=== PATIENT | female | born 1955 | race American Indian/Alaskan Native ===

== ENCOUNTER 2019-09-01 08:00 | Outpatient (CLI) | payer MEDICARE, MEDICAID ==
[2019-09-02 18:45] LABS: CANDIDA GROUP DNA NEGATIVE (NEGATIVE); CANDIDA KRUSEI DNA NEGATIVE (NEGATIVE); TRICHOMONAS VAGINALIS DNA POSITIVE (NEGATIVE)
[2019-09-02 20:58] LABS: TRICHOMONAS VAGINALIS DNA POSITIVE (NEGATIVE)
== END 2019-09-01 23:59 | disposition home or self-care (01) ==
LOC: LAB.R 08:00
PROVIDERS: ATTEND Obstetrics & Gynecology
DX: N89.8 Other specified noninflammatory disorders of vagina (principal)
CPT/HCPCS: 87491; 87591; 87661; 87801

== ENCOUNTER 2019-09-12 14:48 | Outpatient (CLI) | payer MEDICARE, MEDICAID ==
--- NOTE | 2019-09-15 04:13 | Ultrasound Report ---
Reason: POSTMENOPAUSAL BLEEDING Procedure Date: 09/12/2019 Accession Number: [id number] / [id number] Procedure: US - Pelvic w/Transvaginal CPT Code: Final Report FULL RESULT: EXAM: PELVIC ULTRASOUND EXAM DATE: 09/12/2019 03:00 PM. CLINICAL HISTORY: POSTMENOPAUSAL BLEEDING. COMPARISON: None. TECHNIQUE: Realtime transabdominal pelvic scan performed to identify the uterus and adnexa and as an overview of other pelvic structures, followed by transvaginal scan to provide greater detail of the uterus and adnexa, with static image documentation. FINDINGS: Uterus: 5.4 x 3.3 x 4.0 cm, volume 37.9 cc. Anteverted position. Heterogeneous uterus without focal fibroid or mass. Masses: None. Endometrium: 5 mm. Small fluid within endometrium. Cervix: Nabothian cysts. Small endocervical fluid. Right Ovary: Right ovary not seen probably due to combination of atrophy and bowel gas. Left Ovary: Left ovary not seen due to atrophy and bowel gas. Free Fluid: None. Other: None. IMPRESSION: 1. Normal postmenopausal endometrial thickness, 5 mm. 2. Small endometrial and endocervical fluid, nonspecific. 3. Ovaries not seen due to atrophy and bowel gas. RADIA
== END 2019-09-12 14:49 | disposition home or self-care (01) ==
LOC: DI 14:48
PROVIDERS: ATTEND Obstetrics & Gynecology
DX: N95.0 Postmenopausal bleeding (principal)
CPT/HCPCS: 76830; 76856

== ENCOUNTER 2019-12-19 15:39 | Outpatient (CLI) | payer MEDICARE, MEDICAID ==
--- NOTE | 2019-12-19 23:11 | Ultrasound Report ---
Reason: POSTMENOPAUSAL BLEEDING Procedure Date: 12/19/2019 Accession Number: [id number] / [id number] Procedure: US - Pelvic w/Transvaginal CPT Code: Final Report FULL RESULT: PROCEDURE: Pelvic w/Transvaginal INDICATIONS: POSTMENOPAUSAL BLEEDING TECHNIQUE: Real-time scanning was performed of the pelvic organs, with image documentation. Additional endovaginal scanning was necessary due to incomplete visualization of the adnexal and endometrial structures by transabdominal scanning. COMPARISON: Pelvic ultrasound 09/12/2019. FINDINGS: Transabdominal scanning: Limited scanning through the kidneys shows no hydronephrosis. Transvaginal exam not performed. Endovaginal scanning: Uterus: Uterus is normal in size at 6.8 x 5.6 x 2.9 cm. Myometrium is somewhat heterogeneous. The endometrium measures 5 mm in combined thickness. Trace fluid in the endometrial cavity. Ovaries: Not identified. IMPRESSION: Limited exam. The patient was unable to tolerate transvaginal portion of the exam. 1. Endometrium measures 5 mm in this postmenopausal patient with bleeding. Endometrial biopsy should be performed if not previously performed. 2. Trace fluid in the endometrial canal. 3. Ovaries not identified. Reviewed by: Fernando Calderon MD on 12/19/2019 11:10 PM PDT Approved by: Fernando Calderon MD on 12/19/2019 11:10 PM PDT Station ID: [id number]
== END 2019-12-19 15:40 | disposition home or self-care (01) ==
LOC: DI 15:39
PROVIDERS: ATTEND Obstetrics & Gynecology
DX: N95.0 Postmenopausal bleeding (principal)
CPT/HCPCS: 76830; 76856

== ENCOUNTER 2020-01-21 11:43 | Day surgery (SDC) | payer MEDICARE, MEDICAID ==
--- NOTE | 2020-01-20 17:12 | HISTORY & PHYSICAL EXAMINATION ---
HPI - Admitted From Admitted from: Other - History of Present Illness HPI Comment/Other: CC: PreOp Consult: Hysteroscopy D&C HPI: Pt is here today for a preop consult for hysteroscopy D&C ...................................................................DALILA Valentino January 15, 2020 3:02 PM The patient is a 64-year-old here for preop assessment for hysteroscopy D&C. The patient was last seen in clinic in September 01, 2019, at which time she reported that she has been having brown discharge for about a month. She is not sexually active and reports that her last sexual activity was 13 years ago. She had a history of abnormal Pap smear for which she underwent cryotherapy in her 20s. She believes her last Pap smear was about 8 years ago. She also had a history of Trichomonas in her 20s. We had attempted to do an endometrial biopsy in clinic back in August but she was unable to tolerate a speculum exam. She underwent a pelvic ultrasound but she was unable to tolerate the transvaginal portion of the ultrasound. The transabdominal ultrasound was done on September 12, 2019 and was again repeated on December 19, 2019. Both showed a thickened endometrial stripe measuring 5 mm in combined thickness with trace fluid in the endometrial cavity The exam was noted to be limited due to the patient's intolerance of the transvaginal portion of the exam. On September 12, 2019, ultrasound also showed 5 mm stripe with small fluid within the endometrium. The patient provides somewhat disjointed history and was unable to recall the details of the prior exam. She notes no significant changes in her past medical history. She states that she has right upper quadrant tenderness that has been ongoing. She thinks that it is from the time of her cholecystectomy. The cholecystectomy was performed about a year ago. She reports that her arthritis has worsened and she is generally losing her coordination but no other significant changes. She lives in a nursing home and will require transport after her surgery, that has been coordinated with the surgical office. Continued HPI: She also notes that she becomes agitated after anesthesia and has baseline emphysema. For this reason, we conferred with the anesthesia service with regards for need to consult. They reviewed her chart and do not believe she needs a preoperative consult. No change in health history other than as noted above. Allergies: PENICILLIN V POTASSIUM (Critical) * NICOTINE PATCH (Critical) STEROIDS (Critical) Medications: METRONIDAZOLE 500 MG ORAL TABLET (METRONIDAZOLE) Take one tablet by mouth twice daily for 7 days; Route: ORAL ZOLPIDEM TARTRATE 10 MG ORAL TABLET (ZOLPIDEM TARTRATE) Take one tablet by mouth at bedtime as needed for insomnia; Route: ORAL SPIRIVA HANDIHALER 18 MCG INHALATION CAPSULE (TIOTROPIUM BROMIDE MONOHYDRATE) Inhale one capsuleby mouth every morning; Route: INHALATION SENNA LAX 8.6 MG ORAL TABLET (SENNOSIDES) ; Route: ORAL QUETIAPINE FUMARATE 200 MG ORAL TABLET (QUETIAPINE FUMARATE) ; Route: ORAL QUETIAPINE FUMARATE 400 MG ORAL TABLET (QUETIAPINE FUMARATE) ; Route: ORAL PROAIR HFA 108 (90 BASE) MCG/ACT INHALATION AEROSOL SOLUTION (ALBUTEROL SULFATE) 2 puffs orally up to every 4 hrs as needed for wheezing; Route: INHALATION MONTELUKAST SODIUM 10 MG ORAL TABLET (MONTELUKAST SODIUM) Take one tablet by mouth once daily for allergies or asthma; Route: ORAL METAMUCIL FIBER PACKET (PSYLLIUM PACK) LAMOTRIGINE 100 MG ORAL TABLET (LAMOTRIGINE) Take one tablet by mouth once daily; Route: ORAL HYDROXYZINE HCL 25 MG ORAL TABLET (HYDROXYZINE HCL) Take one tablet by mouth four times daily as needed; Route: ORAL FAMOTIDINE 20 MG ORAL TABLET (FAMOTIDINE) Take one tablet by mouth once daily for indigestion; Route: ORAL DULERA 200-5 MCG/ACT INHALATION AEROSOL (MOMETASONE FURO-FORMOTEROL FUM) ; Route: INHALATION ACETAMINOPHEN 325 MG ORAL TABLET (ACETAMINOPHEN) Take two tablets by mouth three times daily as needed for pain or fever; Route: ORAL Problems: Preop exam (ICD-V72.84) (IKK17-U09.818) Postmenopausal bleeding (ICD-627.1) (GEQ22-F81.0) Vaginal discharge (ICD-623.5) (ULQ52-T03.8) Risk Factors: Smoked Tobacco Use: Current every day smoker Cigarettes: Yes -- 1.5 pack(s) per day,Exercise: no Seatbelt Use: 100 % Sun Exposure: occasionally Alcohol Use: no Drug Use: yes Drug of Choice: marijuana Vital Signs: Patient Profile: 64 Years Old Female Height: 67.5 inches Weight: 305 pounds BMI: 47.23 BP sittin / 87 Cuff size: large Vitals Entered By: DALILA Valentino (January 15, 2020 3:02 PM) Meds Reviewed: Done Allergies Reviewed: Done Past Medical History: arthritis emphysema/COPD gall bladder disease asthma hypoglycemia Past Surgical History: appendix (1969) gall bladder (2019) Tonsils and adnoids (1965) 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 Physical Constitutional: No apparent distress, but the patient seems easily confused. Head: Normocephalic and atraumatic. Eyes: No scleral icterus or conjunctival injection. Cardiovascular: Regular rate and rhythm. Respiratory: The patient does have recurrent cough but her lungs are clear to auscultation bilaterally. Abdomen: Obese, soft and nontender other than area of point tenderness immediately below her cholecystectomy scar. Extremities: Warm and well perfused. Neurologic: Alert, somewhat disoriented with regard to her personal history. Gait is rambling, somewhat limited. Psych: Tangential conversation and difficulty with recalling events. Problem # 1: Preoperative exam We reviewed the risks, benefits, and alternatives to examination under anesthesia as well as hysteroscopy D&C with possible polypectomy. We discussed the potential for pretreatment with Misoprostol. The patient did not believe she will be able to place Misoprostol on the vagina nor will she be able to recall the need for Misoprostol by mouth the night prior so we will opt to not pretreat her with Misoprostol. We reviewed that all surgical procedures have high risk of bleeding/infection/damaged nearby tissue and organs. We reviewed the risk of infection includes 1:2 million the risk of HIV and a 1:1 million risk of hepatitis, but it is more common as possible reactions to the proteins in the donor blood which we treat with medication. In terms of infection, we do not need to pretreat with antibiotics based on ACOG guidelines. We also reviewed the risk of uterine perforation and how that would be managed. The patient voiced understanding and written and informed consent was obtained. We will follow up with surgery on January 21, 2020. Again, we did have a telephone consult with anesthesia who understood the limitations of the patient's transport issues. They do not believe that she needs a preanesthesia consult in a [id number] context. + Gender ID Identifies as Female P: 1 L: 1 Height: 67.5 (09/01/2019 9:17:51 AM) Weight: 305 Gonnorrhea: INDETERMINATE (09/01/2019 10:15:00 AM) Chlamydia: INDETERMINATE (09/01/2019 10:15:00 AM) Gonnorrhea: INDETERMINATE (09/01/2019 10:15:00 AM) Chlamydia: INDETERMINATE (09/01/2019 10:15:00 AM) Current Allergies: PENICILLIN V POTASSIUM (Critical) * NICOTINE PATCH (Critical) STEROIDS (Critical) Current Meds: METRONIDAZOLE 500 MG ORAL TABLET (METRONIDAZOLE) Take one tablet by mouth twice daily for 7 days; Route: ORAL ZOLPIDEM TARTRATE 10 MG ORAL TABLET (ZOLPIDEM TARTRATE) Take one tablet by mouth at bedtime as needed for insomnia; Route: ORAL SPIRIVA HANDIHALER 18 MCG INHALATION CAPSULE (TIOTROPIUM BROMIDE MONOHYDRATE) Inhale one capsuleby mouth every morning; Route: INHALATION SENNA LAX 8.6 MG ORAL TABLET (SENNOSIDES) ; Route: ORAL QUETIAPINE FUMARATE 200 MG ORAL TABLET (QUETIAPINE FUMARATE) ; Route: ORAL QUETIAPINE FUMARATE 400 MG ORAL TABLET (QUETIAPINE FUMARATE) ; Route: ORAL PROAIR HFA 108 (90 BASE) MCG/ACT INHALATION AEROSOL SOLUTION (ALBUTEROL SULFATE) 2 puffs orally up to every 4 hrs as needed for wheezing; Route: INHALATION MONTELUKAST SODIUM 10 MG ORAL TABLET (MONTELUKAST SODIUM) Take one tablet by mouth once daily for allergies or asthma; Route: ORAL METAMUCIL FIBER PACKET (PSYLLIUM PACK) LAMOTRIGINE 100 MG ORAL TABLET (LAMOTRIGINE) Take one tablet by mouth once daily; Route: ORAL HYDROXYZINE HCL 25 MG ORAL TABLET (HYDROXYZINE HCL) Take one tablet by mouth fo ur times daily as needed; Route: ORAL FAMOTIDINE 20 MG ORAL TABLET (FAMOTIDINE) Take one tablet by mouth once daily for indigestion; Route: ORAL DULERA 200-5 MCG/ACT INHALATION AEROSOL (MOMETASONE FURO-FORMOTEROL FUM) ; Route: INHALATION ACETAMINOPHEN 325 MG ORAL TABLET (ACETAMINOPHEN) Take two tablets by mouth three times daily as needed for pain or fever; Route: ORAL PMH/PSH - Past Medical History Cardiovascular: positive: None Respiratory: positive: Asthma, COPD Endocrine/Autoimmune: positive: Other GI: positive: GERD, Chronic constipation : positive: Incontinence, Frequency HEENT: positive: None Psych: positive: Depression, Anxiety, Bipolar disorder, Other Musculoskeletal: positive: Osteoarthritis, Other Derm: positive: None MRSA Hx?: No - Past Surgical History General: positive: Cholecystectomy, Appendectomy HEENT: positive: Tonsil/Adenoidectomy Social & Family Hx - Social History Substance Use and Type: Marijuana Meds/Allgy - Home Medications Home Medications: Ambulatory Orders Medication Instructions Recorded Confirmed Acetaminophen [Tylenol] 650 mg PO Q6H PRN 01/13/20 01/13/20 Albuterol Sulfate [Proair Hfa 1 - 2 puffs INH Q4H PRN 01/13/20 01/13/20 Inhaler] [place] 1 packet PO PRN PRN 01/13/20 01/13/20 Carboxymethylcellulose Sodium 1 drops OP PRN PRN 01/13/20 01/13/20 [Artificial Tears] Ibuprofen [Motrin] 600 mg PO Q6H PRN 01/13/20 01/13/20 LORazepam [Ativan] 0.5 mg PO BID 01/13/20 01/13/20 Melatonin 5 mg PO QPM 01/13/20 01/13/20 Mometasone/Formoterol [Dulera 200 1 puffs IH BID 01/13/20 01/13/20 Mcg-5 Mcg Inhaler] Montelukast Sodium 10 mg PO QPM 01/13/20 01/13/20 Pyridoxine HCl (Vitamin B6) 100 mg PO DAILY 01/13/20 01/13/20 [Vitamin B-6] Quetiapine Fumarate [Seroquel] 200 mg PO DAILY 01/13/20 01/13/20 Quetiapine Fumarate [Seroquel] 600 mg PO QPM 01/13/20 01/13/20 Sennosides [Senna Lax] 8.6 mg PO DAILY 01/13/20 01/13/20 Tiotropium [place] [Spiriva] 1 puffs INH QPM 01/13/20 01/13/20 hydrOXYzine HCL [Hydroxyzine HCl] 25 - 50 mg PO TID PRN 01/13/20 01/13/20 lamoTRIgine [LaMICtal] 100 mg PO DAILY 01/13/20 01/13/20 - Allergies Allergies/Adverse Reactions: Allergies Allergy/AdvReac Type Severity Reaction Status Date / Time nicotine Allergy Unknown Verified 01/13/20 14:48 Penicillins Allergy Unknown Verified 01/13/20 14:48 steroids Allergy Unknown Uncoded 01/13/20 14:48
[~2020-01-21 11:43] MED LIST: ACETAMINOPHEN 1,000 MG/100 ML 100 ML IV ONE; CELECOXIB 100 MG CAPSULE PO ONE; GABAPENTIN 400 MG CAPSULE ONE
[2020-01-21] MEDS ORDERED: LIDOCAINE-MPF 2% 5 ML VIAL IM ONE (11:44)
[2020-01-21] MEDS ORDERED: fentaNYL 100 MCG/2 ML VIAL IVP ONE (11:44)
[2020-01-21] MEDS ORDERED: PROPOFOL 200 MG/20 ML VIAL IVP ONE (11:44)
[2020-01-21] MEDS ORDERED: ONDANSETRON 4 MG/2 ML VIAL IVP ONE (11:44)
[2020-01-21] MEDS ORDERED: LACTATED RINGERS 1,000 ML IV ONE ×2 (11:53→20:00)
--- NOTE | 2020-01-21 14:43 | ANESTHESIA ---
Pre-Anesthesia VS, & Labs - Diagnosis post menopausal bleeding - Procedure hystersocopy with myosure, d and C Vital Signs: Temp Pulse Resp BP Pulse Ox 36.4 C L 103 H 22 140/89 H 96 01/21/20 11:54 01/21/20 11:54 01/21/20 11:54 01/21/20 11:54 01/21/20 11:54 Height 5 ft 7 in Weight (kg) 138.7 kg - NPO >8 hours - Is Patient ?: No - Lab Results Current Lab Results: Laboratory Tests 01/21/20 12:11: POC Whole Bld Glucose 112 H Home Medications and Allergies Home Medications: Ambulatory Orders Acetaminophen [Tylenol] 650 mg PO Q6H PRN 01/13/20 Albuterol Sulfate [Proair Hfa Inhaler] 1 - 2 puffs INH Q4H PRN 01/13/20 [place] 1 packet PO PRN PRN 01/13/20 Carboxymethylcellulose Sodium [Artificial Tears] 1 drops OP PRN PRN 01/13/20 Ibuprofen [Motrin] 600 mg PO Q6H PRN 01/13/20 LORazepam [Ativan] 0.5 mg PO BID 01/13/20 Melatonin 5 mg PO QPM 01/13/20 Mometasone/Formoterol [Dulera 200 Mcg-5 Mcg Inhaler] 1 puffs IH BID 01/13/20 Montelukast Sodium 10 mg PO QPM 01/13/20 Pyridoxine HCl (Vitamin B6) [Vitamin B-6] 100 mg PO DAILY 01/13/20 Quetiapine Fumarate [Seroquel] 200 mg PO DAILY 01/13/20 Quetiapine Fumarate [Seroquel] 600 mg PO QPM 01/13/20 Sennosides [Senna Lax] 8.6 mg PO DAILY 01/13/20 Tiotropium [place] [Spiriva] 1 puffs INH QPM 01/13/20 hydrOXYzine HCL [Hydroxyzine HCl] 25 - 50 mg PO TID PRN 01/13/20 lamoTRIgine [LaMICtal] 100 mg PO DAILY 01/13/20 Acetaminophen [Tylenol] 650 mg PO Q6H PRN 01/13/20 Albuterol Sulfate [Proair Hfa Inhaler] 1 - 2 puffs INH Q4H PRN 01/13/20 [place] 1 packet PO PRN PRN 01/13/20 Carboxymethylcellulose Sodium [Artificial Tears] 1 drops OP PRN PRN 01/13/20 Ibuprofen [Motrin] 600 mg PO Q6H PRN 01/13/20 LORazepam [Ativan] 0.5 mg PO BID 01/13/20 Melatonin 5 mg PO QPM 01/13/20 Mometasone/Formoterol [Dulera 200 Mcg-5 Mcg Inhaler] 1 puffs IH BID 01/13/20 Montelukast Sodium 10 mg PO QPM 01/13/20 Pyridoxine HCl (Vitamin B6) [Vitamin B-6] 100 mg PO DAILY 01/13/20 Quetiapine Fumarate [Seroquel] 200 mg PO DAILY 01/13/20 Quetiapine Fumarate [Seroquel] 600 mg PO QPM 01/13/20 Sennosides [Senna Lax] 8.6 mg PO DAILY 01/13/20 Tiotropium [place] [Spiriva] 1 puffs INH QPM 01/13/20 hydrOXYzine HCL [Hydroxyzine HCl] 25 - 50 mg PO TID PRN 01/13/20 lamoTRIgine [LaMICtal] 100 mg PO DAILY 01/13/20 Allergies/Adverse Reactions: Allergies Allergy/AdvReac Type Severity Reaction Status Date / Time nicotine Allergy Unknown Verified 01/13/20 14:48 Penicillins Allergy Unknown Verified 01/13/20 14:48 steroids Allergy Unknown Uncoded 01/13/20 14:48 Anes History & Medical History - Anesthetic History Anesthesia Complications: reports: No previous complications - Medical History Cardiovascular: reports: None Pulmonary: reports: Asthma, COPD Gastrointestinal: reports: GERD, Chronic constipation Urinary: reports: Incontinence, Frequency Musculoskeletal: reports: Osteoarthritis, Other Endocrine/Autoimmune: reports: Other Skin: reports: None - Surgical History General: Cholecystectomy, Appendectomy Eyes Ears Nose Throat (EENT): Tonsil/Adenoidectomy Exam General: Alert Dental: WNL Mouth Opening: Greater than 4 Fingerbreadths Neck Mobility: Limited Mallampati classification: II Thyromental Distance: greater than 6 cm Respiratory: Lungs clear, Decreased breath sounds Cardiovascular: Regular rate Mental/Cognitive Status: Alert/Oriented X3 Plan Anesthesia Type: General Consent for Procedure(s) Verified and Reviewed: Yes Code Status: Attempt Resuscitation ASA classification: 3-Severe systemic disease Is this case an emergency?: No
[2020-01-21] MEDS ORDERED: SILVER NITRATE APPLICATOR TOP ONE (18:42)
[2020-01-21] MEDS ORDERED: LIDOCAINE 1%-EPI 1:100000 20 ML MDV ONE (18:42)
[2020-01-21] MEDS ORDERED: LIDOCAINE 1%-EPI 1:100000 20 ML MDV IM ONE (19:22)
--- NOTE | 2020-01-21 20:01 | OPERATIVE REPORT ---
Operative Report - General Procedure Date: 01/21/20 Planned Procedure: Hysteroscopy D&C and pap smear Pre-Op Diagnosis: Postmenopausal bleeding and thickened endometrium Procedure Performed: Hysteroscopy D&C and pap smear Post Op Diagnosis: Same - Procedure Note Primary Surgeon: Nancy Carrera MD Anesthesia Provider: Everton aMn CRNA Anesthesia Technique: General LMA Pathology: uterine contents IV Fluids (mL): 300 Estimated Blood Loss (mL): 10 Urine Output (mL): 300 (in and out catheterization) Indications: Patient is a 64 yo female with postmenopausal bleeding and thickened endometrium. She was unable to tolerate pelvic exam in clinic. Due for pap screening. Findings: Normal appearing uterine cavity and bilateral tubal ostia. Complications: None - Other Other Information/Narrative: Risks benefits and alternatives to the procedure were reviewed. Consent was again confirmed. Patient was taken to the operating room where she underwent general anesthesia. She was positioned in dorsolithotomy position with legs resting in yellowfin stirrups. She was prepped and draped in the usual sterile fashion. Preoperative antibiotics were not indicated. Preoperative checklist was performed. Exam under anesthesia was performed. Speculum was placed in the vagina and the cervix was visualized. Single-tooth tenaculum was placed at the anterior cervical lip. Paracervical block was administered using a total of 20 cc of 1% lidocaine with epinephrine was injected at the 4:00 and 8:00 positions lateral to the portio of the cervix. The cervical os was serially dilated with Hegar dilators to accommodate the caliber of the diagnostic hysteroscope. The hysteroscope was inserted and findings were noted as above. Hysteroscope was removed. Sharp curettage D&C was performed with sharp curettage. Pap smear was collected. All instruments were removed from the uterus. Tenaculum was removed. Tenaculum sites were noted to be hemostatic. All instruments were removed from the vagina. Procedure was well-tolerated without complication. Fluid deficit:110 cc NS
[2020-01-21] MEDS ORDERED: oxyCODONE/ACET 5/325 Prepack 4 PO STA (20:28)
[2020-01-21 22:31] VITALS: BP 120/92
== END 2020-01-21 22:37 | disposition home or self-care (01) ==
LOC: SDS 11:43 → MS2 20:45 → SDS 22:37
PROVIDERS: ATTEND Obstetrics & Gynecology
PROC: 0UJD8ZZ Inspection of Uterus and Cervix, Via Natural or Artificial Opening Endoscopic (ICD-10-PCS; 2020-01-21)
PROC: 0UDB7ZZ Extraction of Endometrium, Via Natural or Artificial Opening (ICD-10-PCS; principal; 2020-01-21 12:45)
DX: N95.0 Postmenopausal bleeding (principal); N89.8 Other specified noninflammatory disorders of vagina; R93.89 Abnormal findings on diagnostic imaging of other specified body structures; J43.9 Emphysema, unspecified; F17.210 Nicotine dependence, cigarettes, uncomplicated
CPT/HCPCS: 58558; A9270; J0131; J7120

== ENCOUNTER 2020-09-14 16:51 | Outpatient (CLI) | payer MEDICARE, MEDICAID | END 2020-09-14 16:52 | disposition critical access hospital (66) | LOC: EMS 16:51 | PROVIDERS: ATTEND Emergency Medicine | DX: R06.00 Dyspnea, unspecified (principal); R22.33 Localized swelling, mass and lump, upper limb, bilateral; R22.43 Localized swelling, mass and lump, lower limb, bilateral; M79.652 Pain in left thigh | CPT/HCPCS: A0425; A0429 ==

== ENCOUNTER 2020-09-14 17:12 | Inpatient (IN) | payer MEDICARE, MEDICAID ==
[2020-09-14] MEDS ORDERED: IPRATROPIUM/ALBUTEROL 3 ML NEB INH STA (17:41)
[2020-09-14 17:48] LABS: BASOPHILS % (AUTO) 0.4 %; EOSINOPHILS % (AUTO) 0.4 %; HCT - HEMATOCRIT 45.4 % (37.0-47.0); HGB - HEMOGLOBIN 13.2 g/dL (12.0-16.0); LYMPHOCYTES # (AUTO) 1.4 10^3/uL (1.5-3.5); LYMPHOCYTES % (AUTO) 16.3 %; MEAN CORPUSCULAR HGB CONC 29.1 g/dL (32.0-36.0); MEAN CORPUSCULAR VOLUME 96.4 fL (81.0-99.0); MEAN PLATELET VOLUME 9.8 fL (7.9-10.8); MONOCYTES # (AUTO) 0.9 10^3/uL (0.0-1.0); MONOCYTES % (AUTO) 10.7 %; PLT - PLATELET COUNT 222 10^3/uL (130-450); RED BLOOD COUNT 4.71 10^6/uL (4.20-5.40); WHITE BLOOD COUNT 8.4 x10^3/uL (4.8-10.8)
[2020-09-14 18:03] LABS: ALBUMIN 3.8 g/dL (3.2-5.5); ALBUMIN/GLOBULIN RATIO 1.1 (1.0-2.2); BILIRUBIN,TOTAL 0.4 mg/dL (0.2-1.0); CALCIUM 9.2 mg/dL (8.5-10.3); CREATININE 0.6 mg/dL (0.4-1.0); POTASSIUM 4.3 mmol/L (3.5-5.0); TOTAL PROTEIN 7.4 g/dL (6.7-8.2)
[2020-09-14] MEDS ORDERED: methylPREDNISolone SUCCINATE 125 MG/2 ML VIAL IVP STA (18:19)
--- NOTE | 2020-09-14 18:27 | ED Physician Documentation ---
History of Present Illness - Stated complaint Stated Complaint: SOA - Chief complaint Chief Complaint: Resp - History obtained from History obtained from: Patient - Additonal information Additional information: 65-year-old woman with past medical history of COPD on 3 L home oxygen presents with shortness of breath worsening over the past couple days a/w cough productive of clear sputum. dyspnea is constant, moderate severity, Worse with exertion, better with rescue inhaler. She used her inhaler continuously today and yesterday but still had chest tightness and wheezing so came to the ed. Patient denies leg swelling, chest pain, pleurisy, back pain, nausea or vomiting. Denies fevers. Denies hemoptysis. she also endorses progressive generalized weakness over the course of a month with Increasing inability to ambulate as well as some brain fogginess and difficulty getting thoughts out. No neuro deficits at present. Review of Systems Ten Systems: 10 systems reviewed and negative Constitutional: reports: Fatigue. denies: Fever, Chills Cardiac: denies: Chest pain / pressure Respiratory: reports: Dyspnea, Cough GI: denies: Nausea, Vomiting Skin: denies: Rash Neurologic: reports: Generalized weakness PD PAST MEDICAL HISTORY - Past Medical History Past Medical History: Yes Cardiovascular: None Respiratory: Asthma, COPD Endocrine/Autoimmune: Other GI: GERD, Chronic constipation : Incontinence, Frequency HEENT: None Psych: Depression, Anxiety, Bipolar disorder, Other Musculoskeletal: Osteoarthritis, Other Derm: None - Past Surgical History General: Cholecystectomy, Appendectomy HEENT: Tonsil/Adenoidectomy - Present Medications Home Medications: Ambulatory Orders Medication Instructions Recorded Confirmed Acetaminophen [Tylenol] 650 mg PO Q6H PRN 01/13/20 01/13/20 Albuterol Sulfate [Proair Hfa 1 - 2 puffs INH Q4H PRN 01/13/20 01/13/20 Inhaler] Eboni-Momence 1 packet PO PRN PRN 01/13/20 01/13/20 Carboxymethylcellulose Sodium 1 drops OP PRN PRN 01/13/20 01/13/20 [Artificial Tears] Ibuprofen [Motrin] 600 mg PO Q6H PRN 01/13/20 01/13/20 LORazepam [Ativan] 0.5 mg PO BID 01/13/20 01/13/20 Melatonin 5 mg PO QPM 01/13/20 01/13/20 Mometasone/Formoterol [Dulera 200 1 puffs IH BID 01/13/20 01/13/20 Mcg-5 Mcg Inhaler] Montelukast Sodium 10 mg PO QPM 01/13/20 01/13/20 Pyridoxine HCl (Vitamin B6) 100 mg PO DAILY 01/13/20 01/13/20 [Vitamin B-6] Quetiapine Fumarate [Seroquel] 200 mg PO DAILY 01/13/20 01/13/20 Quetiapine Fumarate [Seroquel] 600 mg PO QPM 01/13/20 01/21/20 Sennosides [Senna Lax] 8.6 mg PO DAILY 01/13/20 01/21/20 Tiotropium [place] [Spiriva] 1 puffs INH QPM 01/13/20 01/13/20 hydrOXYzine HCL [Hydroxyzine HCl] 25 - 50 mg PO TID PRN 01/13/20 01/13/20 lamoTRIgine [LaMICtal] 100 mg PO DAILY 01/13/20 01/21/20 - Allergies Allergies/Adverse Reactions: Allergies Allergy/AdvReac Type Severity Reaction Status Date / Time nicotine Allergy Unknown Verified 01/13/20 14:48 Penicillins Allergy Unknown Verified 01/13/20 14:48 steroids Allergy Unknown Uncoded 01/13/20 14:48 - Social History Does the pt smoke?: Yes Smoking Status: Current every day smoker Does the pt drink ETOH?: No Does the pt have substance abuse?: No Substance Use and Type: Marijuana - Immunizations Immunizations are current?: Yes - POLST Patient has POLST: No PD ED PE NORMAL - Vitals Vital signs reviewed: Yes - General General: Alert and oriented X 3, No acute distress, Well developed/nourished - HEENT HEENT: Atraumatic, PERRL, EOMI - Cardiac Cardiac: Other (Borderline tachycardic rate, regular rhythm) - Respiratory Respiratory: Other (Bilateral decreased airflow and inspiratory and expiratory wheezing. Mild increased work of breathing.) - Abdomen Abdomen: Non tender, Non distended - Female Female : Deferred - Rectal Rectal: Deferred - Back Back: No spinal TTP - Derm Derm: Normal color, Warm and dry - Extremities Extremities: No deformity, Other (1+ pitting edema bilaterally) - Neuro Neuro: Alert and oriented X 3, seo team lead 2-12 intact, No motor deficit, No sensory deficit, Normal speech - Psych Psych: Normal mood, Normal affect Results - Vitals Vitals: Vital Signs - 24 hr 09/14/20 09/14/20 09/14/20 17:16 17:39 17:55 Temperature 36.2 C L Heart Rate 107 H 96 102 H Respiratory 28 H 27 H 21 Rate Blood Pressure 144/95 H 171/94 H 189/63 H O2 Saturation 90 L 94 92 Oxygen O2 Source Nasal cannula Oxygen Flow Rate 3 - Labs Labs: Laboratory Tests 09/14/20 09/14/20 09/14/20 17:32 17:32 17:32 WBC 8.4 RBC 4.71 Hgb 13.2 Hct 45.4 MCV 96.4 MCH 28.0 MCHC 29.1 L RDW 16.0 H Plt Count 222 MPV 9.8 Neut # (Auto) 6.0 Lymph # (Auto) 1.4 L [place] # (Auto) 0.9 Eos # (Auto) 0.0 Baso # (Auto) 0.0 Absolute Nucleated RBC 0.00 Nucleated RBC % 0.0 Sodium 137 Potassium 4.3 Chloride 89 L Carbon Dioxide 38 H Anion Gap 10.0 BUN 17 Creatinine 0.6 Estimated GFR (MDRD) 100 Glucose 117 H Calcium 9.2 Total Bilirubin 0.4 AST 23 ALT 30 Alkaline Phosphatase 57 Troponin I High Sens 22.1 H* B-Natriuretic Peptide Total Protein 7.4 Albumin 3.8 Globulin 3.6 Albumin/Globulin Ratio 1.1 Lipase 20 L 09/14/20 17:32 WBC RBC Hgb Hct MCV MCH MCHC RDW Plt Count MPV Neut # (Auto) Lymph # (Auto) [place] # (Auto) Eos # (Auto) Baso # (Auto) Absolute Nucleated RBC Nucleated RBC % Sodium Potassium Chloride Carbon Dioxide Anion Gap BUN Creatinine Estimated GFR (MDRD) Glucose Calcium Total Bilirubin AST ALT Alkaline Phosphatase Troponin I High Sens B-Natriuretic Peptide 126 H Total Protein Albumin Globulin Albumin/Globulin Ratio Lipase PD MEDICAL DECISION MAKING - ED course ED course: 65-year-old woman presents with COPD exacerbation. Improvement with wheezing and work of breathing with nebulizer treatment and steroids. Will admit for observation overnight.
[2020-09-14 18:30] LABS: VBG BASE EXCESS 7.8 mmol/L (-2 - +2); VBG HCO3 33.6 mmol/L (23-28); VBG OXYGEN SATURATION 81.8 % (60-80); VBG PCO2 50.9 mmHg (41-51); VBG PH 7.437 (7.31-7.41); VBG PO2 38.6 mmHg (25-47); VBG TOTAL CO2 35.1 mmol/L (24-29)
[2020-09-14] MEDS ORDERED: ONDANSETRON ODT 4 MG TABLET TL PRN (18:33)
[2020-09-14] MEDS ORDERED: SODIUM CHLORIDE FLUSH 0.9% 10 ML SYRINGE IVP PRN (18:33)
[2020-09-14] MEDS ORDERED: ONDANSETRON 4 MG/2 ML VIAL IVP PRN (18:33)
--- NOTE | 2020-09-14 18:47 | XRAY Report ---
PROCEDURE: Chest 1 View X-Ray INDICATIONS: Chest Pain TECHNIQUE: One view of the chest was acquired. COMPARISON: None. FINDINGS: Surgical changes and devices: None. Lungs and pleura: There is pulmonary vascular prominence compatible with edema. Linear opacities in the medial right lung base likely represent atelectasis. No pleural effusions or pneumothorax. Mediastinum: Heart size is enlarged. Bones and chest wall: No suspicious bony lesions. Overlying soft tissues appear unremarkable. IMPRESSION: 1. Cardiomegaly with pulmonary edema suggestive of congestive heart failure. 2. Linear opacities in the medial right lung base likely represent atelectasis, versus developing con solidation. Reviewed by: North Barillas MD on 09/14/2020 5:46 PM [place] Approved by: North Barillas MD on 09/14/2020 5:46 PM [place] Station ID: [id number]
[2020-09-14 19:18] LABS: B. PARAPERTUSSIS- RESP PCR PAN NOT DETECTED; B. PERTUSSIS- RESP PCR PANEL NOT DETECTED; C. PNEUMONIAE- RESP PCR PANEL NOT DETECTED; CORONAVIRUS 229E-RESP PCR NOT DETECTED; CORONAVIRUS HKU1-RESP PCR NOT DETECTED; CORONAVIRUS NL63-RESP PCR NOT DETECTED; CORONAVIRUS OC43-RESP PCR NOT DETECTED; HUMAN METAPNEUMOVIRUS NOT DETECTED; INFLUENZA A- RESP PCR PANEL NOT DETECTED; INFLUENZA B - RESP PCR PANEL NOT DETECTED; M. PNEUMONIAE- RESP PCR PANEL NOT DETECTED; PARAINFLUENZA VIRUS 1 NOT DETECTED; PARAINFLUENZA VIRUS 2 NOT DETECTED; PARAINFLUENZA VIRUS 3 NOT DETECTED; PARAINFLUENZA VIRUS 4 NOT DETECTED; RHINOVIRUS/ENTEROVIRUS NOT DETECTED; RSV- RESP PCR PANEL NOT DETECTED; SARS-CoV-2 -RESP PCR PANEL NOT DETECTED
--- NOTE | 2020-09-14 20:50 | HISTORY & PHYSICAL EXAMINATION ---
Chief Complaint - Chief Complaint Chief Complaint: dyspnea and hypoxia History of Present Illness - Admitted From Admitted From:: [facility] ED - History Obtained From Records Reviewed: yes History obtained from: patient - History of Present Illness HPI Comment/Other: 65-year-old female with history of COPD and bipolar disorder who presented to the ED with dyspnea and hypoxia. Her symptoms have been going on for 3 to 4 months got significantly worse over the past few days. She is unable to ambulate 7 feet without becoming significantly winded. Arrival to the ED she was wheezing, tachypneic and tachycardic. Chest x-ray showed pulmonary vascular congestion suggestive of mild pulmonary edema. Patient has trace to +1 lower extremity edema. She is being admitted for further treatment. At bedside she denied chest pain, abdominal pain, nausea, vomiting, fever or chills. Her breathing has improved, however she still sounds coarse. She is on 5 L of oxygen via nasal cannula with O2Sat at 92-93%. History - Past Medical History Cardiovascular: reports: None Respiratory: reports: Asthma, COPD, Pneumonia Neuro: reports: None Endocrine/Autoimmune: reports: None GI: reports: GERD, Chronic constipation : reports: Incontinence, Frequency HEENT: reports: None Psych: reports: Depression, Anxiety, Bipolar disorder Musculoskeletal: reports: Osteoarthritis, Other Derm: reports: None MRSA Hx?: No - Past Surgical History General: reports: Cholecystectomy, Appendectomy HEENT: reports: Tonsil/Adenoidectomy - Family & Social History Family History Comment/Other: Patient denies any significant family history. Living arrangement: care home Social History Notes: Patient resides at [facility], [facility]. She smokes 1 pack a day and has been smoking cigarettes for 30+ years. She denies alcohol use. She reports marijuana use. - POLST Patient has POLST: No POLST Status: Full Code Meds/Allgy - Home Medications Home Medications: Ambulatory Orders Medication Instructions Recorded Confirmed Albuterol Sulfate [Proair Hfa 1 - 2 puffs INH Q4H PRN 01/13/20 09/15/20 Inhaler] Eboni-Farrar 1 packet PO PRN PRN 01/13/20 09/15/20 Carboxymethylcellulose Sodium 1 drops OP PRN PRN 01/13/20 09/15/20 [Artificial Tears] Ibuprofen [Motrin] 600 mg PO Q6H PRN 01/13/20 09/15/20 LORazepam [Ativan] 0.5 mg PO TID 01/13/20 09/15/20 Melatonin 5 mg PO QPM 01/13/20 09/15/20 Mometasone/Formoterol [Dulera 200 1 puffs INH BID 01/13/20 09/15/20 Mcg-5 Mcg Inhaler] Montelukast Sodium 10 mg PO QPM 01/13/20 09/15/20 Pyridoxine HCl (Vitamin B6) 100 mg PO DAILY 01/13/20 09/15/20 [Vitamin B-6] Quetiapine Fumarate [Seroquel] 600 mg PO QPM 01/13/20 09/15/20 Sennosides [Senna Lax] 8.6 mg PO DAILY 01/13/20 09/15/20 Tiotropium [place] [Spiriva] 1 puffs INH QPM 01/13/20 09/15/20 hydrOXYzine HCL [Hydroxyzine HCl] 25 - 50 mg PO TID PRN 01/13/20 09/15/20 Acetaminophen [Acetaminophen Extra 1,000 mg PO Q8H PRN 09/15/20 09/15/20 Strength] Gabapentin [Neurontin] 300 mg PO TID 09/15/20 09/15/20 Meloxicam [Mobic] 7.5 mg PO BIDWM 09/15/20 09/15/20 lamoTRIgine [Lamictal] 150 mg PO DAILY 09/15/20 09/15/20 - Allergies Allergies/Adverse Reactions: Allergies Allergy/AdvReac Type Severity Reaction Status Date / Time Androgenic Anabolic Steroid Allergy Unknown Verified 09/15/20 08:24 Neuromuscular Blockers, Allergy Unknown Verified 09/15/20 08:26 Steroidal nicotine Allergy Unknown Verified 01/13/20 14:48 Penicillins Allergy Unknown Verified 01/13/20 14:48 Review of Systems - Constitutional Constitutional: denies: Fatigue, Fever, Chills - Eyes Eyes: denies: Pain - Ears, Nose & Throat Ears, Nose & Throat: denies: Ear pain, Sore throat - Cardiovascular Cariovascular: reports: Edema (trace to +1 edema), Exertional dyspnea, Decr. exercise tolerance. denies: Irregular heart rate, Palpitations, Chest pain, Lightheadedness, Syncope - Respiratory Respiratory: reports: Wheezing, SOB at rest, SOB with exertion. denies: Cough, Sputum production - Gastrointestinal Gastrointestinal: denies: Abdominal pain, Abdominal distention, Constipation, Nausea, Vomiting, Coffee grounds emesis, Reflux/heartburn - Genitourinary Genitourinary: denies: Dysuria, Frequency, Urgency, Hematuria - Musculoskeletal Musculoskeletal: denies: Muscle pain, Back pain, Muscle aches - Integumentary Integumentary: denies: Rash, Pruritis, Lesions, Dryness - Neurological Neurological: denies: General weakness, Focal weakness, Headache, Dizziness - Psychiatric Psychiatric: denies: Depression, Anxiety - Endocrine Endocrine: denies: Polyuria, Polydypsia - Hematologic/Lymphatic Hematologic/Lymphatic: denies: Anemia, Bruising Prior Level of Functionality: She resides at [facility]. Patient used to use a walking cane to get around however she has been unable to do so lately and is currently mainly sedentary Exam - Vital Signs Vital Signs: Vital Signs x48h Temp Pulse Pulse Resp BP BP Pulse Ox 09/14/20 19:55 37.3 C 102 H 22 172/97 H 92 09/14/20 19:11 102 H 197/83 H 09/14/20 19:00 101 H 26 H 197/83 H 91 L 09/14/20 18:48 100 29 H 192/94 H 92 09/14/20 18:26 98 25 H 09/14/20 17:55 102 H 21 189/63 H 92 09/14/20 17:39 96 27 H 171/94 H 94 09/14/20 17:16 36.2 C L 107 H 28 H 144/95 H 90 L - Physical Exam General Appearance: positive: Alert, Mild distress Eyes Bilateral: positive: PERRL, EOMI ENT: positive: No signs of dehydration Neck: positive: No JVD, Trachea midline Respiratory: positive: Wheezes (Mild with coarse breath sounds) Cardiovascular: positive: No murmur, Tachycardia Abdomen: positive: Non-tender, No organomegaly, Nml bowel sounds, No distention. negative: Guarding, Rebound Back: positive: Nml inspection Skin: positive: Color nml, No rash, Warm, Dry Extremities: positive: Non-tender, Nml appearance, Pedal edema (trace to +1) Neurologic/Psychiatric: positive: Oriented x3, Mood/affect nml Conclusion/Plan - Problem List (1) COPD exacerbation Conclusion/Plan: Mild. Patient is normally on 3 L of oxygen via nasal cannula at baseline. Currently on 5 L with oxygen saturation between 92 to 93%. Patient received methylprednisolone 125 mg IV x1 in the ED. Methylprednisolone 40 mg IV 3 times daily ordered. Budesonide and formoterol ordered twice daily. (2) Pulmonary edema Conclusion/Plan: Mild. Chest x-ray showed mild pulmonary vascular congestion. Patient has trace to +1 lower extremity edema. Patient was given Lasix 20 mg IV x1. Qualifiers: Chronicity: acute Qualified Code(s): J81.0 - Acute pulmonary edema (3) Bipolar disorder Conclusion/Plan: On lamotrigine and seroquel (4) Anxiety Conclusion/Plan: On ativan 0.5mg po bid - Lab Results Fish Bones: 09/14/20 17:32 09/15/20 04:34 Core Measures - Anticipated LOS I expect patient to be DC'd or transferred within 96 hours.: Yes - DVT/VTE - Prophylaxis VTE/DVT Device ordered at admit?: Yes VTE/DVT Prophylaxis med ordered at admit?: Yes
[2020-09-14] MEDS ORDERED: FUROSEMIDE 20 MG/2 ML VIAL IVP STA (21:15)
[2020-09-14] MEDS: methylPREDNISolone SUCCINATE 40 MG/ML VIAL IVP SCH (22:12)
[2020-09-14] MEDS: ACETAMINOPHEN 325 MG TABLET PO PRN (23:20)
[2020-09-14] MEDS: oxyCODONE 5 MG TABLET PO PRN (23:23)
[2020-09-15] MEDS: SODIUM CHLORIDE FLUSH 0.9% 10 ML SYRINGE IVP SCH ×4 (00:41→23:54)
[2020-09-15] MEDS: oxyCODONE 5 MG TABLET PO PRN (05:01)
[2020-09-15 05:37] LABS: CALCIUM 8.9 mg/dL (8.5-10.3); CREATININE 0.5 mg/dL (0.4-1.0); POTASSIUM 4.2 mmol/L (3.5-5.0)
[2020-09-15] MEDS ORDERED: FUROSEMIDE 20 MG/2 ML VIAL IVP ONE (06:00)
[2020-09-15] MEDS: methylPREDNISolone SUCCINATE 40 MG/ML VIAL IVP SCH ×2 (06:52→15:29)
[2020-09-15] MEDS: FORMOTEROL FUMARATE NEB 20 MCG/2 ML INH SCH ×2 (07:35→19:15)
[2020-09-15] MEDS: IPRATROPIUM/ALBUTEROL 3 ML NEB INH PRN ×3 (07:35→14:57)
[2020-09-15] MEDS: BUDESONIDE 0.5 MG/2 ML NEB INH SCH ×2 (07:35→19:15)
[2020-09-15 07:48] LABS: ABG BASE EXCESS 13.2 mmol/L (-2.0-3.0); ABG HCO3 47.7 mmol/L (22.0-26.0)
[2020-09-15 07:49] LABS: ALLEN TEST POSITIVE
[2020-09-15 07:52] LABS: ABG PCO2 129 mmHg (34-45); ABG PH 7.19 (7.35-7.45)
[2020-09-15 07:53] LABS: ABG OXYGEN SATURATION 79 % (94-98); ABG PO2 50 mmHg (80-100); ABG TCO2 51.7 MMOL/L (21.0-29.0)
[2020-09-15] MEDS ORDERED: LORazepam 0.5 MG TABLET PO PRN (07:56)
[2020-09-15] MEDS: PROCHLORPERAZINE 10 MG/2 ML VIAL IVP PRN (08:37)
--- NOTE | 2020-09-15 08:49 | PROVIDER PROGRESS NOTE ---
Subjective - Prog Note Date Prog Note Date: 09/15/20 Prog Note Time: 08:46 - Subjective Pt reports feeling: Worse Subjective: This morning she is requiring more more oxygen. She was up to 5 L/min and in spite of that her oxygen saturations were in the low 80s. She was very sleepy, arousable, but sleepier than last night. As such I got a blood gas and her pH is 7.185, PCO2 129.2. PO2 is 50. Base excess +13.2. While she was recognized to be in COPD exacerbation last night, she was also felt to have some element of congestive heart failure as well. Current Medications - Current Medications Current Medications: Active Medications Acetaminophen (Acetaminophen 325 Mg Tablet) 650 mg PO Q4HR PRN PRN Reason: Pain 1 to 4 Last Admin: 09/14/20 23:20 Dose: 650 mg Documented by: Albuterol/Ipratropium (Ipratropium/Albuterol 3 Ml Neb) 3 ml INH Q4HR PRN PRN Reason: Wheezing Last Admin: 09/15/20 07:35 Dose: 3 ml Documented by: Budesonide (Budesonide 0.5 Mg/2 Ml Neb) 0.5 mg INH RTBID [facility] Last Admin: 09/15/20 07:35 Dose: 0.5 mg Documented by: Chlorhexidine Gluconate (Chlorhexidine Gluconate 15 Ml Udc) 15 ml PO BID [facility] Enoxaparin Sodium (Enoxaparin 40 Mg/0.4 Ml Syringe) 40 mg SUBQ DAILY [facility] Formoterol Fumarate (Formoterol Fumarate Neb 20 Mcg/2 Ml) 20 mcg INH RTBID [facility] Last Admin: 09/15/20 07:35 Dose: 20 mcg Documented by: Lorazepam (Lorazepam 0.5 Mg Tablet) 0.5 mg PO Q2HR PRN PRN Reason: Anxiety Methylprednisolone (Methylprednisolone Succinate 40 Mg/Ml Vial) 40 mg IVP TID [facility] Stop: 09/15/20 14:01 Last Admin: 09/15/20 06:52 Dose: 40 mg Documented by: Ondansetron HCl (Ondansetron Odt 4 Mg Tablet) 4 mg TL Q6HR PRN PRN Reason: Nausea / Vomiting Ondansetron HCl (Ondansetron 4 Mg/2 Ml Vial) 4 mg IVP Q6HR PRN PRN Reason: Nausea / Vomiting Last Admin: 09/15/20 06:52 Dose: 4 mg Documented by: Oxycodone HCl (Oxycodone 5 Mg Tablet) 5 mg PO Q4HR PRN PRN Reason: Pain 5 to 7 Last Admin: 09/15/20 05:01 Dose: 5 mg Documented by: Prochlorperazine Edisylate (Prochlorperazine 10 Mg/2 Ml Vial) 10 mg IVP Q6HR PRN PRN Reason: Nausea / Vomiting Last Admin: 09/15/20 08:37 Dose: 10 mg Documented by: Sodium Chloride (Sodium Chloride Flush 0.9% 10 Ml Syringe) 10 ml IVP PRN PRN PRN Reason: NEEDED PER PROVIDER ORDERS Last Admin: 09/14/20 22:13 Dose: 20 ml Documented by: Sodium Chloride (Sodium Chloride Flush 0.9% 10 Ml Syringe) 10 ml IVP 0100,0900,1700 [place] Last Admin: 09/15/20 00:41 Dose: 10 ml Documented by: Acetaminophen [Tylenol] 650 mg PO Q6H PRN 01/13/20 Albuterol Sulfate [Proair Hfa Inhaler] 1 - 2 puffs INH Q4H PRN 01/13/20 [place] 1 packet PO PRN PRN 01/13/20 Carboxymethylcellulose Sodium [Artificial Tears] 1 drops OP PRN PRN 01/13/20 Ibuprofen [Motrin] 600 mg PO Q6H PRN 01/13/20 LORazepam [Ativan] 0.5 mg PO BID 01/13/20 Melatonin 5 mg PO QPM 01/13/20 Mometasone/Formoterol [Dulera 200 Mcg-5 Mcg Inhaler] 1 puffs IH BID 01/13/20 Montelukast Sodium 10 mg PO QPM 01/13/20 Pyridoxine HCl (Vitamin B6) [Vitamin B-6] 100 mg PO DAILY 01/13/20 Quetiapine Fumarate [Seroquel] 200 mg PO DAILY 01/13/20 Quetiapine Fumarate [Seroquel] 600 mg PO QPM 01/13/20 Sennosides [Senna Lax] 8.6 mg PO DAILY 01/13/20 Tiotropium [place] [Spiriva] 1 puffs INH QPM 01/13/20 hydrOXYzine HCL [Hydroxyzine HCl] 25 - 50 mg PO TID PRN 01/13/20 lamoTRIgine [LaMICtal] 100 mg PO DAILY 01/13/20 Objective - Vital Signs/Intake & Output Reviewed Vital Signs: Yes Vital Signs: Vital Signs Temp Pulse Pulse Resp BP Pulse Ox 09/15/20 08:00 36.6 C 104 H 26 H 163/88 H 83 L 09/15/20 07:30 104 H 14 Intake & Output: Intake & Output 09/12/20 09/13/20 09/14/20 09/15/20 23:59 23:59 23:59 23:59 Intake Total 400 580 Output Total 2250 1999 Balance -2576 -0160 - Objective General Appearance: positive: Moderate distress, Lethargic, Other (5 foot 7-1/2 inch female who weighs 144.5 kg) Eyes Bilateral: positive: PERRL, EOMI ENT: positive: Other (Thick neck, unable to assess for JVD) Neck: negative: Stiff neck Respiratory: positive: Other (Very, very, very silent lungs. Almost no air movement. I do not hear crackles rhonchi or wheezing. Worse in the lower lung cool in the upper air cool. There is almost faint air movement audible in the upper lung cool.) Cardiovascular: positive: Regular rate & rhythm, Tachycardia. negative: Gallop/S4, Friction rub Abdomen: positive: Other (Obese, unable to assess for organomegaly, nontender. Nondistended) Skin: positive: Warm, Dry Extremities: positive: Full ROM, Pedal edema (Mild, trace) Neurologic/Psychiatric: positive: Oriented x3, CN's nml (2-12), Motor nml, Slurred/abnml speech (She is sleepy, slightly slurring her words. Slow psychomotor response) - Lab Results Fish Bones: 09/14/20 17:32 09/15/20 04:34 Other Labs: Lab Results x24hrs 09/15/20 09/15/20 09/14/20 Range/Units 07:30 04:34 23:35 WBC (4.8-10.8) x10^3/uL RBC (4.20-5.40) 10^6/uL Hgb (12.0-16.0) g/dL Hct (37.0-47.0) % MCV (81.0-99.0) fL MCH (27.0-31.0) pg MCHC (32.0-36.0) g/dL RDW (12.0-15.0) % Plt Count (130-450) 10^3/uL MPV (7.9-10.8) fL Neut # (Auto) (1.5-6.6) 10^3/uL Lymph # (Auto) (1.5-3.5) 10^3/uL [place] # (Auto) (0.0-1.0) 10^3/uL Eos # (Auto) (0.0-0.7) 10^3/uL Baso # (Auto) (0.0-0.1) 10^3/uL Absolute Nucleated RBC x10^3/uL Nucleated RBC % /100WBC Bld Gas Analysis Time 0738 Sample Site LEFT RADIAL ABG pH 7.19 L* (7.35-7.45) ABG pCO2 129 H* (34-45) mmHg ABG pO2 50 L* (80-100) mmHg ABG HCO3 47.7 H (22.0-26.0) mmol/L ABG Total CO2 51.7 H* (21.0-29.0) MMOL/L ABG O2 Saturation 79 L* (94-98) % ABG Base Excess 13.2 H (-2.0-3.0) mmol/L Fer Test POSITIVE VBG pH (7.31-7.41) VBG pCO2 (41-51) mmHg VBG pO2 (25-47) mmHg VBG HCO3 (23-28) mmol/L VBG Total CO2 (24-29) mmol/L VBG O2 Saturation (60-80) % VBG Base Excess (-2 - +2) mmol/L O2 Delivery Device [place] O2 Liters/Min 5.00 LPM Sodium 136 (135-145) mmol/L Potassium 4.2 (3.5-5.0) mmol/L Chloride 89 L (101-111) mmol/L Carbon Dioxide 38 H (21-32) mmol/L Anion Gap 9.0 (6-13) BUN 18 (6-20) mg/dL Creatinine 0.5 (0.4-1.0) mg/dL Estimated GFR (MDRD) 124 (>89) Glucose 168 H (70-100) mg/dL Calcium 8.9 (8.5-10.3) mg/dL Total Bilirubin (0.2-1.0) mg/dL AST (10-42) IU/L ALT (10-60) IU/L Alkaline Phosphatase (42-121) IU/L Troponin I High Sens 24.3 H* (2.3-14.8) ng/L B-Natriuretic Peptide (5-100) pg/mL Total Protein (6.7-8.2) g/dL Albumin (3.2-5.5) g/dL Globulin (2.1-4.2) g/dL Albumin/Globulin Ratio (1.0-2.2) Lipase (22-51) U/L Nasal Adenovirus (PCR) Nasal B. parapertussis DNA (PCR) Nasal Coronavir 229E PCR Nasal Coronavir HKU1 PCR Nasal Coronavir NL63 PCR Nasal Coronavir OC43 PCR Nasal Enterovir/Rhinovir PCR Nasal Influenza B PCR Nasal Influenza A PCR Nasal Parainfluen 1 PCR Nasal Parainfluen 2 PCR Nasal Parainfluen 3 PCR Nasal Parainfluen 4 PCR Nasal RSV (PCR) Nasal B.pertussis DNA PCR Nasal C.pneumoniae (PCR) Dilip Human Metapneumo PCR Nasal M.pneumoniae (PCR) Nasal SARS-CoV-2 (PCR) 09/14/20 09/14/20 09/14/20 Range/Units 18:23 17:45 17:32 WBC (4.8-10.8) x10^3/uL RBC (4.20-5.40) 10^6/uL Hgb (12.0-16.0) g/dL Hct (37.0-47.0) % MCV (81.0-99.0) fL MCH (27.0-31.0) pg MCHC (32.0-36.0) g/dL RDW (12.0-15.0) % Plt Count (130-450) 10^3/uL MPV (7.9-10.8) fL Neut # (Auto) (1.5-6.6) 10^3/uL Lymph # (Auto) (1.5-3.5) 10^3/uL [place] # (Auto) (0.0-1.0) 10^3/uL Eos # (Auto) (0.0-0.7) 10^3/uL Baso # (Auto) (0.0-0.1) 10^3/uL Absolute Nucleated RBC x10^3/uL Nucleated RBC % /100WBC Bld Gas Analysis Time Sample Site ABG pH (7.35-7.45) ABG pCO2 (34-45) mmHg ABG pO2 (80-100) mmHg ABG HCO3 (22.0-26.0) mmol/L ABG Total CO2 (21.0-29.0) MMOL/L ABG O2 Saturation (94-98) % ABG Base Excess (-2.0-3.0) mmol/L Fer Test VBG pH 7.437 H (7.31-7.41) VBG pCO2 50.9 (41-51) mmHg VBG pO2 38.6 (25-47) mmHg VBG HCO3 33.6 H (23-28) mmol/L VBG Total CO2 35.1 H (24-29) mmol/L VBG O2 Saturation 81.8 H (60-80) % VBG Base Excess 7.8 H (-2 - +2) mmol/L O2 Delivery Device O2 Liters/Min LPM Sodium (135-145) mmol/L Potassium (3.5-5.0) mmol/L Chloride (101-111) mmol/L Carbon Dioxide (21-32) mmol/L Anion Gap (6-13) BUN (6-20) mg/dL Creatinine (0.4-1.0) mg/dL Estimated GFR (MDRD) (>89) Glucose (70-100) mg/dL Calcium (8.5-10.3) mg/dL Total Bilirubin (0.2-1.0) mg/dL AST (10-42) IU/L ALT (10-60) IU/L Alkaline Phosphatase (42-121) IU/L Troponin I High Sens (2.3-14.8) ng/L B-Natriuretic Peptide 126 H (5-100) pg/mL Total Protein (6.7-8.2) g/dL Albumin (3.2-5.5) g/dL Globulin (2.1-4.2) g/dL Albumin/Globulin Ratio (1.0-2.2) Lipase (22-51) U/L Nasal Adenovirus (PCR) NOT DETECTED Nasal B. parapertussis DNA (PCR) NOT DETECTED Nasal Coronavir 229E PCR NOT DETECTED Nasal Coronavir HKU1 PCR NOT DETECTED Nasal Coronavir NL63 PCR NOT DETECTED Nasal Coronavir OC43 PCR NOT DETECTED Nasal Enterovir/Rhinovir PCR NOT DETECTED Nasal Influenza B PCR NOT DETECTED Nasal Influenza A PCR NOT DETECTED Nasal Parainfluen 1 PCR NOT DETECTED Nasal Parainfluen 2 PCR NOT DETECTED Nasal Parainfluen 3 PCR NOT DETECTED Nasal Parainfluen 4 PCR NOT DETECTED Nasal RSV (PCR) NOT DETECTED Nasal B.pertussis DNA PCR NOT DETECTED Nasal C.pneumoniae (PCR) NOT DETECTED Dilip Human Metapneumo PCR NOT DETECTED Nasal M.pneumoniae (PCR) NOT DETECTED Nasal SARS-CoV-2 (PCR) NOT DETECTED 09/14/20 09/14/20 09/14/20 Range/Units 17:32 17:32 17:32 WBC 8.4 (4.8-10.8) x10^3/uL RBC 4.71 (4.20-5.40) 10^6/uL Hgb 13.2 (12.0-16.0) g/dL Hct 45.4 (37.0-47.0) % MCV 96.4 (81.0-99.0) fL MCH 28.0 (27.0-31.0) pg MCHC 29.1 L (32.0-36.0) g/dL RDW 16.0 H (12.0-15.0) % Plt Count 222 (130-450) 10^3/uL MPV 9.8 (7.9-10.8) fL Neut # (Auto) 6.0 (1.5-6.6) 10^3/uL Lymph # (Auto) 1.4 L (1.5-3.5) 10^3/uL [place] # (Auto) 0.9 (0.0-1.0) 10^3/uL Eos # (Auto) 0.0 (0.0-0.7) 10^3/uL Baso # (Auto) 0.0 (0.0-0.1) 10^3/uL Absolute Nucleated RBC 0.00 x10^3/uL Nucleated RBC % 0.0 /100WBC Bld Gas Analysis Time Sample Site ABG pH (7.35-7.45) ABG pCO2 (34-45) mmHg ABG pO2 (80-100) mmHg ABG HCO3 (22.0-26.0) mmol/L ABG Total CO2 (21.0-29.0) MMOL/L ABG O2 Saturation (94-98) % ABG Base Excess (-2.0-3.0) mmol/L Fer Test VBG pH (7.31-7.41) VBG pCO2 (41-51) mmHg VBG pO2 (25-47) mmHg VBG HCO3 (23-28) mmol/L VBG Total CO2 (24-29) mmol/L VBG O2 Saturation (60-80) % VBG Base Excess (-2 - +2) mmol/L O2 Delivery Device O2 Liters/Min LPM Sodium 137 (135-145) mmol/L Potassium 4.3 (3.5-5.0) mmol/L Chloride 89 L (101-111) mmol/L Carbon Dioxide 38 H (21-32) mmol/L Anion Gap 10.0 (6-13) BUN 17 (6-20) mg/dL Creatinine 0.6 (0.4-1.0) mg/dL Estimated GFR (MDRD) 100 (>89) Glucose 117 H (70-100) mg/dL Calcium 9.2 (8.5-10.3) mg/dL Total Bilirubin 0.4 (0.2-1.0) mg/dL AST 23 (10-42) IU/L ALT 30 (10-60) IU/L Alkaline Phosphatase 57 (42-121) IU/L Troponin I High Sens 22.1 H* (2.3-14.8) ng/L B-Natriuretic Peptide (5-100) pg/mL Total Protein 7.4 (6.7-8.2) g/dL Albumin 3.8 (3.2-5.5) g/dL Globulin 3.6 (2.1-4.2) g/dL Albumin/Globulin Ratio 1.1 (1.0-2.2) Lipase 20 L (22-51) U/L Nasal Adenovirus (PCR) Nasal B. parapertussis DNA (PCR) Nasal Coronavir 229E PCR Nasal Coronavir HKU1 PCR Nasal Coronavir NL63 PCR Nasal Coronavir OC43 PCR Nasal Enterovir/Rhinovir PCR Nasal Influenza B PCR Nasal Influenza A PCR Nasal Parainfluen 1 PCR Nasal Parainfluen 2 PCR Nasal Parainfluen 3 PCR Nasal Parainfluen 4 PCR Nasal RSV (PCR) Nasal B.pertussis DNA PCR Nasal C.pneumoniae (PCR) Dilip Human Metapneumo PCR Nasal M.pneumoniae (PCR) Nasal SARS-CoV-2 (PCR) Assessment/Plan - Problem List (1) Acute on chronic respiratory failure with hypoxia and hypercapnia Impression: She most likely had an element of this in the emergency room. Venous blood gas was done as opposed to arterial blood gas. This morning respiratory therapy felt that the patient was more lethargic than last night. Blood gas shows significant acute on chronic respiratory failure. Most likely due to combined factors of COPD, and congestive heart failure. Plan: Transfer to ICU BiPAP with protocol Daily blood gas In the short amount of time that she has been in ICU with the mask on, she is definitely improved. Alert. She is reconfiguring the mask on her face on her own to make herself comfortable. She is following the conversation and is appropriate. (2) COPD exacerbation Impression: Mild. Patient is normally on 3 L of oxygen via nasal cannula at baseline. Currently on 5 L with oxygen saturation between 90 to 93%. Patient received methylprednisolone 125 mg IV x1 in the ED. Plan: Methylprednisolone 40 mg IV 3 times daily ordered. 3rd dose will be at noon today. Budesonide and formoterol ordered twice daily and to continue. duneb q6h to continue (2) Pulmonary edema Conclusion/Plan: Mild. Chest x-ray showed mild pulmonary vascular congestion on admission yesterday. Patient has trace to +1 lower extremity edema. Patient was given Lasix 20 mg IV x1. Plan: Echocardiogram today. With her COPD and smoking, she may have cor pulmonale Qualifiers: Chronicity: acute Qualified Code(s): J81.0 - Acute pulmonary edema (3) Bipolar disorder Conclusion/Plan: On lamotrigine and seroquel will ask social work to find out who POA is in case of respiratory arrest. (4) Anxiety Conclusion/Plan: On ativan 0.5mg po bid (5) Tobacco abuse she denies symptoms of withdrawal and declines nicotine patch (6) hyperglycemia due to drug check A1c
[2020-09-15] MEDS: CHLORHEXIDINE GLUCONATE 15 ML UDC PO SCH ×2 (09:01→20:53)
[2020-09-15] MEDS: ENOXAPARIN 40 MG/0.4 ML SYRINGE SUBQ SCH (09:01)
[2020-09-15 10:15] LABS: ABG PH 7.27 (7.35-7.45)
[2020-09-15 10:16] LABS: ABG BASE EXCESS 9.4 mmol/L (-2.0-3.0); ABG HCO3 40.6 mmol/L (22.0-26.0); ABG OXYGEN SATURATION 94 % (94-98); ABG PO2 76 mmHg (80-100); ALLEN TEST POSITIVE
[2020-09-15 10:20] LABS: ABG PCO2 92 mmHg (34-45); ABG TCO2 43.4 MMOL/L (21.0-29.0)
--- NOTE | 2020-09-15 12:16 | PHARMACY PROGRESS NOTE ---
- Best Possible Medication History Admit Date and Time: 09/15/20 0821 Processed by: Pharmacy Medication History completed: Yes Patient Interview: Pt interview ONLY source (Interview completed by Morales 09/15) As the person ultimately responsible for medication therapy, providers are able to order a medication from an existing home medication list in [facility] via the "Reconcile Routine" prior to Confirmation of that medication by ground support equipment mechanic. Such practice is discouraged except when the physician, in their clinical judgment, deems that a medical need exists for a medication without regard to previous use.
[2020-09-15 13:32] LABS: ABG PH 7.35 (7.35-7.45); ABG PO2 102 mmHg (80-100)
[2020-09-15 13:33] LABS: ABG BASE EXCESS 11.3 mmol/L (-2.0-3.0); ABG HCO3 40.4 mmol/L (22.0-26.0); ABG OXYGEN SATURATION 98 % (94-98); ALLEN TEST POSITIVE
[2020-09-15 13:37] LABS: ABG PCO2 75 mmHg (34-45); ABG TCO2 42.7 MMOL/L (21.0-29.0)
[2020-09-15] MEDS: LORazepam 2 MG/ML VIAL IVP PRN (19:15)
[2020-09-15] MEDS: IPRATROPIUM/ALBUTEROL 3 ML NEB INH SCH (19:15)
[2020-09-15] MEDS: guaiFENesin 600 MG TABLET PO SCH (20:52)
[2020-09-15] MEDS: QUEtiapine 100 MG TABLET PO SCH (20:52)
[2020-09-15] MEDS: lamoTRIgine 25 MG TABLET PO SCH (20:53)
[2020-09-15] MEDS: lamoTRIgine 100 MG TABLET PO SCH (20:53)
[2020-09-15] MEDS: GABAPENTIN 300 MG CAPSULE PO SCH (21:05)
[2020-09-15] MEDS ORDERED: ALBUTEROL NEB 2.5 MG/3 ML INH PRN (22:28)
[2020-09-16 05:05] LABS: CALCIUM 8.8 mg/dL (8.5-10.3); CREATININE 0.5 mg/dL (0.4-1.0); POTASSIUM 4.5 mmol/L (3.5-5.0)
[2020-09-16] MEDS: GABAPENTIN 300 MG CAPSULE PO SCH ×3 (06:20→20:16)
[2020-09-16 06:21] LABS: ABG BASE EXCESS 7.7 mmol/L (-2.0-3.0); ABG HCO3 36.4 mmol/L (22.0-26.0); ABG OXYGEN SATURATION 92 % (94-98); ABG PH 7.32 (7.35-7.45); ABG PO2 71 mmHg (80-100); ABG TCO2 38.6 MMOL/L (21.0-29.0); ALLEN TEST POSITIVE
[2020-09-16 06:22] LABS: ABG PCO2 72 mmHg (34-45)
[2020-09-16 06:23] LABS: ABG MODE OF VENTILATION SYNCHRONOUS/TIMES; ABG RESPIRATORY RATE 14 b/min
[2020-09-16 06:26] LABS: BASOPHILS % (AUTO) 0.1 %; HCT - HEMATOCRIT 44.9 % (37.0-47.0); HGB - HEMOGLOBIN 13.1 g/dL (12.0-16.0); LYMPHOCYTES # (AUTO) 1.3 10^3/uL (1.5-3.5); LYMPHOCYTES % (AUTO) 16.6 %; MEAN CORPUSCULAR HEMOGLOBIN 28.1 pg (27.0-31.0); MEAN CORPUSCULAR HGB CONC 29.2 g/dL (32.0-36.0); MEAN CORPUSCULAR VOLUME 96.4 fL (81.0-99.0); MEAN PLATELET VOLUME 9.7 fL (7.9-10.8); MONOCYTES # (AUTO) 0.9 10^3/uL (0.0-1.0); MONOCYTES % (AUTO) 11.6 %; NEUTROPHILS # (AUTO) 5.8 10^3/uL (1.5-6.6); NEUTROPHILS % (AUTO) 71.5 %; PLT - PLATELET COUNT 211 10^3/uL (130-450); RED BLOOD COUNT 4.66 10^6/uL (4.20-5.40); RED CELL DISTRIBUTION WIDTH 15.9 % (12.0-15.0); WHITE BLOOD COUNT 8.1 x10^3/uL (4.8-10.8)
[2020-09-16] MEDS: FORMOTEROL FUMARATE NEB 20 MCG/2 ML INH SCH ×2 (07:45→19:30)
[2020-09-16] MEDS: BUDESONIDE 0.5 MG/2 ML NEB INH SCH ×2 (07:45→19:30)
[2020-09-16] MEDS: IPRATROPIUM/ALBUTEROL 3 ML NEB INH SCH ×4 (07:45→19:30)
[2020-09-16] MEDS: lamoTRIgine 100 MG TABLET PO SCH (09:27)
[2020-09-16] MEDS: guaiFENesin 600 MG TABLET PO SCH ×2 (09:27→20:15)
[2020-09-16] MEDS: polyethylene glycoL 3350 17 GM PACKET PO SCH (09:27)
[2020-09-16] MEDS: CHLORHEXIDINE GLUCONATE 15 ML UDC PO SCH ×2 (09:28→20:15)
[2020-09-16] MEDS: ENOXAPARIN 40 MG/0.4 ML SYRINGE SUBQ SCH (09:28)
[2020-09-16] MEDS: SODIUM CHLORIDE FLUSH 0.9% 10 ML SYRINGE IVP SCH ×3 (09:29→20:16)
[2020-09-16] MEDS: lamoTRIgine 25 MG TABLET PO SCH (09:32)
--- NOTE | 2020-09-16 10:29 | PROVIDER PROGRESS NOTE ---
Subjective - Prog Note Date Prog Note Date: 09/16/20 Prog Note Time: 10:44 - Subjective Pt reports feeling: Improved Subjective: Spent most of the day adjusting her BiPAP settings yesterday. Finally got her to PCO2 in the 70s and O2 in the 70s. This morning blood gas was stable. Acidosis is much improved. She wanted to come off the mask. She has been fighting us all afternoon from yesterday. Ended up needing Ativan to sedate her. Off the BiPAP this morning she is hungry. Asking for candy. Her main complaint is bilateral leg weakness. She says that for over a month she will suddenly have buckling of her legs because they get "suddenly" weak underneath her and she falls. She denies back pain. Radicular pain. Urinary or bowel incontinence. Current Medications - Current Medications Current Medications: Active Medications Acetaminophen (Acetaminophen 325 Mg Tablet) 650 mg PO Q4HR PRN PRN Reason: Pain 1 to 4 Last Admin: 09/14/20 23:20 Dose: 650 mg Documented by: Albuterol (Albuterol Neb 2.5 Mg/3 Ml) 2.5 mg INH RTQ4H PRN PRN Reason: Wheezing Albuterol/Ipratropium (Ipratropium/Albuterol 3 Ml Neb) 3 ml INH RTQID [facility] Last Admin: 09/16/20 07:45 Dose: 3 ml Documented by: Budesonide (Budesonide 0.5 Mg/2 Ml Neb) 0.5 mg INH RTBID [facility] Last Admin: 09/16/20 07:45 Dose: 0.5 mg Documented by: Chlorhexidine Gluconate (Chlorhexidine Gluconate 15 Ml Udc) 15 ml PO BID [facility] Last Admin: 09/16/20 09:28 Dose: 15 ml Documented by: Enoxaparin Sodium (Enoxaparin 40 Mg/0.4 Ml Syringe) 40 mg SUBQ DAILY [facility] Last Admin: 09/16/20 09:28 Dose: 40 mg Documented by: Formoterol Fumarate (Formoterol Fumarate Neb 20 Mcg/2 Ml) 20 mcg INH RTBID [facility] Last Admin: 09/16/20 07:45 Dose: 20 mcg Documented by: Gabapentin (Gabapentin 300 Mg Capsule) 300 mg PO TID [facility] Last Admin: 09/16/20 06:20 Dose: 300 mg Documented by: Guaifenesin (Guaifenesin 600 Mg Tablet) 600 mg PO BID [facility] Last Admin: 09/16/20 09:27 Dose: 600 mg Documented by: Lamotrigine (Lamotrigine 25 Mg Tablet) 50 mg PO DAILY [facility] Last Admin: 09/16/20 09:32 Dose: 50 mg Documented by: Lamotrigine (Lamotrigine 100 Mg Tablet) 100 mg PO DAILY [facility] Last Admin: 09/16/20 09:27 Dose: 100 mg Documented by: Lorazepam (Lorazepam 2 Mg/Ml Vial) 0.5 mg IVP Q2H PRN PRN Reason: Anxiety Last Admin: 09/15/20 19:15 Dose: 0.5 mg Documented by: Ondansetron HCl (Ondansetron Odt 4 Mg Tablet) 4 mg TL Q6HR PRN PRN Reason: Nausea / Vomiting Ondansetron HCl (Ondansetron 4 Mg/2 Ml Vial) 4 mg IVP Q6HR PRN PRN Reason: Nausea / Vomiting Last Admin: 09/15/20 06:52 Dose: 4 mg Documented by: Oxycodone HCl (Oxycodone 5 Mg Tablet) 5 mg PO Q4HR PRN PRN Reason: Pain 5 to 7 Last Admin: 09/15/20 05:01 Dose: 5 mg Documented by: Polyethylene Glycol (Polyethylene Glycol 3350 17 Gm Packet) 17 gm PO DAILY [facility] Last Admin: 09/16/20 09:27 Dose: 17 gm Documented by: Prochlorperazine Edisylate (Prochlorperazine 10 Mg/2 Ml Vial) 10 mg IVP Q6HR PRN PRN Reason: Nausea / Vomiting Last Admin: 09/15/20 08:37 Dose: 10 mg Documented by: Quetiapine Fumarate (Quetiapine 100 Mg Tablet) 600 mg PO QPM [facility] Last Admin: 09/15/20 20:52 Dose: 600 mg Documented by: Sodium Chloride (Sodium Chloride Flush 0.9% 10 Ml Syringe) 10 ml IVP PRN PRN PRN Reason: NEEDED PER PROVIDER ORDERS Last Admin: 09/14/20 22:13 Dose: 20 ml Documented by: Sodium Chloride (Sodium Chloride Flush 0.9% 10 Ml Syringe) 10 ml IVP 0100,0900,1700 [facility] Last Admin: 09/16/20 09:29 Dose: 10 ml Documented by: Albuterol Sulfate [Proair Hfa Inhaler] 1 - 2 puffs INH Q4H PRN 01/13/20 Carboxymethylcellulose Sodium [Artificial Tears] 1 drops OP PRN PRN 01/13/20 Doxylam/PE/Dm/Acetaminophen/GG [[place] Plus Cold Day-Nt] 1 packet PO PRN PRN 01/13/20 Ibuprofen [Motrin] 600 mg PO Q6H PRN 01/13/20 LORazepam [Ativan] 0.5 mg PO TID 01/13/20 Melatonin 5 mg PO QPM 01/13/20 Mometasone/Formoterol [Dulera 200 Mcg-5 Mcg Inhaler] 1 puffs INH BID 01/13/20 Montelukast Sodium 10 mg PO QPM 01/13/20 Pyridoxine HCl (Vitamin B6) [Vitamin B-6] 100 mg PO DAILY 01/13/20 Quetiapine Fumarate [Seroquel] 600 mg PO QPM 01/13/20 Sennosides [Senna Lax] 8.6 mg PO DAILY 01/13/20 Tiotropium [place] [Spiriva] 1 puffs INH QPM 01/13/20 hydrOXYzine HCL [Hydroxyzine HCl] 25 - 50 mg PO TID PRN 01/13/20 Acetaminophen [Acetaminophen Extra Strength] 1,000 mg PO Q8H PRN 09/15/20 Gabapentin [Neurontin] 300 mg PO TID 09/15/20 Meloxicam [Mobic] 7.5 mg PO BIDWM 09/15/20 lamoTRIgine [Lamictal] 150 mg PO DAILY 09/15/20 Objective - Vital Signs/Intake & Output Reviewed Vital Signs: Yes Vital Signs: Vital Signs Temp Pulse Pulse Resp BP Pulse Ox 09/16/20 10:00 92 19 131/86 H 96 09/16/20 09:38 96 09/16/20 09:00 101 H 23 114/64 90 L 09/16/20 08:00 37.4 C 97 22 111/97 H 90 L 09/16/20 07:46 92 21 09/16/20 07:00 90 20 123/74 95 Intake & Output: Intake & Output 09/13/20 09/14/20 09/15/20 09/16/20 23:59 23:59 23:59 23:59 Intake Total 400 1460 1220 Output Total 9660 8113 650 Balance -1850 -1768 570 - Objective General Appearance: positive: Alert, Other (5 foot 7-1/2 inch female who weighs 144.5 kg. Cheerful, alert, cooperative sitting up in bed and watching TV comfortably. Asking for food and candy.) Eyes Bilateral: positive: PERRL, EOMI ENT: positive: Other (Edentulous. She is very concerned about her teeth. She says they cost her a $4000 and she wants to know where they are. Social work is calling [facility] (her [facility]) to make sure the teeth are still there.) Neck: positive: Other (Neck too thick to assess for JVD). negative: Stiff neck Respiratory: positive: No respiratory distress, Wheezes, Other (And much improved. Yesterday her lungs were silent as she struggled to breathe. Today she has mild wheezing upper lung cool. Diminished breath sounds at the bases. But she is lying back comfortably, no use of accessory muscles, speaking in full sentences.). negative: Rales, Rhonchi Cardiovascular: positive: Regular rate & rhythm (Tachycardia from yesterday has resolved). negative: Systolic murmur, Gallop/S4 Abdomen: positive: Non-tender, Nml bowel sounds, No distention, Other (Large abdominal pannus, unable to assess for organomegaly) Skin: positive: Warm, Dry Extremities: positive: Full ROM, No pedal edema Neurologic/Psychiatric: positive: Oriented x3, CN's nml (2-12), Motor nml (Even though her legs are weak, she is able to lift them off the bed, plantar and dorsiflex normally.), Sensation nml, Other (Very pleasant female, childlike demeanor and sentence structure. At times demands are single word exclamation such as "eat now", "drink now".) - Lab Results Fish Bones: 09/16/20 06:22 09/16/20 04:10 Other Labs: Lab Results x24hrs 09/16/20 09/16/20 09/16/20 Range/Units 06:22 06:10 04:10 WBC 8.1 (4.8-10.8) x10^3/uL RBC 4.66 (4.20-5.40) 10^6/uL Hgb 13.1 (12.0-16.0) g/dL Hct 44.9 (37.0-47.0) % MCV 96.4 (81.0-99.0) fL MCH 28.1 (27.0-31.0) pg MCHC 29.2 L (32.0-36.0) g/dL RDW 15.9 H (12.0-15.0) % Plt Count 211 (130-450) 10^3/uL MPV 9.7 (7.9-10.8) fL Neut # (Auto) 5.8 (1.5-6.6) 10^3/uL Lymph # (Auto) 1.3 L (1.5-3.5) 10^3/uL [place] # (Auto) 0.9 (0.0-1.0) 10^3/uL Eos # (Auto) 0.0 (0.0-0.7) 10^3/uL Baso # (Auto) 0.0 (0.0-0.1) 10^3/uL Absolute Nucleated RBC 0.00 x10^3/uL Nucleated RBC % 0.0 /100WBC Bld Gas Analysis Time 0617 Sample Site RIGHT RADIAL ABG pH 7.32 L (7.35-7.45) ABG pCO2 72 H* (34-45) mmHg ABG pO2 71 L (80-100) mmHg ABG HCO3 36.4 H (22.0-26.0) mmol/L ABG Total CO2 38.6 H (21.0-29.0) MMOL/L ABG O2 Saturation 92 L (94-98) % ABG Base Excess 7.7 H (-2.0-3.0) mmol/L Fer Test POSITIVE Respiration Rate 14 b/min O2 Delivery Device BiPAP Vent Mode SYNCHRONOUS/TIMES FiO2 40.00 Pressure Support Vent 9 cmH2O EPAP 5 cmH2O IPAP 14 cmH2O Sodium 136 (135-145) mmol/L Potassium 4.5 (3.5-5.0) mmol/L Chloride 89 L (101-111) mmol/L Carbon Dioxide 37 H (21-32) mmol/L Anion Gap 10.0 (6-13) BUN 21 H (6-20) mg/dL Creatinine 0.5 (0.4-1.0) mg/dL Estimated GFR (MDRD) 124 (>89) Glucose 88 (70-100) mg/dL Calcium 8.8 (8.5-10.3) mg/dL Nasal Screen MRSA (PCR) (NEGATIVE) 09/15/20 09/15/20 Range/Units 13:25 08:00 WBC (4.8-10.8) x10^3/uL RBC (4.20-5.40) 10^6/uL Hgb (12.0-16.0) g/dL Hct (37.0-47.0) % MCV (81.0-99.0) fL MCH (27.0-31.0) pg MCHC (32.0-36.0) g/dL RDW (12.0-15.0) % Plt Count (130-450) 10^3/uL MPV (7.9-10.8) fL Neut # (Auto) (1.5-6.6) 10^3/uL Lymph # (Auto) (1.5-3.5) 10^3/uL [place] # (Auto) (0.0-1.0) 10^3/uL Eos # (Auto) (0.0-0.7) 10^3/uL Baso # (Auto) (0.0-0.1) 10^3/uL Absolute Nucleated RBC x10^3/uL Nucleated RBC % /100WBC Bld Gas Analysis Time 1329 Sample Site RIGHT RADIAL ABG pH 7.35 (7.35-7.45) ABG pCO2 75 H* (34-45) mmHg ABG pO2 102 H (80-100) mmHg ABG HCO3 40.4 H (22.0-26.0) mmol/L ABG Total CO2 42.7 H* (21.0-29.0) MMOL/L ABG O2 Saturation 98 (94-98) % ABG Base Excess 11.3 H (-2.0-3.0) mmol/L Fer Test POSITIVE Respiration Rate b/min O2 Delivery Device BiPAP Vent Mode FiO2 40.00 Pressure Support Vent cmH2O EPAP 6 cmH2O IPAP 16 cmH2O Sodium (135-145) mmol/L Potassium (3.5-5.0) mmol/L Chloride (101-111) mmol/L Carbon Dioxide (21-32) mmol/L Anion Gap (6-13) BUN (6-20) mg/dL Creatinine (0.4-1.0) mg/dL Estimated GFR (MDRD) (>89) Glucose (70-100) mg/dL Calcium (8.5-10.3) mg/dL Nasal Screen MRSA (PCR) NEGATIVE (NEGATIVE) Assessment/Plan - Problem List (1) Acute on chronic respiratory failure with hypoxia and hypercapnia Impression: She most likely had an element of this in the emergency room. Venous blood gas was done as opposed to arterial blood gas. Yesterday morning respiratory therapy felt that the patient was more lethargic than on admission. Blood gas with this showed significant acute on chronic respiratory failure. Most likely due to combined factors of COPD, and congestive heart failure. She was placed in the ICU with BiPAP. PCO2 started 129. With varying p ressures, adjustment of BiPAP, we got her PCO2 to 75 yesterday afternoon. This morning, on BiPAP, PCO2 is 72. She has been taken off BiPAP. Eaten breakfast. No tachypnea. Her main complaint is her legs. This morning exam finally shows air movement. She is actually wheezing which is a good sign considering how silent she was yesterday. Plan: Keep in ICU. She may need more BiPAP tonight. Will discuss with respiratory if we need to consider trilogy. I do not think she will be compliant with CPAP at home place. Has received 3 dose of steroids. Continue nebulizers. (2) COPD exacerbation Impression: Improving. Patient is normally on 3 L of oxygen via nasal cannula at baseline. Will aim for that baseline again for dc. She has received 3 doses of steroids. No more for now. Plan: Budesonide and formoterol ordered twice daily and to continue. duneb q6h to continue (2) Pulmonary edema from mild cor pulmonale Conclusion/Plan: Mild. Chest x-ray showed mild pulmonary vascular congestion on admission Patient had trace to +1 lower extremity edema. Patient was given Lasix 20 mg IV x1. This am no edema by my exam. Preliminary echo report has an ejection fraction that is hyperdynamic at greater than 75%. Indeterminate LV filling pattern due to tachycardia. Right ventricle normal. Left atrial volume index normal. Right atrial enlargement. Mildly abnormal heart pressures with RVSP at 31 mmHg. No significant valvular heart disease and his IVC is dilated Plan: once more dose of lasix. (3) Bipolar disorder Conclusion/Plan: On lamotrigine and seroquel and will resume now that can be po will ask social work to find out who POA is in case of respiratory arrest. It's her sister. Daughter is not part of her life at this moment in time. (4) Anxiety Conclusion/Plan: On ativan 0.5mg po bid or IV bid (5) Tobacco abuse she denies symptoms of withdrawal and declines nicotine patch (6) hyperglycemia due to drug check A1c and ordered for tomorrow am. (7) Leg weakness Check plain film of back.
[2020-09-16] MEDS ORDERED: hydrOXYzine PAMOATE 25 MG CAPSULE PO PRN (11:48)
[2020-09-16] MEDS ORDERED: CARBOXYMETHYLCELLULOSE OPHTH DROPS EACHEYE PRN (11:49)
--- NOTE | 2020-09-16 13:14 | XRAY Report ---
PROCEDURE: Lumbar Spine 2 View Bending INDICATIONS: leg weakness w sudden collapse of legs TECHNIQUE: 3 views of the lumbar spine acquired. COMPARISON: None. FINDINGS: Exam limited by patient body habitus. Normal alignment of the lumbar spine with no significant change upon flexion or extension. Vertebral body heights maintained. Disc height loss from L3 L4 through L5 S1 with degenerative endplate change and facet hypertrophy. IMPRESSION: No acute finding. No listhesis or dynamic instability. Lower lumbar spine degenerative changes. Reviewed by: Jaden Ron MD on 09/16/2020 1:12 PM PST Approved by: Jaden Ron MD on 09/16/2020 1:12 PM PST Station ID: [id number]
[2020-09-16] MEDS: ACETAMINOPHEN 325 MG TABLET PO PRN (14:28)
[2020-09-16] MEDS: PYRIDOXINE 100 MG TABLET PO SCH (20:14)
[2020-09-16] MEDS: MONTELUKAST 10 MG TABLET PO SCH (20:14)
[2020-09-16] MEDS: QUEtiapine 100 MG TABLET PO SCH (20:15)
[2020-09-16] MEDS: LORazepam 2 MG/ML VIAL IVP PRN (20:26)
[2020-09-16] MEDS: oxyCODONE 5 MG TABLET PO PRN (22:05)
[2020-09-17] MEDS: oxyCODONE 5 MG TABLET PO PRN ×2 (04:12→20:43)
[2020-09-17] MEDS: GABAPENTIN 300 MG CAPSULE PO SCH ×3 (06:28→21:02)
[2020-09-17 06:36] LABS: BASOPHILS % (AUTO) 0.4 %; EOSINOPHILS # (AUTO) 0.1 10^3/uL (0.0-0.7); HCT - HEMATOCRIT 43.1 % (37.0-47.0); HGB - HEMOGLOBIN 12.8 g/dL (12.0-16.0); LYMPHOCYTES # (AUTO) 2.2 10^3/uL (1.5-3.5); MEAN CORPUSCULAR HGB CONC 29.7 g/dL (32.0-36.0); MEAN CORPUSCULAR VOLUME 94.3 fL (81.0-99.0); MEAN PLATELET VOLUME 9.8 fL (7.9-10.8); MONOCYTES % (AUTO) 13.8 %; NEUTROPHILS # (AUTO) 3.7 10^3/uL (1.5-6.6); NEUTROPHILS % (AUTO) 52.7 %; PLT - PLATELET COUNT 210 10^3/uL (130-450); RED BLOOD COUNT 4.57 10^6/uL (4.20-5.40)
[2020-09-17 06:51] LABS: CALCIUM 8.4 mg/dL (8.5-10.3); CREATININE 0.7 mg/dL (0.4-1.0); POTASSIUM 4.1 mmol/L (3.5-5.0)
[2020-09-17] MEDS: BUDESONIDE 0.5 MG/2 ML NEB INH SCH ×2 (07:30→19:27)
[2020-09-17] MEDS: FORMOTEROL FUMARATE NEB 20 MCG/2 ML INH SCH (07:30)
[2020-09-17] MEDS: IPRATROPIUM/ALBUTEROL 3 ML NEB INH SCH ×4 (07:30→19:27)
[2020-09-17] MEDS: CHLORHEXIDINE GLUCONATE 15 ML UDC PO SCH ×2 (08:53→20:42)
[2020-09-17] MEDS: ENOXAPARIN 40 MG/0.4 ML SYRINGE SUBQ SCH (08:54)
[2020-09-17] MEDS: PYRIDOXINE 100 MG TABLET PO SCH (08:56)
[2020-09-17] MEDS: guaiFENesin 600 MG TABLET PO SCH ×2 (08:56→20:44)
[2020-09-17] MEDS: lamoTRIgine 100 MG TABLET PO SCH (08:56)
[2020-09-17] MEDS: ACETAMINOPHEN 325 MG TABLET PO PRN ×2 (08:56→16:38)
[2020-09-17] MEDS: polyethylene glycoL 3350 17 GM PACKET PO SCH (08:57)
[2020-09-17] MEDS: lamoTRIgine 25 MG TABLET PO SCH (08:57)
[2020-09-17] MEDS: SODIUM CHLORIDE FLUSH 0.9% 10 ML SYRINGE IVP SCH ×2 (08:59→16:30)
[2020-09-17 10:49] LABS: ESTIMATED AVERAGE GLUCOSE 134 mg/dL (70-100); HEMOGLOBIN A1c% 6.3 % (4.27-6.07)
[2020-09-17] MEDS ORDERED: GLYCERIN ADULT SUPP PR ONE (11:32)
--- NOTE | 2020-09-17 12:13 | PROVIDER PROGRESS NOTE ---
Subjective - Prog Note Date Prog Note Date: 09/17/20 Prog Note Time: 12:18 - Subjective Pt reports feeling: Improved Subjective: Today she is sitting up in her chair in her room. She is not smoking and does not want a nicotine patch. She is decided to stop smoking and is using lollipops to control the behavioral issue of wanting something in her mouth. So far I been able to control it by giving her lollipops from our candy storage room. She is still coughing. Still short of breath. But she says slowly improving day by day and says that she is much, much better than she was on admission. Current Medications - Current Medications Current Medications: Active Medications Acetaminophen (Acetaminophen 325 Mg Tablet) 650 mg PO Q4HR PRN PRN Reason: Pain 1 to 4 Last Admin: 09/17/20 08:56 Dose: 650 mg Documented by: Albuterol (Albuterol Neb 2.5 Mg/3 Ml) 2.5 mg INH RTQ4H PRN PRN Reason: Wheezing Albuterol/Ipratropium (Ipratropium/Albuterol 3 Ml Neb) 3 ml INH RTQID [facility] Last Admin: 09/17/20 11:19 Dose: 3 ml Documented by: Budesonide (Budesonide 0.5 Mg/2 Ml Neb) 0.5 mg INH RTBID [facility] Last Admin: 09/17/20 07:30 Dose: 0.5 mg Documented by: Carboxymethylcellulose (Carboxymethylcellulose Ophth Drops) 1 drops EACHEYE PRN PRN PRN Reason: Dry Eye Chlorhexidine Gluconate (Chlorhexidine Gluconate 15 Ml Udc) 15 ml PO BID [facility] Last Admin: 09/17/20 08:53 Dose: 15 ml Documented by: Docusate Sodium (Docusate Sodium 250 Mg Capsule) 250 - 500 mg PO DAILY [facility] Enoxaparin Sodium (Enoxaparin 40 Mg/0.4 Ml Syringe) 40 mg SUBQ DAILY [facility] Last Admin: 09/17/20 08:54 Dose: 40 mg Documented by: Formoterol Fumarate (Formoterol Fumarate Neb 20 Mcg/2 Ml) 20 mcg INH RTBID [facility] Last Admin: 09/17/20 07:30 Dose: 20 mcg Documented by: Gabapentin (Gabapentin 300 Mg Capsule) 300 mg PO TID [facility] Last Admin: 09/17/20 06:28 Dose: 300 mg Documented by: Guaifenesin (Guaifenesin 600 Mg Tablet) 600 mg PO BID [facility] Last Admin: 09/17/20 08:56 Dose: 600 mg Documented by: Hydroxyzine Pamoate (Hydroxyzine Pamoate 25 Mg Capsule) 25 mg PO TID PRN PRN Reason: NEEDED PER PROVIDER ORDERS Lamotrigine (Lamotrigine 25 Mg Tablet) 50 mg PO DAILY [facility] Last Admin: 09/17/20 08:57 Dose: 50 mg Documented by: Lamotrigine (Lamotrigine 100 Mg Tablet) 100 mg PO DAILY [facility] Last Admin: 09/17/20 08:56 Dose: 100 mg Documented by: Lorazepam (Lorazepam 2 Mg/Ml Vial) 0.5 mg IVP Q2H PRN PRN Reason: Anxiety Last Admin: 09/16/20 20:26 Dose: 0.5 mg Documented by: Montelukast Sodium (Montelukast 10 Mg Tablet) 10 mg PO QPM [facility] Last Admin: 09/16/20 20:14 Dose: 10 mg Documented by: Ondansetron HCl (Ondansetron Odt 4 Mg Tablet) 4 mg TL Q6HR PRN PRN Reason: Nausea / Vomiting Ondansetron HCl (Ondansetron 4 Mg/2 Ml Vial) 4 mg IVP Q6HR PRN PRN Reason: Nausea / Vomiting Last Admin: 09/15/20 06:52 Dose: 4 mg Documented by: Oxycodone HCl (Oxycodone 5 Mg Tablet) 5 mg PO Q4HR PRN PRN Reason: Pain 5 to 7 Last Admin: 09/17/20 04:12 Dose: 5 mg Documented by: Polyethylene Glycol (Polyethylene Glycol 3350 17 Gm Packet) 17 gm PO DAILY [facility] Last Admin: 09/17/20 08:57 Dose: 17 gm Documented by: Prochlorperazine Edisylate (Prochlorperazine 10 Mg/2 Ml Vial) 10 mg IVP Q6HR PRN PRN Reason: Nausea / Vomiting Last Admin: 09/15/20 08:37 Dose: 10 mg Documented by: Pyridoxine HCl (Pyridoxine 100 Mg Tablet) 100 mg PO DAILY [facility] Last Admin: 09/17/20 08:56 Dose: 100 mg Documented by: Quetiapine Fumarate (Quetiapine 100 Mg Tablet) 600 mg PO QPM [facility] Last Admin: 09/16/20 20:15 Dose: 600 mg Documented by: Senna (Senna 8.6 Mg Tablet) 8.6 - 17.2 mg PO DAILY [facility] Sodium Chloride (Sodium Chloride Flush 0.9% 10 Ml Syringe) 10 ml IVP PRN PRN PRN Reason: NEEDED PER PROVIDER ORDERS Last Admin: 09/14/20 22:13 Dose: 20 ml Documented by: Sodium Chloride (Sodium Chloride Flush 0.9% 10 Ml Syringe) 10 ml IVP 0100,0900,1700 [facility] Last Admin: 09/17/20 08:59 Dose: 10 ml Documented by: Albuterol Sulfate [Proair Hfa Inhaler] 1 - 2 puffs INH Q4H PRN 01/13/20 Carboxymethylcellulose Sodium [Artificial Tears] 1 drops OP PRN PRN 01/13/20 Doxylam/PE/Dm/Acetaminophen/GG [[place] Plus Cold Day-Nt] 1 packet PO PRN PRN 01/13/20 Ibuprofen [Motrin] 600 mg PO Q6H PRN 01/13/20 LORazepam [Ativan] 0.5 mg PO TID 01/13/20 Melatonin 5 mg PO QPM 01/13/20 Mometasone/Formoterol [Dulera 200 Mcg-5 Mcg Inhaler] 1 puffs INH BID 01/13/20 Montelukast Sodium 10 mg PO QPM 01/13/20 Pyridoxine HCl (Vitamin B6) [Vitamin B-6] 100 mg PO DAILY 01/13/20 Quetiapine Fumarate [Seroquel] 600 mg PO QPM 01/13/20 Sennosides [Senna Lax] 8.6 mg PO DAILY 01/13/20 Tiotropium [place] [Spiriva] 1 puffs INH QPM 01/13/20 hydrOXYzine HCL [Hydroxyzine HCl] 25 - 50 mg PO TID PRN 01/13/20 Acetaminophen [Acetaminophen Extra Strength] 1,000 mg PO Q8H PRN 09/15/20 Gabapentin [Neurontin] 300 mg PO TID 09/15/20 Meloxicam [Mobic] 7.5 mg PO BIDWM 09/15/20 lamoTRIgine [Lamictal] 150 mg PO DAILY 09/15/20 Objective - Vital Signs/Intake & Output Reviewed Vital Signs: Yes Vital Signs: Vital Signs Temp Pulse Pulse Resp BP Pulse Ox 09/17/20 12:00 37.1 C 09/17/20 11:22 88 24 09/17/20 10:31 94 18 153/95 H 92 09/17/20 09:19 98 22 99 Intake & Output: Intake & Output 09/14/20 09/15/20 09/16/20 09/17/20 23:59 23:59 23:59 23:59 Intake Total 400 1460 2430 760 Output Total 2250 3225 2150 1974 Balance -1850 -1765 280 1215 - Objective General Appearance: positive: No acute distress, Alert, Other (5 foot 7-1/2 inch female at 144.5 kg. Sitting upright in the chair. Lively conversationalist.) Eyes Bilateral: positive: PERRL, EOMI ENT: positive: Pharynx nml, Other (No teeth. Her dentures are still missing from when she was transferred from [facility] to ICU.) Neck: negative: Stiff neck Respiratory: positive: No respiratory distress, Wheezes, Other (Thick white mucus). negative: Rales, Rhonchi Cardiovascular: positive: Regular rate & rhythm, Tachycardia (When she exerts herself. Pulse closely comes back down.). negative: Gallop/S4, Friction rub Abdomen: positive: Non-tender, Nml bowel sounds, No distention, Other (Large pendulous abdominal pannus) Skin: positive: Warm, Dry Extremities: positive: Full ROM, No pedal edema Neurologic/Psychiatric: positive: Oriented x3, Motor nml (Wide-based gait). negative: CN's nml (2-12) (Pupils are asynchronous.) - Lab Results Fish Bones: 09/17/20 06:30 09/17/20 06:30 Other Labs: Lab Results x24hrs 09/17/20 09/17/20 09/17/20 Range/Units 06:30 06:30 06:30 WBC 7.0 (4.8-10.8) x10^3/uL RBC 4.57 (4.20-5.40) 10^6/uL Hgb 12.8 (12.0-16.0) g/dL Hct 43.1 (37.0-47.0) % MCV 94.3 (81.0-99.0) fL MCH 28.0 (27.0-31.0) pg MCHC 29.7 L (32.0-36.0) g/dL RDW 16.0 H (12.0-15.0) % Plt Count 210 (130-450) 10^3/uL MPV 9.8 (7.9-10.8) fL Neut # (Auto) 3.7 (1.5-6.6) 10^3/uL Lymph # (Auto) 2.2 (1.5-3.5) 10^3/uL [place] # (Auto) 1.0 (0.0-1.0) 10^3/uL Eos # (Auto) 0.1 (0.0-0.7) 10^3/uL Baso # (Auto) 0.0 (0.0-0.1) 10^3/uL Absolute Nucleated RBC 0.00 x10^3/uL Nucleated RBC % 0.0 /100WBC Sodium 140 (135-145) mmol/L Potassium 4.1 (3.5-5.0) mmol/L Chloride 91 L (101-111) mmol/L Carbon Dioxide 41 H* (21-32) mmol/L Anion Gap 8.0 (6-13) BUN 19 (6-20) mg/dL Creatinine 0.7 (0.4-1.0) mg/dL Estimated GFR (MDRD) 84 L (>89) Glucose 88 (70-100) mg/dL Estimat Average Glucose 134 H (70-100) mg/dL Hemoglobin A1c % 6.3 H (4.27-6.07) % Calcium 8.4 L (8.5-10.3) mg/dL Assessment/Plan - Problem List (1) Acute on chronic respiratory failure with hypoxia and hypercapnia Impression: She most likely had an element of this in the emergency room. Venous blood gas was done as opposed to arterial blood gas. 3/3 morning respiratory therapy felt that the patient was more lethargic than on admission. Blood gas with this showed significant acute on chronic respiratory failure. Most likely due to combined factors of COPD, and congestive heart failure. She was placed in the ICU with BiPAP. PCO2 started 129. With varying pressures, adjustment of BiPAP, we got her PCO2 to 75 on 3 afternoon. 3/4 mo rning, on BiPAP, PCO2 was 72. She was taken off BiPAP. Ate breakfast. No tachypnea. Her main complaint were her legs. 3 morning lung exam had air movement. She had silent lungs on 09/15 with BiPAP. 3/4 She was actually wheezing which was a good sign considering how silent she had been the day before. I kept her in ICU yesterday. Put her back on BiPAP last night. She says that she feels stable. She usually has more endurance and less shortness of breath at home but she is much improved from what she was when she came in. Plan: Start evaluating her for CPAP. At the gets a temporary measure. She may need to go to [facility] facility for rehab and they will be able to take CPAP. However [facility] is problematic for them. Apparently they can accept a patient with trilogy, get trilogy, but they do not wish to pay for it as part of the patient's stay. [facility] would then be a candidate for this patient after she left the [facility] facility. In the meantime CPAP can be used. I do think she has obstructive sleep apnea and obesity hypoventilation syndrome complicating her COPD. (2) COPD exacerbation Impression: Improving. Has wheezing. Patient is normally on 3 L of oxygen via nasal cannula at baseline. She is down to 2 liters at times this morning. Will aim for that baseline again for dc. She has received 3 doses of steroids. No more for now. Plan: Budesonide and formoterol ordered twice daily and to continue. duneb q6h to continue (2) Pulmonary edema from mild cor pulmonale Conclusion/Plan: Mild. Chest x-ray showed mild pulmonary vascular congestion on admission Patient had trace to +1 lower extremity edema. Patient was given Lasix 20 mg IV x1. No edema by the morning of 09/16 exam and today. Preliminary echo report has an ejection fraction that is hyperdynamic at greater than 75%. Indeterminate LV filling pattern due to tachycardia. Right ventricle normal. Left atrial volume index normal. Right atrial enlargement. Mildly abnormal heart pressures with RVSP at 31 mmHg. No significant valvular heart disease and his IVC is dilated Intake and output balance has been good. September 14 she was -1850. September 15 was - 1765. September 16 +280. Today she is so far -1215 by noon Plan: no new orders. (3) Bipolar disorder Conclusion/Plan: On lamotrigine and seroquel and will resume now that can be po will ask social work to find out who POA is in case of respiratory arrest. It's her sister. Daughter is not part of her life at this moment in time. (4) Anxiety Conclusion/Plan: On ativan 0.5mg po bid or IV bid (5) Tobacco abuse she denies symptoms of withdrawal and declines nicotine patch (6) hyperglycemia due to drug A1c is 6.3% with average estimated glucose 134.She meets the technical criteria for the diagnosis of type 2 diabetes mellitus. A1c is borderline enough that diet control would be enough. (7) Leg weakness Plain films have no acute finding, no listhesis or dynamic instability. And expected amount of lower lumbar spine degenerative changes.As such, at this time without any motor deficits on exam, I think it is strictly deconditioning. Her weight. We will check a knee film because of arthritis pain. We will have her work with physical therapy to see if SNF for rehab therapy is needed. PT note today: Pt.is a 65 y.o. F admitted to [facility] w/hypoxia, COPD exacerbation who presents today on 3.0 lit. n.c. O2 and is able to amb. in hallway w/w/c behind; she requires 2 seated rests during amb. but had no c/o R knee weakness or dyspnea; pt. appears well motivated and eager to make some positive changes in her health; pt. states, "I have to get well and stay active" (for her adult children and grandchildren). Recommend continue w/PT in hospital working on functional activity and strengthening progression; pt. will need transport to SNF to work toward independent functional mobility w/good, consistent safety; pt. wants to return to her living facility "[facility]" after SNF;
[2020-09-17] MEDS: DOCUSATE SODIUM 250 MG CAPSULE PO SCH (12:22)
[2020-09-17] MEDS: SENNA 8.6 MG TABLET PO SCH ×2 (12:22→20:41)
[2020-09-17] MEDS: QUEtiapine 100 MG TABLET PO SCH (20:41)
[2020-09-17] MEDS: MONTELUKAST 10 MG TABLET PO SCH (20:41)
[2020-09-17] MEDS: PROCHLORPERAZINE 10 MG/2 ML VIAL IVP PRN (20:49)
[2020-09-18] MEDS: SODIUM CHLORIDE FLUSH 0.9% 10 ML SYRINGE IVP SCH ×2 (02:19→08:47)
[2020-09-18] MEDS: GABAPENTIN 300 MG CAPSULE PO SCH (05:08)
[2020-09-18] MEDS: oxyCODONE 5 MG TABLET PO PRN ×2 (05:08→13:17)
[2020-09-18 05:27] LABS: BASOPHILS % (AUTO) 0.3 %; EOSINOPHILS # (AUTO) 0.2 10^3/uL (0.0-0.7); EOSINOPHILS % (AUTO) 3.4 %; HCT - HEMATOCRIT 43.9 % (37.0-47.0); LYMPHOCYTES % (AUTO) 34.2 %; MEAN CORPUSCULAR HEMOGLOBIN 27.8 pg (27.0-31.0); MEAN CORPUSCULAR HGB CONC 29.6 g/dL (32.0-36.0); MEAN PLATELET VOLUME 9.9 fL (7.9-10.8); MONOCYTES # (AUTO) 0.7 10^3/uL (0.0-1.0); MONOCYTES % (AUTO) 12.6 %; NEUTROPHILS # (AUTO) 2.9 10^3/uL (1.5-6.6); NEUTROPHILS % (AUTO) 49.3 %; PLT - PLATELET COUNT 204 10^3/uL (130-450); RED BLOOD COUNT 4.67 10^6/uL (4.20-5.40); RED CELL DISTRIBUTION WIDTH 16.2 % (12.0-15.0); WHITE BLOOD COUNT 5.9 x10^3/uL (4.8-10.8)
[2020-09-18 05:32] LABS: CALCIUM 8.6 mg/dL (8.5-10.3); CREATININE 0.6 mg/dL (0.4-1.0); POTASSIUM 4.3 mmol/L (3.5-5.0)
[2020-09-18 07:41] VITALS: BP 154/89
[2020-09-18] MEDS: FORMOTEROL FUMARATE NEB 20 MCG/2 ML INH SCH ×2 (07:45→07:58)
[2020-09-18] MEDS: IPRATROPIUM/ALBUTEROL 3 ML NEB INH SCH ×2 (07:58→12:14)
[2020-09-18] MEDS: BUDESONIDE 0.5 MG/2 ML NEB INH SCH (07:58)
[2020-09-18] MEDS: lamoTRIgine 25 MG TABLET PO SCH (08:38)
[2020-09-18] MEDS: lamoTRIgine 100 MG TABLET PO SCH (08:38)
[2020-09-18 08:39] LABS: ABG HCO3 38.3 mmol/L (22.0-26.0); ABG OXYGEN SATURATION 90 % (94-98); ABG PH 7.32 (7.35-7.45); ABG PO2 63 mmHg (80-100); ALLEN TEST POSITIVE
[2020-09-18] MEDS: guaiFENesin 600 MG TABLET PO SCH (08:39)
[2020-09-18] MEDS: DOCUSATE SODIUM 250 MG CAPSULE PO SCH (08:39)
[2020-09-18] MEDS: SENNA 8.6 MG TABLET PO SCH (08:40)
[2020-09-18] MEDS: PYRIDOXINE 100 MG TABLET PO SCH (08:40)
[2020-09-18] MEDS: polyethylene glycoL 3350 17 GM PACKET PO SCH (08:41)
[2020-09-18 08:43] LABS: ABG PCO2 76 mmHg (34-45); ABG TCO2 40.7 MMOL/L (21.0-29.0)
[2020-09-18] MEDS: ENOXAPARIN 40 MG/0.4 ML SYRINGE SUBQ SCH (08:46)
--- NOTE | 2020-09-18 09:13 | Discharge Plan ---
"Discharge Plan for SNF / [facility] - Discharge Plan And Transition Orders Problem Reviewed?: Yes Disposition: 06 Home Health Service Condition: Good Allergies and Adverse Reactions: Allergies Allergy/AdvReac Type Severity Reaction Status Date / Time Androgenic Anabolic Steroid Allergy Unknown Verified 09/15/20 08:24 Neuromuscular Blockers, Allergy Unknown Verified 09/15/20 08:26 Steroidal nicotine Allergy Unknown Verified 01/13/20 14:48 Penicillins Allergy Unknown Verified 01/13/20 14:48 Health Concerns: You are a 5 foot 7 and half inch tall female with a lot of body weight of 144.5 kg. That makes you prone to having obstructive sleep apnea and something called obesity hypoventilation syndrome. On top of that you smoke and you have moderate emphysema. You presented to our emergency room with gradually progressive shortness of breath. You can usually walk around the facility with a walker, or use a wheelchair. But this time your shortness of breath is severe enough that you could barely walk 7 feet without having to stop. You came to the emergency room and your oxygen was very very low. You had congestive heart failure. And you had severe exacerbation of your emphysema. After 6 to 8 hours, in spite of nebulizers/Lasix/steroids/diuretics to make you urinate you were severely short of breath. We checked a blood gas and found your carbon dioxide level to be dangerously high. Normal is 40 and you were 129. We placed you in the intensive care unit and put a special mask on your face called BiPAP. It forces you to take deep breaths whether you want to or not, and we were gradually able to reduce the carbon dioxide level. Because of your emphysema and obesity hypoventilation syndrome, we do not think that your carbon dioxide level will ever really be normal. Your person who has oxygen in the 60s percent. And your carbon dioxide level is in the 70s. You were complaining of knee pain, and leg weakness. Sometimes her legs do not want to support you. You were scheduled to start physical therapy but came into the hospital and may have missed her appointment with physical therapy. While you were here physical therapy work with you. We do think you are a candidate to go to a longterm facility for rehabilitation to increase her strength. However, you think you really want to go home. Get home health physical therapy. And once you are done with home health physical therapy then go to outpatient physical therapy. Plan of Treatment: 1. for your right sided congestive heart failure, you will be on metolazone as a diuretic. This will do 2 things. One it will make you urinate to get rid of excess heart fluid, and 2, it will also normalize some of your carbon dioxide level. 2. You will continue Spiriva, Singulair, Dulera for your emphysema. But we really recommend that you change your albuterol from a handheld inhaler to a nebulizer machine. It is too difficult for you to coordinate using the hand held when you are in respiratory distress. Those supplies will be called into [employer], the same [employer] that will be handling the face mask you use at night to keep your oxygen up and your carbon dioxide down. 3. We will order home health with physical therapy. We will also order you a wide-based walker. 4. Please make sure you eat a low salt diet. 5. You already had an appointment with outpatient physical therapy. However, you have gotten a bit weaker since coming into the hospital and we will refer you to home health physical therapy first. Once you have seen home health physical therapy then you can be transition to outpatient physical therapy. In the long run, we strongly recommend you do cardiopulmonary rehab after you finish these 2 types of therapy. Care Goals: To control your shortness of breath that you can sleep normally at night, walk across the room to do simple things like dress herself, feed herself, go to the bathroom and take a bath. Assessment: Patient understands care goals and helped create them herself, she promises to follow through. She would like to get a new primary care provider. - SNF / [facility] Transition Orders Admit to (Facility): [facility] Under the care of (Name): Ayla Elizondo MD Discharge Diagnosis: 1. Acute on chronic respiratory failure with hypoxia and hypercapnia, present on admission and resolved. 2. COPD exacerbation 3. Cor pulmonale, acute exacerbation, resolved 4. Probable obstructive sleep apnea as well as obesity hypoventilation syndrome. Patient needs to be sent for sleep studies 5. Bipolar disorder 6. Generalized anxiety disorder 7. Tobacco abuse 8. Type 2 diabetes mellitus, A1c is 6.3%, before the dose of steroids 9. Right knee pain from osteoarthritis 10. Generalized leg weakness due to deconditioning and knee pain 11. Morbid obesity Medicare Certification Statement: I certify that [facility] is medically necessary on a continuing basis for any of the conditions for which she/he is receiving care during hospitalization. Notify PCP of admission and forward orders to primary provider for signature. Weight on admission and: Daily Call PCP immediately if weight increases by: 2 kg Other Notification Orders: Call PCP immediately if patient develops dyspnea, chest pain/tightness or edema. House Bowel Program: Yes Additional Bowel Program Orders: If no BM after 2 days, nurse may give M.O.M. 30ml PO PRN and/or ducolax Supp 1 OK and/or SAMEERA 250mg P.O., and/or senna 1-2 tabs PO. On day 3 nurse may give repeat above order until residents constipation is resolved. Annual Influenza Vaccine (between Mar 16 and October 13): Yes Two-step PPD per [facility] [id number] or approved exception documents: Yes Treatments & Other Orders: Albuterol 2.5/3 mils every 4 hours as needed for wheezing and shortness of breath Oxygen Orders: 2 L nasal cannula 05/02 Lab Tests or X-ray Orders: BMP weekly with special attention to CO2 Medication Orders: PLEASE REFER TO THE DISCHARGE MEDICATION LIST. Insulin Orders?: No - Medications New Prescriptions: metOLazone [Metolazone] 5 mg PO BID #30 tablet - Diet Type: No added salt Texture: Regular Liquids: Thin May have monthly special meal: Yes - Therapies | Activity Rehabilitation Potential: Maximize functional status Activity: Activity as Tolerated Weight Bearing: Full Weight Assistance Devices: Wheelchair, Walker Follow Up: With Dr. Elizondo in the next 1-2 weeks"
[2020-09-18] MEDS: CHLORHEXIDINE GLUCONATE 15 ML UDC PO SCH (09:18)
[2020-09-18] MEDS: ACETAMINOPHEN 325 MG TABLET PO PRN (12:09)
--- NOTE | 2020-09-18 14:11 | DISCHARGE SUMMARY ---
"Discharge Summary Admit Date: 09/14/20 Discharge Date: 09/18/20 Discharging Provider: Lizabeth Sol MD Primary Care Provider: Ayla Elizondo MD Code Status: Attempt Resuscitation Condition at Discharge: Good Discharge Disposition: [facility] - DIAGNOSES Discharge Diagnoses with Status of Each Condition: 1. Acute on chronic respiratory failure with hypoxia and hypercapnia, present on admission and resolved. 2. COPD exacerbation 3. Cor pulmonale, acute exacerbation, resolved 4. Probable obstructive sleep apnea as well as obesity hypoventilation syndrome. Patient needs to be sent for sleep studies 5. Bipolar disorder 6. Generalized anxiety disorder 7. Tobacco abuse 8. Type 2 diabetes mellitus, A1c is 6.3%, before the dose of steroids 9. Right knee pain from osteoarthritis 10. Generalized leg weakness due to deconditioning and knee pain 11. Morbid obesity - HPI History of Present Illness: 65-year-old female with history of COPD and bipolar disorder who presented to the ED with dyspnea and hypoxia. Her symptoms have been going on for 3 to 4 months got significantly worse over the past few days. She is unable to ambulate 7 feet without becoming significantly winded. Arrival to the ED she was wheezing, tachypneic and tachycardic. Chest x-ray showed pulmonary vascular congestion suggestive of mild pulmonary edema. Patient has trace to +1 lower extremity edema. She is being admitted for further treatment. At bedside she denied chest pain, abdominal pain, nausea, vomiting, fever or chills. Her breathing has improved, however she still sounds coarse. She is on 5 L of oxygen via nasal cannula with O2Sat at 92-93%. - Past Medical History Cardiovascular: reports: None Respiratory: reports: Asthma, COPD, Pneumonia Neuro: reports: None Endocrine/Autoimmune: reports: None GI: reports: GERD, Chronic constipation : reports: Incontinence, Frequency HEENT: reports: None Psych: reports: Depression, Anxiety, Bipolar disorder Musculoskeletal: reports: Osteoarthritis, Other Derm: reports: None MRSA Hx?: No - Past Surgical History General: reports: Cholecystectomy, Appendectomy HEENT: reports: Tonsil/Adenoidectomy - CONSULTS | PROCEDURES Procedures: 1. Chest x-ray with cardiomegaly and pulmonary edema suggestive of congestive heart failure. Linear opacities in the medial right lung base represent atelectasis and possible developing consolidation. 2. Lumbar spine with 2 view bending. No acute findings. No listhesis or dynamic instability. Lower lumbar spine degenerative changes. 3. BiPAP at night 4. A1c 6.3% 5. Echocardiogram with normal left ventricle size. Mild concentric left ventricular hypertrophy. Overall left ventricular systolic function normal and slightly hyperdynamic with an EF of 65 to 70%. Right ventricle normal in size and function. No significant valvular heart disease. Small posterior pericardial effusion present. Mildly abnormal right heart pressures with an RVSP of 31 mmHg and elevated central venous pressure. - HOSPITAL COURSE Hospital Course: Initially placed in observation and put on MedSurg. She received steroids, nebulizers, oxygen. Overnight she worsened and by the morning was more lethargic, and had very, very, very quiet lungs. She was placed in ICU and started on BiPAP. Initial blood gas showed a PCO2 that was 129 with acidosis. She was felt to have acute on chronic respiratory failure with hypercapnia and hypoxia. Respiratory therapy work with her diligently and adjusted support BiPAP pressures pressures until her PCO2 was in the 70s. And O2 was in the 70s as well. This patient, most likely, has obstructive sleep apnea or obesity hypoventilation syndrome. She is 5 foot 7-1/2 inches tall and weighs 144.5 kg. During the day we would remove BiPAP, and resume it again at night. It is not feasible for this patient to go home on BiPAP. After treating her respiratory failure for the last 48 hours, I have come to the conclusion that the patient requires nocturnal and daytime ventilation. We need to use a noninvasive ventilator on her to reduce her risk of readmission and hospitalization and to overall improve her health and keep her in the outpatient setting. BiPAP has been used, and has been successful but it cannot be used in the outpatient se tting. I am ordering a noninvasive ventilator to treat her COPD and chronic respiratory failure. I have also come to the conclusion that she needs nebulizer therapy. This woman has a cognitive deficit. Unclear of where it came about. Nevertheless, she is a cheerful, cooperative person but does not have the coordination to be able to use a hand-held device and coordinate inhalation. As such I have switched her over to nebulizer machine with tubing and will be calling in albuterol supplies. She complained of bilateral leg weakness. Over the last few weeks if not months she feels like she is losing strength in her legs. Although her right knee hurts, it feels like it supports her. It is both of her legs will suddenly buckle underneath her and she will come close to falling. I did a back film and nothing was seen. Neurological exam is normal. Reflexes are intact at the knees. I think she just may be developing deconditioned from increasing sedentary status from shortness of breath and obesity. Physical therapy work with her. Initially we thought she would go to a senior care facility for rehab, but she has been managing to work well enough that she can return safely to her retirement. However, I think she would benefit greatly from physical therapy with home health. Then transition to physical therapy in the outpatient setting. When she is able to do those things that she would be a great candidate for cardiopulmonary rehab. She is determined to stop smoking. She has not had a cigarette since she came in the hospital. She declined a nicotine patch. I would ask that her primary care provider refer her for sleep study. Greater than 30 minutes was spent coordinating discharge. At discharge her exam was 37.410. Pulse 97. Respirations 21. 2 L nasal cannula resulted in 95% saturation. She is a spontaneously laughing female who weighs 144.5 kg and is 5 foot 7/2 inches tall. Neck is too thick to assess for JVD but there is no adenopathy no stiffness. She has coarse upper airway sounds with occasional scant wheezing. But no tripoding, no use of accessory muscles, able to converse complete sentences without gasping for air. PMI is normally placed with a regular rate and rhythm and a soft systolic ejection murmur. Abdomen has a huge abdominal pannus, obese, soft, nontender. Unable to assess for organomegaly. Normal bowel sounds. Ankles have no edema to minimal, minimal trace edema. She is able to sit up, place her feet on the side of the bed on the floor. Stand with standby assist. Use a wide walker to walk a few feet. That will make her short of breath. But she recovers quickly. This document was made in part using voice recognition software. While efforts are made to proofread this document, sound alike and grammatical errors may occur. - ALLERGIES Allergies/Adverse Reactions: Allergies Allergy/AdvReac Type Severity Reaction Status Date / Time Androgenic Anabolic Steroid Allergy Unknown Verified 09/15/20 08:24 Neuromuscular Blockers, Allergy Unknown Verified 09/15/20 08:26 Steroidal nicotine Allergy Unknown Verified 01/13/20 14:48 Penicillins Allergy Unknown Verified 01/13/20 14:48 - MEDICATIONS Home Medications: Ambulatory Orders Medication Instructions Recorded Confirmed Albuterol Sulfate [Proair Hfa 1 - 2 puffs INH Q4H PRN 01/13/20 09/15/20 Inhaler] Carboxymethylcellulose Sodium 1 drops OP PRN PRN 01/13/20 09/15/20 [Artificial Tears] Doxylam/PE/Dm/Acetaminophen/GG 1 packet PO PRN PRN 01/13/20 09/15/20 [[place] Plus Cold Day-Nt] LORazepam [Ativan] 0.5 mg PO TID 01/13/20 09/15/20 Melatonin 5 mg PO QPM 01/13/20 09/15/20 Mometasone/Formoterol [Dulera 200 1 puffs INH BID 01/13/20 09/15/20 Mcg-5 Mcg Inhaler] Montelukast Sodium 10 mg PO QPM 01/13/20 09/15/20 Pyridoxine HCl (Vitamin B6) 100 mg PO DAILY 01/13/20 09/15/20 [Vitamin B-6] Quetiapine Fumarate [Seroquel] 600 mg PO QPM 01/13/20 09/15/20 Sennosides [Senna Lax] 8.6 mg PO DAILY 01/13/20 09/15/20 Tiotropium [place] [Spiriva] 1 puffs INH QPM 01/13/20 09/15/20 hydrOXYzine HCL [Hydroxyzine HCl] 25 - 50 mg PO TID PRN 01/13/20 09/15/20 Acetaminophen [Acetaminophen Extra 1,000 mg PO Q8H PRN 09/15/20 09/15/20 Strength] Gabapentin [Neurontin] 300 mg PO TID 09/15/20 09/15/20 Meloxicam [Mobic] 7.5 mg PO BIDWM 09/15/20 09/15/20 lamoTRIgine [Lamictal] 150 mg PO DAILY 09/15/20 09/15/20 Albuterol 2.5 mg INH RTQ4H PRN neb 09/18/20 metOLazone [Metolazone] 5 mg PO BID #30 tablet 09/18/20 - LABS Result Diagrams: 09/18/20 04:54 09/18/20 04:54"
== END 2020-09-18 14:20 | disposition home health service (06) | DRG 189 ==
LOC: EDUNIT# → SUPCPDRO 17:12 → ED 17:12 → MS2 18:33 → OBSVTOIN 09-15 08:21 → ICU 09-15 10:14 → MS2 09-15 22:16 → ICU 09-15 22:18
PROVIDERS: ADMIT Specialist; ATTEND Specialist
DX: J96.22 Acute and chronic respiratory failure with hypercapnia (principal); J44.1 Chronic obstructive pulmonary disease with (acute) exacerbation; E66.2 Morbid (severe) obesity with alveolar hypoventilation; J81.0 Acute pulmonary edema; J96.21 Acute and chronic respiratory failure with hypoxia; J43.9 Emphysema, unspecified; I50.810 Right heart failure, unspecified; Z99.11 Dependence on respirator [ventilator] status; I27.81 Cor pulmonale (chronic); F17.210 Nicotine dependence, cigarettes, uncomplicated; F31.9 Bipolar disorder, unspecified; E11.9 Type 2 diabetes mellitus without complications; M17.11 Unilateral primary osteoarthritis, right knee; R41.89 Other symptoms and signs involving cognitive functions and awareness; F41.1 Generalized anxiety disorder; K21.9 Gastro-esophageal reflux disease without esophagitis; K59.09 Other constipation; R32 Unspecified urinary incontinence; Z74.09 Other reduced mobility; R53.1 Weakness; R35.0 Frequency of micturition; Z79.51 Long term (current) use of inhaled steroids; Z79.1 Long term (current) use of non-steroidal anti-inflammatories (NSAID); Z91.81 History of falling; Z79.899 Other long term (current) drug therapy; Z72.89 Other problems related to lifestyle; Z20.822 Contact with and (suspected) exposure to COVID-19; Z99.81 Dependence on supplemental oxygen; M19.90 Unspecified osteoarthritis, unspecified site; Z87.01 Personal history of pneumonia (recurrent)
CPT/HCPCS: 36415; 36600; 71045; 72120; 80048; 80053; 82803; 83036; 83690; 83880; 84484; 85025; 87150; 87631; 93005; 93306; 94640; 94660; 96374; 96375; 96376; 97161; 97530; 99285; A9270; J1650; J2060; J7626; 0202U

== ENCOUNTER 2020-09-18 14:29 | Outpatient (CLI) | payer MEDICARE, MEDICAID | END 2020-09-18 14:30 | disposition home or self-care (01) | LOC: EMS 14:29 | PROVIDERS: ATTEND Specialist | DX: J44.9 Chronic obstructive pulmonary disease, unspecified (principal); I50.9 Heart failure, unspecified; E66.01 Morbid (severe) obesity due to excess calories | CPT/HCPCS: A0425; A0428 ==

== ENCOUNTER 2020-10-11 11:15 | Outpatient (CLI) | payer MEDICARE, MEDICAID ==
[2020-10-12 10:44] VITALS: BP 118/82
--- NOTE | 2020-10-12 10:44 | SLEEP CARE CONSULTATION ---
Information from patient questionnaire entered by Keisha Quezada. I have reviewed and concur with the information entered by Keisha Quezada. This document represents the service I personally performed and the decisions made by me, Levon Lim MD, [facility]. History of Present Illness Service Date and Time: 10/11/2020 1115 Reason for Visit: New patient Chief Complaint: reports: Frequent awakenings at night Date of Onset: 1 year Usual bedtime: 10-11 pm Snores at night: Yes (a little) Observed to quit breathing while asleep: Yes Sleeps alone due to snoring: No Number of times waking at night: 4 Reasons for waking at night: reports: Pain Toss, Turn, or Twitch while sleeping: Yes Recalls having dreams: No Usually gets out of bed at: 7 am Feels refreshed in the morning: No Morning headache: Yes Sleepy or fatigued during the day: No Ever fallen asleep while driving: No Takes day naps: No Dreams during day naps: No Prior sleep studies: No Additional HPI information: I have the pleasure of seeing Ms. Watts today regarding the possibility of her having obstructive sleep apnea. As you know, she is a 65 year old lady who was recently hospitalized with acute on chronic respiratory failure. Her PCO2 was as high as 129 mmHg. She was treated with a BiPAP and her PCO2 came down to the 70s range. She tolerated BiPAP well but said the mask hurt her nose. A home ventilator was ordered upon discharge but the patient is present just on home oxygen which she uses mostly at night. She continues to smoke a few cigarettes a day. - Parasomnia Symptoms Ever felt weak in the knees when startled or emotional: Yes Bothered by creepy, crawly, restless sensations in legs: Yes Problems with memory or concentration: No Subjective Initial [place] Sleepiness Scale score: 3 (in 2020) Past Medical History Past Medical History: reports: Other (COPD, morbid obesity) Social History The patient's occupation is a Not Employed. Patient is Single and lives in [place]. Have you smoked in the past 12 months: Yes Years of smokin Alcohol use: No Caffeine use: Yes Family History Family history of sleep disordered breathing: Yes Allergies and Home Medications Drug allergies reviewed: Yes Home medication list reviewed: Yes Review of Systems Weight gain over past 5 years: 50 Weight loss over past 5 years: 3 Cardiovascular: reports: high blood pressure, have to sleep sitting up Respiratory: reports: shortness of breath, wheeze, chronic cough Neurological: reports: headaches, gait or balance problems Psychiatric: reports: mood disorder Ear/Nose/Throat: reports: sinus problems, hoarseness Endocrine: reports: sluggishness, unexplained weakness Musculoskeletal: reports: joint pain, neck pain, back pain, muscle pain or cramping, mobility problems Immunologic: reports: sneezing Physical Exam Vital signs obtained and entered by: Dr. Lim Blood Pressure: 118/82 Cuff size: regular O2 Saturation: 91 Height: 5 ft 7.5 in Weight: 317 lb Body Mass Index: 48.9 BMI Classification: Morbidly Obese Neck circumference: 17 Mood/affect: normal Extremities: no edema or clubbing Impression and Plan IMPRESSION: 1. Obstructive Sleep Apnea-Hypopnea Syndrome and COPD, also known as overlap syndrome. She most likely also has obesity hypoventilation. Presently, she is treated with home oxygen. We will do an in-laboratory polysomnography to confirm the sleep-disordered breathing. Even though she may not have obstructive sleep apnea-hypopnea, she appears to be qualified for non- invasive home ventilator because her PCO2 is high enough. Plan: 1. Schedule an in-laboratory polysomnography on home oxygen at 2 L/minute. 2. Quit smoking. 3. Try to lose weight. 4. Return for a full face mask after the sleep study. Counseling Topics: Smoking cessation Visit Type: In Office Time Spent with Patient (minutes): 15 Provider Statement: I spent 100% of the Face to Face Visit with the patient with greater than 50% spent counseling the patient and coordination of care.
--- OUTSIDE RECORDS SUMMARY | 2020-10-19 21:19 | EXTERNAL MEDICAL SUMMARY RPT | Continuity of Care Document ---
:1955 Demographics Phone Unavailable Preferred Language Unknown Marital Status Unknown Sikh Affiliation Unknown Race Unknown Ethnic Group Unknown Author Organization [place] Address [address] [place] [address] Phone Social History date description facility [phone]
== END 2020-10-11 11:16 | disposition home or self-care (01) ==
LOC: SC 11:15
PROVIDERS: ATTEND Internal Medicine Pulmonary Disease
DX: G47.33 Obstructive sleep apnea (adult) (pediatric) (principal); J44.9 Chronic obstructive pulmonary disease, unspecified; F17.210 Nicotine dependence, cigarettes, uncomplicated; E66.01 Morbid (severe) obesity due to excess calories; Z99.81 Dependence on supplemental oxygen; Z68.42 Body mass index [BMI] 45.0-49.9, adult
CPT/HCPCS: 99202; G0463; 99212

== ENCOUNTER 2020-11-10 22:01 | Outpatient (CLI) | payer MEDICARE, MEDICAID | END 2020-11-10 22:02 | disposition critical access hospital (66) | LOC: EMS 22:01 | DX: R11.10 Vomiting, unspecified (principal) | CPT/HCPCS: A0425; A0429 ==

== ENCOUNTER 2020-11-10 22:18 | Emergency (ER) | payer MEDICARE, MEDICAID ==
--- OUTSIDE RECORDS SUMMARY | 2020-11-10 22:39 | EXTERNAL MEDICAL SUMMARY RPT | Continuity of Care Document ---
:1955 Demographics Phone Unavailable Preferred Language Unknown Marital Status Unknown Islam Affiliation Unknown Race Unknown Ethnic Group Unknown Author Organization [place] Address [address] [place] [address] Phone Social History date description facility [phone]
--- NOTE | 2020-11-10 23:46 | ED Physician Documentation ---
History of Present Illness - Stated complaint Stated Complaint: VOMITING - Chief complaint Chief Complaint: Abd Pain - History obtained from History obtained from: Patient, EMS - History of Present Illness Timing: How many hours ago (2) Pain level now: 0 - Additonal information Additional information: LOLY from [facility] for N/V x 2 hours. Patient contributes minimally to HPI due to drowsy, repeatedly falls asleep during H+P. she says she no longer has nausea on my HPI Review of Systems Constitutional: denies: Fever Cardiac: denies: Chest pain / pressure Respiratory: denies: Dyspnea, Cough GI: reports: Nausea, Vomiting. denies: Abdominal Pain : denies: Dysuria PD PAST MEDICAL HISTORY - Past Medical History Past Medical History: Yes Cardiovascular: None Respiratory: Asthma, COPD, Pneumonia Neuro: None Endocrine/Autoimmune: None GI: GERD, Chronic constipation : Incontinence, Frequency HEENT: None Psych: Depression, Anxiety, Bipolar disorder Musculoskeletal: Osteoarthritis, Other Derm: None - Past Surgical History Past Surgical History: Yes General: Cholecystectomy, Appendectomy HEENT: Tonsil/Adenoidectomy - Present Medications Home Medications: Ambulatory Orders Medication Instructions Recorded Confirmed Albuterol Sulfate [Proair Hfa 1 - 2 puffs INH Q4H PRN 01/13/20 11/10/20 Inhaler] Carboxymethylcellulose Sodium 1 drops OP PRN PRN 01/13/20 11/10/20 [Artificial Tears] Doxylam/PE/Dm/Acetaminophen/GG 1 packet PO PRN PRN 01/13/20 11/10/20 [[place]bon[place] Plus Cold Day-Nt] LORazepam [Ativan] 0.5 mg PO TID 01/13/20 11/10/20 Melatonin 5 mg PO QPM 01/13/20 11/10/20 Mometasone/Formoterol [Dulera 200 1 puffs INH BID 01/13/20 11/10/20 Mcg-5 Mcg Inhaler] Montelukast Sodium 10 mg PO QPM 01/13/20 11/10/20 Pyridoxine HCl (Vitamin B6) 100 mg PO DAILY 01/13/20 11/10/20 [Vitamin B-6] Quetiapine Fumarate [Seroquel] 600 mg PO QPM 01/13/20 11/10/20 Sennosides [Senna Lax] 8.6 mg PO DAILY 01/13/20 11/10/20 Tiotropium [place] [Spiriva] 1 puffs INH QPM 01/13/20 11/10/20 hydrOXYzine HCL [Hydroxyzine HCl] 25 - 50 mg PO TID PRN 01/13/20 11/10/20 Acetaminophen [Acetaminophen Extra 1,000 mg PO Q8H PRN 09/15/20 11/10/20 Strength] Gabapentin [Neurontin] 300 mg PO TID 09/15/20 11/10/20 Meloxicam [Mobic] 7.5 mg PO BIDWM 09/15/20 11/10/20 lamoTRIgine [Lamictal] 150 mg PO DAILY 09/15/20 11/10/20 Albuterol 2.5 mg INH RTQ4H PRN neb 09/18/20 11/10/20 metOLazone [Metolazone] 5 mg PO BID #30 tablet 09/18/20 11/10/20 Ondansetron Odt [Zofran Odt] 4 mg TL Q6H PRN #10 tablet 11/11/20 Potassium Chloride [K-Dur] 20 meq PO DAILY #7 tablet 11/11/20 - Allergies Allergies/Adverse Reactions: Allergies Allergy/AdvReac Type Severity Reaction Status Date / Time Androgenic Anabolic Steroid Allergy Unknown Verified 11/11/20 02:08 Neuromuscular Blockers, Allergy Unknown Verified 11/11/20 02:08 Steroidal nicotine Allergy Unknown Verified 11/11/20 02:08 Penicillins Allergy Unknown Verified 11/11/20 02:08 - Social History Does the pt smoke?: Yes Smoking Status: Current every day smoker Does the pt drink ETOH?: No Does the pt have substance abuse?: No - Immunizations Immunizations are current?: Yes - POLST Patient has POLST: No POLST Status: Full Code PD ED PE NORMAL - Vitals Vital signs reviewed: Yes - General General: No acute distress, Other (obese female asleep and in NAD, awkens to voice but rapidly and repeatedly falls asleep) - HEENT HEENT: Moist mucous membranes - Cardiac Cardiac: RRR, No murmur - Respiratory Respiratory: No respiratory distress, Clear bilaterally - Abdomen Abdomen: Soft, Non tender - Derm Derm: Normal color, Warm and dry Results - Vitals Vitals: Oxygen O2 Source Room air - Labs Labs: Laboratory Tests 11/11/20 11/11/20 00:40 00:40 WBC 7.5 RBC 5.05 Hgb 14.1 Hct 43.0 MCV 85.1 MCH 27.9 MCHC 32.8 RDW 18.7 H Plt Count 216 MPV 8.7 Neut # (Auto) 5.3 Lymph # (Auto) 1.[address] [place] # (Auto) 0.8 Eos # (Auto) 0.0 Baso # (Auto) 0.0 Absolute Nucleated RBC 0.00 Nucleated RBC % 0.0 Sodium 123 L Potassium 2.5 L* Chloride 79 L* Carbon Dioxide 33 H Anion Gap 11.0 BUN 8 Creatinine 0.5 Estimated GFR (MDRD) 124 Glucose 110 H Calcium 8.6 Total Bilirubin 0.9 AST 34 ALT 32 Alkaline Phosphatase 59 Total Protein 6.9 Albumin 3.9 Globulin 3.0 Albumin/Globulin Ratio 1.3 Lipase 19 L PD MEDICAL DECISION MAKING - ED course Complexity details: reviewed old records, reviewed results, re-evaluated patient, considered differential ED course: patient became more awake and alert during ED stay. hyponatremic and hypokalemic, can follow up in outpatient setting. Departure - Departure Disposition: 01 Home, Self Care Clinical Impression: Vomiting, Hypokalemia, Hyponatremia Condition: Good Instructions: ED Hyponatremia, ED Potassium Deficiency, ED Nausea Vomiting Follow-Up: Ayla Elizondo MD [Primary Care Provider] - (3-5 days ) Prescriptions: Potassium Chloride [K-Dur] 20 meq PO DAILY #7 tablet Ondansetron Odt [Zofran Odt] 4 mg TL Q6H PRN #10 tablet PRN Reason: Nausea / Vomiting Comments: Your potassium and sodium levels were low tonight. You were given potassium orally in the ER as well as a prescription for daily potassium to be taken for the next 7 days. You will need to follow up with your primary care provider within the next 3-5 days, as retesting of your potassium level will likely be needed. You can add a little extra salt to your food over the next week to get your sodium level up. This will also likely need to be rechecked within the next week, at the discretion of your primary care provider. Discharge Date/Time: 11/11/20 03:30
[2020-11-11] MEDS ORDERED: ONDANSETRON ODT 4 MG TABLET TL STA (00:05)
[2020-11-11 00:54] LABS: BASOPHILS % (AUTO) 0.3 %; EOSINOPHILS % (AUTO) 0.5 %; HGB - HEMOGLOBIN 14.1 g/dL (12.0-16.0); LYMPHOCYTES # (AUTO) 1.3 10^3/uL (1.5-3.5); LYMPHOCYTES % (AUTO) 16.8 %; MEAN CORPUSCULAR HEMOGLOBIN 27.9 pg (27.0-31.0); MEAN CORPUSCULAR HGB CONC 32.8 g/dL (32.0-36.0); MEAN CORPUSCULAR VOLUME 85.1 fL (81.0-99.0); MEAN PLATELET VOLUME 8.7 fL (7.9-10.8); MONOCYTES # (AUTO) 0.8 10^3/uL (0.0-1.0); MONOCYTES % (AUTO) 10.5 %; NEUTROPHILS # (AUTO) 5.3 10^3/uL (1.5-6.6); NEUTROPHILS % (AUTO) 71.6 %; PLT - PLATELET COUNT 216 10^3/uL (130-450); RED BLOOD COUNT 5.05 10^6/uL (4.20-5.40); RED CELL DISTRIBUTION WIDTH 18.7 % (12.0-15.0); WHITE BLOOD COUNT 7.5 x10^3/uL (4.8-10.8)
[2020-11-11 01:09] LABS: ALBUMIN 3.9 g/dL (3.2-5.5); ALBUMIN/GLOBULIN RATIO 1.3 (1.0-2.2); BILIRUBIN,TOTAL 0.9 mg/dL (0.2-1.0); CALCIUM 8.6 mg/dL (8.5-10.3); CREATININE 0.5 mg/dL (0.4-1.0); TOTAL PROTEIN 6.9 g/dL (6.7-8.2)
[2020-11-11 01:11] LABS: POTASSIUM 2.5 mmol/L (3.5-5.0)
[2020-11-11] MEDS ORDERED: POTASSIUM CHLORIDE 20 MEQ TABLET PO STA (01:47)
[2020-11-11] MEDS ORDERED: IBUPROFEN 600 MG TABLET PO STA (02:12)
[2020-11-11 03:30] VITALS: BP 123/80
== END 2020-11-11 03:30 | disposition home or self-care (01) ==
LOC: EDUNIT# → ED 22:18
DX: R11.2 Nausea with vomiting, unspecified (principal); E87.6 Hypokalemia; E87.1 Hypo-osmolality and hyponatremia; F17.200 Nicotine dependence, unspecified, uncomplicated
CPT/HCPCS: 36415; 80053; 83690; 85025; 99283; A9270; Q0162

== ENCOUNTER 2020-11-12 15:50 | Outpatient (CLI) | payer MEDICARE, MEDICAID | END 2020-11-12 15:51 | disposition critical access hospital (66) | LOC: EMS 15:50 | DX: R11.10 Vomiting, unspecified (principal); R61 Generalized hyperhidrosis; R68.83 Chills (without fever) | CPT/HCPCS: A0425; A0429 ==

== ENCOUNTER 2020-11-12 16:09 | Emergency (ER) | payer MEDICARE, MEDICAID ==
[2020-11-12] MEDS ORDERED: METOCLOPRAMIDE 10 MG/2 ML VIAL IVP STA (16:14)
[2020-11-12] MEDS ORDERED: diphenhydrAMINE INJ 50 MG/ML VIAL IVP STA (16:14)
--- NOTE | 2020-11-12 16:17 | ED Physician Documentation ---
PD HPI HEADACHE - Stated complaint Stated Complaint: MIGRAINE - History obtained from History obtained from: Patient, EMS - Additional information Additional information: 65-year-old woman presents from assisted living for evaluation of headache and vomiting. She had a gradual onset frontal headache over the last 3 days, it is the worst headache of her life. It is associated with vomiting. She has a history of COPD and bipolar disorder, but no history of migraines. She did try to quit smoking yesterday but quickly relapsed. The headache preceded that. She was seen by one of my partners yesterday for vomiting. There was no report of headache at that time. She was noted to have some significant electrolyte abnormalities including a sodium of 123 and potassium 2.5, this was acute, her sodium on September 18 of this year was 143 and her potassium was 4.3 then. Review of Systems Ten Systems: 10 systems reviewed and negative Constitutional: denies: Fever, Chills Eyes: reports: Decreased vision (chronic L eye from prior trauma) Nose: denies: Rhinorrhea / runny nose GI: reports: Nausea, Vomiting. denies: Abdominal Pain PD PAST MEDICAL HISTORY - Past Medical History Cardiovascular: None Respiratory: Asthma, COPD, Pneumonia Neuro: None Endocrine/Autoimmune: None GI: GERD, Chronic constipation : Incontinence, Frequency HEENT: None Psych: Depression, Anxiety, Bipolar disorder Musculoskeletal: Osteoarthritis, Other Derm: None - Past Surgical History Past Surgical History: Yes General: Cholecystectomy, Appendectomy HEENT: Tonsil/Adenoidectomy - Present Medications Home Medications: Ambulatory Orders Medication Instructions Recorded Confirmed Albuterol Sulfate [Proair Hfa 1 - 2 puffs INH Q4H PRN 01/13/20 11/12/20 Inhaler] Carboxymethylcellulose Sodium 1 drops OP PRN PRN 01/13/20 11/12/20 [Artificial Tears] Doxylam/PE/Dm/Acetaminophen/GG 1 packet PO PRN PRN 01/13/20 11/12/20 [[place] Plus Cold Day-Nt] LORazepam [Ativan] 0.5 mg PO TID 01/13/20 11/12/20 Melatonin 5 mg PO QPM 01/13/20 11/12/20 Mometasone/Formoterol [Dulera 200 1 puffs INH BID 01/13/20 11/12/20 Mcg-5 Mcg Inhaler] Montelukast Sodium 10 mg PO QPM 01/13/20 11/12/20 Quetiapine Fumarate [Seroquel] 600 mg PO QPM 01/13/20 11/12/20 Sennosides [Senna Lax] 8.6 mg PO DAILY 01/13/20 11/10/20 Tiotropium [place] [Spiriva] 1 puffs INH QPM 01/13/20 11/10/20 hydrOXYzine HCL [Hydroxyzine HCl] 25 - 50 mg PO TID PRN 01/13/20 11/12/20 Acetaminophen [Acetaminophen Extra 1,000 mg PO Q8H PRN 09/15/20 11/12/20 Strength] Gabapentin [Neurontin] 300 mg PO TID 09/15/20 11/12/20 Meloxicam [Mobic] 7.5 mg PO BIDWM 09/15/20 11/12/20 lamoTRIgine [Lamictal] 150 mg PO DAILY 09/15/20 11/12/20 Albuterol 2.5 mg INH RTQ4H PRN neb 09/18/20 11/12/20 metOLazone [Metolazone] 5 mg PO BID #30 tablet 09/18/20 11/12/20 - Allergies Allergies/Adverse Reactions: Allergies Allergy/AdvReac Type Severity Reaction Status Date / Time Androgenic Anabolic Steroid Allergy Unknown Verified 11/12/20 16:17 Neuromuscular Blockers, Allergy Unknown Verified 11/12/20 16:17 Steroidal nicotine Allergy Unknown Verified 11/12/20 16:17 Penicillins Allergy Unknown Verified 11/12/20 16:17 - Social History Does the pt smoke?: Yes Smoking Status: Current every day smoker Does the pt drink ETOH?: No Does the pt have substance abuse?: No - Immunizations Immunizations are current?: Yes - POLST Patient has POLST: No POLST Status: Full Code PD ED PE NORMAL - Vitals Vital signs reviewed: Yes - General General: Alert and oriented X 3, No acute distress - HEENT HEENT: EOMI, Other (Irregular left pupil from prior trauma) - Neck Neck: Supple, no meningeal sign, No bony TTP - Cardiac Cardiac: RRR, No murmur - Respiratory Respiratory: No respiratory distress, Clear bilaterally - Abdomen Abdomen: Normal bowel sounds, Soft, Non tender - Back Back: No CVA TTP, No spinal TTP - Derm Derm: Normal color, Warm and dry - Extremities Extremities: No edema, No calf tenderness / cord - Neuro Neuro: Alert and oriented X 3, No motor deficit, No sensory deficit, Normal speech Results - Vitals Vitals: Vital Signs - 24 hr 11/12/20 11/12/20 11/12/20 16:09 16:41 17:34 Temperature 36.9 C Heart Rate 84 85 78 Respiratory 18 17 16 Rate Blood Pressure 121/72 139/79 H 141/71 H O2 Saturation 88 L 96 98 Oxygen O2 Source Nasal cannula - Labs Labs: Laboratory Tests 11/12/20 11/12/20 16:26 16:26 WBC 7.7 RBC 5.48 H Hgb 15.4 Hct 46.4 MCV 84.7 MCH 28.1 MCHC 33.2 RDW 17.9 H Plt Count 238 MPV 8.7 Neut # (Auto) 5.7 Lymph # (Auto) 1.2 [place] # (Auto) 0.8 Eos # (Auto) 0.0 Baso # (Auto) 0.0 Absolute Nucleated RBC 0.00 Nucleated RBC % 0.0 Sodium 122 L Potassium 2.5 L* Chloride 74 L* Carbon Dioxide 35 H Anion Gap 13.0 BUN 7 Creatinine 0.5 Estimated GFR (MDRD) 124 Glucose 128 H Calcium 9.1 Magnesium 1.9 Total Bilirubin 0.8 AST 47 H ALT 37 Alkaline Phosphatase 67 Total Protein 8.0 Albumin 4.5 Globulin 3.5 Albumin/Globulin Ratio 1.3 PD MEDICAL DECISION MAKING - ED course ED course: 65-year-old woman presents with gradual onset worst headache of life. No clinical evidence of meningitis. Pain went from an 8 to a 2 on a 10 point scale with the administration of Reglan and Benadryl IV. She still has significant electrolyte abnormalities, Her sodium went from 1 23-1 22 in the last 36 hours or so, potassium went from 2.5 and is stable at 2.5, her chloride went from 79- 74. It is possible that this is all from vomiting, but given the severity of her electrolyte abnormalities probably needs to be treated as an inpatient. Unfortunately CT scanner is down here and MRI was also not available, and I believe she probably needs cranial imaging to rule out a more significant emergent diagnosis prior to admission. As such [facility] was called at 5 PM for transfer. She was graciously accepted to [facility] ED by Dr. Arenas at 5:03 PM. 2K riders (10meq x 2) and maintenance fluids were ordered. Departure - Departure Disposition: 02 Transfer Acute Care Hosp Clinical Impression: Hyponatremia, Hypokalemia Vomiting Qualifiers: Vomiting type: unspecified Vomiting Intractability: non-intractable Headache Qualifiers: Headache type: other headache syndrome Qualified Code(s): G44.89 - Other headache syndrome Condition: Serious Discharge Date/Time: 11/12/20 17:39
--- OUTSIDE RECORDS SUMMARY | 2020-11-12 16:23 | EXTERNAL MEDICAL SUMMARY RPT | Continuity of Care Document ---
:1955 Demographics Phone Unavailable Preferred Language Unknown Marital Status Unknown Jewish Affiliation Unknown Race Unknown Ethnic Group Unknown Author Organization [place] Address [address] [id number] Phone Social History date description facility [phone]
[2020-11-12 16:35] LABS: BASOPHILS % (AUTO) 0.3 %; EOSINOPHILS % (AUTO) 0.3 %; HCT - HEMATOCRIT 46.4 % (37.0-47.0); HGB - HEMOGLOBIN 15.4 g/dL (12.0-16.0); LYMPHOCYTES # (AUTO) 1.2 10^3/uL (1.5-3.5); LYMPHOCYTES % (AUTO) 15.7 %; MEAN CORPUSCULAR HEMOGLOBIN 28.1 pg (27.0-31.0); MEAN CORPUSCULAR HGB CONC 33.2 g/dL (32.0-36.0); MEAN CORPUSCULAR VOLUME 84.7 fL (81.0-99.0); MEAN PLATELET VOLUME 8.7 fL (7.9-10.8); MONOCYTES # (AUTO) 0.8 10^3/uL (0.0-1.0); MONOCYTES % (AUTO) 10.1 %; NEUTROPHILS # (AUTO) 5.7 10^3/uL (1.5-6.6); NEUTROPHILS % (AUTO) 73.2 %; PLT - PLATELET COUNT 238 10^3/uL (130-450); RED BLOOD COUNT 5.48 10^6/uL (4.20-5.40); RED CELL DISTRIBUTION WIDTH 17.9 % (12.0-15.0); WHITE BLOOD COUNT 7.7 x10^3/uL (4.8-10.8)
[2020-11-12 16:54] LABS: ALBUMIN 4.5 g/dL (3.2-5.5); ALBUMIN/GLOBULIN RATIO 1.3 (1.0-2.2); BILIRUBIN,TOTAL 0.8 mg/dL (0.2-1.0); CALCIUM 9.1 mg/dL (8.5-10.3); CREATININE 0.5 mg/dL (0.4-1.0); MAGNESIUM 1.9 mg/dL (1.7-2.8)
[2020-11-12 16:56] LABS: POTASSIUM 2.5 mmol/L (3.5-5.0)
[2020-11-12] MEDS ORDERED: SODIUM CHLORIDE 0.9% 1,000 ML IV STA (16:56)
[2020-11-12] MEDS ORDERED: POTASSIUM CHLOR 10 MEQ/100 ML 10 MEQ/100 ML BAG IV STA ×2 (16:56)
[2020-11-12 17:34] VITALS: BP 141/71
== END 2020-11-12 17:39 | disposition short-term general hospital (02) ==
LOC: EDUNIT# → ED 16:09 → SUPCPDRO 16:09 → ED 17:39
DX: G44.89 Other headache syndrome (principal); R11.2 Nausea with vomiting, unspecified; E87.1 Hypo-osmolality and hyponatremia; E87.6 Hypokalemia; J44.9 Chronic obstructive pulmonary disease, unspecified; F17.200 Nicotine dependence, unspecified, uncomplicated
CPT/HCPCS: 36415; 80053; 83735; 85025; 96374; 96375; 99284; 99285; J1200; J2765

== ENCOUNTER 2020-11-12 17:42 | Outpatient (CLI) | payer MEDICARE, MEDICAID | END 2020-11-12 17:43 | disposition short-term general hospital (02) | LOC: EMS 17:42 | PROVIDERS: ATTEND Emergency Medicine | DX: R51.9 Headache, unspecified (principal); E87.8 Other disorders of electrolyte and fluid balance, not elsewhere classified | CPT/HCPCS: A0425; A0426 ==

== ENCOUNTER 2020-11-16 14:39 | Outpatient (CLI) | payer MEDICARE, MEDICAID | END 2020-11-16 14:40 | disposition short-term general hospital (02) | LOC: EMS 14:39 | DX: R41.82 Altered mental status, unspecified (principal) | CPT/HCPCS: A0425; A0429; A0888 ==

== ENCOUNTER 2020-12-10 19:56 | Outpatient (CLI) | payer MEDICARE, MEDICAID | END 2020-12-10 19:57 | disposition home or self-care (01) | LOC: SC 19:56 | PROVIDERS: ATTEND Internal Medicine Pulmonary Disease | DX: G47.33 Obstructive sleep apnea (adult) (pediatric) (principal); J44.9 Chronic obstructive pulmonary disease, unspecified; F17.210 Nicotine dependence, cigarettes, uncomplicated; E66.01 Morbid (severe) obesity due to excess calories; Z68.42 Body mass index [BMI] 45.0-49.9, adult; Z99.81 Dependence on supplemental oxygen | CPT/HCPCS: 95810 ==

== ENCOUNTER 2021-01-03 11:49 | Outpatient (CLI) | payer MEDICARE, MEDICAID ==
--- NOTE | 2021-01-03 11:54 | SLEEP CARE CONSULTATION ---
Information from patient questionnaire entered by Keisha Quezada. I have reviewed and concur with the information entered by Keisha Quezada. This document represents the service I personally performed and the decisions made by me, Levon Lim MD, [facility]. History of Present Illness Service Date and Time: 01/03/2021 1149 Initial [place] Sleepiness Scale score: 3 (in 2020) Additional HPI information: HPI: Ms. Watts returned for follow up of the sleep study she had on 12/10/2020. The polysomnography showed that the patient had normal sleep efficiency. The sleep architecture was slightly abnormal for short REM latency.. Respiratory monitoring showed no significant sleep disordered breathing (AHI = 2.7). There was mild hypoxia with 3% of the total sleep time spent with oxygen saturation below 90% (neto oxygen saturation of 84%). Oxygen supplement was used all night at 2 3 L/minute. The patient only slept supine during this study (supine AHI = 2.8; non-supine = 0.00). Snore was infrequent and light in intensity. There was no significant periodic leg movement of sleep. Cardiac rhythm was normal sinus rhythm with occasional sinus tachycardia (max heart rate = 106 beats per minute). No abnormal behavior (parasomnia) observed during the night. The patient was informed of these findings. I explained to her that the sleep study was normal except that she should increase her oxygen flow rate at night from 2 3 L/minute. Sleep Study - Results Type of Sleep Study: Polysomnography Prior sleep studies: No Allergies and Home Medications Drug allergies reviewed: Yes Home medication list reviewed: Yes Review of Systems Review of systems same as previous: Yes Physical Exam Height: 5 ft 7 in Impression and Plan IMPRESSION: 1. Nocturnal hypoxemia, mild on oxygen therapy, most likely due to obesity hypoventilation. During the sleep study, hypoxia was corrected with oxygen therapy at 3 L/minute. Therefore, the patient should continue with home oxygen therapy. Positive airway pressure therapy is not indicated. Weight loss is strongly recommended. PLAN: 1. Continue with home Oxygen therapy. 2. Attempt to lose weight. 3. Return for a follow up at the sleep clinic on as needed basis. Visit Type: Telehealth Video Video Type: VSee Patient Location: Care Facility Location of Provider: Office Patient agrees and consents to this telehealth visit type: Yes Patient agrees to have their insurance billed: Yes Time Spent with Patient (minutes): 10 Provider Statement: I spent 100% of the Telehealth Video Call with the patient with greater than 50% spent counseling the patient and coordination of care.
== END 2021-01-03 11:50 | disposition home or self-care (01) ==
LOC: SC 11:49
PROVIDERS: ATTEND Internal Medicine Pulmonary Disease
DX: R09.02 Hypoxemia (principal); Z99.81 Dependence on supplemental oxygen

== ENCOUNTER 2021-09-01 00:52 | Outpatient (CLI) | payer MEDICARE, MEDICAID | END 2021-09-01 00:53 | disposition critical access hospital (66) | LOC: EMS 00:52 | DX: R06.02 Shortness of breath (principal); R41.82 Altered mental status, unspecified | CPT/HCPCS: A0425; A0427 ==

== ENCOUNTER 2021-09-01 01:08 | Inpatient (IN) | payer MEDICARE, MEDICAID ==
[2021-09-01] MEDS ORDERED: DEXAMETHASONE 10 MG/ML VIAL IV STA (01:23)
--- NOTE | 2021-09-01 01:26 | ED Physician Documentation ---
History of Present Illness - Stated complaint Stated Complaint: SOB - Chief complaint Chief Complaint: Resp - History obtained from History obtained from: Patient, EMS - Additonal information Additional information: The patient is brought to the emergency department by EMS for chief complaint of increasing shortness of breath for the last several days. The patient has been noted by staff to seem less alert than usual and to be having some difficulty breathing, but the patient has declined to come to the hospital. However, tonight, the patient summoned staff and told him that she was feeling short of breath and as though she needed to come to the hospital. Medics state that the staff found her to be in the low to mid 80s on her usual 2 L of oxygen per nasal cannula. Medics state they gave her a DuoNeb in route which did seem to improve her somewhat. However, the patient has been somewhat somnolent. The patient takes Ativan and Seroquel, though her last recorded dose of Ativan was at 1530 today. The patient denies any chest pain. She states her baseline cough is about the same as usual. Medics state the staff reports patient has been afebrile throughout this illness. She is fully vaccinated for COVID, plus a booster in May. Her last Covid test was August 18 and negative. Review of Systems Ten Systems: 10 systems reviewed and negative Constitutional: reports: Reviewed and negative Eyes: reports: Reviewed and negative Ears: reports: Reviewed and negative Nose: reports: Reviewed and negative Throat: reports: Reviewed and negative Cardiac: reports: Reviewed and negative Respiratory: reports: Dyspnea, Cough GI: reports: Reviewed and negative : reports: Reviewed and negative Skin: reports: Reviewed and negative Musculoskeletal: reports: Reviewed and negative Neurologic: reports: Reviewed and negative Psychiatric: reports: Reviewed and negative Endocrine: reports: Reviewed and negative Immunocompromised: reports: Reviewed and negative PD PAST MEDICAL HISTORY - Past Medical History Cardiovascular: None Respiratory: Asthma, COPD, Pneumonia Neuro: None Endocrine/Autoimmune: None GI: GERD, Chronic constipation : Incontinence, Frequency HEENT: None Psych: Depression, Anxiety, Bipolar disorder Musculoskeletal: Osteoarthritis, Other Derm: None - Past Surgical History Past Surgical History: Yes General: Cholecystectomy, Appendectomy HEENT: Tonsil/Adenoidectomy - Present Medications Home Medications: Ambulatory Orders Medication Instructions Recorded Confirmed Albuterol Sulfate [Proair Hfa 1 - 2 puffs INH Q4H PRN 01/13/20 09/01/21 Inhaler] Carboxymethylcellulose Sodium 1 drops OP PRN PRN 01/13/20 09/01/21 [Artificial Tears] Doxylam/PE/Dm/Acetaminophen/GG 1 packet PO PRN PRN 01/13/20 09/01/21 [[place] Plus Cold Day-Nt] LORazepam [Ativan] 0.5 mg PO TID 01/13/20 09/01/21 Melatonin 5 mg PO QPM 01/13/20 09/01/21 Mometasone/Formoterol [Dulera 200 1 puffs INH BID 01/13/20 09/01/21 Mcg-5 Mcg Inhaler] Montelukast Sodium 10 mg PO QPM 01/13/20 09/01/21 Quetiapine Fumarate [Seroquel] 600 mg PO QPM 01/13/20 09/01/21 Sennosides [Senna Lax] 8.6 mg PO DAILY 01/13/20 09/01/21 Tiotropium [place] [Spiriva] 1 puffs INH QPM 01/13/20 09/01/21 hydrOXYzine HCL [Hydroxyzine HCl] 25 - 50 mg PO TID PRN 01/13/20 09/01/21 Acetaminophen [Acetaminophen Extra 1,000 mg PO Q8H PRN 09/15/20 09/01/21 Strength] Meloxicam [Mobic] 7.5 mg PO BIDWM 09/15/20 09/01/21 lamoTRIgine [Lamictal] 150 mg PO DAILY 09/15/20 11/12/20 Albuterol 2.5 mg INH RTQ4H PRN neb 09/18/20 09/01/21 Baclofen [Lioresal] 20 mg PO TID 09/01/21 09/01/21 Mometasone/Formoterol [Dulera 200 1 puffs IH BID 09/01/21 09/01/21 Mcg-5 Mcg Inhaler] OLANZapine [Zyprexa] 2.5 mg PO QPM 09/01/21 09/01/21 Ondansetron Odt [Zofran Odt] 4 mg PO Q6HR PRN 09/01/21 09/01/21 Potassium Chloride [K-Dur] 20 meq PO DAILY 09/01/21 09/01/21 lisinopriL [Zestril] 5 mg PO DAILY 09/01/21 09/01/21 - Allergies Allergies/Adverse Reactions: Allergies Allergy/AdvReac Type Severity Reaction Status Date / Time Androgenic Anabolic Steroid Allergy Unknown Verified 09/01/21 01:26 Neuromuscular Blockers, Allergy Unknown Verified 09/01/21 01:26 Steroidal nicotine Allergy Unknown Verified 09/01/21 01:26 Penicillins Allergy Unknown Verified 09/01/21 01:26 - Social History Does the pt smoke?: Yes Smoking Status: Current every day smoker Does the pt drink ETOH?: No Does the pt have substance abuse?: No - Immunizations Immunizations are current?: Yes - POLST Patient has POLST: No POLST Status: Full Code PD ED PE NORMAL - Vitals Vital signs reviewed: Yes - General General: Other (Drowsy, with mildly labored respirations.) - HEENT HEENT: Atraumatic, PERRL, EOMI, Moist mucous membranes - Neck Neck: Supple, no meningeal sign - Cardiac Cardiac: RRR, No murmur, Strong equal pulses - Respiratory Respiratory: Other (Coarse breath sounds bilaterally with faint wheezes throughout lung cool bilaterally. Mildly labored respirations.) - Abdomen Abdomen: Soft, Non tender, Non distended - Derm Derm: Normal color, Warm and dry, No rash - Extremities Extremities: No deformity, No edema - Neuro Neuro: Other (The patient is awake, but is drowsy. She is arousable. Moves all 4 extremities and is without obvious cranial nerve deficits.) - Psych Psych: Normal mood, Normal affect Results - Vitals Vitals: Vital Signs - 24 hr 09/01/21 09/01/21 09/01/21 01:10 01:25 01:35 Temperature 36.8 C Heart Rate 111 H 108 H 109 H Respiratory 27 H 38 H 30 H Rate Blood Pressure 148/82 H 129/68 O2 Saturation 78 L 98 09/01/21 09/01/21 09/01/21 01:54 02:06 02:15 Temperature 36.6 C Heart Rate 99 107 H 104 H Respiratory 17 18 23 Rate Blood Pressure 129/68 137/67 H 137/67 H O2 Saturation 99 96 94 09/01/21 09/01/21 09/01/21 02:35 03:01 03:10 Temperature 36.6 C Heart Rate 104 H 98 88 Respiratory 24 21 Rate Blood Pressure 126/74 115/67 O2 Saturation 94 93 09/01/21 03:21 Temperature Heart Rate 96 Respiratory 19 Rate Blood Pressure 115/67 O2 Saturation 98 Oxygen O2 Source BIPAP Oxygen Flow Rate 15 - EKG (time done) 0129 Rate: Rate (enter#) (111) Rhythm: Sinus tachycardia Anna: RAD Intervals: Normal MI QRS: Normal Ischemia: Normal ST segments, Non specific changes Compare to prior EKG: Old EKG unavailable Computer interpretation: Agree with computer - Labs Labs: Laboratory Tests 09/01/21 09/01/21 09/01/21 01:30 01:35 01:35 WBC 8.7 RBC 4.67 Hgb 13.3 Hct 44.8 MCV 95.9 MCH 28.5 MCHC 29.7 L RDW 16.3 H Plt Count 203 MPV 9.8 Neut # (Auto) 6.1 Lymph # (Auto) 1.6 [place] # (Auto) 0.9 Eos # (Auto) 0.0 Baso # (Auto) 0.0 Absolute Nucleated RBC 0.00 Nucleated RBC % 0.0 Bld Gas Analysis Time Sample Site ABG pH ABG pCO2 ABG pO2 ABG HCO3 ABG Total CO2 ABG O2 Saturation ABG Base Excess Fer Test O2 Delivery Device O2 Liters/Min Sodium 134 L Potassium 5.1 H Chloride 87 L Carbon Dioxide 39 H* Anion Gap 8.0 BUN 20 Creatinine 0.6 Estimated GFR (MDRD) 100 Glucose 120 H Calcium 9.0 Total Bilirubin 0.5 AST 22 ALT 32 Alkaline Phosphatase 58 B-Natriuretic Peptide Total Protein 6.5 L Albumin 3.3 Globulin 3.2 Albumin/Globulin Ratio 1.0 Lipase 28 TSH Nasal Adenovirus (PCR) NOT DETECTED Nasal B. parapertussis DNA (PCR) NOT DETECTED Nasal Coronavir 229E PCR NOT DETECTED Nasal Coronavir HKU1 PCR NOT DETECTED Nasal Coronavir NL63 PCR NOT DETECTED Nasal Coronavir OC43 PCR NOT DETECTED Nasal Enterovir/Rhinovir PCR NOT DETECTED Nasal Influenza B PCR NOT DETECTED Nasal Influenza A PCR NOT DETECTED Nasal Parainfluen 1 PCR NOT DETECTED Nasal Parainfluen 2 PCR NOT DETECTED Nasal Parainfluen 3 PCR NOT DETECTED Nasal Parainfluen 4 PCR NOT DETECTED Nasal RSV (PCR) NOT DETECTED Nasal B.pertussis DNA PCR NOT DETECTED Nasal C.pneumoniae (PCR) NOT DETECTED Dilip Human Metapneumo PCR NOT DETECTED Nasal M.pneumoniae (PCR) NOT DETECTED Nasal SARS-CoV-2 (PCR) NOT DETECTED 09/01/21 09/01/21 09/01/21 01:35 01:35 01:40 WBC RBC Hgb Hct MCV MCH MCHC RDW Plt Count MPV Neut # (Auto) Lymph # (Auto) [place] # (Auto) Eos # (Auto) Baso # (Auto) Absolute Nucleated RBC Nucleated RBC % Bld Gas Analysis Time 0145 Sample Site LEFT RADIAL ABG pH 7.18 L* ABG pCO2 118 H* ABG pO2 202 H* ABG HCO3 43.3 H ABG Total CO2 47.0 H* ABG O2 Saturation 99 H ABG Base Excess 10.0 H Fer Test POSITIVE O2 Delivery Device NASAL CANNULA O2 Liters/Min 6.00 Sodium Potassium Chloride Carbon Dioxide Anion Gap BUN Creatinine Estimated GFR (MDRD) Glucose Calcium Total Bilirubin AST ALT Alkaline Phosphatase B-Natriuretic Peptide 293 H Total Protein Albumin Globulin Albumin/Globulin Ratio Lipase TSH 1.53 Nasal Adenovirus (PCR) Nasal B. parapertussis DNA (PCR) Nasal Coronavir 229E PCR Nasal Coronavir HKU1 PCR Nasal Coronavir NL63 PCR Nasal Coronavir OC43 PCR Nasal Enterovir/Rhinovir PCR Nasal Influenza B PCR Nasal Influenza A PCR Nasal Parainfluen 1 PCR Nasal Parainfluen 2 PCR Nasal Parainfluen 3 PCR Nasal Parainfluen 4 PCR Nasal RSV (PCR) Nasal B.pertussis DNA PCR Nasal C.pneumoniae (PCR) Dilip Human Metapneumo PCR Nasal M.pneumoniae (PCR) Nasal SARS-CoV-2 (PCR) - Rads (name of study) Chest x-ray Radiology: Final report received, EMP read indepedently, See rad report (Pulmonary vascular congestion) PD MEDICAL DECISION MAKING - ED course Complexity details: reviewed results, re-evaluated patient, considered differ ential, d/w patient ED course: The patient was worked up with labs, EKG, and chest x-ray. She was treated with Decadron and a DuoNeb in the emergency department, with minimal additional improvement in her mental status but mild improvement in her lung sounds. Chest x-ray showed some pulmonary vascular congestion, so the patient was given [address] IV[address] of the head was unremarkable. She continued to be extremely somnolent and her ABG showed a pH of 7.18 with a PCO2 markedly elevated at 118 and a PO2 of just over 200. I felt the elevated PCO2 was most likely the reason for the patient's somnolence, and immediately had nursing staff cut back the patient's oxygen to keep her oxygen saturation right at around 90%. We put the patient on BiPAP and I worked with respiratory therapist to adjust the settings to try to assist the patient in blowing off some CO2. The patient did become quite awake at one point while BiPAP was in place, shouting that she "needed to pee" and tearing the mask off. She climbed out of bed and stood up and did use the bedside commode to urinate. However, after that, she did go back to being fairly somnolent. Repeat ABG showed that her pH had, mildly, but her PCO2 was actually one-point worse. We did increase her pressure settings and, but felt that her rate and the volume of which she was breathing was actually quite i mproved from when she initially came, and that this should be kept as is. I had spoken with Dr. Sol regarding the patient already and she had agreed to admit the patient to her service. We discussed that if the ABG was not improving with the BiPAP, that the patient would most likely need to be intubated and that I would be willing to assist with this process the patient remained stable throughout the rest of her stay in the ED and was ultimately transferred to the ICU on BiPAP. - Critical Care Time(min): 45 Comments: Critical care time was necessary, due to high probability of imminent decline and , secondary to respiratory failure With hypoxia and hypercarbia, in the setting of COPD and CHF exacerbations with altered mental status. Time Includes: Direct patient care, Review records, Reassess patient, Document care, Coordinate care, Medical consult, See progress note Data interpretation: Labs, Pulse ox, ABG, CXR, Cardiac output, See progress note Procedures included in critical care time: Ventilator mgmt, See progress note Departure - Departure Disposition: 66 [facility] DC/Xfer Clinical Impression: COPD exacerbation, CO2 narcosis Acute exacerbation of CHF (congestive heart failure) Qualifiers: Heart failure type: unspecified Qualified Code(s): I50.9 - Heart failure, unspecified Acute and chronic respiratory failure Qualifiers: Respiratory failure complication: hypoxia and hypercapnia Qualified Code(s): J96.21 - Acute and chronic respiratory failure with hypoxia Condition: Critical Discharge Date/Time: 09/01/21 04:25
[2021-09-01] MEDS ORDERED: ALBUTEROL NEB 2.5 MG/3 ML INH ONE (01:30)
[2021-09-01 01:40] LABS: BASOPHILS % (AUTO) 0.3 %; HCT - HEMATOCRIT 44.8 % (37.0-47.0); HGB - HEMOGLOBIN 13.3 g/dL (12.0-16.0); LYMPHOCYTES # (AUTO) 1.6 10^3/uL (1.5-3.5); LYMPHOCYTES % (AUTO) 18.3 %; MEAN CORPUSCULAR HEMOGLOBIN 28.5 pg (27.0-31.0); MEAN CORPUSCULAR HGB CONC 29.7 g/dL (32.0-36.0); MEAN CORPUSCULAR VOLUME 95.9 fL (81.0-99.0); MEAN PLATELET VOLUME 9.8 fL (7.9-10.8); MONOCYTES # (AUTO) 0.9 10^3/uL (0.0-1.0); MONOCYTES % (AUTO) 10.8 %; NEUTROPHILS # (AUTO) 6.1 10^3/uL (1.5-6.6); NEUTROPHILS % (AUTO) 70.4 %; PLT - PLATELET COUNT 203 10^3/uL (130-450); RED BLOOD COUNT 4.67 10^6/uL (4.20-5.40); RED CELL DISTRIBUTION WIDTH 16.3 % (12.0-15.0); WHITE BLOOD COUNT 8.7 x10^3/uL (4.8-10.8)
[2021-09-01 01:47] LABS: ABG HCO3 43.3 mmol/L (22.0-26.0); ABG OXYGEN SATURATION 99 % (94-98); ALLEN TEST POSITIVE
[2021-09-01 01:49] LABS: ABG PCO2 118 mmHg (34-45); ABG PH 7.18 (7.35-7.45); ABG PO2 202 mmHg (80-100)
[2021-09-01 01:57] LABS: ALBUMIN 3.3 g/dL (3.2-5.5); BILIRUBIN,TOTAL 0.5 mg/dL (0.2-1.0); CREATININE 0.6 mg/dL (0.4-1.0); POTASSIUM 5.1 mmol/L (3.5-5.0); TOTAL PROTEIN 6.5 g/dL (6.7-8.2)
--- NOTE | 2021-09-01 02:08 | XRAY Report ---
PROCEDURE: Chest 1 View X-Ray INDICATIONS: chest pain TECHNIQUE: One view of the chest was acquired. COMPARISON: Chest x-ray one view, 09/14/2020 FINDINGS: Surgical changes and devices: None. Lungs and pleura: Mild interstitial prominence. No pleural effusions or pneumothorax. Mediastinum: Mediastinal contours appear normal. Heart size is mildly increased. Bones and chest wall: No suspicious bony lesions. Overlying soft tissues appear unremarkable. IMPRESSION: 1. Mild cardiomegaly. 2. Mild interstitial prominence suggests mild pulmonary congestion. Recommend clinical correlation. Reviewed by: Winifred Grimes MD on 09/01/2021 2:06 AM PST Approved by: Winifred Grimes MD on 09/01/2021 2:06 AM PST Station ID: [id number]
[2021-09-01] MEDS ORDERED: FUROSEMIDE 40 MG/4 ML VIAL IVP STA (02:15)
[2021-09-01 02:33] LABS: CORONAVIRUS 229E-RESP PCR NOT DETECTED; CORONAVIRUS HKU1-RESP PCR NOT DETECTED; CORONAVIRUS NL63-RESP PCR NOT DETECTED; CORONAVIRUS OC43-RESP PCR NOT DETECTED; HUMAN METAPNEUMOVIRUS NOT DETECTED; INFLUENZA A- RESP PCR PANEL NOT DETECTED; INFLUENZA B - RESP PCR PANEL NOT DETECTED; PARAINFLUENZA VIRUS 1 NOT DETECTED; PARAINFLUENZA VIRUS 2 NOT DETECTED; PARAINFLUENZA VIRUS 3 NOT DETECTED; PARAINFLUENZA VIRUS 4 NOT DETECTED; RHINOVIRUS/ENTEROVIRUS NOT DETECTED; SARS-CoV-2 -RESP PCR PANEL NOT DETECTED
[2021-09-01 02:34] LABS: B. PARAPERTUSSIS- RESP PCR PAN NOT DETECTED; B. PERTUSSIS- RESP PCR PANEL NOT DETECTED; C. PNEUMONIAE- RESP PCR PANEL NOT DETECTED; M. PNEUMONIAE- RESP PCR PANEL NOT DETECTED; RSV- RESP PCR PANEL NOT DETECTED
[2021-09-01] MEDS ORDERED: ONDANSETRON 4 MG/2 ML VIAL IVP PRN (03:30)
[2021-09-01] MEDS ORDERED: ONDANSETRON ODT 4 MG TABLET TL PRN (03:30)
[2021-09-01] MEDS ORDERED: oxyCODONE 5 MG TABLET PO PRN (03:30)
[2021-09-01] MEDS ORDERED: ALBUTEROL NEB 2.5 MG/3 ML INH PRN (03:36)
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
[2021-09-01 03:56] LABS: ABG BASE EXCESS 12.8 mmol/L (-2.0-3.0); ABG HCO3 46.5 mmol/L (22.0-26.0); ABG PH 7.21 (7.35-7.45); ABG PO2 58 mmHg (80-100)
[2021-09-01 03:57] LABS: ABG MODE OF VENTILATION SYNCHRONOUS/TIMES; ALLEN TEST POSITIVE
[2021-09-01 03:58] LABS: ABG OXYGEN SATURATION 87 % (94-98); ABG PCO2 119 mmHg (34-45); ABG TCO2 50.1 MMOL/L (21.0-29.0)
[2021-09-01] MEDS ORDERED: SODIUM CHLORIDE 0.9% 1,000 ML IV SCH (04:00)
[2021-09-01] MEDS: SODIUM CHLORIDE FLUSH 0.9% 10 ML SYRINGE IVP PRN (05:59)
[2021-09-01] MEDS: methylPREDNISolone SUCCINATE 40 MG/ML VIAL IVP SCH ×3 (05:59→23:21)
[2021-09-01] MEDS ORDERED: BACLOFEN 10 MG TABLET PO SCH (06:00)
[2021-09-01] MEDS ORDERED: LORazepam 0.5 MG TABLET PO SCH (06:00)
[2021-09-01 06:26] LABS: BASOPHILS % (AUTO) 0.3 %; HGB - HEMOGLOBIN 14.3 g/dL (12.0-16.0); LYMPHOCYTES # (AUTO) 0.6 10^3/uL (1.5-3.5); LYMPHOCYTES % (AUTO) 8.2 %; MEAN CORPUSCULAR HEMOGLOBIN 28.8 pg (27.0-31.0); MEAN CORPUSCULAR HGB CONC 29.8 g/dL (32.0-36.0); MEAN CORPUSCULAR VOLUME 96.6 fL (81.0-99.0); MEAN PLATELET VOLUME 9.6 fL (7.9-10.8); MONOCYTES # (AUTO) 0.1 10^3/uL (0.0-1.0); MONOCYTES % (AUTO) 1.4 %; NEUTROPHILS # (AUTO) 6.9 10^3/uL (1.5-6.6); NEUTROPHILS % (AUTO) 89.7 %; PLT - PLATELET COUNT 213 10^3/uL (130-450); RED BLOOD COUNT 4.97 10^6/uL (4.20-5.40); RED CELL DISTRIBUTION WIDTH 16.3 % (12.0-15.0); WHITE BLOOD COUNT 7.7 x10^3/uL (4.8-10.8)
[2021-09-01 06:33] LABS: CREATININE 0.8 mg/dL (0.4-1.0); POTASSIUM 4.6 mmol/L (3.5-5.0)
[2021-09-01 06:51] LABS: MAGNESIUM 1.8 mg/dL (1.7-2.8); PHOSPHORUS 4.7 mg/dL (2.5-4.6)
[2021-09-01] MEDS ORDERED: IPRATROPIUM/ALBUTEROL 3 ML NEB INH SCH (07:00)
[2021-09-01] MEDS ORDERED: BUDESONIDE 0.5 MG/2 ML NEB INH SCH (07:00)
[2021-09-01] MEDS ORDERED: FORMOTEROL FUMARATE NEB 20 MCG/2 ML INH SCH (07:00)
[2021-09-01 07:48] LABS: ABG PH 7.27 (7.35-7.45); ABG PO2 62 mmHg (80-100)
[2021-09-01 07:49] LABS: ABG BASE EXCESS 15.5 mmol/L (-2.0-3.0); ABG HCO3 48.2 mmol/L (22.0-26.0); ABG OXYGEN SATURATION 88 % (94-98)
[2021-09-01 07:50] LABS: ALLEN TEST POSITIVE
[2021-09-01 07:51] LABS: ABG MODE OF VENTILATION BIPAP
[2021-09-01 07:53] LABS: ABG PCO2 108 mmHg (34-45); ABG TCO2 51.5 MMOL/L (21.0-29.0)
--- NOTE | 2021-09-01 08:23 | CT Report ---
PROCEDURE: HEAD WO INDICATIONS: Altered mental status TECHNIQUE: Noncontrast 4.5 mm thick angled axial sections acquired from the foramen magnum to the vertex. For r adiation dose reduction, the following was used: automated exposure control, adjustment of mA and/or kV according to patient size. COMPARISON: None. FINDINGS: Image quality: Excellent. CSF spaces: Basal cisterns are patent. No extra-axial fluid collections. Ventricles are normal in size and shape. Brain: No midline shift. No intracranial masses or hemorrhage. Hwang-white matter interface is norm al. Skull and face: Calvarium and visualized facial bones are intact, without suspicious lesions. Sinuses: Visualized sinuses and mastoids are clear. IMPRESSION: No acute intracranial finding. Reviewed by: Jaden Ron MD on 09/01/2021 8:22 AM RUST Approved by: Jaden Ron MD on 09/01/2021 8:22 AM RUST Station ID: [id number]
[2021-09-01] MEDS ORDERED: AZITHROMYCIN 250 MG TABLET PO SCH (09:00)
[2021-09-01] MEDS: ENOXAPARIN 40 MG/0.4 ML SYRINGE SUBQ SCH (09:00)
[2021-09-01] MEDS: SODIUM CHLORIDE FLUSH 0.9% 10 ML SYRINGE IVP SCH ×2 (09:00→17:00)
[2021-09-01] MEDS: lisinopriL 5 MG TABLET PO SCH (09:45)
[2021-09-01 11:33] LABS: ABG PH 7.37 (7.35-7.45)
[2021-09-01 11:34] LABS: ABG PCO2 85 mmHg (34-45); ABG PO2 42 mmHg (80-100)
[2021-09-01 11:35] LABS: ABG HCO3 48.8 mmol/L (22.0-26.0); ABG OXYGEN SATURATION 72 % (94-98); ABG TCO2 > 50.0 MMOL/L (21.0-29.0)
[2021-09-01 11:36] LABS: ALLEN TEST POSITIVE
[2021-09-01] MEDS: INSULIN REGULAR HUMAN 300 UNIT/3 ML VIAL SUBQ SCH ×2 (11:42→18:00)
[2021-09-01] MEDS: IPRATROPIUM/ALBUTEROL 3 ML NEB INH SCH ×3 (12:01→19:37)
[2021-09-01] MEDS: OLANZapine ODT 5 MG TABLET TL SCH (20:50)
[2021-09-02] MEDS: INSULIN REGULAR HUMAN 300 UNIT/3 ML VIAL SUBQ SCH (00:09)
[2021-09-02] MEDS: IPRATROPIUM/ALBUTEROL 3 ML NEB INH SCH ×4 (03:37→19:00)
[2021-09-02 04:36] LABS: BASOPHILS % (AUTO) 0.1 %; HCT - HEMATOCRIT 46.3 % (37.0-47.0); HGB - HEMOGLOBIN 13.5 g/dL (12.0-16.0); LYMPHOCYTES % (AUTO) 17.8 %; MEAN CORPUSCULAR HEMOGLOBIN 28.1 pg (27.0-31.0); MEAN CORPUSCULAR HGB CONC 29.2 g/dL (32.0-36.0); MEAN CORPUSCULAR VOLUME 96.5 fL (81.0-99.0); MONOCYTES % (AUTO) 14.7 %; NEUTROPHILS % (AUTO) 67.2 %; PLT - PLATELET COUNT 216 10^3/uL (130-450); RED CELL DISTRIBUTION WIDTH 16.1 % (12.0-15.0); WHITE BLOOD COUNT 10.4 x10^3/uL (4.8-10.8)
[2021-09-02 04:37] LABS: ABNORMAL LYMPHS % (MANUAL) 0 %; BAND NEUTROPHILS % (MANUAL) 0 %
[2021-09-02 04:57] LABS: DIFFERENTIAL COMMENT MANUAL DIFFERENTIAL; LYMPHOCYTES # (MANUAL) 2.2 10^3/uL (1.5-3.5); LYMPHOCYTES % (MANUAL) 21 %; MONOCYTES # (MANUAL) 1.6 10^3/uL (0.0-1.0); NEUTROPHILS # (MANUAL) 6.7 10^3/uL (1.5-6.6); PLATELET ESTIMATE, MANUAL NORMAL (130-450,000) (NORMAL); PLATELET MORPHOLOGY NORMAL APPEARANCE (NORMAL); RBC MORPHOLOGY (MULTIPLE) NORMAL APPEARANCE (NORMAL); WBC MORPHOLOGY (MULTIPLE) NORMAL APPEARANCE (NORMAL)
[2021-09-02 05:01] LABS: CALCIUM 8.8 mg/dL (8.5-10.3); CREATININE 0.5 mg/dL (0.4-1.0); MAGNESIUM 2.1 mg/dL (1.7-2.8); PHOSPHORUS 3.5 mg/dL (2.5-4.6); POTASSIUM 4.8 mmol/L (3.5-5.0)
[2021-09-02] MEDS: ACETAMINOPHEN 325 MG TABLET PO PRN (05:50)
[2021-09-02] MEDS: methylPREDNISolone SUCCINATE 40 MG/ML VIAL IVP SCH ×2 (05:50→21:01)
[2021-09-02] MEDS: SODIUM CHLORIDE FLUSH 0.9% 10 ML SYRINGE IVP SCH ×5 (05:51→22:51)
--- NOTE | 2021-09-02 07:49 | PROVIDER PROGRESS NOTE ---
Subjective - Prog Note Date Prog Note Date: 09/02/21 - Subjective Subjective: She feels much better compared to yesterday. She cannot recall the events of yesterday morning. She still feels short of breath but this is improved. She does not occasional cough. No edema. Objective - Vital Signs/Intake & Output Reviewed Vital Signs: Yes Vital Signs: Vital Signs Pulse Pulse Resp BP Pulse Ox 09/02/21 07:25 97 20 09/02/21 06:00 92 26 H 132/73 H 95 09/02/21 05:00 95 24 136/92 H 89 L 09/02/21 04:00 92 18 128/93 H 97 Intake & Output: Intake & Output 08/30/21 08/31/21 09/01/21 09/02/21 23:59 23:59 23:59 23:59 Intake Total 819 390 Output Total 3425 550 Balance -5526 -160 - Objective General Appearance: positive: No acute distress, Alert Eyes Bilateral: positive: Normal inspection, Conjunctivae nml ENT: positive: Other (Oxymizer in place.) Neck: positive: Nml inspection Respiratory: positive: No respiratory distress, Wheezes, Rhonchi, Other (Tachypnic.) Cardiovascular: positive: Regular rate & rhythm. negative: Irregularly irregular, Tachycardia Abdomen: positive: Non-tender, No distention. negative: Tenderness Skin: positive: Warm, Dry Extremities: positive: No pedal edema Neurologic/Psychiatric: positive: Motor nml. negative: Disoriented to person, Disoriented to place - Lab Results Fish Bones: 09/02/21 04:20 09/02/21 04:20 Other Labs: Lab Results x24hrs 09/02/21 09/02/21 09/01/21 Range/Units 04:20 04:20 11:15 WBC 10.4 (4.8-10.8) x10^3/uL RBC 4.80 (4.20-5.40) 10^6/uL Hgb 13.5 (12.0-16.0) g/dL Hct 46.3 (37.0-47.0) % MCV 96.5 (81.0-99.0) fL MCH 28.1 (27.0-31.0) pg MCHC 29.2 L (32.0-36.0) g/dL RDW 16.1 H (12.0-15.0) % Plt Count 216 (130-450) 10^3/uL MPV 10.0 (7.9-10.8) fL Neut # (Auto) Not Reportable Lymph # (Auto) Not Reportable [place] # (Auto) Not Reportable Eos # (Auto) Not Reportable Baso # (Auto) Not Reportable Absolute Nucleated RBC Not Reportable Total Counted 100 Band Neuts % (Manual) 0 (0 - 10) % Abnorm Lymph % (Manual) 0 % Nucleated RBC % Not Reportable Neutrophils # (Manual) 6.7 H (1.5-6.6) 10^3/uL Lymphocytes # (Manual) 2.2 (1.5-3.5) 10^3/uL Monocytes # (Manual) 1.6 H (0.0-1.0) 10^3/uL Eosinophils # (Manual) 0.0 (0-0.7) 10^3/uL Basophils # (Manual) 0.0 (0-0.1) 10^3/uL Differential Comment MANUAL DIFFERENTIAL WBC Morphology NORMAL APPEARANCE (NORMAL) Platelet Estimate NORMAL (130-450,000) (NORMAL) Platelet Morphology NORMAL APPEARANCE (NORMAL) RBC Morph Micro Appear NORMAL APPEARANCE (NORMAL) Bld Gas Analysis Time 1115 Sample Site LEFT RADIAL ABG pH 7.37 (7.35-7.45) ABG pCO2 85 H* (34-45) mmHg ABG pO2 42 L* (80-100) mmHg ABG HCO3 48.8 H (22.0-26.0) mmol/L ABG Total CO2 > 50.0 H* (21.0-29.0) MMOL/L ABG O2 Saturation 72 L* (94-98) % ABG Base Excess 23.0 H (-2.0-3.0) mmol/L Fer Test POSITIVE O2 Delivery Device BiPAP O2 Liters/Min LPM Vent Mode FiO2 50.00 EPAP 5 cmH2O IPAP 14 cmH2O Sodium 138 (135-145) mmol/L Potassium 4.8 (3.5-5.0) mmol/L Chloride 88 L (101-111) mmol/L Carbon Dioxide 42 H* (21-32) mmol/L Anion Gap 8.0 (6-13) BUN 18 (6-20) mg/dL Creatinine 0.5 (0.4-1.0) mg/dL Estimated GFR (MDRD) 123 (>89) Glucose 78 (70-100) mg/dL Calcium 8.8 (8.5-10.3) mg/dL Phosphorus 3.5 (2.5-4.6) mg/dL Magnesium 2.1 (1.7-2.8) mg/dL Nasal Screen MRSA (PCR) (NEGATIVE) 09/01/21 09/01/21 Range/Units 07:30 04:46 WBC (4.8-10.8) x10^3/uL RBC (4.20-5.40) 10^6/uL Hgb (12.0-16.0) g/dL Hct (37.0-47.0) % MCV (81.0-99.0) fL MCH (27.0-31.0) pg MCHC (32.0-36.0) g/dL RDW (12.0-15.0) % Plt Count (130-450) 10^3/uL MPV (7.9-10.8) fL Neut # (Auto) Lymph # (Auto) [place] # (Auto) Eos # (Auto) Baso # (Auto) Absolute Nucleated RBC Total Counted Band Neuts % (Manual) (0 - 10) % Abnorm Lymph % (Manual) % Nucleated RBC % Neutrophils # (Manual) (1.5-6.6) 10^3/uL Lymphocytes # (Manual) (1.5-3.5) 10^3/uL Monocytes # (Manual) (0.0-1.0) 10^3/uL Eosinophils # (Manual) (0-0.7) 10^3/uL Basophils # (Manual) (0-0.1) 10^3/uL Differential Comment WBC Morphology (NORMAL) Platelet Estimate (NORMAL) Platelet Morphology (NORMAL) RBC Morph Micro Appear (NORMAL) Bld Gas Analysis Time 0730 Sample Site RIGHT RADIAL ABG pH 7.27 L (7.35-7.45) ABG pCO2 108 H* (34-45) mmHg ABG pO2 62 L (80-100) mmHg ABG HCO3 48.2 H (22.0-26.0) mmol/L ABG Total CO2 51.5 H* (21.0-29.0) MMOL/L ABG O2 Saturation 88 L (94-98) % ABG Base Excess 15.5 H (-2.0-3.0) mmol/L Fer Test POSITIVE O2 Delivery Device BiPAP O2 Liters/Min 45.00 LPM Vent Mode BIPAP FiO2 45.00 EPAP 8 cmH2O IPAP 22 cmH2O Sodium (135-145) mmol/L Potassium (3.5-5.0) mmol/L Chloride (101-111) mmol/L Carbon Dioxide (21-32) mmol/L Anion Gap (6-13) BUN (6-20) mg/dL Creatinine (0.4-1.0) mg/dL Estimated GFR (MDRD) (>89) Glucose (70-100) mg/dL Calcium (8.5-10.3) mg/dL Phosphorus (2.5-4.6) mg/dL Magnesium (1.7-2.8) mg/dL Nasal Screen MRSA (PCR) NEGATIVE (NEGATIVE) Assessment/Plan - Problem List (1) Acute on chronic respiratory failure with hypoxia and hypercapnia Impression: She remains hypoxic but her hypercapnia has improved with the use of positive pressure ventilation. Repeat ABGs showed improvement in her carbon oxide. It is still quite elevated but she is a chronic retainer likely due to underlying COPD and obesity hypoventilation syndrome. Suspect acute cause of her hypercapnia is a COPD exacerbation in addition to the obesity hypoventilation syndrome. She is improved overall but she remained in the ICU for noninvasive ventilation throughout the day as needed and in the evening. We will continue her on Solu-Medrol 60 mg IV twice daily and will switch to p.o. tomorrow based off of how she is improving. We will add Levaquin today for the COPD exacerbation. Continue with duo nebs every 4 hours with albuterol every 2 hours as needed. She does not appear to be hypervolemic so we will hold off on further diuresis at this time. The patient is hypoxic and hypercapnic respiratory failure has improved with noninvasive positive pressure ventilation as evidenced by her repeat blood gases. It is likely that her body habitus is playing a factor in this and she likely has obesity hypoventilation syndrome. The hypercapnia has improved with positive pressure ventilation. I believe the patient will continue to benefit from positive pressure noninvasive ventilation due to chronic hypercapnic respiratory failure secondary to chest wall deformity from morbid obesity causing thoracic restriction and therefore chronic hypercapnic respiratory failure. The positive pressure noninvasive ventilator will help manage carbon dioxide retention. It is felt that BiPAP will not be sufficient for her at home and she will not require AVAPS-AE and mouthpiece ventilation. I do not believe that the patient will be safe for discharge until we can arrange for the patient to have a noninvasive positive ventilator at home. (2) COPD exacerbation Impression: This is contributing to her acute on chronic respiratory failure with hypoxia and hypercapnia. She is improved but will still require BiPAP intermittently. We will start her on Levaquin today and IV steroids as mentioned above. Contin ue with duo nebs and albuterol as needed. (3) Metabolic encephalopathy Impression: This was secondary to CO2 narcosis. Her mentation has returned to baseline. She will continue with noninvasive positive pressure ventilation for the day as needed and in the evening. (4) Obesity hypoventilation syndrome Impression: This is likely contributing to her acute on chronic hypercapnic respiratory failure. She will most definitely benefit from positive pressure ventilation at home. She would also benefit from an outpatient follow-up with pulmonology. (5) Bipolar disorder Impression: Stable. We will continue her home medications.
[2021-09-02] MEDS: lisinopriL 5 MG TABLET PO SCH (09:23)
[2021-09-02] MEDS: BACLOFEN 10 MG TABLET PO SCH ×3 (09:24→21:05)
[2021-09-02] MEDS: polyethylene glycoL 3350 17 GM PACKET PO SCH (09:27)
[2021-09-02] MEDS: levoFLOXacin 750 MG/150 ML 750 MG/150 ML BAG IV SCH (09:32)
[2021-09-02] MEDS: ENOXAPARIN 40 MG/0.4 ML SYRINGE SUBQ SCH (09:41)
[2021-09-02] MEDS: SODIUM CHLORIDE FLUSH 0.9% 10 ML SYRINGE IVP PRN (11:05)
[2021-09-02] MEDS: INSULIN ASPART 300 UNIT/3 ML PEN SUBQ SCH ×3 (12:01→21:02)
[2021-09-02] MEDS: OLANZapine ODT 5 MG TABLET TL SCH (21:03)
[2021-09-02] MEDS: DOCUSATE SODIUM 250 MG CAPSULE PO SCH (21:04)
[2021-09-02] MEDS: QUEtiapine 100 MG TABLET PO SCH (21:05)
[2021-09-02] MEDS: SENNA 8.6 MG TABLET PO SCH (21:05)
[2021-09-02] MEDS ORDERED: BENZOCAINE/MENTHOL LOZENGE MM PRN (21:55)
[2021-09-02] MEDS ORDERED: HALOPERIDOL 5 MG/ML VIAL IVP ONE (22:34)
[2021-09-03 05:08] LABS: BASOPHILS % (AUTO) 0.2 %; HCT - HEMATOCRIT 45.2 % (37.0-47.0); HGB - HEMOGLOBIN 13.3 g/dL (12.0-16.0); LYMPHOCYTES # (AUTO) 0.6 10^3/uL (1.5-3.5); LYMPHOCYTES % (AUTO) 10.1 %; MEAN CORPUSCULAR HEMOGLOBIN 27.8 pg (27.0-31.0); MEAN CORPUSCULAR HGB CONC 29.4 g/dL (32.0-36.0); MEAN CORPUSCULAR VOLUME 94.6 fL (81.0-99.0); MEAN PLATELET VOLUME 9.7 fL (7.9-10.8); MONOCYTES # (AUTO) 0.3 10^3/uL (0.0-1.0); MONOCYTES % (AUTO) 5.1 %; NEUTROPHILS # (AUTO) 5.2 10^3/uL (1.5-6.6); NEUTROPHILS % (AUTO) 84.3 %; PLT - PLATELET COUNT 216 10^3/uL (130-450); RED BLOOD COUNT 4.78 10^6/uL (4.20-5.40); RED CELL DISTRIBUTION WIDTH 15.9 % (12.0-15.0); WHITE BLOOD COUNT 6.1 x10^3/uL (4.8-10.8)
[2021-09-03 05:43] LABS: CALCIUM 8.7 mg/dL (8.5-10.3); CREATININE 0.5 mg/dL (0.4-1.0); MAGNESIUM 2.1 mg/dL (1.7-2.8); POTASSIUM 4.9 mmol/L (3.5-5.0)
[2021-09-03] MEDS: BACLOFEN 10 MG TABLET PO SCH ×3 (06:37→20:25)
[2021-09-03] MEDS: IPRATROPIUM/ALBUTEROL 3 ML NEB INH SCH ×4 (07:27→19:30)
--- NOTE | 2021-09-03 07:46 | PROVIDER PROGRESS NOTE ---
Subjective - Prog Note Date Prog Note Date: 09/03/21 - Subjective Subjective: She continues to feel much better each day. She is willing to quit smoking. She still feels a little weak when ambulating but is improving. She feels that her dyspnea is also improving. Does not feel that she is wheezing. Current Medications - Current Medications Current Medications: Active Medications Acetaminophen (Acetaminophen 325 Mg Tablet) 650 mg PO Q4HR PRN PRN Reason: Pain 1 to 4 Last Admin: 09/03/21 08:31 Dose: 650 mg Albuterol (Albuterol Neb 2.5 Mg/3 Ml) 2.5 mg INH Q2HR PRN PRN Reason: Wheezing Last Admin: 09/02/21 07:26 Dose: 2.5 mg Albuterol/Ipratropium (Ipratropium/Albuterol 3 Ml Neb) 3 ml INH RTQ4H [facility] Last Admin: 09/03/21 07:27 Dose: 3 ml Baclofen (Baclofen 10 Mg Tablet) 20 mg PO TID [facility] Last Admin: 09/03/21 06:37 Dose: 20 mg Docusate Sodium (Docusate Sodium 250 Mg Capsule) 250 - 500 mg PO DAILY [facility] Last Admin: 09/03/21 08:32 Dose: 250 mg Enoxaparin Sodium (Enoxaparin 40 Mg/0.4 Ml Syringe) 40 mg SUBQ DAILY [facility] Last Admin: 09/03/21 08:40 Dose: 40 mg Levofloxacin (Levaquin 750 Mg/150 Ml) 750 mg in 150 mls @ 100 mls/hr IV Q24H [facility] Stop: 09/07/21 07:59 Last Infusion: 09/03/21 10:10 Dose: Infused Insulin Aspart (Insulin Aspart 300 Unit/3 Ml Pen) 1 - 9 unit SUBQ 0800,1200,1700,2100 [facility]; Protocol Last Admin: 09/03/21 08:40 Dose: Not Given Lisinopril (Lisinopril 5 Mg Tablet) 5 mg PO DAILY [facility] Last Admin: 09/03/21 08:32 Dose: 5 mg Methylprednisolone (Methylprednisolone Succinate 40 Mg/Ml Vial) 60 mg IVP BID [facility] Last Admin: 09/03/21 08:39 Dose: 60 mg Olanzapine (Olanzapine Odt 5 Mg Tablet) 2.5 mg TL QPM [facility] Last Admin: 09/02/21 21:03 Dose: 2.5 mg Ondansetron HCl (Ondansetron Odt 4 Mg Tablet) 4 mg TL Q6HR PRN PRN Reason: Nausea / Vomiting Ondansetron HCl (Ondansetron 4 Mg/2 Ml Vial) 4 mg IVP Q6HR PRN PRN Reason: Nausea / Vomiting Oxycodone HCl (Oxycodone 5 Mg Tablet) 5 mg PO Q4HR PRN PRN Reason: Pain 5 to 7 Polyethylene Glycol (Polyethylene Glycol 3350 17 Gm Packet) 17 gm PO DAILY [facility] Last Admin: 09/03/21 08:33 Dose: 17 gm Quetiapine Fumarate (Quetiapine 100 Mg Tablet) 600 mg PO QPM [facility] Last Admin: 09/02/21 21:05 Dose: 600 mg Senna (Senna 8.6 Mg Tablet) 8.6 - 17.2 mg PO DAILY [facility] Last Admin: 09/03/21 08:31 Dose: 8.6 mg Sodium Chloride (Sodium Chloride Flush 0.9% 10 Ml Syringe) 10 ml IVP 0100,0900,1700 [facility] Last Admin: 09/03/21 08:39 Dose: 10 ml Sodium Chloride (Sodium Chloride Flush 0.9% 10 Ml Syringe) 10 ml IVP PRN PRN PRN Reason: NEEDED PER PROVIDER ORDERS Last Admin: 09/03/21 10:23 Dose: 10 ml Throat Lozenges (Benzocaine/Menthol Lozenge) 1 lozenge MM Q2HR PRN PRN Reason: Throat pain Last Admin: 09/02/21 22:08 Dose: 1 lozenge Albuterol Sulfate [Proair Hfa Inhaler] 1 - 2 puffs INH Q4H PRN 01/13/20 Carboxymethylcellulose Sodium [Artificial Tears] 1 drops OP PRN PRN 01/13/20 Doxylam/PE/Dm/Acetaminophen/GG [[place]bon[place] Plus Cold Day-Nt] 1 packet PO PRN PRN 01/13/20 LORazepam [Ativan] 0.5 mg PO TID 01/13/20 Melatonin 5 mg PO QPM 01/13/20 Mometasone/Formoterol [Dulera 200 Mcg-5 Mcg Inhaler] 1 puffs INH BID 01/13/20 Montelukast Sodium 10 mg PO QPM 01/13/20 Quetiapine Fumarate [Seroquel] 600 mg PO QPM 01/13/20 Sennosides [Senna Lax] 8.6 mg PO DAILY 01/13/20 Tiotropium [place] [Spiriva] 1 puffs INH QPM 01/13/20 hydrOXYzine HCL [Hydroxyzine HCl] 25 - 50 mg PO TID PRN 01/13/20 Acetaminophen [Acetaminophen Extra Strength] 1,000 mg PO Q8H PRN 09/15/20 Meloxicam [Mobic] 7.5 mg PO BIDWM 09/15/20 Baclofen [Lioresal] 20 mg PO TID 09/01/21 Mometasone/Formoterol [Dulera 200 Mcg-5 Mcg Inhaler] 1 puffs IH BID 09/01/21 OLANZapine [Zyprexa] 2.5 mg PO QPM 09/01/21 Ondansetron Odt [Zofran Odt] 4 mg PO Q6HR PRN 09/01/21 Potassium Chloride [K-Dur] 20 meq PO DAILY 09/01/21 lisinopriL [Zestril] 5 mg PO DAILY 09/01/21 Objective - Vital Signs/Intake & Output Reviewed Vital Signs: Yes Vital Signs: Vital Signs Pulse Pulse Resp BP Pulse Ox 09/03/21 07:29 92 20 09/03/21 07:00 84 17 102/62 98 09/03/21 06:00 92 16 115/77 97 09/03/21 05:00 85 14 100/63 98 09/03/21 04:00 92 13 114/76 96 Intake & Output: Intake & Output 08/31/21 09/01/21 09/02/21 09/03/21 23:59 23:59 23:59 23:59 Intake Total 819 1800 300 Output Total 3425 4100 1040 Balance -2605 -2300 -740 - Objective General Appearance: positive: No acute distress, Alert Eyes Bilateral: positive: Conjunctivae nml ENT: positive: ENT inspection nml, Other (Oxymizer in place.) Respiratory: positive: No respiratory distress, Wheezes. negative: Rales, Rhonchi Cardiovascular: positive: Regular rate & rhythm. negative: Tachycardia, Systolic murmur Abdomen: positive: Non-tender, No distention. negative: Tenderness Skin: positive: Warm, Dry Extremities: positive: No pedal edema Neurologic/Psychiatric: negative: Disoriented to person, Disoriented to place - Lab Results Fish Bones: 09/03/21 04:52 09/03/21 05:30 Other Labs: Lab Results x24hrs 09/03/21 09/03/21 Range/Units 05:30 04:52 WBC 6.1 (4.8-10.8) x10^3/uL RBC 4.78 (4.20-5.40) 10^6/uL Hgb 13.3 (12.0-16.0) g/dL Hct 45.2 (37.0-47.0) % MCV 94.6 (81.0-99.0) fL MCH 27.8 (27.0-31.0) pg MCHC 29.4 L (32.0-36.0) g/dL RDW 15.9 H (12.0-15.0) % Plt Count 216 (130-450) 10^3/uL MPV 9.7 (7.9-10.8) fL Neut # (Auto) 5.2 (1.5-6.6) 10^3/uL Lymph # (Auto) 0.6 L (1.5-3.5) 10^3/uL [place] # (Auto) 0.3 (0.0-1.0) 10^3/uL Eos # (Auto) 0.0 (0.0-0.7) 10^3/uL Baso # (Auto) 0.0 (0.0-0.1) 10^3/uL Absolute Nucleated RBC 0.00 x10^3/uL Nucleated RBC % 0.0 /100WBC Sodium 138 (135-145) mmol/L Potassium 4.9 (3.5-5.0) mmol/L Chloride 93 L (101-111) mmol/L Carbon Dioxide 39 H* (21-32) mmol/L Anion Gap 6.0 (6-13) BUN 16 (6-20) mg/dL Creatinine 0.5 (0.4-1.0) mg/dL Estimated GFR (MDRD) 123 (>89) Glucose 121 H (70-100) mg/dL Calcium 8.7 (8.5-10.3) mg/dL Magnesium 2.1 (1.7-2.8) mg/dL Assessment/Plan - Problem List (1) Acute on chronic respiratory failure with hypoxia and hypercapnia Impression: This is secondary to COPD exacerbation OHS. She is improved overall. Today she is down to 4 L of oxygen via nasal cannula and she is close to her baseline of 2 to 3 L. We will switch her steroids to oral prednisone tomorrow morning. We'll continue with DuoNebs every 4 hours and albuterol as needed. We also continue the day of IV antibiotics before switching to oral antibiotics tomorrow. We will still need to set her up with a noninvasive positive ventilator at home because she will be at high risk for recurrent hypercapnia and we will need this before she can be discharged back to home. We'll continue with BiPAP overnight. The patient's hypoxic and hypercapnic respiratory failure has improved with noninvasive positive pressure ventilation as evidenced by her repeat blood gases. It is likely that her body habitus is playing a factor in this and she likely has obesity hypoventilation syndrome. The hypercapnia has improved with positive pressure ventilation. I believe the patient will continue to benefit from positive pressure noninvasive ventilation due to chronic hypercapnic respiratory failure secondary to chest wall deformity from morbid obesity causing thoracic restriction and therefore chronic hypercapnic respiratory failure. The positive pressure noninvasive ventilator will help manage carbon dioxide retention. It is felt that BiPAP will not be sufficient for her at home and she will now require AVAPS-AE and mouthpiece ventilation. I do not believe that the patient will be safe for discharge until we can arrange for the patient to have a noninvasive positive ventilator at home. (2) COPD exacerbation Impression: This contributed to her acute on chronic respiratory failure with hypoxia and hypercapnia. She continues to improve as her oxygen requirements are decreasing. We'll switch her to oral steroids tomorrow and continue Levaquin. Continue with duo nebs and albuterol as needed. Continue to wean her oxygen saturation to a goal greater than 88%. She will need an exercise desat study prior to discharge. (3) Metabolic encephalopathy Impression: This was secondary to CO2 narcosis. Her mentation has returned to baseline. She will continue with noninvasive positive pressure ventilation for the day as needed and in the evening. (4) Obesity hypoventilation syndrome Impression: This is likely contributing to her acute on chronic hypercapnic respiratory failure. She will most definitely benefit from positive pressure ventilation at home. She would also benefit from an outpatient follow-up with pulmonology. (5) Bipolar disorder Impression: Stable. We will continue her home medications.
[2021-09-03] MEDS: SENNA 8.6 MG TABLET PO SCH (08:31)
[2021-09-03] MEDS: ACETAMINOPHEN 325 MG TABLET PO PRN (08:31)
[2021-09-03] MEDS: DOCUSATE SODIUM 250 MG CAPSULE PO SCH (08:32)
[2021-09-03] MEDS: lisinopriL 5 MG TABLET PO SCH (08:32)
[2021-09-03] MEDS: polyethylene glycoL 3350 17 GM PACKET PO SCH (08:33)
[2021-09-03] MEDS: levoFLOXacin 750 MG/150 ML 750 MG/150 ML BAG IV SCH (08:37)
[2021-09-03] MEDS: SODIUM CHLORIDE FLUSH 0.9% 10 ML SYRINGE IVP SCH ×2 (08:39→18:21)
[2021-09-03] MEDS: methylPREDNISolone SUCCINATE 40 MG/ML VIAL IVP SCH ×2 (08:39→21:07)
[2021-09-03] MEDS: INSULIN ASPART 300 UNIT/3 ML PEN SUBQ SCH ×4 (08:40→21:07)
[2021-09-03] MEDS: ENOXAPARIN 40 MG/0.4 ML SYRINGE SUBQ SCH (08:40)
[2021-09-03] MEDS: SODIUM CHLORIDE FLUSH 0.9% 10 ML SYRINGE IVP PRN (10:23)
[2021-09-03] MEDS: QUEtiapine 100 MG TABLET PO SCH (20:24)
[2021-09-03] MEDS: OLANZapine ODT 5 MG TABLET TL SCH (20:25)
[2021-09-04] MEDS: IPRATROPIUM/ALBUTEROL 3 ML NEB INH SCH ×4 (07:25→23:50)
[2021-09-04] MEDS: SODIUM CHLORIDE FLUSH 0.9% 10 ML SYRINGE IVP SCH ×3 (07:28→16:58)
[2021-09-04] MEDS: BACLOFEN 10 MG TABLET PO SCH ×3 (07:28→21:08)
--- NOTE | 2021-09-04 07:30 | PROVIDER PROGRESS NOTE ---
Subjective - Prog Note Date Prog Note Date: 09/04/21 - Subjective Subjective: She continues to feel better. She has been ambulating a little bit further each day and feels less short of breath with activity. Still has a productive cough. She is complaining of heartburn today. Current Medications - Current Medications Current Medications: Active Medications Acetaminophen (Acetaminophen 325 Mg Tablet) 650 mg PO Q4HR PRN PRN Reason: Pain 1 to 4 Last Admin: 09/03/21 08:31 Dose: 650 mg Albuterol (Albuterol Neb 2.5 Mg/3 Ml) 2.5 mg INH Q2HR PRN PRN Reason: Wheezing Last Admin: 09/02/21 07:26 Dose: 2.5 mg Albuterol/Ipratropium (Ipratropium/Albuterol 3 Ml Neb) 3 ml INH RTQ4H [facility] Last Admin: 09/04/21 07:25 Dose: 3 ml Baclofen (Baclofen 10 Mg Tablet) 20 mg PO TID [facility] Last Admin: 09/04/21 07:28 Dose: 20 mg Docusate Sodium (Docusate Sodium 250 Mg Capsule) 250 - 500 mg PO DAILY [facility] Last Admin: 09/03/21 08:32 Dose: 250 mg Enoxaparin Sodium (Enoxaparin 40 Mg/0.4 Ml Syringe) 40 mg SUBQ DAILY [facility] Last Admin: 09/03/21 08:40 Dose: 40 mg Insulin Aspart (Insulin Aspart 300 Unit/3 Ml Pen) 1 - 9 unit SUBQ 0800,1200,1700,2100 [facility]; Protocol Last Admin: 09/04/21 07:51 Dose: Not Given Levofloxacin (Levofloxacin 250 Mg Tablet) 750 mg PO DAILY [facility] Lisinopril (Lisinopril 5 Mg Tablet) 5 mg PO DAILY [facility] Last Admin: 09/03/21 08:32 Dose: 5 mg Olanzapine (Olanzapine Odt 5 Mg Tablet) 2.5 mg TL QPM [facility] Last Admin: 09/03/21 20:25 Dose: 2.5 mg Ondansetron HCl (Ondansetron Odt 4 Mg Tablet) 4 mg TL Q6HR PRN PRN Reason: Nausea / Vomiting Ondansetron HCl (Ondansetron 4 Mg/2 Ml Vial) 4 mg IVP Q6HR PRN PRN Reason: Nausea / Vomiting Oxycodone HCl (Oxycodone 5 Mg Tablet) 5 mg PO Q4HR PRN PRN Reason: Pain 5 to 7 Polyethylene Glycol (Polyethylene Glycol 3350 17 Gm Packet) 17 gm PO DAILY [facility] Last Admin: 09/03/21 08:33 Dose: 17 gm Prednisone (Prednisone 20 Mg Tablet) 40 mg PO DAILYWM [facility] Stop: 09/05/21 08:01 Quetiapine Fumarate (Quetiapine 100 Mg Tablet) 600 mg PO QPM [facility] Last Admin: 09/03/21 20:24 Dose: 600 mg Senna (Senna 8.6 Mg Tablet) 8.6 - 17.2 mg PO DAILY [facility] Last Admin: 09/03/21 08:31 Dose: 8.6 mg Sodium Chloride (Sodium Chloride Flush 0.9% 10 Ml Syringe) 10 ml IVP 0100,0900,1700 [facility] Last Admin: 09/04/21 07:28 Dose: 10 ml Sodium Chloride (Sodium Chloride Flush 0.9% 10 Ml Syringe) 10 ml IVP PRN PRN PRN Reason: NEEDED PER PROVIDER ORDERS Last Admin: 09/03/21 10:23 Dose: 10 ml Throat Lozenges (Benzocaine/Menthol Lozenge) 1 lozenge MM Q2HR PRN PRN Reason: Throat pain Last Admin: 09/02/21 22:08 Dose: 1 lozenge Albuterol Sulfate [Proair Hfa Inhaler] 1 - 2 puffs INH Q4H PRN 01/13/20 Carboxymethylcellulose Sodium [Artificial Tears] 1 drops OP PRN PRN 01/13/20 Doxylam/PE/Dm/Acetaminophen/GG [[place]bon[place] Plus Cold Day-Nt] 1 packet PO PRN PRN 01/13/20 LORazepam [Ativan] 0.5 mg PO TID 01/13/20 Melatonin 5 mg PO QPM 01/13/20 Mometasone/Formoterol [Dulera 200 Mcg-5 Mcg Inhaler] 1 puffs INH BID 01/13/20 Montelukast Sodium 10 mg PO QPM 01/13/20 Quetiapine Fumarate [Seroquel] 600 mg PO QPM 01/13/20 Sennosides [Senna Lax] 8.6 mg PO DAILY 01/13/20 Tiotropium [place] [Spiriva] 1 puffs INH QPM 01/13/20 hydrOXYzine HCL [Hydroxyzine HCl] 25 - 50 mg PO TID PRN 01/13/20 Acetaminophen [Acetaminophen Extra Strength] 1,000 mg PO Q8H PRN 09/15/20 Meloxicam [Mobic] 7.5 mg PO BIDWM 09/15/20 Baclofen [Lioresal] 20 mg PO TID 09/01/21 Mometasone/Formoterol [Dulera 200 Mcg-5 Mcg Inhaler] 1 puffs IH BID 09/01/21 OLANZapine [Zyprexa] 2.5 mg PO QPM 09/01/21 Ondansetron Odt [Zofran Odt] 4 mg PO Q6HR PRN 09/01/21 Potassium Chloride [K-Dur] 20 meq PO DAILY 09/01/21 lisinopriL [Zestril] 5 mg PO DAILY 09/01/21 Objective - Vital Signs/Intake & Output Reviewed Vital Signs: Yes Vital Signs: Vital Signs Temp Pulse Pulse Resp BP Pulse Ox 09/04/21 07:26 88 18 09/04/21 07:00 90 20 132/71 H 95 09/04/21 06:00 81 20 124/65 96 09/04/21 05:00 86 16 110/62 97 09/04/21 04:00 36.8 C 89 16 110/60 98 Intake & Output: Intake & Output 09/01/21 09/02/21 09/03/21 09/04/21 23:59 23:59 23:59 23:59 Intake Total 819 1800 2960 290 Output Total 3425 4100 2580 1000 Balance -2606 -2300 380 -710 - Objective General Appearance: positive: No acute distress, Alert Eyes Bilateral: positive: Normal inspection, Conjunctivae nml ENT: positive: ENT inspection nml, Other (Nasal cannula in place.) Neck: positive: Nml inspection Respiratory: positive: No respiratory distress, Wheezes. negative: Rales, Rhonchi Cardiovascular: positive: Regular rate & rhythm, No murmur. negative: Tachycardia Skin: positive: Warm, Dry Extremities: positive: No pedal edema Neurologic/Psychiatric: negative: Disoriented to person, Disoriented to place - Lab Results Fish Bones: 09/03/21 04:52 09/03/21 05:30 Assessment/Plan - Problem List (1) Acute on chronic respiratory failure with hypoxia and hypercapnia Impression: This is secondary to the COPD exacerbation and OHS. She has continued to improve on a daily basis and is now down to her baseline oxygen requirements of 3 L. She still is wheezing and dyspneic but has had significant improvement without evidence of further hypercapnia. We will switch her to oral prednisone today as well as oral Levaquin. We will continue doing every 4 hours and albuterol as needed. She will continue with BiPAP in the evenings until we can set her up with trilogy and she will need this at home. (2) COPD exacerbation Impression: She is significantly improved as mentioned above but still wheezing and dyspneic. Switch her to oral prednisone today and oral Levaquin. We will continue with nebs every 4 hours and albuterol every 2 hours as needed. As she improves we will resume her home inhalers. Her home nebulizer is not functioning so I am ordering a nebulizer to administer bronchodilators to treat the patient COPD. Continue her supplemental oxygen for goal saturation greater than 88%. She will need an exercise desaturation test prior to discharge. (3) Metabolic encephalopathy Impression: This was secondary to CO2 narcosis. Her mentation has returned to baseline. She has had occasional hallucinations in the evening which she attributes to prednisone. We have reduced the dose to 40 mg p.o. today and we will look to stop it tomorrow as she improves from her COPD exacerbation. (4) Obesity hypoventilation syndrome Impression: This is likely contributing to her acute on chronic hypercapnic respiratory failure. She will most definitely benefit from positive pressure ventilation at home. She would also benefit from an outpatient follow-up with pulmonology. (5) Bipolar disorder Impression: Stable. We will continue her home medications. We will look to discontinue the prednisone tomorrow as she recovers from her COPD exacerbation to prevent hallucinations that she occasionally has.
[2021-09-04] MEDS: INSULIN ASPART 300 UNIT/3 ML PEN SUBQ SCH ×4 (07:51→21:09)
[2021-09-04] MEDS: DOCUSATE SODIUM 250 MG CAPSULE PO SCH (10:03)
[2021-09-04] MEDS: predniSONE 20 MG TABLET PO SCH (10:03)
[2021-09-04] MEDS: ENOXAPARIN 40 MG/0.4 ML SYRINGE SUBQ SCH (10:04)
[2021-09-04] MEDS: polyethylene glycoL 3350 17 GM PACKET PO SCH (10:04)
[2021-09-04] MEDS: SENNA 8.6 MG TABLET PO SCH (10:04)
[2021-09-04] MEDS: lisinopriL 5 MG TABLET PO SCH (10:04)
[2021-09-04] MEDS: levoFLOXacin 250 MG TABLET PO SCH (10:04)
[2021-09-04] MEDS ORDERED: BISACODYL 10 MG SUPP PR PRN (10:24)
[2021-09-04 11:00] LABS: ESTIMATED AVERAGE GLUCOSE 137 mg/dL (70-100); HEMOGLOBIN A1c% 6.4 % (4.27-6.07)
[2021-09-04] MEDS: PANTOPRAZOLE 40 MG TABLET PO SCH (12:21)
[2021-09-04] MEDS: QUEtiapine 100 MG TABLET PO SCH (21:08)
[2021-09-04] MEDS: LORazepam 0.5 MG TABLET PO SCH (21:08)
[2021-09-04] MEDS: OLANZapine ODT 5 MG TABLET TL SCH (21:08)
[2021-09-04] MEDS: SODIUM CHLORIDE FLUSH 0.9% 10 ML SYRINGE IVP PRN (21:09)
[2021-09-05] MEDS: SODIUM CHLORIDE FLUSH 0.9% 10 ML SYRINGE IVP SCH ×3 (00:44→21:16)
[2021-09-05 04:13] LABS: BASOPHILS % (AUTO) 0.1 %; CALCIUM, IONIZED 1.13 mmol/L (1.15-1.33); EOSINOPHILS % (AUTO) 0.3 %; HCT - HEMATOCRIT 44.4 % (37.0-47.0); HGB - HEMOGLOBIN 13.6 g/dL (12.0-16.0); LYMPHOCYTES # (AUTO) 2.2 10^3/uL (1.5-3.5); LYMPHOCYTES % (AUTO) 29.9 %; MEAN CORPUSCULAR HEMOGLOBIN 28.5 pg (27.0-31.0); MEAN CORPUSCULAR HGB CONC 30.6 g/dL (32.0-36.0); MEAN CORPUSCULAR VOLUME 93.1 fL (81.0-99.0); MEAN PLATELET VOLUME 9.5 fL (7.9-10.8); MONOCYTES # (AUTO) 0.8 10^3/uL (0.0-1.0); MONOCYTES % (AUTO) 10.7 %; NEUTROPHILS # (AUTO) 4.3 10^3/uL (1.5-6.6); NEUTROPHILS % (AUTO) 58.9 %; PLT - PLATELET COUNT 206 10^3/uL (130-450); RED BLOOD COUNT 4.77 10^6/uL (4.20-5.40); VBG PH 7.4 (7.31-7.41); WHITE BLOOD COUNT 7.3 x10^3/uL (4.8-10.8)
[2021-09-05 04:24] LABS: CALCIUM 8.5 mg/dL (8.5-10.3); CREATININE 0.6 mg/dL (0.4-1.0); PHOSPHORUS 3.3 mg/dL (2.5-4.6); POTASSIUM 4.5 mmol/L (3.5-5.0)
[2021-09-05] MEDS: LORazepam 0.5 MG TABLET PO SCH ×3 (06:22→21:20)
[2021-09-05] MEDS: BACLOFEN 10 MG TABLET PO SCH ×3 (06:22→21:16)
[2021-09-05] MEDS: PANTOPRAZOLE 40 MG TABLET PO SCH (06:22)
[2021-09-05] MEDS: IPRATROPIUM/ALBUTEROL 3 ML NEB INH SCH ×4 (07:00→20:06)
[2021-09-05] MEDS: INSULIN ASPART 300 UNIT/3 ML PEN SUBQ SCH ×4 (09:00→20:56)
[2021-09-05] MEDS: predniSONE 20 MG TABLET PO SCH (10:39)
[2021-09-05] MEDS: DOCUSATE SODIUM 250 MG CAPSULE PO SCH (10:40)
[2021-09-05] MEDS: lisinopriL 5 MG TABLET PO SCH (10:40)
[2021-09-05] MEDS: levoFLOXacin 250 MG TABLET PO SCH (10:40)
[2021-09-05] MEDS: SENNA 8.6 MG TABLET PO SCH (10:40)
[2021-09-05] MEDS: polyethylene glycoL 3350 17 GM PACKET PO SCH (10:41)
[2021-09-05] MEDS: ENOXAPARIN 40 MG/0.4 ML SYRINGE SUBQ SCH (10:41)
--- NOTE | 2021-09-05 13:33 | PROVIDER PROGRESS NOTE ---
Subjective - Prog Note Date Prog Note Date: 09/05/21 - Subjective Subjective: She feels quite well overall. Her dyspnea significantly improved. She has been ambulating and although she feels little weak, she feels better each day. Current Medications - Current Medications Current Medications: Active Medications Acetaminophen (Acetaminophen 325 Mg Tablet) 650 mg PO Q4HR PRN PRN Reason: Pain 1 to 4 Last Admin: 09/03/21 08:31 Dose: 650 mg Albuterol (Albuterol Neb 2.5 Mg/3 Ml) 2.5 mg INH Q2HR PRN PRN Reason: Wheezing Last Admin: 09/02/21 07:26 Dose: 2.5 mg Albuterol/Ipratropium (Ipratropium/Albuterol 3 Ml Neb) 3 ml INH RTQ4H [facility] Last Admin: 09/05/21 11:06 Dose: 3 ml Baclofen (Baclofen 10 Mg Tablet) 20 mg PO TID [facility] Last Admin: 09/05/21 06:22 Dose: 20 mg Bisacodyl (Bisacodyl 10 Mg Supp) 10 mg [place] DAILY PRN PRN Reason: Constipation Last Admin: 09/04/21 11:25 Dose: 10 mg Docusate Sodium (Docusate Sodium 250 Mg Capsule) 250 - 500 mg PO DAILY [facility] Last Admin: 09/05/21 10:40 Dose: 500 mg Enoxaparin Sodium (Enoxaparin 40 Mg/0.4 Ml Syringe) 40 mg SUBQ DAILY [facility] Last Admin: 09/05/21 10:41 Dose: 40 mg Insulin Aspart (Insulin Aspart 300 Unit/3 Ml Pen) 1 - 9 unit SUBQ 0800,1200,1700,2100 [facility]; Protocol Last Admin: 09/05/21 09:00 Dose: Not Given Levofloxacin (Levofloxacin 250 Mg Tablet) 750 mg PO DAILY [facility] Last Admin: 09/05/21 10:40 Dose: 750 mg Lisinopril (Lisinopril 5 Mg Tablet) 5 mg PO DAILY [facility] Last Admin: 09/05/21 10:40 Dose: 5 mg Lorazepam (Lorazepam 0.5 Mg Tablet) 0.5 mg PO TID [facility] Last Admin: 09/05/21 06:22 Dose: 0.5 mg Olanzapine (Olanzapine Odt 5 Mg Tablet) 2.5 mg TL QPM [facility] Last Admin: 09/04/21 21:08 Dose: 2.5 mg Ondansetron HCl (Ondansetron Odt 4 Mg Tablet) 4 mg TL Q6HR PRN PRN Reason: Nausea / Vomiting Ondansetron HCl (Ondansetron 4 Mg/2 Ml Vial) 4 mg IVP Q6HR PRN PRN Reason: Nausea / Vomiting Oxycodone HCl (Oxycodone 5 Mg Tablet) 5 mg PO Q4HR PRN PRN Reason: Pain 5 to 7 Pantoprazole Sodium (Pantoprazole 40 Mg Tablet) 40 mg PO QDAC [facility] Last Admin: 09/05/21 06:22 Dose: 40 mg Polyethylene Glycol (Polyethylene Glycol 3350 17 Gm Packet) 17 gm PO DAILY [facility] Last Admin: 09/05/21 10:41 Dose: 17 gm Quetiapine Fumarate (Quetiapine 100 Mg Tablet) 600 mg PO QPM [facility] Last Admin: 09/04/21 21:08 Dose: 600 mg Senna (Senna 8.6 Mg Tablet) 8.6 - 17.2 mg PO DAILY [facility] Last Admin: 09/05/21 10:40 Dose: 17.2 mg Sodium Chloride (Sodium Chloride Flush 0.9% 10 Ml Syringe) 10 ml IVP 0100, 0900,1700 [facility] Last Admin: 09/05/21 10:41 Dose: 10 ml Sodium Chloride (Sodium Chloride Flush 0.9% 10 Ml Syringe) 10 ml IVP PRN PRN PRN Reason: NEEDED PER PROVIDER ORDERS Last Admin: 09/04/21 21:09 Dose: 10 ml Throat Lozenges (Benzocaine/Menthol Lozenge) 1 lozenge MM Q2HR PRN PRN Reason: Throat pain Last Admin: 09/02/21 22:08 Dose: 1 lozenge Albuterol Sulfate [Proair Hfa Inhaler] 1 - 2 puffs INH Q4H PRN 01/13/20 Carboxymethylcellulose Sodium [Artificial Tears] 1 drops OP PRN PRN 01/13/20 Doxylam/PE/Dm/Acetaminophen/GG [[place]boni-[place] Plus Cold Day-Nt] 1 packet PO PRN PRN 01/13/20 LORazepam [Ativan] 0.5 mg PO TID 01/13/20 Melatonin 5 mg PO QPM 01/13/20 Mometasone/Formoterol [Dulera 200 Mcg-5 Mcg Inhaler] 1 puffs INH BID 01/13/20 Montelukast Sodium 10 mg PO QPM 01/13/20 Quetiapine Fumarate [Seroquel] 600 mg PO QPM 01/13/20 Sennosides [Senna Lax] 8.6 mg PO DAILY 01/13/20 Tiotropium [place] [Spiriva] 1 puffs INH QPM 01/13/20 hydrOXYzine HCL [Hydroxyzine HCl] 25 - 50 mg PO TID PRN 01/13/20 Acetaminophen [Acetaminophen Extra Strength] 1,000 mg PO Q8H PRN 09/15/20 Meloxicam [Mobic] 7.5 mg PO BIDWM 09/15/20 Baclofen [Lioresal] 20 mg PO TID 09/01/21 Mometasone/Formoterol [Dulera 200 Mcg-5 Mcg Inhaler] 1 puffs IH BID 09/01/21 OLANZapine [Zyprexa] 2.5 mg PO QPM 09/01/21 Ondansetron Odt [Zofran Odt] 4 mg PO Q6HR PRN 09/01/21 Potassium Chloride [K-Dur] 20 meq PO DAILY 09/01/21 lisinopriL [Zestril] 5 mg PO DAILY 09/01/21 Objective - Vital Signs/Intake & Output Reviewed Vital Signs: Yes Vital Signs: Vital Signs Pulse Pulse Resp BP Pulse Ox 09/05/21 12:26 81 09/05/21 12:00 98 24 133/76 H 97 09/05/21 11:07 78 20 09/05/21 11:00 91 18 128/75 95 09/05/21 10:00 88 19 106/59 L 98 Intake & Output: Intake & Output 09/02/21 09/03/21 09/04/21 09/05/21 23:59 23:59 23:59 23:59 Intake Total 1800 2960 2790 1370 Output Total 4100 2580 4250 1175 Balance -2300 380 -1460 195 - Objective General Appearance: positive: No acute distress, Alert Eyes Bilateral: positive: Normal inspection, Conjunctivae nml ENT: positive: ENT inspection nml, Other (Nasal cannula in place.) Neck: positive: Nml inspection Respiratory: positive: No respiratory distress, Wheezes (Very faint expiratory). negative: Rales, Rhonchi Cardiovascular: positive: Regular rate & rhythm, No murmur. negative: Tachycardia Skin: positive: Warm, Dry Extremities: positive: No pedal edema Neurologic/Psychiatric: negative: Disoriented to person, Disoriented to place - Lab Results Fish Bones: 09/05/21 04:06 09/05/21 04:06 Other Labs: Lab Results x24hrs 09/05/21 09/05/21 09/05/21 Range/Units 04:06 04:06 04:06 WBC 7.3 (4.8-10.8) x10^3/uL RBC 4.77 (4.20-5.40) 10^6/uL Hgb 13.6 (12.0-16.0) g/dL Hct 44.4 (37.0-47.0) % MCV 93.1 (81.0-99.0) fL MCH 28.5 (27.0-31.0) pg MCHC 30.6 L (32.0-36.0) g/dL RDW 16.0 H (12.0-15.0) % Plt Count 206 (130-450) 10^3/uL MPV 9.5 (7.9-10.8) fL Neut # (Auto) 4.3 (1.5-6.6) 10^3/uL Lymph # (Auto) 2.2 (1.5-3.5) 10^3/uL [place] # (Auto) 0.8 (0.0-1.0) 10^3/uL Eos # (Auto) 0.0 (0.0-0.7) 10^3/uL Baso # (Auto) 0.0 (0.0-0.1) 10^3/uL Absolute Nucleated RBC 0.00 x10^3/uL Nucleated RBC % 0.0 /100WBC VBG pH 7.400 (7.31-7.41) Ionized Calcium 1.13 L (1.15-1.33) mmol/L Sodium 138 (135-145) mmol/L Potassium 4.5 (3.5-5.0) mmol/L Chloride 93 L (101-111) mmol/L Carbon Dioxide 38 H (21-32) mmol/L Anion Gap 7.0 (6-13) BUN 17 (6-20) mg/dL Creatinine 0.6 (0.4-1.0) mg/dL Estimated GFR (MDRD) 100 (>89) Glucose 91 (70-100) mg/dL Calcium 8.5 (8.5-10.3) mg/dL Phosphorus 3.3 (2.5-4.6) mg/dL Magnesium 2.0 (1.7-2.8) mg/dL Assessment/Plan - Problem List (1) Acute on chronic respiratory failure with hypoxia and hypercapnia Impression: This is not resolved and was secondary to COPD exacerbation and her obesity hypoventilation syndrome. Today's last day of prednisone. We will resume her home inhalers. We will continue the oral levaquin to complete 5 days of therapy. She will require BiPAP in the evenings while hospitalized. We cannot discharge her until we have the trilogy set up as she is at high risk for hypercapnic respiratory failure and readmission. (2) COPD exacerbation Impression: This was a cause of her acute on chronic hypercapnic respiratory failure. She is significantly improved now and today will be the last day of prednisone. We will continue oral Levaquin to complete 5 days of therapy. We will resume her home inhaler therapy. Continue supplemental oxygen for goal saturation greater than 88%. She will need an exercise desaturation test prior to discharge. (3) Metabolic encephalopathy Impression: Impression: This was secondary to CO2 narcosis. Her mentation has returned to baseline. She has had occasional hallucinations in the evening which she attributes to prednisone. The prednisone will be discontinued today. (4) Obesity hypoventilation syndrome Impression: This is likely contributing to her acute on chronic hypercapnic respiratory fa ilure. She will most definitely benefit from positive pressure ventilation at home. She would also benefit from an outpatient follow-up with pulmonology. (5) Bipolar disorder Impression: Stable. We will continue her home medications.
[2021-09-05] MEDS: FORMOTEROL FUMARATE NEB 20 MCG/2 ML INH SCH (21:06)
[2021-09-05] MEDS: BUDESONIDE 0.5 MG/2 ML NEB INH SCH (21:06)
[2021-09-05] MEDS: QUEtiapine 100 MG TABLET PO SCH (21:16)
[2021-09-05] MEDS: OLANZapine ODT 5 MG TABLET TL SCH (21:16)
[2021-09-06] MEDS: SODIUM CHLORIDE FLUSH 0.9% 10 ML SYRINGE IVP SCH ×4 (00:09→21:12)
[2021-09-06] MEDS: IPRATROPIUM/ALBUTEROL 3 ML NEB INH SCH ×6 (03:42→23:20)
[2021-09-06 04:14] LABS: BASOPHILS % (AUTO) 0.3 %; CALCIUM, IONIZED 1.16 mmol/L (1.15-1.33); EOSINOPHILS # (AUTO) 0.1 10^3/uL (0.0-0.7); EOSINOPHILS % (AUTO) 0.9 %; HCT - HEMATOCRIT 45.8 % (37.0-47.0); HGB - HEMOGLOBIN 13.9 g/dL (12.0-16.0); LYMPHOCYTES # (AUTO) 2.2 10^3/uL (1.5-3.5); LYMPHOCYTES % (AUTO) 31.3 %; MEAN CORPUSCULAR HEMOGLOBIN 27.9 pg (27.0-31.0); MEAN CORPUSCULAR HGB CONC 30.3 g/dL (32.0-36.0); MEAN PLATELET VOLUME 9.2 fL (7.9-10.8); MONOCYTES # (AUTO) 0.8 10^3/uL (0.0-1.0); MONOCYTES % (AUTO) 11.2 %; NEUTROPHILS % (AUTO) 56.2 %; PLT - PLATELET COUNT 204 10^3/uL (130-450); RED BLOOD COUNT 4.98 10^6/uL (4.20-5.40); RED CELL DISTRIBUTION WIDTH 15.9 % (12.0-15.0); VBG PH 7.36 (7.31-7.41)
[2021-09-06 04:26] LABS: CALCIUM 8.6 mg/dL (8.5-10.3); CREATININE 0.6 mg/dL (0.4-1.0); PHOSPHORUS 3.4 mg/dL (2.5-4.6); POTASSIUM 4.2 mmol/L (3.5-5.0)
[2021-09-06] MEDS: LORazepam 0.5 MG TABLET PO SCH ×3 (06:18→21:12)
[2021-09-06] MEDS: PANTOPRAZOLE 40 MG TABLET PO SCH (06:18)
[2021-09-06] MEDS: BACLOFEN 10 MG TABLET PO SCH ×3 (06:19→21:11)
[2021-09-06] MEDS: BUDESONIDE 0.5 MG/2 ML NEB INH SCH ×2 (07:03→19:44)
[2021-09-06] MEDS: FORMOTEROL FUMARATE NEB 20 MCG/2 ML INH SCH ×2 (07:03→19:43)
[2021-09-06] MEDS: lisinopriL 5 MG TABLET PO SCH (08:25)
[2021-09-06] MEDS: levoFLOXacin 250 MG TABLET PO SCH (08:25)
[2021-09-06] MEDS: polyethylene glycoL 3350 17 GM PACKET PO SCH (08:25)
[2021-09-06] MEDS: DOCUSATE SODIUM 250 MG CAPSULE PO SCH (08:26)
[2021-09-06] MEDS: ENOXAPARIN 40 MG/0.4 ML SYRINGE SUBQ SCH (08:26)
[2021-09-06] MEDS: SENNA 8.6 MG TABLET PO SCH (08:26)
[2021-09-06] MEDS: INSULIN ASPART 300 UNIT/3 ML PEN SUBQ SCH ×4 (08:26→21:10)
[2021-09-06] MEDS: SACCHAROMYCES BOULARDII 250 MG CAPSULE PO SCH ×2 (10:45→16:57)
--- NOTE | 2021-09-06 16:47 | PROVIDER PROGRESS NOTE ---
Assessment/Plan - Problem List (1) Acute and chronic respiratory failure Qualifiers: Respiratory failure complication: hypoxia and hypercapnia Qualified Code(s): J96.21 - Acute and chronic respiratory failure with hypoxia; J96.22 - Acute and chronic respiratory failure with hypercapnia Assessment/Plan: This is improving and was secondary to COPD exacerbation and her obesity hypoventilation syndrome. We will resume her home inhalers. We will continue the oral levaquin to complete 5 days of therapy. She will require BiPAP in the evenings while hospitalized. We cannot discharge her until we have the Trilogy (home Non-invasive ventilator) set up, since she is at high risk for hypercapnic respiratory failure and readmission. (2) COPD exacerbation Impression: This was a cause of her acute on chronic hypercapnic respiratory failure. She is significantly improved now. We will continue oral Levaquin to complete 5 days of therapy. We will resume her home inhaler therapy. Is requested a nicotine patch so that she can use this at home and remain off of cigarettes. Her medication list states she has a "nicotine allergy" however she was smoking and taking in nicotine up until the day of admission, therefore this allergy info is presumed wrong. Continue supplemental oxygen for goal saturation greater than 88%. She will need an exercise desaturation test prior to discharge. (3) Obesity hypoventilation syndrome Impression: This is likely contributing to her acute on chronic hypercapnic respiratory failure. She will most definitely benefit from positive pressure ventilation at home. She would also benefit from an outpatient follow-up with pulmonology. (4) Bipolar disorder Impression: Stable. We are continuing her home medications. (5) Morbid obesity (BMI 40-45) As per Hx. (6) Metabolic encephalopathy Impression: This was secondary to CO2 narcosis plus steroids It has resolved and her mentation has returned to baseline. She has had occasional hallucinations in the evening which she attributes to prednisone. The prednisone was discontinued. - Current Meds Current Meds: Current Medications Generic Name Dose Route Start Last Admin Trade Name Freq PRN Reason Stop Dose Admin Acetaminophen 650 mg 09/01/21 03:30 09/03/21 08:31 Acetaminophen 325 Mg Tablet PO 650 mg Q4HR PRN Administration Pain 1 to 4 Albuterol 2.5 mg 09/01/21 03:36 09/02/21 07:26 Albuterol Neb 2.5 Mg/3 Ml INH 2.5 mg Q2HR PRN Administration Wheezing Albuterol/Ipratropium 3 ml 09/01/21 11:00 09/06/21 14:50 Ipratropium/Albuterol 3 Ml Neb INH 3 ml RTQ4H EMORY Administration Baclofen 20 mg 09/02/21 07:39 09/06/21 14:32 Baclofen 10 Mg Tablet PO 20 mg TID EMORY Administration Bisacodyl 10 mg 09/04/21 10:24 09/04/21 11:25 Bisacodyl 10 Mg Supp DE 10 mg DAILY PRN Administration Constipation Budesonide 0.5 mg 09/05/21 19:00 09/06/21 07:03 Budesonide 0.5 Mg/2 Ml Neb INH 0.5 mg RTBID EMORY Administration Docusate Sodium 250 - 500 mg 09/02/21 21:00 09/06/21 08:26 Docusate Sodium 250 Mg Capsule PO 250 mg DAILY EMORY Administration Enoxaparin Sodium 40 mg 09/01/21 09:00 09/06/21 08:26 Enoxaparin 40 Mg/0.4 Ml Syringe SUBQ 40 mg DAILY EMORY Administration Formoterol Fumarate 20 mcg 09/05/21 19:00 09/06/21 07:03 Formoterol Fumarate Neb 20 Mcg/2 Ml INH 20 mcg RTBID EMORY Administration Insulin Aspart 1 - 9 unit 09/02/21 12:00 09/06/21 12:39 Insulin Aspart 300 Unit/3 Ml Pen SUBQ Not Given 0800,1200,1700,2100 [facility] Protocol Levofloxacin 750 mg 09/04/21 09:00 09/06/21 08:25 Levofloxacin 250 Mg Tablet PO 750 mg DAILY EM[facility] Administration Lisinopril 5 mg 09/01/21 09:00 09/06/21 08:25 Lisinopril 5 Mg Tablet PO 5 mg DAILY EMORY Administration Lorazepam 0.5 mg 09/04/21 22:00 09/06/21 14:27 Lorazepam 0.5 Mg Tablet PO Not Given TID EMORY Olanzapine 2.5 mg 09/01/21 21:00 09/05/21 21:16 Olanzapine Odt 5 Mg Tablet TL 2.5 mg QPM EM[facility] Administration Polyethylene Glycol 17 gm 09/02/21 09:00 09/06/21 08:25 Polyethylene Glycol 3350 17 Gm Packet PO 17 gm DAILY EMORY Administration Quetiapine Fumarate 600 mg 09/02/21 21:00 09/05/21 21:16 Quetiapine 100 Mg Tablet PO 600 mg QPM EMORY Administration Saccharomyces Boulardii 250 mg 09/06/21 09:37 09/06/21 10:45 Saccharomyces Boulardii 250 Mg Capsule PO 250 mg BIDWM EM[facility] Administration Senna 8.6 - 17.2 mg 09/02/21 21:00 09/06/21 08:26 Senna 8.6 Mg Tablet PO 8.6 mg DAILY EMORY Administration Sodium Chloride 10 ml 09/01/21 09:00 09/06/21 08:30 Sodium Chloride Flush 0.9% 10 Ml Syringe IVP 10 ml 0100,0900,1700 [facility] Administration Sodium Chloride 10 ml 09/01/21 03:30 09/04/21 21:09 Sodium Chloride Flush 0.9% 10 Ml Syringe IVP 10 ml PRN PRN Administration NEEDED PER PROVIDER ORDERS Throat Lozenges 1 lozenge 09/02/21 21:55 09/02/21 22:08 Benzocaine/Menthol Lozenge MM 1 lozenge Q2HR PRN Administration Throat pain - Lab Result Fish Bone Diagrams: 09/06/21 04:08 09/06/21 04:08 - Additional Planning My Orders: My Active Orders 09/06/21 09:37 Saccharomyces Boulardii [Florastor] 250 mg PO BIDWM 09/06/21 Lunch Carb-controlled Diet [DIET] Subjective - Subjective Patient Reports: Feeling Better, Resting Comfortably, Cough (Still has a frequent and productive cough) Objective Vital Signs: Vital Signs - 24 hr 09/05/21 09/05/21 09/05/21 17:00 18:00 19:35 Temperature Heart Rate 90 Heart Rate [ 96 81 Monitoring electrodes] Respiratory 23 20 16 Rate Blood Pressure 137/72 H 140/68 H [Left Brachial artery] Blood Pressure [Right Brachial artery] O2 Saturation 93 93 09/05/21 09/05/21 09/05/21 19:41 21:05 22:34 Temperature 37.5 C Heart Rate 92 84 Heart Rate [ 98 Monitoring electrodes] Respiratory 20 19 Rate Blood Pressure [Left Brachial artery] Blood Pressure 120/57 L [Right Brachial artery] O2 Saturation 94 09/05/21 09/06/21 09/06/21 23:43 03:27 04:16 Temperature 36.9 C Heart Rate 73 74 Heart Rate [ 77 Monitoring electrodes] Respiratory 20 18 21 Rate Blood Pressure [Left Brachial artery] Blood Pressure 114/63 [Right Brachial artery] O2 Saturation 96 09/06/21 09/06/21 09/06/21 06:00 07:10 08:00 Temperature 36.8 C Heart Rate 77 Heart Rate [ 71 85 Monitoring electrodes] Respiratory 19 19 22 Rate Blood Pressure [Left Brachial artery] Blood Pressure 124/55 L [Right Brachial artery] O2 Saturation 97 96 09/06/21 09/06/21 09/06/21 11:11 14:52 16:11 Temperature 37.1 C Heart Rate 88 87 Heart Rate [ 81 Monitoring electrodes] Respiratory 20 24 22 Rate Blood Pressure [Left Brachial artery] Blood Pressure 116/61 [Right Brachial artery] O2 Saturation 100 Oxygen O2 Source Room air Oxygen Flow Rate 15 I&O (Last 24 Hrs): Intake and Output Totals x24h 09/04/21 09/05/21 09/06/21 23:59 23:59 23:59 Intake Total 2790 1770 1900 Output Total 4250 6399 8195 Balance -1460 -9705 -825 General: Alert, Oriented x3 HEENT: Mucous membr. moist/pink Neck: Supple, Other (Obese, cannot eval JVP) Neuro: Alert, Non Focal Cardiovascular: Regular rate, No murmurs (Distant heart sounds) Respiratory: No respiratory distress, Wheezes (R anterior upper chest) Abdomen: Soft (Obese with pannus) Extremities: Other (1+ pre-tibial edema) - Results Results: Laboratory Results WBC 7.0 x10^3/uL (4.8-10.8) 09/06/21 04:08 RBC 4.98 10^6/uL (4.20-5.40) 09/06/21 04:08 Hgb 13.9 g/dL (12.0-16.0) 09/06/21 04:08 Hct 45.8 % (37.0-47.0) 09/06/21 04:08 MCV 92.0 fL (81.0-99.0) 09/06/21 04:08 MCH 27.9 pg (27.0-31.0) 09/06/21 04:08 MCHC 30.3 g/dL (32.0-36.0) L 09/06/21 04:08 RDW 15.9 % (12.0-15.0) H 09/06/21 04:08 Plt Count 204 10^3/uL (130-450) 09/06/21 04:08 MPV 9.2 fL (7.9-10.8) 09/06/21 04:08 Neut # (Auto) 4.0 10^3/uL (1.5-6.6) 09/06/21 04:08 Lymph # (Auto) 2.2 10^3/uL (1.5-3.5) 09/06/21 04:08 [place] # (Auto) 0.8 10^3/uL (0.0-1.0) 09/06/21 04:08 Eos # (Auto) 0.1 10^3/uL (0.0-0.7) 09/06/21 04:08 Baso # (Auto) 0.0 10^3/uL (0.0-0.1) 09/06/21 04:08 Absolute Nucleated RBC 0.00 x10^3/uL 09/06/21 04:08 Total Counted 100 09/02/21 04:20 Band Neuts % (Manual) 0 % (0-10) 09/02/21 04:20 Abnorm Lymph % (Manual) 0 % 09/02/21 04:20 Nucleated RBC % 0.0 /100WBC 09/06/21 04:08 Neutrophils # (Manual) 6.7 10^3/uL (1.5-6.6) H 09/02/21 04:20 Lymphocytes # (Manual) 2.2 10^3/uL (1.5-3.5) 09/02/21 04:20 Monocytes # (Manual) 1.6 10^3/uL (0.0-1.0) H 09/02/21 04:20 Eosinophils # (Manual) 0.0 10^3/uL (0-0.7) 09/02/21 04:20 Basophils # (Manual) 0.0 10^3/uL (0-0.1) 09/02/21 04:20 Differential Comment MANUAL DIFFERENTIAL 09/02/21 04:20 WBC Morphology NORMAL APPEARANCE (NORMAL) 09/02/21 04:20 Platelet Estimate NORMAL (130-450,000) (NORMAL) 09/02/21 04:20 Platelet Morphology NORMAL APPEARANCE (NORMAL) 09/02/21 04:20 RBC Morph Micro Appear NORMAL APPEARANCE (NORMAL) 09/02/21 04:20 Bld Gas Analysis Time 1115 09/01/21 11:15 Sample Site LEFT RADIAL 09/01/21 11:15 ABG pH 7.37 (7.35-7.45) 09/01/21 11:15 ABG pCO2 85 mmHg (34-45) H* 09/01/21 11:15 ABG pO2 42 mmHg (80-100) L* 09/01/21 11:15 ABG HCO3 48.8 mmol/L (22.0-26.0) H 09/01/21 11:15 ABG Total CO2 > 50.0 MMOL/L (21.0-29.0) H* 09/01/21 11:15 ABG O2 Saturation 72 % (94-98) L* 09/01/21 11:15 ABG Base Excess 23.0 mmol/L (-2.0-3.0) H 09/01/21 11:15 Fer Test POSITIVE 09/01/21 11:15 VBG pH 7.360 (7.31-7.41) 09/06/21 04:08 Ionized Calcium 1.16 mmol/L (1.15-1.33) 09/06/21 04:08 O2 Delivery Device BiPAP 09/01/21 11:15 O2 Liters/Min 45.00 LPM 09/01/21 07:30 Vent Mode BIPAP 09/01/21 07:30 FiO2 50.00 09/01/21 11:15 EPAP 5 cmH2O 09/01/21 11:15 IPAP 14 cmH2O 09/01/21 11:15 Sodium 137 mmol/L (135-145) 09/06/21 04:08 Potassium 4.2 mmol/L (3.5-5.0) 09/06/21 04:08 Chloride 92 mmol/L (101-111) L 09/06/21 04:08 Carbon Dioxide 37 mmol/L (21-32) H 09/06/21 04:08 Anion Gap 8.0 (6-13) 09/06/21 04:08 BUN 19 mg/dL (6-20) 09/06/21 04:08 Creatinine 0.6 mg/dL (0.4-1.0) 09/06/21 04:08 Estimated GFR (MDRD) 100 (>89) 09/06/21 04:08 Glucose 93 mg/dL (70-100) 09/06/21 04:08 Estimat Average Glucose 137 mg/dL (70-100) H 09/04/21 09:18 Hemoglobin A1c % 6.4 % (4.27-6.07) H 09/04/21 09:18 Calcium 8.6 mg/dL (8.5-10.3) 09/06/21 04:08 Phosphorus 3.4 mg/dL (2.5-4.6) 09/06/21 04:08 Magnesium 2.0 mg/dL (1.7-2.8) 09/06/21 04:08 Total Bilirubin 0.5 mg/dL (0.2-1.0) 09/01/21 01:35 AST 22 IU/L (10-42) 09/01/21 01:35 ALT 32 IU/L (10-60) 09/01/21 01:35 Alkaline Phosphatase 58 IU/L (42-121) 09/01/21 01:35 B-Natriuretic Peptide 293 pg/mL (5-100) H 09/01/21 01:35 Total Protein 6.5 g/dL (6.7-8.2) L 09/01/21 01:35 Albumin 3.3 g/dL (3.2-5.5) 09/01/21 01:35 Globulin 3.2 g/dL (2.1-4.2) 09/01/21 01:35 Albumin/Globulin Ratio 1.0 (1.0-2.2) 09/01/21 01:35 Lipase 28 U/L (22-51) 09/01/21 01:35 TSH 1.53 uIU/mL (0.34-5.60) 09/01/21 01:35 Nasal Adenovirus (PCR) NOT DETECTED 09/01/21 01:30 Nasal B. parapertussis DNA (PCR) NOT DETECTED 09/01/21 01:30 Nasal Coronavir 229E PCR NOT DETECTED 09/01/21 01:30 Nasal Coronavir HKU1 PCR NOT DETECTED 09/01/21 01:30 Nasal Coronavir NL63 PCR NOT DETECTED 09/01/21 01:30 Nasal Coronavir OC43 PCR NOT DETECTED 09/01/21 01:30 Nasal Enterovir/Rhinovir PCR NOT DETECTED 09/01/21 01:30 Nasal Influenza B PCR NOT DETECTED 09/01/21 01:30 Nasal Influenza A PCR NOT DETECTED 09/01/21 01:30 Nasal Parainfluen 1 PCR NOT DETECTED 09/01/21 01:30 Nasal Parainfluen 2 PCR NOT DETECTED 09/01/21 01:30 Nasal Parainfluen 3 PCR NOT DETECTED 09/01/21 01:30 Nasal Parainfluen 4 PCR NOT DETECTED 09/01/21 01:30 Nasal RSV (PCR) NOT DETECTED 09/01/21 01:30 Nasal Screen MRSA (PCR) NEGATIVE (NEGATIVE) 09/01/21 04:46 Nasal B.pertussis DNA PCR NOT DETECTED 09/01/21 01:30 Nasal C.pneumoniae (PCR) NOT DETECTED 09/01/21 01:30 Dilip Human Metapneumo PCR NOT DETECTED 09/01/21 01:30 Nasal M.pneumoniae (PCR) NOT DETECTED 09/01/21 01:30 Nasal SARS-CoV-2 (PCR) NOT DETECTED 09/01/21 01:30 - Procedures Procedures: Procedures EXTRACTION OF ENDOMETRIUM, VIA NATURAL OR ARTIFICIAL OPENING (01/21/20) INSPECTION OF UTERUS AND CERVIX, ENDO (01/21/20)
[2021-09-06] MEDS: NICOTINE 7 MG PATCH TOP SCH (18:15)
[2021-09-06] MEDS: QUEtiapine 100 MG TABLET PO SCH (21:11)
[2021-09-06] MEDS: OLANZapine ODT 5 MG TABLET TL SCH (21:12)
[2021-09-07] MEDS: IPRATROPIUM/ALBUTEROL 3 ML NEB INH SCH ×4 (03:00→15:53)
[2021-09-07 05:11] LABS: CALCIUM, IONIZED 1.14 mmol/L (1.15-1.33); VBG PH 7.338 (7.31-7.41)
[2021-09-07 05:14] LABS: BASOPHILS % (AUTO) 0.3 %; EOSINOPHILS # (AUTO) 0.2 10^3/uL (0.0-0.7); EOSINOPHILS % (AUTO) 2.7 %; HGB - HEMOGLOBIN 13.3 g/dL (12.0-16.0); LYMPHOCYTES # (AUTO) 2.2 10^3/uL (1.5-3.5); LYMPHOCYTES % (AUTO) 37.2 %; MEAN CORPUSCULAR HGB CONC 30.2 g/dL (32.0-36.0); MEAN CORPUSCULAR VOLUME 92.6 fL (81.0-99.0); MEAN PLATELET VOLUME 9.7 fL (7.9-10.8); MONOCYTES # (AUTO) 0.7 10^3/uL (0.0-1.0); MONOCYTES % (AUTO) 11.1 %; NEUTROPHILS # (AUTO) 2.9 10^3/uL (1.5-6.6); NEUTROPHILS % (AUTO) 48.5 %; PLT - PLATELET COUNT 181 10^3/uL (130-450); RED BLOOD COUNT 4.75 10^6/uL (4.20-5.40); WHITE BLOOD COUNT 5.9 x10^3/uL (4.8-10.8)
[2021-09-07] MEDS: BUDESONIDE 0.5 MG/2 ML NEB INH SCH ×2 (05:14→19:23)
[2021-09-07] MEDS: FORMOTEROL FUMARATE NEB 20 MCG/2 ML INH SCH ×2 (05:14→19:23)
[2021-09-07 05:27] LABS: CALCIUM 8.6 mg/dL (8.5-10.3); CREATININE 0.6 mg/dL (0.4-1.0); POTASSIUM 4.1 mmol/L (3.5-5.0)
[2021-09-07] MEDS: LORazepam 0.5 MG TABLET PO SCH (06:14)
[2021-09-07] MEDS: BACLOFEN 10 MG TABLET PO SCH ×3 (06:14→21:35)
[2021-09-07] MEDS: polyethylene glycoL 3350 17 GM PACKET PO SCH (08:04)
[2021-09-07] MEDS: SACCHAROMYCES BOULARDII 250 MG CAPSULE PO SCH ×2 (08:06→16:56)
[2021-09-07] MEDS: DOCUSATE SODIUM 250 MG CAPSULE PO SCH (08:06)
[2021-09-07] MEDS: levoFLOXacin 250 MG TABLET PO SCH (08:06)
[2021-09-07] MEDS: SENNA 8.6 MG TABLET PO SCH (08:06)
[2021-09-07] MEDS: SODIUM CHLORIDE FLUSH 0.9% 10 ML SYRINGE IVP SCH ×3 (08:09→21:36)
[2021-09-07] MEDS: ENOXAPARIN 40 MG/0.4 ML SYRINGE SUBQ SCH (08:10)
[2021-09-07] MEDS: lisinopriL 5 MG TABLET PO SCH (08:10)
[2021-09-07] MEDS: NICOTINE 7 MG PATCH TOP SCH (08:14)
[2021-09-07] MEDS: INSULIN ASPART 300 UNIT/3 ML PEN SUBQ SCH ×4 (11:56→20:27)
--- NOTE | 2021-09-07 13:21 | PROVIDER PROGRESS NOTE ---
Assessment/Plan - Problem List (1) Acute and chronic respiratory failure Qualifiers: Respiratory failure complication: hypoxia and hypercapnia Qualified Code(s): J96.21 - Acute and chronic respiratory failure with hypoxia; J96.22 - Acute and chronic respiratory failure with hypercapnia Assessment/Plan: This is improving and was secondary to COPD exacerbation and her obesity hypoventilation syndrome. We resumed her home inhalers. We gave oral levaquin to complete 5 days of therapy. We cannot discharge her until we have the Trilogy (home Non-invasive ventilator) set up, since she is at high risk for hypercapnic respiratory failure and r eadmission. We are waiting for her Insurance to authorize it. She will require BiPAP in the evenings while hospitalized. (2) COPD exacerbation Impression: This was a cause of her acute on chronic hypercapnic respiratory failure. She is significantly improved now. We resumed her home inhalers. We gave oral levaquin to complete 5 days of therapy. We cannot discharge her until we have the Trilogy She requested a nicotine patch so that she can use this at home and remain off of cigarettes. Her medication list states she has a "nicotine allergy" however she was smoking and taking in nicotine up until the day of admission, therefore this allergy info is presumed wrong. Continue supplemental oxygen for goal saturation greater than 88%. She was on H ome O2 at 2-3L and she will need an exercise desaturation test prior to discharge min case the settings need to be different now. (3) Obesity hypoventilation syndrome Impression: This is likely contributing to her acute on chronic hypercapnic respiratory fail ure. She will most definitely benefit from positive pressure ventilation at home. She would also benefit from an outpatient follow-up with pulmonology. Also, she is hypersomnolent for the past 2 days and we will change the scheduled tid Lorazepam to prn tid (4) Bipolar disorder Impression: Stable. We are continuing her home medications. (5) Morbid obesity (BMI 40-45) As per Hx. (6) Metabolic encephalopathy Impression: This was secondary to CO2 narcosis plus steroids It has resolved and her mentation has returned to baseline. She had occasional hallucinations in the evening which she attributes to prednisone. The prednisone was discontinued. - Current Meds Current Meds: Current Medications Generic Name Dose Route Start Last Admin Trade Name Freq PRN Reason Stop Dose Admin Acetaminophen 650 mg 09/01/21 03:30 09/03/21 08:31 Acetaminophen 325 Mg Tablet PO 650 mg Q4HR PRN Administration Pain 1 to 4 Albuterol 2.5 mg 09/01/21 03:36 09/02/21 07:26 Albuterol Neb 2.5 Mg/3 Ml INH 2.5 mg Q2HR PRN Administration Wheezing Albuterol/Ipratropium 3 ml 09/01/21 11:00 09/07/21 11:28 Ipratropium/Albuterol 3 Ml Neb INH 3 ml RTQ4H EMORY Administration Baclofen 20 mg 09/02/21 07:39 09/07/21 06:14 Baclofen 10 Mg Tablet PO 20 mg TID EMORY Administration Bisacodyl 10 mg 09/04/21 10:24 09/04/21 11:25 Bisacodyl 10 Mg Supp MT 10 mg DAILY PRN Administration Constipation Budesonide 0.5 mg 09/05/21 19:00 09/07/21 05:14 Budesonide 0.5 Mg/2 Ml Neb INH 0.5 mg RTBID EMORY Administration Docusate Sodium 250 - 500 mg 09/02/21 21:00 09/07/21 08:06 Docusate Sodium 250 Mg Capsule PO 250 mg DAILY [facility] Administration Enoxaparin Sodium 40 mg 09/01/21 09:00 09/07/21 08:10 Enoxaparin 40 Mg/0.4 Ml Syringe SUBQ 40 mg DAILY [facility] Administration Formoterol Fumarate 20 mcg 09/05/21 19:00 09/07/21 05:14 Formoterol Fumarate Neb 20 Mcg/2 Ml INH 20 mcg RTBID EMORY Administration Insulin Aspart 1 - 9 unit 09/02/21 12:00 09/07/21 11:59 Insulin Aspart 300 Unit/3 Ml Pen SUBQ Not Given 0800,1200,1700,2100 [facility] Protocol Levofloxacin 750 mg 09/04/21 09:00 09/07/21 08:06 Levofloxacin 250 Mg Tablet PO 750 mg DAILY [facility] Administration Lisinopril 5 mg 09/01/21 09:00 09/07/21 08:10 Lisinopril 5 Mg Tablet PO 5 mg DAILY EMORY Administration Nicotine 1 patch 09/06/21 17:34 09/07/21 08:14 Nicotine 7 Mg Patch TOP 1 patch DAILY [facility]ORY Administration Olanzapine 2.5 mg 09/01/21 21:00 09/06/21 21:12 Olanzapine Odt 5 Mg Tablet TL 2.5 mg QPM EMORY Administration Polyethylene Glycol 17 gm 09/02/21 09:00 09/07/21 08:04 Polyethylene Glycol 3350 17 Gm Packet PO 17 gm DAILY [facility]ORY Administration Quetiapine Fumarate 600 mg 09/02/21 21:00 09/06/21 21:11 Quetiapine 100 Mg Tablet PO 600 mg QPM [facility]ORY Administration Saccharomyces Boulardii 250 mg 09/06/21 09:37 09/07/21 08:06 Saccharomyces Boulardii 250 Mg Capsule PO 250 mg BIDWM EMORY Administration Senna 8.6 - 17.2 mg 09/02/21 21:00 09/07/21 08:06 Senna 8.6 Mg Tablet PO 8.6 mg DAILY EMORY Administration Sodium Chloride 10 ml 09/01/21 09:00 09/07/21 08:09 Sodium Chloride Flush 0.9% 10 Ml Syringe IVP 10 ml 0100,0900,1700 [facility] Administration Sodium Chloride 10 ml 09/01/21 03:30 09/04/21 21:09 Sodium Chloride Flush 0.9% 10 Ml Syringe IVP 10 ml PRN PRN Administration NEEDED PER PROVIDER ORDERS Throat Lozenges 1 lozenge 09/02/21 21:55 09/02/21 22:08 Benzocaine/Menthol Lozenge MM 1 lozenge Q2HR PRN Administration Throat pain - Lab Result Fish Bone Diagrams: 09/07/21 04:11 09/07/21 04:11 - Additional Planning My Orders: My Active Orders 09/06/21 17:34 Nicotine 7 mg Patch [Nicoderm] 1 patch TOP DAILY 09/07/21 13:19 LORazepam [Ativan] 0.5 mg PO TID PRN Subjective - Subjective Patient Reports: Feeling Better, Resting Comfortably (For the past 2 mornings she has "overslept" and wants daytime naps), No Complaints Objective Vital Signs: Vital Signs - 24 hr 09/06/21 09/06/21 09/06/21 14:52 16:11 19:27 Temperature 37.1 C Heart Rate 87 89 Heart Rate [ 81 Monitoring electrodes] Respiratory 24 22 Rate Blood Pressure [Left Radial artery] Blood Pressure 116/61 [Right Brachial artery] Blood Pressure [Right Radial artery] O2 Saturation 100 09/06/21 09/06/21 09/06/21 19:32 20:55 23:20 Temperature 37.0 C Heart Rate 89 80 Heart Rate [ 84 Monitoring electrodes] Respiratory 23 23 23 Rate Blood Pressure [Left Radial artery] Blood Pressure [Right Brachial artery] Blood Pressure 124/80 [Right Radial artery] O2 Saturation 93 09/06/21 09/07/21 09/07/21 23:32 01:14 02:55 Temperature Heart Rate 89 83 72 Heart Rate [ Monitoring electrodes] Respiratory 22 Rate Blood Pressure [Left Radial artery] Blood Pressure [Right Brachial artery] Blood Pressure [Right Radial artery] O2 Saturation 09/07/21 09/07/21 09/07/21 04:19 04:59 07:39 Temperature Heart Rate 82 77 Heart Rate [ 76 Monitoring electrodes] Respiratory 21 14 22 Rate Blood Pressure [Left Radial artery] Blood Pressure [Right Brachial artery] Blood Pressure 110/63 [Right Radial artery] O2 Saturation 90 L 09/07/21 09/07/21 09/07/21 07:50 08:10 11:29 Temperature 36.7 C Heart Rate 81 Heart Rate [ 80 Monitoring electrodes] Respiratory 22 20 Rate Blood Pressure 131/75 H [Left Radial artery] Blood Pressure [Right Brachial artery] Blood Pressure [Right Radial artery] O2 Saturation 96 09/07/21 13:00 Temperature Heart Rate 92 Heart Rate [ Monitoring electrodes] Respiratory Rate Blood Pressure [Left Radial artery] Blood Pressure [Right Brachial artery] Blood Pressure [Right Radial artery] O2 Saturation Oxygen O2 Source Nasal cannula Oxygen Flow Rate 15 I&O (Last 24 Hrs): Intake and Output Totals x24h 09/05/21 09/06/21 09/07/21 23:59 23:59 23:59 Intake Total 1770 2860 720 Output Total 5175 0395 1475 Balance -3338 -0756 -704 General: Other (Obese femal. Asleep, supine in bed, wearing her BIPAP mask) HEENT: Mucous membr. moist/pink Neck: Other (Obese) Neuro: Other (Asleep, arousable and non-focal) Cardiovascular: Regular rate Respiratory: No respiratory distress (wearing her BIPAP nask), Breath sounds nml Abdomen: Other (Obese) Extremities: Other (1+ pre-tibial edema) - Results Results: Laboratory Results WBC 5.9 x10^3/uL (4.8-10.8) 09/07/21 04:11 RBC 4.75 10^6/uL (4.20-5.40) 09/07/21 04:11 Hgb 13.3 g/dL (12.0-16.0) 09/07/21 04:11 Hct 44.0 % (37.0-47.0) 09/07/21 04:11 MCV 92.6 fL (81.0-99.0) 09/07/21 04:11 MCH 28.0 pg (27.0-31.0) 09/07/21 04:11 MCHC 30.2 g/dL (32.0-36.0) L 09/07/21 04:11 RDW 16.0 % (12.0-15.0) H 09/07/21 04:11 Plt Count 181 10^3/uL (130-450) 09/07/21 04:11 MPV 9.7 fL (7.9-10.8) 09/07/21 04:11 Neut # (Auto) 2.9 10^3/uL (1.5-6.6) 09/07/21 04:11 Lymph # (Auto) 2.2 10^3/uL (1.5-3.5) 09/07/21 04:11 [place] # (Auto) 0.7 10^3/uL (0.0-1.0) 09/07/21 04:11 Eos # (Auto) 0.2 10^3/uL (0.0-0.7) 09/07/21 04:11 Baso # (Auto) 0.0 10^3/uL (0.0-0.1) 09/07/21 04:11 Absolute Nucleated RBC 0.00 x10^3/uL 09/07/21 04:11 Total Counted 100 09/02/21 04:20 Band Neuts % (Manual) 0 % (0-10) 09/02/21 04:20 Abnorm Lymph % (Manual) 0 % 09/02/21 04:20 Nucleated RBC % 0.0 /100WBC 09/07/21 04:11 Neutrophils # (Manual) 6.7 10^3/uL (1.5-6.6) H 09/02/21 04:20 Lymphocytes # (Manual) 2.2 10^3/uL (1.5-3.5) 09/02/21 04:20 Monocytes # (Manual) 1.6 10^3/uL (0.0-1.0) H 09/02/21 04:20 Eosinophils # (Manual) 0.0 10^3/uL (0-0.7) 09/02/21 04:20 Basophils # (Manual) 0.0 10^3/uL (0-0.1) 09/02/21 04:20 Differential Comment MANUAL DIFFERENTIAL 09/02/21 04:20 WBC Morphology NORMAL APPEARANCE (NORMAL) 09/02/21 04:20 Platelet Estimate NORMAL (130-450,000) (NORMAL) 09/02/21 04:20 Platelet Morphology NORMAL APPEARANCE (NORMAL) 09/02/21 04:20 RBC Morph Micro Appear NORMAL APPEARANCE (NORMAL) 09/02/21 04:20 Bld Gas Analysis Time 1115 09/01/21 11:15 Sample Site LEFT RADIAL 09/01/21 11:15 ABG pH 7.37 (7.35-7.45) 09/01/21 11:15 ABG pCO2 85 mmHg (34-45) H* 09/01/21 11:15 ABG pO2 42 mmHg (80-100) L* 09/01/21 11:15 ABG HCO3 48.8 mmol/L (22.0-26.0) H 09/01/21 11:15 ABG Total CO2 > 50.0 MMOL/L (21.0-29.0) H* 09/01/21 11:15 ABG O2 Saturation 72 % (94-98) L* 09/01/21 11:15 ABG Base Excess 23.0 mmol/L (-2.0-3.0) H 09/01/21 11:15 Fer Test POSITIVE 09/01/21 11:15 VBG pH 7.338 (7.31-7.41) 09/07/21 04:11 Ionized Calcium 1.14 mmol/L (1.15-1.33) L 09/07/21 04:11 O2 Delivery Device BiPAP 09/01/21 11:15 O2 Liters/Min 45.00 LPM 09/01/21 07:30 Vent Mode BIPAP 09/01/21 07:30 FiO2 50.00 02/17/22 11:15 EPAP 5 cmH2O 09/01/21 11:15 IPAP 14 cmH2O 09/01/21 11:15 Sodium 138 mmol/L (135-145) 09/07/21 04:11 Potassium 4.1 mmol/L (3.5-5.0) 09/07/21 04:11 Chloride 93 mmol/L (101-111) L 09/07/21 04:11 Carbon Dioxide 37 mmol/L (21-32) H 09/07/21 04:11 Anion Gap 8.0 (6-13) 09/07/21 04:11 BUN 17 mg/dL (6-20) 09/07/21 04:11 Creatinine 0.6 mg/dL (0.4-1.0) 09/07/21 04:11 Estimated GFR (MDRD) 100 (>89) 09/07/21 04:11 Glucose 94 mg/dL (70-100) 09/07/21 04:11 Estimat Average Glucose 137 mg/dL (70-100) H 09/04/21 09:18 Hemoglobin A1c % 6.4 % (4.27-6.07) H 09/04/21 09:18 Calcium 8.6 mg/dL (8.5-10.3) 09/07/21 04:11 Phosphorus 4.0 mg/dL (2.5-4.6) 09/07/21 04:11 Magnesium 2.0 mg/dL (1.7-2.8) 09/07/21 04:11 Total Bilirubin 0.5 mg/dL (0.2-1.0) 09/01/21 01:35 AST 22 IU/L (10-42) 09/01/21 01:35 ALT 32 IU/L (10-60) 09/01/21 01:35 Alkaline Phosphatase 58 IU/L (42-121) 09/01/21 01:35 B-Natriuretic Peptide 293 pg/mL (5-100) H 09/01/21 01:35 Total Protein 6.5 g/dL (6.7-8.2) L 09/01/21 01:35 Albumin 3.3 g/dL (3.2-5.5) 09/01/21 01:35 Globulin 3.2 g/dL (2.1-4.2) 09/01/21 01:35 Albumin/Globulin Ratio 1.0 (1.0-2.2) 09/01/21 01:35 Lipase 28 U/L (22-51) 09/01/21 01:35 TSH 1.53 uIU/mL (0.34-5.60) 09/01/21 01:35 Nasal Adenovirus (PCR) NOT DETECTED 09/01/21 01:30 Nasal B. parapertussis DNA (PCR) NOT DETECTED 09/01/21 01:30 Nasal Coronavir 229E PCR NOT DETECTED 09/01/21 01:30 Nasal Coronavir HKU1 PCR NOT DETECTED 09/01/21 01:30 Nasal Coronavir NL63 PCR NOT DETECTED 09/01/21 01:30 Nasal Coronavir OC43 PCR NOT DETECTED 09/01/21 01:30 Nasal Enterovir/Rhinovir PCR NOT DETECTED 09/01/21 01:30 Nasal Influenza B PCR NOT DETECTED 09/01/21 01:30 Nasal Influenza A PCR NOT DETECTED 09/01/21 01:30 Nasal Parainfluen 1 PCR NOT DETECTED 09/01/21 01:30 Nasal Parainfluen 2 PCR NOT DETECTED 09/01/21 01:30 Nasal Parainfluen 3 PCR NOT DETECTED 09/01/21 01:30 Nasal Parainfluen 4 PCR NOT DETECTED 09/01/21 01:30 Nasal RSV (PCR) NOT DETECTED 09/01/21 01:30 Nasal Screen MRSA (PCR) NEGATIVE (NEGATIVE) 09/01/21 04:46 Nasal B.pertussis DNA PCR NOT DETECTED 09/01/21 01:30 Nasal C.pneumoniae (PCR) NOT DETECTED 09/01/21 01:30 Dilip Human Metapneumo PCR NOT DETECTED 09/01/21 01:30 Nasal M.pneumoniae (PCR) NOT DETECTED 09/01/21 01:30 Nasal SARS-CoV-2 (PCR) NOT DETECTED 09/01/21 01:30 - Procedures Procedures: Procedures EXTRACTION OF ENDOMETRIUM, VIA NATURAL OR ARTIFICIAL OPENING (01/21/20) INSPECTION OF UTERUS AND CERVIX, ENDO (01/21/20)
[2021-09-07] MEDS: QUEtiapine 100 MG TABLET PO SCH (20:24)
[2021-09-07] MEDS: OLANZapine ODT 5 MG TABLET TL SCH (20:25)
[2021-09-07] MEDS: LORazepam 0.5 MG TABLET PO PRN (20:25)
[2021-09-08 05:11] LABS: BASOPHILS % (AUTO) 0.3 %; EOSINOPHILS # (AUTO) 0.3 10^3/uL (0.0-0.7); EOSINOPHILS % (AUTO) 4.3 %; HCT - HEMATOCRIT 43.3 % (37.0-47.0); HGB - HEMOGLOBIN 13.4 g/dL (12.0-16.0); LYMPHOCYTES # (AUTO) 2.2 10^3/uL (1.5-3.5); LYMPHOCYTES % (AUTO) 35.1 %; MEAN CORPUSCULAR HEMOGLOBIN 28.2 pg (27.0-31.0); MEAN CORPUSCULAR HGB CONC 30.9 g/dL (32.0-36.0); MEAN PLATELET VOLUME 9.8 fL (7.9-10.8); MONOCYTES # (AUTO) 0.7 10^3/uL (0.0-1.0); MONOCYTES % (AUTO) 11.8 %; NEUTROPHILS % (AUTO) 48.2 %; PLT - PLATELET COUNT 182 10^3/uL (130-450); RED BLOOD COUNT 4.76 10^6/uL (4.20-5.40); RED CELL DISTRIBUTION WIDTH 16.2 % (12.0-15.0); WHITE BLOOD COUNT 6.3 x10^3/uL (4.8-10.8)
[2021-09-08 05:16] LABS: CALCIUM 8.8 mg/dL (8.5-10.3); CREATININE 0.6 mg/dL (0.4-1.0); POTASSIUM 4.2 mmol/L (3.5-5.0)
[2021-09-08] MEDS: BACLOFEN 10 MG TABLET PO SCH ×3 (05:55→20:16)
[2021-09-08] MEDS: IPRATROPIUM/ALBUTEROL 3 ML NEB INH SCH ×4 (07:26→19:06)
[2021-09-08] MEDS: BUDESONIDE 0.5 MG/2 ML NEB INH SCH ×2 (07:26→19:05)
[2021-09-08] MEDS: FORMOTEROL FUMARATE NEB 20 MCG/2 ML INH SCH ×2 (07:26→19:06)
[2021-09-08] MEDS: SENNA 8.6 MG TABLET PO SCH (09:08)
[2021-09-08] MEDS: polyethylene glycoL 3350 17 GM PACKET PO SCH (09:08)
[2021-09-08] MEDS: NICOTINE 7 MG PATCH TOP SCH (09:08)
[2021-09-08] MEDS: levoFLOXacin 250 MG TABLET PO SCH (09:09)
[2021-09-08] MEDS: ENOXAPARIN 40 MG/0.4 ML SYRINGE SUBQ SCH (09:09)
[2021-09-08] MEDS: DOCUSATE SODIUM 250 MG CAPSULE PO SCH (09:10)
[2021-09-08] MEDS: lisinopriL 5 MG TABLET PO SCH (09:10)
[2021-09-08] MEDS: INSULIN ASPART 300 UNIT/3 ML PEN SUBQ SCH ×4 (09:11→20:19)
[2021-09-08] MEDS: SACCHAROMYCES BOULARDII 250 MG CAPSULE PO SCH ×2 (09:11→17:11)
[2021-09-08] MEDS: SODIUM CHLORIDE FLUSH 0.9% 10 ML SYRINGE IVP SCH ×3 (09:19→20:17)
[2021-09-08] MEDS: LORazepam 0.5 MG TABLET PO PRN ×2 (10:53→22:51)
--- NOTE | 2021-09-08 15:39 | PROVIDER PROGRESS NOTE ---
Assessment/Plan - Problem List (1) Acute and chronic respiratory failure Qualifiers: Respiratory failure complication: hypoxia and hypercapnia Qualified Code(s): J96.21 - Acute and chronic respiratory failure with hypoxia; J96.22 - Acute and chronic respiratory failure with hypercapnia Assessment/Plan: This has improved and was secondary to COPD exacerbation and her obesity hypoventilation syndrome. We resumed her home inhalers. We gave oral levaquin to complete 5 days of therapy. We cannot discharge her until we have the Trilogy (home Non-invasive ventilator) set up, since she had very high hypercarbia and needs BIPAP and is at high risk for hypercapnic respiratory failure again and readmission. We are waiting for her Insurance to authorize the Non-Invasive Home Ventilator. She requires BiPAP in the evenings and during naps while hospitalized. (2) COPD exacerbation Impression: This was a cause of her acute on chronic hypercapnic respiratory failure. She is significantly improved now. We resumed her home inhalers. We gave oral levaquin to complete 5 days of therapy. We cannot discharge her until we have the Trilogy NHV use immediately after DCh. She requested a nicotine patch 3 days ago, so that she can use this at home and remain off of cigarettes. Her medication list states she has a "nicotine allergy" however she was smoking and taking in nicotine up until the day of admission, therefore this allergy info is presumed wrong. Continue supplemental oxygen for goal saturation greater than 88%. She was on Home O2 at 2-3L and she will need an exercise desaturation test prior to discharge min case the settings need to be different now. (3) Obesity hypoventilation syndrome Impression: This is likely contributing to her acute on chronic hypercapnic respiratory failure. She will most definitely benefit from portable positive pressure ventilation at home. She would also benefit from an outpatient follow-up with pulmonology. Also, she was hypersomnolent for the past 2 days and we changed the scheduled tid Lorazepam to prn tid (4) Bipolar disorder Impression: The RN reports today that the patient is voicing being depressed over being hospitalized. We are continuing her home medications. (5) Morbid obesity (BMI 40-45) As per Hx. (6) Metabolic encephalopathy Impression: Resolved. This was secondary to CO2 narcosis plus steroids It has resolved and her mentation has returned to baseline. She had occasional hallucinations in the evening which she attributes to prednisone. The prednisone was discontinued. - Current Meds Current Meds: Current Medications Generic Name Dose Route Start Last Admin Trade Name Freq PRN Reason Stop Dose Admin Acetaminophen 650 mg 09/01/21 03:30 09/03/21 08:31 Acetaminophen 325 Mg Tablet PO 650 mg Q4HR PRN Administration Pain 1 to 4 Albuterol 2.5 mg 09/01/21 03:36 09/02/21 07:26 Albuterol Neb 2.5 Mg/3 Ml INH 2.5 mg Q2HR PRN Administration Wheezing Albuterol/Ipratropium 3 ml 09/01/21 11:00 09/08/21 11:15 Ipratropium/Albuterol 3 Ml Neb INH 3 ml RTQ4H EMORY Administration Baclofen 20 mg 09/02/21 07:39 09/08/21 14:04 Baclofen 10 Mg Tablet PO Not Given TID EMORY Bisacodyl 10 mg 09/04/21 10:24 09/04/21 11:25 Bisacodyl 10 Mg Supp SD 10 mg DAILY PRN Administration Constipation Budesonide 0.5 mg 09/05/21 19:00 09/08/21 07:26 Budesonide 0.5 Mg/2 Ml Neb INH 0.5 mg RTBID EMORY Administration Docusate Sodium 250 - 500 mg 09/02/21 21:00 09/08/21 09:10 Docusate Sodium 250 Mg Capsule PO 250 mg DAILY EMORY Administration Enoxaparin Sodium 40 mg 09/01/21 09:00 09/08/21 09:09 Enoxaparin 40 Mg/0.4 Ml Syringe SUBQ 40 mg DAILY EMOYR Administration Formoterol Fumarate 20 mcg 09/05/21 19:00 09/08/21 07:26 Formoterol Fumarate Neb 20 Mcg/2 Ml INH 20 mcg RTBID EMORY Administration Insulin Aspart 1 - 9 unit 09/02/21 12:00 09/08/21 12:31 Insulin Aspart 300 Unit/3 Ml Pen SUBQ Not Given 0800,1200,1700,2100 [facility] Protocol Lisinopril 5 mg 09/01/21 09:00 09/08/21 09:10 Lisinopril 5 Mg Tablet PO 5 mg DAILY EMORY Administration Lorazepam 0.5 mg 09/07/21 13:19 02/24/22 10:53 Lorazepam 0.5 Mg Tablet PO 0.5 mg TID PRN Administration Anxiety Nicotine 1 patch 09/06/21 17:34 09/08/21 09:08 Nicotine 7 Mg Patch TOP 1 patch DAILY EMORY Administration Olanzapine 2.5 mg 09/01/21 21:00 09/07/21 20:25 Olanzapine Odt 5 Mg Tablet TL 2.5 mg QPM EMORY Administration Polyethylene Glycol 17 gm 09/02/21 09:00 09/08/21 09:08 Polyethylene Glycol 3350 17 Gm Packet PO 17 gm DAILY EMORY Administration Quetiapine Fumarate 600 mg 09/02/21 21:00 09/07/21 20:24 Quetiapine 100 Mg Tablet PO 600 mg QPM EMORY Administration Saccharomyces Boulardii 250 mg 09/06/21 09:37 09/08/21 09:11 Saccharomyces Boulardii 250 Mg Capsule PO 250 mg BIDWM EMORY Administration Senna 8.6 - 17.2 mg 09/02/21 21:00 09/08/21 09:08 Senna 8.6 Mg Tablet PO 8.6 mg DAILY EMORY Administration Sodium Chloride 10 ml 09/01/21 09:00 09/08/21 09:19 Sodium Chloride Flush 0.9% 10 Ml Syringe IVP 10 ml 0100,0900,1700 EMORY Administration Sodium Chloride 10 ml 09/01/21 03:30 09/04/21 21:09 Sodium Chloride Flush 0.9% 10 Ml Syringe IVP 10 ml PRN PRN Administration NEEDED PER PROVIDER ORDERS Throat Lozenges 1 lozenge 09/02/21 21:55 09/02/21 22:08 Benzocaine/Menthol Lozenge MM 1 lozenge Q2HR PRN Administration Throat pain - Lab Result Fish Bone Diagrams: 09/08/21 04:24 09/08/21 04:24 Subjective - Subjective Patient Reports: No Complaints Nursing Reports: Other (Pt is depressed over being hospitalized so long and waiting for her Insurance to authorize the home Non-invasive Vent machine (similar to the BIPAP she uses here).) Objective Vital Signs: Vital Signs - 24 hr 09/07/21 09/07/21 09/07/21 15:30 15:54 19:25 Temperature 37.2 C Heart Rate 80 85 Heart Rate [ 84 Monitoring electrodes] Respiratory 15 18 18 Rate Blood Pressure 120/72 [Left Radial artery] Blood Pressure [Right Brachial artery] Blood Pressure [Right Radial artery] O2 Saturation 88 L 09/07/21 09/07/21 09/08/21 21:14 21:15 00:08 Temperature 36.7 C Heart Rate 81 79 Heart Rate [ 90 Monitoring electrodes] Respiratory 23 Rate Blood Pressure [Left Radial artery] Blood Pressure [Right Brachial artery] Blood Pressure 110/58 L [Right Radial artery] O2 Saturation 92 09/08/21 09/08/21 09/08/21 05:08 05:32 07:27 Temperature 36 C L Heart Rate 76 96 Heart Rate [ 77 Monitoring electrodes] Respiratory 24 23 Rate Blood Pressure [Left Radial artery] Blood Pressure [Right Brachial artery] Blood Pressure 108/69 [Right Radial artery] O2 Saturation 91 L 09/08/21 09/08/21 11:03 11:15 Temperature 37 C Heart Rate 81 Heart Rate [ 89 Monitoring electrodes] Respiratory 23 22 Rate Blood Pressure [Left Radial artery] Blood Pressure 123/65 [Right Brachial artery] Blood Pressure [Right Radial artery] O2 Saturation 96 Oxygen O2 Source Nasal cannula Oxygen Flow Rate 15 I&O (Last 24 Hrs): Intake and Output Totals x24h 09/06/21 09/07/21 09/08/21 23:59 23:59 23:59 Intake Total 2860 1200 1520 Output Total 5175 1475 1 Balance -2315 -275 1519 General: Alert, Oriented x3 HEENT: Mucous membr. moist/pink, Other (Obese) Neuro: Alert, Non Focal Cardiovascular: Regular rate Respiratory: No respiratory distress (wearing O2 per n.c.) Abdomen: Soft (Obese with pammus) Extremities: Other (Trace pre-tibial edema) - Results Results: Laboratory Results WBC 6.3 x10^3/uL (4.8-10.8) 09/08/21 04:24 RBC 4.76 10^6/uL (4.20-5.40) 09/08/21 04:24 Hgb 13.4 g/dL (12.0-16.0) 09/08/21 04:24 Hct 43.3 % (37.0-47.0) 09/08/21 04:24 MCV 91.0 fL (81.0-99.0) 09/08/21 04:24 MCH 28.2 pg (27.0-31.0) 09/08/21 04:24 MCHC 30.9 g/dL (32.0-36.0) L 09/08/21 04:24 RDW 16.2 % (12.0-15.0) H 09/08/21 04:24 Plt Count 182 10^3/uL (130-450) 09/08/21 04:24 MPV 9.8 fL (7.9-10.8) 09/08/21 04:24 Neut # (Auto) 3.0 10^3/uL (1.5-6.6) 09/08/21 04:24 Lymph # (Auto) 2.2 10^3/uL (1.5-3.5) 09/08/21 04:24 [place] # (Auto) 0.7 10^3/uL (0.0-1.0) 09/08/21 04:24 Eos # (Auto) 0.3 10^3/uL (0.0-0.7) 09/08/21 04:24 Baso # (Auto) 0.0 10^3/uL (0.0-0.1) 09/08/21 04:24 Absolute Nucleated RBC 0.00 x10^3/uL 09/08/21 04:24 Total Counted 100 09/02/21 04:20 Band Neuts % (Manual) 0 % (0-10) 09/02/21 04:20 Abnorm Lymph % (Manual) 0 % 09/02/21 04:20 Nucleated RBC % 0.0 /100WBC 09/08/21 04:24 Neutrophils # (Manual) 6.7 10^3/uL (1.5-6.6) H 09/02/21 04:20 Lymphocytes # (Manual) 2.2 10^3/uL (1.5-3.5) 09/02/21 04:20 Monocytes # (Manual) 1.6 10^3/uL (0.0-1.0) H 09/02/21 04:20 Eosinophils # (Manual) 0.0 10^3/uL (0-0.7) 09/02/21 04:20 Basophils # (Manual) 0.0 10^3/uL (0-0.1) 09/02/21 04:20 Differential Comment MANUAL DIFFERENTIAL 09/02/21 04:20 WBC Morphology NORMAL APPEARANCE (NORMAL) 09/02/21 04:20 Platelet Estimate NORMAL (130-450,000) (NORMAL) 09/02/21 04:20 Platelet Morphology NORMAL APPEARANCE (NORMAL) 09/02/21 04:20 RBC Morph Micro Appear NORMAL APPEARANCE (NORMAL) 09/02/21 04:20 Bld Gas Analysis Time 1115 09/01/21 11:15 Sample Site LEFT RADIAL 09/01/21 11:15 ABG pH 7.37 (7.35-7.45) 09/01/21 11:15 ABG pCO2 85 mmHg (34-45) H* 09/01/21 11:15 ABG pO2 42 mmHg (80-100) L* 09/01/21 11:15 ABG HCO3 48.8 mmol/L (22.0-26.0) H 09/01/21 11:15 ABG Total CO2 > 50.0 MMOL/L (21.0-29.0) H* 09/01/21 11:15 ABG O2 Saturation 72 % (94-98) L* 09/01/21 11:15 ABG Base Excess 23.0 mmol/L (-2.0-3.0) H 09/01/21 11:15 Fer Test POSITIVE 09/01/21 11:15 VBG pH 7.338 (7.31-7.41) 09/07/21 04:11 Ionized Calcium 1.14 mmol/L (1.15-1.33) L 09/07/21 04:11 O2 Delivery Device BiPAP 09/01/21 11:15 O2 Liters/Min 45.00 LPM 09/01/21 07:30 Vent Mode BIPAP 09/01/21 07:30 FiO2 50.00 09/01/21 11:15 EPAP 5 cmH2O 09/01/21 11:15 IPAP 14 cmH2O 09/01/21 11:15 Sodium 137 mmol/L (135-145) 09/08/21 04:24 Potassium 4.2 mmol/L (3.5-5.0) 09/08/21 04:24 Chloride 95 mmol/L (101-111) L 09/08/21 04:24 Carbon Dioxide 34 mmol/L (21-32) H 09/08/21 04:24 Anion Gap 8.0 (6-13) 09/08/21 04:24 BUN 18 mg/dL (6-20) 09/08/21 04:24 Creatinine 0.6 mg/dL (0.4-1.0) 09/08/21 04:24 Estimated GFR (MDRD) 100 (>89) 09/08/21 04:24 Glucose 107 mg/dL (70-100) H 09/08/21 04:24 Estimat Average Glucose 137 mg/dL (70-100) H 09/04/21 09:18 Hemoglobin A1c % 6.4 % (4.27-6.07) H 09/04/21 09:18 Calcium 8.8 mg/dL (8.5-10.3) 09/08/21 04:24 Phosphorus 4.0 mg/dL (2.5-4.6) 09/07/21 04:11 Magnesium 2.0 mg/dL (1.7-2.8) 09/07/21 04:11 Total Bilirubin 0.5 mg/dL (0.2-1.0) 09/01/21 01:35 AST 22 IU/L (10-42) 09/01/21 01:35 ALT 32 IU/L (10-60) 09/01/21 01:35 Alkaline Phosphatase 58 IU/L (42-121) 09/01/21 01:35 B-Natriuretic Peptide 293 pg/mL (5-100) H 09/01/21 01:35 Total Protein 6.5 g/dL (6.7-8.2) L 09/01/21 01:35 Albumin 3.3 g/dL (3.2-5.5) 09/01/21 01:35 Globulin 3.2 g/dL (2.1-4.2) 09/01/21 01:35 Albumin/Globulin Ratio 1.0 (1.0-2.2) 09/01/21 01:35 Lipase 28 U/L (22-51) 09/01/21 01:35 TSH 1.53 uIU/mL (0.34-5.60) 09/01/21 01:35 Nasal Adenovirus (PCR) NOT DETECTED 09/01/21 01:30 Nasal B. parapertussis DNA (PCR) NOT DETECTED 09/01/21 01:30 Nasal Coronavir 229E PCR NOT DETECTED 09/01/21 01:30 Nasal Coronavir HKU1 PCR NOT DETECTED 09/01/21 01:30 Nasal Coronavir NL63 PCR NOT DETECTED 09/01/21 01:30 Nasal Coronavir OC43 PCR NOT DETECTED 09/01/21 01:30 Nasal Enterovir/Rhinovir PCR NOT DETECTED 09/01/21 01:30 Nasal Influenza B PCR NOT DETECTED 09/01/21 01:30 Nasal Influenza A PCR NOT DETECTED 09/01/21 01:30 Nasal Parainfluen 1 PCR NOT DETECTED 09/01/21 01:30 Nasal Parainfluen 2 PCR NOT DETECTED 09/01/21 01:30 Nasal Parainfluen 3 PCR NOT DETECTED 09/01/21 01:30 Nasal Parainfluen 4 PCR NOT DETECTED 09/01/21 01:30 Nasal RSV (PCR) NOT DETECTED 09/01/21 01:30 Nasal Screen MRSA (PCR) NEGATIVE (NEGATIVE) 09/01/21 04:46 Nasal B.pertussis DNA PCR NOT DETECTED 09/01/21 01:30 Nasal C.pneumoniae (PCR) NOT DETECTED 09/01/21 01:30 Dilip Human Metapneumo PCR NOT DETECTED 09/01/21 01:30 Nasal M.pneumoniae (PCR) NOT DETECTED 09/01/21 01:30 Nasal SARS-CoV-2 (PCR) NOT DETECTED 09/01/21 01:30 - Procedures Procedures: Procedures EXTRACTION OF ENDOMETRIUM, VIA NATURAL OR ARTIFICIAL OPENING (01/21/20) INSPECTION OF UTERUS AND CERVIX, ENDO (01/21/20)
[2021-09-08] MEDS: ACETAMINOPHEN 325 MG TABLET PO PRN (17:39)
[2021-09-08] MEDS: OLANZapine ODT 5 MG TABLET TL SCH (20:14)
[2021-09-08] MEDS: QUEtiapine 100 MG TABLET PO SCH (20:14)
[2021-09-09] MEDS: BACLOFEN 10 MG TABLET PO SCH ×2 (05:44→14:24)
[2021-09-09] MEDS: FORMOTEROL FUMARATE NEB 20 MCG/2 ML INH SCH (08:14)
[2021-09-09] MEDS: BUDESONIDE 0.5 MG/2 ML NEB INH SCH (08:14)
[2021-09-09] MEDS: IPRATROPIUM/ALBUTEROL 3 ML NEB INH SCH ×2 (08:14→13:31)
[2021-09-09] MEDS: INSULIN ASPART 300 UNIT/3 ML PEN SUBQ SCH ×2 (08:42→12:01)
[2021-09-09] MEDS: NICOTINE 7 MG PATCH TOP SCH (08:44)
[2021-09-09] MEDS: DOCUSATE SODIUM 250 MG CAPSULE PO SCH (08:50)
[2021-09-09] MEDS: SACCHAROMYCES BOULARDII 250 MG CAPSULE PO SCH (08:50)
[2021-09-09] MEDS: polyethylene glycoL 3350 17 GM PACKET PO SCH (08:50)
[2021-09-09] MEDS: lisinopriL 5 MG TABLET PO SCH (08:50)
[2021-09-09] MEDS: SENNA 8.6 MG TABLET PO SCH (08:50)
[2021-09-09] MEDS: ENOXAPARIN 40 MG/0.4 ML SYRINGE SUBQ SCH (08:50)
[2021-09-09] MEDS: SODIUM CHLORIDE FLUSH 0.9% 10 ML SYRINGE IVP SCH (08:51)
--- NOTE | 2021-09-09 13:36 | Discharge Plan ---
"Discharge Plan for SNF / [facility] - Discharge Plan And Transition Orders Problem Reviewed?: Yes Disposition: 03 SNF DC/Xfer Condition: Stable Allergies and Adverse Reactions: Allergies Allergy/AdvReac Type Severity Reaction Status Date / Time Androgenic Anabolic Steroid Allergy Unknown Verified 09/01/21 01:26 Neuromuscular Blockers, Allergy Unknown Verified 09/01/21 01:26 Steroidal nicotine Allergy Unknown Verified 09/01/21 01:26 Penicillins Allergy Unknown Verified 09/01/21 01:26 Health Concerns: You were hospitalized for bronchitis, exacerbation of your COPD (emphysema) and your very poor ventilation, causing you to retain carbon dioxide and make you sleepy and confused. You now need to use the home ventilator machine whenever you nap and when you go to bed at night. This was finally authorized by your Insurance today and will be delivered to [facility] at 5 PM today. Plan of Treatment: As above. A new prescription to help you with smoking cessation, using nicotine patches, has been ordered and sent to your pharmacy. Care Goals: Improvement in symptoms and stabilization are the goals. Assessment: The patient understands and is agreeable with the plan. - SNF / CARE HOME Transition Orders Admit to (Facility): [facility] Discharge Diagnosis: (1) Acute and chronic respiratory failure (2) COPD exacerbation, exacerbation has resolved (3) Obesity hypoventilation syndrome, Ativan changed from scheduled to prn, to prevent somnolence (4) Bipolar disorder (5) Morbid obesity (BMI 40-45) (6) Metabolic encephalopathy, resolved Medicare Certification Statement: I certify that Post Hospital snf care is medically necessary on a continuing basis for any of the conditions for which she/he is receiving care during hospitalization. Notify PCP of admission and forward orders to primary provider for signature. Weight on admission and: Weekly Call PCP immediately if weight increases by: 5 kg Other Notification Orders: Call PCP immediately if patient develops dyspnea, chest pain/tightness or edema. House Bowel Program: Yes Additional Bowel Program Orders: If no BM after 2 days, nurse may give M.O.M. 30ml PO PRN and/or ducolax Supp 1 VT and/or SAMEERA 250mg P.O., and/or senna 1-2 tabs PO. On day 3 nurse may give repeat above order until residents constipation is resolved. Annual Influenza Vaccine (between Mar 16 and October 13): Yes Two-step PPD per [facility] [phone] or approved exception documents: Yes Treatments & Other Orders: Use non-invasive ventilator during sleep (at bedtime at night and for naps) Oxygen Orders: 3L oxygen per nasal cannula continuously Medication Orders: PLEASE REFER TO THE DISCHARGE MEDICATION LIST. Insulin Orders?: No - Medications New Prescriptions: Nicotine 7 mg Patch [Nicoderm] 1 patch TOP DAILY #14 patch - Diet Texture: Regular Liquids: Thin May have monthly special meal: Yes - Therapies | Activity Activity: Activity as Tolerated Assistance Devices: Walker Follow Up: Please have a hospital follow-up with your primary care provider's office in the next 1 to 4 weeks."
[2021-09-09 15:01] LABS: CORONAVIRUS 229E-RESP PCR NOT DETECTED; CORONAVIRUS HKU1-RESP PCR NOT DETECTED
[2021-09-09 15:02] LABS: B. PARAPERTUSSIS- RESP PCR PAN NOT DETECTED; B. PERTUSSIS- RESP PCR PANEL NOT DETECTED; C. PNEUMONIAE- RESP PCR PANEL NOT DETECTED; CORONAVIRUS NL63-RESP PCR NOT DETECTED; CORONAVIRUS OC43-RESP PCR NOT DETECTED; HUMAN METAPNEUMOVIRUS NOT DETECTED; INFLUENZA A- RESP PCR PANEL NOT DETECTED; INFLUENZA B - RESP PCR PANEL NOT DETECTED; M. PNEUMONIAE- RESP PCR PANEL NOT DETECTED; PARAINFLUENZA VIRUS 1 NOT DETECTED; PARAINFLUENZA VIRUS 2 NOT DETECTED; PARAINFLUENZA VIRUS 3 NOT DETECTED; PARAINFLUENZA VIRUS 4 NOT DETECTED; RHINOVIRUS/ENTEROVIRUS NOT DETECTED; RSV- RESP PCR PANEL NOT DETECTED; SARS-CoV-2 -RESP PCR PANEL NOT DETECTED
--- NOTE | 2021-09-09 15:06 | DISCHARGE SUMMARY ---
Discharge Summary Admit Date: 09/01/21 Discharge Date: 09/09/21 Discharging Provider: Dr Juliette Lindquist Primary Care Provider: Dr Ayla Lieberman Code Status: Attempt Resuscitation Condition at Discharge: Stable Discharge Disposition: 03 [facility] DC/Xfer - HPI History of Present Illness: From the admission H&P of Dr Lizabeth Wong: This is a morbidly obese female who lives at [facility], and has a history of COPD and obesity-hypoventilation syndrome with continued smoking of cigarettes. She is supposed to be on 3 L nasal cannula. She was admitted 09/2020 with this same history as now, and she did not require intubation. She does not have obstructive sleep apnea after evaluation with sleep study 12/2020. She was last admitted in September 2020 for exacerbation of COPD with hypoxemia requiring BiPAP but not intubation. She has been short of breath for last few days. She thinks less than a week. The staff at her assisted living facility has been urging her to come to the emergency room for evaluation but she has refused. She has been getting increasingly sleepy as well as short of breath. Today, she finally called EMS when her shortness of breath was more than she could take. Her room air saturations were in the 80s as described by the staff at her custodial facility. She was given DuoNeb by the medics there and her O2 sats were 96% although she was somnolent, she was responding to verbal and pain stimuli. When she was here in emergency room her O2 sats were 78% and she was placed on 3 L nasal cannula with O2 sats not improving. She was then put on a nonrebreather and O2 sats came up to 97%. Once her blood gas was done and her pH was 7.1, she was placed on BiPAP. Per the emergency room doctor she appears to be responding to that and managed to stand on the side of the bed to demand help with urination. Her temperature was 36.8. Heart rate 111. Blood pressure 148/82. Respirations 27. She is 5 foot 9 inches tall and weighs 146.7 kg. On physical examination she was drowsy, mildly labored respirations. Coarse breath sounds bilaterally with faint wheezing throughout the lung cool bilaterally. Mildly labored respiration. She was arousable, moving all all 4 extremities without any focal findings. White cell count was 8.7. Hemoglobin 13.3. Potassium 5.1. BUN 20, creatinine 0.6. Random glucose 120. Before BiPAP, blood gas had a pH of 7.18, PCO2 118, PO2 202, bicarb 43.3. Base excess 10. BNP was 293. She is Covid negative by PCR. The emergency room provider feels patient has more a COPD exacerbation, as a cause of her respiratory failure, then congestive heart failure. But, she has received a dose of Lasix and has been briskly urinating with that. We are now asked to hospitalize the patient in Hospitalist service for acute respiratory failure superimposed on chronic respiratory failure, currently requiring BiPAP. As such she will be admitted to the ICU. - HOSPITAL COURSE Hospital Course: (1) Acute and chronic respiratory failure She was started on iv steroids, nebs, empiric iv antibiotics and supplement O2 and slowly improved. Her O2 needs were similar as pre-hospitalization. (2) COPD exacerbation She had resolution of tachypnea and wheezing with treatment as described above. She was prescribed (new) Albuterol inhaler at discharge. (3) Obesity hypoventilation syndrome, She was diagnosed with this and improved on a BIPAP, which she used nightly and during naps while here. She was prescribed a new Trilogy (non-invasive home ventilator machine) to manage her CO2 retention. Ativan was changed from scheduled to prn, to prevent over-sedation and hypersomnolence. Her discharge was delayed by 4-5 days, awaiting her Insurance to authorize the Trilogy machine and then to have it delivered to her [facility] for use on the night of discharge. She was prescribed to wear it at bedtime and with any naps. (4) Bipolar disorder Her usual meds were continued. (5) Morbid obesity (BMI 40-45) As per Hx. (6) Metabolic encephalopathy Her confusion and hypersomnolence resolved, once her pH, CO2 narcosis and hypoxia were corrected. - ALLERGIES Allergies/Adverse Reactions: Allergies Allergy/AdvReac Type Severity Reaction Status Date / Time Androgenic Anabolic Steroid Allergy Unknown Verified 09/01/21 01:26 Neuromuscular Blockers, Allergy Unknown Verified 09/01/21 01:26 Steroidal nicotine Allergy Unknown Verified 09/01/21 01:26 Penicillins Allergy Unknown Verified 09/01/21 01:26 - MEDICATIONS Home Medications: Ambulatory Orders Medication Instructions Recorded Confirmed Albuterol Sulfate [Proair Hfa 1 - 2 puffs INH Q4H PRN 01/13/20 09/01/21 Inhaler] Carboxymethylcellulose Sodium 1 drops OP PRN PRN 01/13/20 09/01/21 [Artificial Tears] Doxylam/PE/Dm/Acetaminophen/GG 1 packet PO PRN PRN 01/13/20 09/01/21 [[place] Plus Cold Day-Nt] Melatonin 5 mg PO QPM 01/13/20 09/01/21 Mometasone/Formoterol [Dulera 200 1 puffs INH BID 01/13/20 09/01/21 Mcg-5 Mcg Inhaler] Montelukast Sodium 10 mg PO QPM 01/13/20 09/01/21 Quetiapine Fumarate [Seroquel] 600 mg PO QPM 01/13/20 09/01/21 Sennosides [Senna Lax] 8.6 mg PO DAILY 01/13/20 09/01/21 Tiotropium [place] [Spiriva] 1 puffs INH QPM 01/13/20 09/01/21 hydrOXYzine HCL [Hydroxyzine HCl] 25 - 50 mg PO TID PRN 01/13/20 09/01/21 Acetaminophen [Acetaminophen Extra 1,000 mg PO Q8H PRN 09/15/20 09/01/21 Strength] Meloxicam [Mobic] 7.5 mg PO BIDWM 09/15/20 09/01/21 Albuterol 2.5 mg INH RTQ4H PRN neb 09/18/20 09/01/21 Baclofen [Lioresal] 20 mg PO TID 09/01/21 09/01/21 Mometasone/Formoterol [Dulera 200 1 puffs IH BID 09/01/21 09/01/21 Mcg-5 Mcg Inhaler] OLANZapine [Zyprexa] 2.5 mg PO QPM 09/01/21 09/01/21 Ondansetron Odt [Zofran Odt] 4 mg PO Q6HR PRN 09/01/21 09/01/21 Potassium Chloride [K-Dur] 20 meq PO DAILY 09/01/21 09/01/21 lisinopriL [Zestril] 5 mg PO DAILY 09/01/21 09/01/21 LORazepam [Ativan] 0.5 mg PO TID PRN #0 09/09/21 09/01/21 Nicotine 7 mg Patch [Nicoderm] 1 patch TOP DAILY #14 patch 09/09/21 - PHYSICAL EXAM AT DISCHARGE General Appearance: positive: No acute distress, Alert, Other (Obese) Eyes Bilateral: positive: Normal inspection, EOMI ENT: positive: ENT inspection nml, No signs of dehydration Neck: positive: Nml inspection, No JVD Respiratory: positive: No respiratory distress, Breath sounds nml Cardiovascular: positive: Regular rate & rhythm, No murmur Abdomen: positive: Non-tender, No distention, Other (Obese with a pannus) Skin: positive: Warm, Dry Extremities: positive: Non-tender, No pedal edema Neurologic/Psychiatric: positive: Oriented x3 (Non-focal) - LABS Result Diagrams: 09/08/21 04:24 09/08/21 04:24 - DIAGNOSTIC IMAGING Diagnostic Imaging Results: Final report reviewed - FOLLOW UP Follow Up: See PCP in 1-2 weeks for a hospital follow-up visit. - TIME SPENT Time Spent in Discharge (Minutes): 50
[2021-09-09 15:26] VITALS: BP 127/79
== END 2021-09-09 15:20 | DRG 189 ==
LOC: EDUNIT# → ED 01:08 → SUPCPDRO 01:08 → ICU 03:30
PROVIDERS: ADMIT Specialist; ATTEND Internal Medicine
DX: J96.22 Acute and chronic respiratory failure with hypercapnia (principal); E66.2 Morbid (severe) obesity with alveolar hypoventilation; Z68.42 Body mass index [BMI] 45.0-49.9, adult; I50.9 Heart failure, unspecified; F31.9 Bipolar disorder, unspecified; K21.9 Gastro-esophageal reflux disease without esophagitis; F17.200 Nicotine dependence, unspecified, uncomplicated; G93.40 Encephalopathy, unspecified; R40.0 Somnolence; F31.60 Bipolar disorder, current episode mixed, unspecified; J44.1 Chronic obstructive pulmonary disease with (acute) exacerbation; J96.21 Acute and chronic respiratory failure with hypoxia; F17.210 Nicotine dependence, cigarettes, uncomplicated; Z99.81 Dependence on supplemental oxygen; H10.33 Unspecified acute conjunctivitis, bilateral; Z79.899 Other long term (current) drug therapy; Z20.822 Contact with and (suspected) exposure to COVID-19; Z91.19 Patient's noncompliance with other medical treatment and regimen; I10 Essential (primary) hypertension; E11.9 Type 2 diabetes mellitus without complications; R32 Unspecified urinary incontinence; R35.0 Frequency of micturition
CPT/HCPCS: 36415; 36600; 70450; 71045; 80048; 80053; 82330; 82803; 83036; 83690; 83735; 83880; 84100; 84443; 85025; 87150; 87631; 93005; 93306; 94640; 94660; 94761; 96374; 96375; 99291; A9270; J1650; J7512; J7626; 0202U

== ENCOUNTER 2021-11-17 08:41 | Outpatient (CLI) | payer MEDICARE, MEDICAID ==
[2021-11-17 13:12] LABS: BASOPHILS % (AUTO) 0.4 %; EOSINOPHILS # (AUTO) 0.1 10^3/uL (0.0-0.7); EOSINOPHILS % (AUTO) 1.1 %; HCT - HEMATOCRIT 40.4 % (37.0-47.0); HGB - HEMOGLOBIN 12.8 g/dL (12.0-16.0); LYMPHOCYTES # (AUTO) 1.8 10^3/uL (1.5-3.5); LYMPHOCYTES % (AUTO) 22.2 %; MEAN CORPUSCULAR HEMOGLOBIN 28.2 pg (27.0-31.0); MEAN CORPUSCULAR HGB CONC 31.7 g/dL (32.0-36.0); MONOCYTES # (AUTO) 0.7 10^3/uL (0.0-1.0); MONOCYTES % (AUTO) 9.2 %; NEUTROPHILS # (AUTO) 5.4 10^3/uL (1.5-6.6); NEUTROPHILS % (AUTO) 66.7 %; PLT - PLATELET COUNT 245 10^3/uL (130-450); RED BLOOD COUNT 4.54 10^6/uL (4.20-5.40); RED CELL DISTRIBUTION WIDTH 22.1 % (12.0-15.0)
[2021-11-17 13:18] LABS: SLIDE REVIEW? Indicated
[2021-11-17 13:44] LABS: PLATELET ESTIMATE, MANUAL NORMAL (130-450,000) (NORMAL); PLATELET MORPHOLOGY NORMAL APPEARANCE (NORMAL); RBC MORPHOLOGY (MULTIPLE) 3+ ANISOCYTOSIS (NORMAL); WBC MORPHOLOGY (MULTIPLE) NORMAL APPEARANCE (NORMAL)
[2021-11-17 13:47] LABS: ALBUMIN 4.1 g/dL (3.2-5.5); ALBUMIN/GLOBULIN RATIO 1.2 (1.0-2.2); ALKALINE PHOSPHATASE 57 IU/L (42-121); ALT ALANINE AMINOTRANSFERASE 21 IU/L (10-60); AST ASPARTATE AMINOTRANSFERASE 19 IU/L (10-42); BILIRUBIN,TOTAL 0.5 mg/dL (0.2-1.0); BUN - BLOOD UREA NITROGEN 12 mg/dL (6-20); CALCIUM 9.1 mg/dL (8.5-10.3); CARBON DIOXIDE - CO2 30 mmol/L (21-32); CHLORIDE 98 mmol/L (101-111); CHOL/HDL RATIO 2.1 (<4.4); CHOLESTEROL 139 mg/dL; CREATININE 0.6 mg/dL (0.4-1.0); GFR - MDRD 100 (>89); GLUCOSE 111 mg/dL (70-100); HDL CHOLESTEROL 67 mg/dL; LDL CHOLESTEROL,CALCULATED 52 mg/dL; LDL/HDL RATIO 0.8 (<4.4); POTASSIUM 4.2 mmol/L (3.5-5.0); SODIUM 138 mmol/L (135-145); TOTAL PROTEIN 7.6 g/dL (6.7-8.2); TRIGLYCERIDES 98 mg/dL; VLDL CHOLESTEROL 20 mg/dL
[2021-11-17 14:17] LABS: ESTIMATED AVERAGE GLUCOSE 131 mg/dL (70-100); HEMOGLOBIN A1c% 6.2 % (4.27-6.07)
== END 2021-11-17 08:42 | disposition home or self-care (01) ==
LOC: LAB.N 08:41
PROVIDERS: ATTEND Internal Medicine
DX: J44.9 Chronic obstructive pulmonary disease, unspecified (principal); I50.9 Heart failure, unspecified; R73.01 Impaired fasting glucose; Z13.6 Encounter for screening for cardiovascular disorders; Z79.899 Other long term (current) drug therapy
CPT/HCPCS: 36415; 80053; 80061; 83036; 83721; 83880; 84443; 85025

== ENCOUNTER 2021-11-30 11:08 | Outpatient (CLI) | payer MEDICARE, MEDICAID ==
[2021-11-30] MEDS ORDERED: ALBUTEROL 1 PUFF INH STA (16:14)
== END 2021-11-30 11:09 | disposition home or self-care (01) ==
LOC: RT 11:08
PROVIDERS: ATTEND Internal Medicine
DX: J44.9 Chronic obstructive pulmonary disease, unspecified (principal)
CPT/HCPCS: 94060

== ENCOUNTER 2023-09-20 06:00 | Outpatient (CLI) | payer MEDICARE, MEDICAID | END 2023-09-20 06:01 | disposition critical access hospital (66) | LOC: EMS 06:00 | DX: M25.561 Pain in right knee (principal); M25.461 Effusion, right knee; M25.571 Pain in right ankle and joints of right foot; S89.91XA Unspecified injury of right lower leg, initial encounter; W01.0XXA Fall on same level from slipping, tripping and stumbling without subsequent striking against object, initial encounter; F17.210 Nicotine dependence, cigarettes, uncomplicated; Z99.81 Dependence on supplemental oxygen | CPT/HCPCS: A0425; A0429 ==

== ENCOUNTER 2023-09-20 06:17 | Emergency (ER) | payer MEDICARE, MEDICAID ==
[2023-09-20 06:40] VITALS: BP 114/73
[2023-09-20 06:50] VITALS: O2SAT 100
--- NOTE | 2023-09-20 07:10 | XRAY Report ---
PROCEDURE: Knee 1-2V RT INDICATIONS: knee pain TECHNIQUE: 4 views of the knee(s) were acquired. COMPARISON: None. FINDINGS: Bones: No fractures or dislocations. No suspicious bony lesions. Severe degenerative arthritis wi th bulky tricompartment osteophytes and severe lateral compartment joint space loss. Soft tissues: Small knee joint effusion. No suspicious soft tissue calcifications or masses. IMPRESSION: No acute bony abnormality. Severe degenerative arthritis. If there remains a high clinical concern fo r fracture, including inability to bear weight, consider cross-sectional imaging to exclude an occult fracture. Reviewed by: Sancho Hui MD on 09/20/2023 7:09 AM PST Approved by: Sancho Hui MD on 09/20/2023 7:09 AM PST Station ID: [id number]
--- NOTE | 2023-09-20 07:56 | ED Physician Documentation ---
PD HPI LOWER EXT INJURY - Stated complaint Stated Complaint: R KNEE PX - Chief complaint Chief Complaint: Ext Problem - History obtained from History obtained from: Patient - Additional information Additional information: Patient is a 68-year-old female with a history of COPD and oxygen dependent presenting for evaluation of right knee pain. Patient states that she tripped and fell 4 days ago on a slant. She struck her right knee. She initially was able to ambulate but it has become more painful. She has not tried anything for the pain. Patient resides at [facility]. Review of Systems Constitutional: denies: Fever Cardiac: denies: Chest pain / pressure Respiratory: denies: Dyspnea GI: denies: Abdominal Pain Musculoskeletal: reports: Extremity pain Neurologic: denies: Head injury PD PAST MEDICAL HISTORY - Past Medical History Past Medical History: Yes Cardiovascular: None Respiratory: Asthma, COPD, Pneumonia Neuro: None Endocrine/Autoimmune: None GI: GERD, Chronic constipation [employer]: Other : Incontinence, Frequency HEENT: None Psych: Depression, Anxiety, Bipolar disorder Musculoskeletal: Osteoarthritis, Other Derm: None Other Past Medical History: schizoaffective disorder, seborrhea capitis - Past Surgical History Past Surgical History: Yes General: Cholecystectomy, Appendectomy /A[employer] STA[employer]: Other HEENT: Tonsil/Adenoidectomy - Present Medications Home Medications: Ambulatory Orders Medication Instructions Recorded Confirmed Albuterol Sulfate [Proair Hfa 1 - 2 puffs INH Q4H PRN 01/13/20 09/20/23 Inhaler] Carboxymethylcellulose Sodium 1 drops OP PRN PRN 01/13/20 09/20/23 [Artificial Tears] Melatonin 3 mg PO QPM 01/13/20 09/20/23 Mometasone/Formoterol [Dulera 200 1 puffs INH BID 01/13/20 09/20/23 Mcg-5 Mcg Inhaler] Montelukast Sodium 10 mg PO QPM 01/13/20 09/20/23 Quetiapine Fumarate [Seroquel] 600 mg PO QPM 01/13/20 09/20/23 Sennosides [Senna Lax] 8.6 mg PO DAILY 01/13/20 09/20/23 Tiotropium [place] [Spiriva 1 puffs INH QPM 01/13/20 09/20/23 Handihaler] hydrOXYzine HCL [Hydroxyzine HCl] 50 mg PO TID PRN 01/13/20 09/20/23 Acetaminophen [Acetaminophen Extra 650 mg PO Q8H PRN 09/15/20 09/20/23 Strength] Albuterol 2.5 mg INH RTQ4H PRN neb 09/18/20 09/20/23 Baclofen [Lioresal] 20 mg PO TID 09/01/21 09/20/23 OLANZapine [Zyprexa] 5 mg PO QPM 09/01/21 09/20/23 Ondansetron Odt [Zofran Odt] 4 mg PO Q6HR PRN 09/01/21 09/20/23 Potassium Chloride [K-Dur] 20 meq PO DAILY 09/01/21 09/20/23 lisinopriL [Zestril] 5 mg PO DAILY 09/01/21 09/20/23 LORazepam [Ativan] 0.5 mg PO TID PRN #0 09/09/21 09/20/23 Lidocaine Patch 5% [Lidoderm Patch] 1 patch TOP DAILY PRN #10 patch 09/20/23 - Allergies Allergies/Adverse Reactions: Allergies Allergy/AdvReac Type Severity Reaction Status Date / Time Androgenic Anabolic Steroid Allergy Unknown Verified 09/20/23 06:35 Neuromuscular Blockers, Allergy Unknown Verified 09/20/23 06:35 Steroidal nicotine Allergy Unknown Verified 09/20/23 06:35 Penicillins Allergy Unknown Verified 09/20/23 06:35 - Social History Does the pt smoke?: Yes Smoking Status: Current every day smoker Does the pt drink ETOH?: No Does the pt have substance abuse?: No - Immunizations Immunizations are current?: Yes - POLST Patient has POLST: No POLST Status: Full Code PD ED PE NORMAL - General General: Alert and oriented X 3, No acute distress, Well developed/nourished - HEENT HEENT: Atraumatic - Neck Neck: Supple, no meningeal sign - Cardiac Cardiac: RRR - Respiratory Respiratory: No respiratory distress, Clear bilaterally - Derm Derm: Warm and dry - Extremities Extremities: Other (Pain on range of motion of right knee, no pain with range of motion of left knee week, no laxity, distal pulses intact, no bony tenderness over femur or lower leg) - Neuro Neuro: Alert and oriented X 3, No motor deficit, No sensory deficit, Normal speech Results - Vitals Vitals: Vital Signs - 24 hr 09/20/23 09/20/23 06:23 06:42 Temperature 36.5 C Heart Rate 97 99 Respiratory 20 Rate Blood Pressure 114/73 O2 Saturation 92 100 If not protocol 2 : Oxygen Flow, liters/minute Oxygen O2 Source Oxymask PD Medical Decision Making - ED course Complexity details: reviewed results, d/w patient ED course: Patient is a 68-year-old female presenting for evaluation of right knee pain after a fall few days ago. No head injury. Neurovascularly intact with no outward signs of trauma. X-ray was obtained which I reviewed and I see no fracture or dislocation. No laxity noted on exam. Patient was given knee immobilizer and crutches. She is instructed on continued supportive care as well as concerning symptoms to return for. Departure - Departure Disposition: 01 Home, Self Care Clinical Impression: Right knee injury Condition: Stable Instructions: ED Knee Pain UKO Prescriptions: Lidocaine Patch 5% [Lidoderm Patch] 1 patch TOP DAILY PRN #10 patch PRN Reason: pain Comments: Your knee x-ray does not show a fracture or other injury with the bone. However you do have significant arthritis which is likely contributing to your pain. To help with your symptoms we will start you on lidocaine patches as well as acetaminophen and have you use a knee immobilizer and crutches as needed to walk around. I would recommend close follow-up with your primary care doctor as you may need further testing or treatment if your pain is not getting better. I have sent a prescription for lidocaine patches to [facility] in [place].You can take up to 1000 mg of acetaminophen at a time up to 3-4 times a day for the next few days. IMPRESSION: No acute bony abnormality. Severe degenerative arthritis. If there remains a high clinical concern for fracture, including inability to bear weight, consider cross-sectional imaging to exclude an occult fracture. Forms: PCP List Discharge Date/Time: 09/20/23 09:15
[2023-09-20] MEDS: ACETAMINOPHEN 500 MG TABLET PO STA (07:57)
[2023-09-20] MEDS: LIDOCAINE PATCH 5% TOP STA (07:58)
== END 2023-09-20 09:15 | disposition home or self-care (01) ==
LOC: EDUNIT# → ED 06:17
DX: S89.91XA Unspecified injury of right lower leg, initial encounter (principal); W01.0XXA Fall on same level from slipping, tripping and stumbling without subsequent striking against object, initial encounter; J44.89 Other specified chronic obstructive pulmonary disease; F17.200 Nicotine dependence, unspecified, uncomplicated
CPT/HCPCS: 73560; 99283; A9270

== ENCOUNTER 2024-02-08 09:54 | Outpatient (CLI) | payer MEDICARE, MEDICAID ==
--- NOTE | 2024-02-09 19:37 | XRAY Report ---
PROCEDURE: Chest 2V INDICATIONS: COPD W/EXACERBATION, WHEEZING, CHF TECHNIQUE: 2 views of the chest were obtained. COMPARISON: 09/01/2021 FINDINGS: Surgical changes and devices: None. Lungs and pleura: No pleural effusions or pneumothorax. Lungs are clear. Mediastinum: Mediastinal contours appear normal. Heart size is normal. Bones and chest wall: No suspicious bony lesions. Overlying soft tissues appear unremarkable. IMPRESSION: Normal two-view chest x-ray Reviewed by: Edison Ryder MD on 02/09/2024 6:36 PM AKDT Approved by: Edison Ryder MD on 02/09/2024 6:36 PM AKDT Station ID: [id number]
== END 2024-02-08 09:55 | disposition home or self-care (01) ==
LOC: DI 09:54
PROVIDERS: ATTEND Nurse Practitioner Family
DX: J44.1 Chronic obstructive pulmonary disease with (acute) exacerbation (principal); I50.9 Heart failure, unspecified

== ENCOUNTER 2024-02-12 10:31 | Outpatient (CLI) | payer MEDICARE, MEDICAID ==
[2024-02-12 12:40] LABS: BASOPHILS % (AUTO) 0.4 %; EOSINOPHILS % (AUTO) 0.4 %; HCT - HEMATOCRIT 42.1 % (37.0-47.0); HGB - HEMOGLOBIN 13.8 g/dL (12.0-16.0); LYMPHOCYTES # (AUTO) 1.4 10^3/uL (1.5-3.5); LYMPHOCYTES % (AUTO) 17.5 %; MEAN CORPUSCULAR HEMOGLOBIN 30.1 pg (27.0-31.0); MEAN CORPUSCULAR HGB CONC 32.8 g/dL (32.0-36.0); MEAN CORPUSCULAR VOLUME 91.7 fL (81.0-99.0); MONOCYTES # (AUTO) 1.1 10^3/uL (0.0-1.0); MONOCYTES % (AUTO) 12.8 %; NEUTROPHILS # (AUTO) 5.6 10^3/uL (1.5-6.6); NEUTROPHILS % (AUTO) 68.4 %; PLT - PLATELET COUNT 295 10^3/uL (130-450); RED BLOOD COUNT 4.59 10^6/uL (4.20-5.40); RED CELL DISTRIBUTION WIDTH 13.2 % (12.0-15.0); WHITE BLOOD COUNT 8.2 x10^3/uL (4.8-10.8)
[2024-02-12 13:02] LABS: ALBUMIN 4.5 g/dL (3.2-5.5); ALBUMIN/GLOBULIN RATIO 1.6 (1.0-2.2); ALKALINE PHOSPHATASE 63 IU/L (42-121); ALT ALANINE AMINOTRANSFERASE 26 IU/L (10-60); AST ASPARTATE AMINOTRANSFERASE 25 IU/L (10-42); BILIRUBIN,TOTAL 0.5 mg/dL (0.2-1.0); BUN - BLOOD UREA NITROGEN 18 mg/dL (6-20); CALCIUM 11.2 mg/dL (8.5-10.3); CARBON DIOXIDE - CO2 37 mmol/L (21-32); CHLORIDE 81 mmol/L (101-111); CHOL/HDL RATIO 1.9 (<4.4); CHOLESTEROL 153 mg/dL; CREATININE 0.8 mg/dL (0.6-1.3); GFR - MDRD 71 (>89); GLUCOSE 108 mg/dL (74-104); HDL CHOLESTEROL 80 mg/dL; LDL CHOLESTEROL,CALCULATED 50 mg/dL; LDL/HDL RATIO 0.6 (<4.4); POTASSIUM 4.1 mmol/L (3.5-4.5); SODIUM 124 mmol/L (135-145); TOTAL PROTEIN 7.3 g/dL (6.4-8.9); TRIGLYCERIDES 113 mg/dL; VLDL CHOLESTEROL 23 mg/dL
[2024-02-12 13:07] LABS: THYROID STIMULATING HORMONE 1.16 uIU/mL (0.34-5.60)
[2024-02-12 13:18] LABS: ESTIMATED AVERAGE GLUCOSE 114 mg/dL (70-100); HEMOGLOBIN A1c% 5.6 % (4.27-6.07)
== END 2024-02-12 10:32 | disposition home or self-care (01) ==
LOC: LAB.N 10:31
PROVIDERS: ATTEND Nurse Practitioner Family
DX: R11.0 Nausea (principal); Z87.891 Personal history of nicotine dependence; J44.1 Chronic obstructive pulmonary disease with (acute) exacerbation; R06.2 Wheezing; I50.9 Heart failure, unspecified; E66.01 Morbid (severe) obesity due to excess calories; Z68.42 Body mass index [BMI] 45.0-49.9, adult
CPT/HCPCS: 36415; 80053; 80061; 83036; 83721; 83880; 84443; 85025

== ENCOUNTER 2024-03-04 14:22 | Outpatient (CLI) | payer MEDICARE, MEDICAID ==
[2024-03-04 19:16] LABS: CALCIUM 9.2 mg/dL (8.5-10.3); CREATININE 0.8 mg/dL (0.6-1.3); PHOSPHORUS 3.3 mg/dL (2.5-5.0); POTASSIUM 4.4 mmol/L (3.5-4.5)
== END 2024-03-04 14:23 | disposition home or self-care (01) ==
LOC: LAB.N 14:22
PROVIDERS: ATTEND Nurse Practitioner Family
DX: E87.1 Hypo-osmolality and hyponatremia (principal); E83.52 Hypercalcemia
CPT/HCPCS: 36415; 80048; 84100

== ENCOUNTER 2024-11-20 22:22 | Inpatient (IN) ==
--- NOTE | 2024-11-20 22:57 | ED Physician Documentation ---
History of Present Illness Stated complaint Stated Complaint: AMS Chief complaint Chief Complaint: Neuro History obtained from History obtained from: EMS Additonal information Additional information: 69-year-old woman with history of bipolar disorder and schizophrenia, diabetes, high blood pressure, smoker, presents with bizarre behavior X 3-4 days. patient lives in independent living facility at [facility] and ems reports she has been saying she is "living in a different dimension". intermittently compliant with history, answering questions slowly and incompletely, with a whisper. history limited by this. Meds/Allgy Home Medications Ambulatory Orders Medication Instructions Recorded Confirmed carboxymethylcellulose sodium 1 % 1 drp ophthalmic (ey e) PRN PRN As 01/13/20 10/29/24 eye drops (Artificial Tears Needed Per Provider Orders (carboxymethylcellulose)) mometasone-formoterol HFA 200 1 puff inhalation BID 10/29/24 mcg-5 mcg/actuation aerosol inhaler (Dulera) montelukast 10 mg tablet 10 mg PO QPM 01/13/20 albuterol sulfate 2.5 mg/3 mL 2.5 mg (3 mL) inhalation RTQ4H PRN 09/18/20 10/29/24 (0.083 %) solution for nebulization Wheezing lisinopril 5 mg tablet 5 mg PO DAILY 09/01/2110/29 potassium chloride 20 mEq 20 meq PO DAILY 09/01/21 tablet,extended release(part/cryst) (Klor-Con M) walker #1 ea 06/03/24 10/29/24 baclofen 20 mg tablet 20 mg PO TID 07/30/24 mady #1 ea 07/30/24 10/29/24 acetaminophen 325 mg tablet 650 mg PO Q6H PRN 08/12/24 10/29/24 acetaminophen 500 mg tablet 500 mg PO QID Pain 5 10/29/24 (Acetaminophen Extra Strength) albuterol sulfate 90 mcg/actuation 2 puff inhalation Q 6H Shortness Of 08/12/24 10/29/24 aerosol inhaler (ProAir HFA) Air/Wheezing aspirin 325 mg-sodium 1 ea PO QDAY PRN 08/12/24 bicarbonate-citric acid effervescent tablet (Eboni-[place] Original) gabapentin 300 mg capsule 300 mg PO HS 08/12/24 hydroxyzine HCl 25 mg tablet 25 mg PO TID 08/12/24 hydroxyzine HCl 50 mg tablet 50 mg PO Q8H PRN 08/12/24 10/29/24 ipratropium 0.5 mg-albuterol 3 mg 3 ml inhalation QID PRN 08/12/24 10/29/24 (2.5 mg base)/3 mL nebulization soln lamotrigine 200 mg tablet 200 mg PO QDAY 08/12/2410/14 lidocaine 4 % topical patch 1 patch topical Q12H PRN 0 08/12/24 10/29/24 (Salonpas (lidocaine)) loperamide 2 mg tablet 2 mg PO QID PRN 08/12/24 magnesium oxide 400 mg PO QDAY 08/12/2410/14 melatonin 5 mg tablet 5 mg PO HS 08/12/24 10/29/24 meloxicam 7.5 mg tablet 7.5 mg PO BID 08/12/2410/29 metformin 500 mg tablet 500 mg PO BID 08/12/2410/29 metolazone 5 mg tablet 5 mg PO BID 08/12/24 5 olanzapine 5 mg tablet (Zyprexa) 5 mg PO HS mood stabi lization 08/12/24 10/29/24 ondansetron 4 mg disintegrating 4 mg PO Q6H PRN nausea and vomiting 08/12/24 10/29/24 tablet psyllium 1 tbsp PO QAM 08/12/2410/29 quetiapine 25 mg tablet 25 mg PO QID PRN agitation/s leep 08/12/24 10/29/24 quetiapine 300 mg tablet (Seroquel) 600 mg PO HS mood stabilization 08/12/24 10/29/24 sennosides 8.6 mg tablet (senna) 8.6 mg PO QDAY 10/29/24 sumatriptan succinate 50 mg tablet See Rx Instructions PO .COMPLEX 08/12/24 10/29/24 tiotropium bromide 18 mcg capsule 18 mcg inhalation QP M 08/12/24 10/29/24 with inhalation device (Spiriva with HandiHaler) vitamin B complex 1 tab PO QDAY 08/12/2410/29 clobetasol 0.05 % shampoo 1 applic topical QDAY 1 week #118 08/14/24 10/29/24 mL lorazepam 0.5 mg tablet 0.5 mg PO BID PRN Anxiety #0 tabs 10/29/24 10/29/24 polyethylene glycol 3350 17 17 g PO QDAY PRN constipat ion #238 11/12/24 gram/dose oral powder grams Allergies Allergies Allergy/AdvReac Type Severity Reaction Status Date / Time Androgenic Anabolic Steroid Allergy Unknown Verified 10/29/24 14:31 Neuromuscular Blockers, Allergy Unknown Verified 10/29/24 14:31 Steroidal Penicillins Allergy Unknown Verified 10/29/24 14:31 PFSH Active Problems All Active Problems (Updated 11/21/24 @ 00:06 by Bere Patrick MD) Rhabdomyolysis (Acute) Acute hyponatremia (Acute) Altered mental status (Acute) Medication management (Acute) Arm pain, right (Acute) Constipation (Chronic) Memory impairment (Chronic) Heavy cigarette smoker (Chronic) Schizophrenia simplex (Chronic) Anxiety and depression (Chronic) Scalp psoriasis (Chronic) Hypertension associated with diabetes (Chronic) Diabetes mellitus type 2 with complications (Chronic) Hypertrophic toenail (Chronic) Impaired mobility (Chronic) Obstructive sleep apnea (Chronic) Osteoarthritis (Chronic) Chronic gastroesophageal reflux disease without esophagitis (Chronic) COPD (chronic obstructive pulmonary disease) (Chronic) Obesity hypoventilation syndrome (Chronic) Bipolar disorder (Chronic) Medical History Medical History (Updated 11/21/24 @ 00:06 by Bere Patrick MD) Acute on chronic respiratory failure with hypoxia and hypercapnia Insomnia Congestive heart failure Seasonal allergies Peptic ulcer disease Metabolic encephalopathy CO2 narcosis Acute exacerbation of CHF (congestive heart failure) Cor pulmonale COPD exacerbation Surgical History Surgical History S/P tonsillectomy and adenoidectomy 1965 History of appendectomy 1970 History of cholecystectomy 2019 Family History Family History Mother Diabetes Arthritis Sister Diabetes Brother Alcoholism Social History Social History (Reviewed 10/29/24 @ 14:25 by ABBEY Mayen Smoking Status: Current every day smoker If you are a former smoker, when did you quit? (Date/Year): quit 5 months ago Number of Years Smoked: 40 How many cigarettes a day do you smoke? (20 cigarettes=1 Pk): 0 Second hand tobacco smoke exposure: No Do you dip or chew tobacco?: No Do you vape?: No Patient requests smoking cessation consult: No Initiate information on smoking cessation: No Living arrangement: shelter Living Condition: With caregiver(s) More Information: Lives at [facility] Support Person: Yes Relationship: Caregiver Physical Activity: None and Walking Level: Assisted Do you feel safe in your home environment?: Yes Suffered physical, verbal, emotional, or financial abuse?: No History of Abuse: No ETOH Use: None ETOH Use Details: History of alcohol abuse, sober since 1978 Substance Use: cannabis (any form) POLST Patient has POLST: No POLST Status: Full Code Exam Exam Vital Signs: Vital Signs x48h Temp Pulse Resp BP Pulse Ox O2 Flow Rate 11/21/24 00:17 94 2 11/21/24 00:17 88 L 11/20/24 23:55 88 16 115/53 L 96 11/20/24 22:33 102 H 16 123/71 94 11/20/24 22:29 36.6 C 104 H 16 162/84 H 94 Constitutional normal general appearance, no apparent distress and average body habitus HENMT normocephalic and head/scalp atraumatic Eyes PERRL and EOMs intact bilaterally PERRL exception: anisocoria at baseline Neck/C-Spine visual inspection normal Respiratory breath sounds equal bilaterally, normal respiratory effort and clear to auscultation bilaterally Cardiovascular normal heart rate noted and regular rhythm noted Gastrointestinal abdomen normal to inspection, abdomen soft to palpation and nontender to palpation Neurology manager testing II-XII intact exception: anisocoria at baseline Psychiatry flat affect, bizarre behavior. speaking in whisper Skin skin color normal Results Vitals Vitals: Vital Signs - 24 hr 11/20/24 22:29 11/20/24 22:33 11/20/24 23:55 Temperature 36.6 C Temperature Source Oral Pulse Rate 104 H 102 H 88 Respiratory Rate 16 16 16 Blood Pressure 162/84 H 123/71 115/53 L O2 Saturation 94 94 96 O2 Source Room air Room air If not protocol: Oxygen Flow, liters/minute Pain Intensity 0 11/21/24 00:17 11/21/24 00:17 Temperature Temperature Source Pulse Rate Respiratory Rate Blood Pressure O2 Saturation 88 L 94 O2 Source Room air Nasal cannula If not protocol: Oxygen Flow, liters/minute 2 Pain Intensity Oxygen O2 Source Nasal cannula EKG (time done) 2249: EKG releavant findings:: EKG personally interpreted by author of this note. Relevant findings are: Rate: Rate (enter#) (100) Rhythm: NSR [place]: Normal Intervals: Normal VA QRS: QRS normal Ischemia: Normal ST segments Labs Labs: Laboratory Tests 11/20/24 11/20/24 23:30 23:40 WBC 9.6 RBC 3.78 L Hgb 11.5 L Hct 33.9 L MCV 89.7 MCH 30.4 MCHC 33.9 RDW 13.1 Plt Count 294 MPV 8.2 Neut # (Auto) 7.1 H Lymph # (Auto) 1.4 L Andrew # (Auto) 1.0 Eos # (Auto) 0.0 Baso # (Auto) 0.0 Absolute Nucleated RBC 0.00 Nucleated RBC % 0.0 Sodium 117 L* Potassium 3.8 Chloride 82 L Carbon Dioxide 26 Anion Gap 9.0 BUN 11 Creatinine 0.6 Estimated GFR (MDRD) 99 Glucose 130 H Calcium 9.2 Magnesium 1.7 Total Bilirubin 0.4 AST 62 H ALT 33 Alkaline Phosphatase 59 Ammonia 37.7 Total Creatine Kinase 1050 H* Total Protein 6.9 Albumin 4.2 Globulin 2.7 Albumin/Globulin Ratio 1.6 Lipase 20 TSH 1.41 Urine Color YELLOW Urine Clarity SL. CLOUDY Urine pH 6.0 Ur Specific [place] 1.015 Urine Protein NEGATIVE Urine Glucose (UA) NEGATIVE Urine Ketones 40 H Urine Occult Blood NEGATIVE Urine Nitrite NEGATIVE Urine Bilirubin NEGATIVE Urine Urobilinogen 0.2 (NORMAL) Ur Leukocyte Esterase TRACE H Urine RBC 0-5 Urine WBC 4-5 Ur Squamous Epith Cells MOD Squamous H Urine Bacteria Rare Urine Mucus Few Strands Ur Microscopic Review INDICATED Urine Culture Comments NOT INDICATED Salicylates < 1.5 Urine Opiates Screen NEGATIVE Ur Buprenorphine Scrn NEGATIVE Ur Oxycodone Screen NEGATIVE Urine Methadone Screen NEGATIVE Acetaminophen 7.4 Ur Barbiturates Screen NEGATIVE Ur Tricyclics Screen POSITIVE H Ur Phencyclidine Scrn NEGATIVE Ur Amphetamine Screen NEGATIVE U Methamphetamines Scrn NEGATIVE U Benzodiazepines Scrn NEGATIVE Urine Cocaine Screen NEGATIVE U Cannabinoids Screen POSITIVE H Ur Drug Screen Comment CUTOFF CONC BELOW: Ethyl Alcohol < 10.0 PD Medical Decision Making ED course ED course: 69yF p/w bizarre behavior from her nursing facility. possible psychiatric origin given her history of bipolar / schizophrenia. unclear if she is taking her medications since she lives independently at [facility]. plan to undertake mental health evaluation with labwork, urine testing, ekg, head ct, then reeva ralph. Her CT head was unremarkable. Patient has new onset anemia with hb 11.5, decreased from 13.8 on 02/12/24. Ammonia level is normal. Plan to admit for Hyponatremia 117 in setting of ams. also with rhabdomyolysis (CK 1050). Discharge Plan Discharge Patient Disposition: 66 [facility] DC/Xfer Condition: Stable Clinical Impression: Altered mental status, Acute hyponatremia, Rhabdomyolysis Prescriptions: No Action (DME) walker Misc See Rx Instructions .Route Qty: 1 0RF Rx Instructions: Use 1 walker to assist with mobility as needed. acetaminophen [Acetaminophen Extra Strength] 500 mg tablet 500 mg PO QID psyllium Powder 1 tbsp PO QAM Rx Instructions: mix into at least 8 oz of water or juice before administering gabapentin 300 mg capsule 300 mg PO HS lamotrigine 200 mg tablet 200 mg PO QDAY magnesium oxide 400 mg magnesium tablet 400 mg PO QDAY melatonin 5 mg tablet 5 mg PO HS meloxicam 7.5 mg tablet 7.5 mg PO BID metformin 500 mg tablet 500 mg PO BID metolazone 5 mg tablet 5 mg PO BID olanzapine [Zyprexa] 5 mg tablet 5 mg PO HS quetiapine [Seroquel] 300 mg tablet 600 mg PO HS Patient Comments: Rx by Psych sennosides [senna] 8.6 mg tablet 8.6 mg PO QDAY vitamin B complex Tablet 1 tab PO QDAY tiotropium bromide [Spiriva with HandiHaler] 18 mcg capsule, w/inhalation device 18 mcg inhalation QPM Rx Instructions: Inhale contents of 1 capsule via handihaler by mouth, in 2 separate inhalations every evening. acetaminophen 325 mg tablet 650 mg PO Q6H PRN Eboni-[place] Original 325 mg tablet, effervescent 1 ea PO QDAY PRN Rx Instructions: Use as directed on package hydroxyzine HCl 25 mg tablet 25 mg PO TID Rx Instructions: *Hold for drowsiness hydroxyzine HCl 50 mg tablet 50 mg PO Q8H PRN loperamide 2 mg tablet 2 mg PO QID PRN Rx Instructions: Take 1 tablet by mouth as needed after each unformed stool, up to four times daily ondansetron 4 mg tablet,disintegrating 4 mg PO Q6H PRN (Reason: nausea and vomiting) quetiapine 25 mg tablet 25 mg PO QID PRN (Reason: agitation/sleep) Patient Comments: rx by Psych- Rx Instructions: Take 1 tablet by mouth up to four times daily as needed for agitation/sleep sumatriptan succinate 50 mg tablet See Rx Instructions PO .COMPLEX Rx Instructions: take 1 tab at onset of headache; if no relief may repeat 1 tab after at least 2 hrs; max = 4 tabs/24 hr PO albuterol sulfate [ProAir HFA] 90 mcg/actuation HFA aerosol inhaler 2 puff inhalation Q6H ipratropium-albuterol 0.5 mg-3 mg(2.5 mg base)/3 mL solution for nebulization 3 ml inhalation QID PRN lidocaine [Salonpas (lidocaine)] 4 % adhesive patch,medicated 1 patch topical Q12H PRN Rx Instructions: Apply 1 patch to affected area and leave in place for up to 8-12 hours; do not exceed 1 patch/application. If pain still present a second patch may be applied for up to 8-12 hours. Max 2 patch/24 hours; 3 days of consecutive use. clobetasol 0.05 % shampoo 1 applic topical QDAY 7 Days Qty: 118 3RF Rx Instructions: Apply thin film to dry scalp once daily (maximum dose: 50 g/week or 50 mL/week); leave in place for 15 minutes, then add water, lather, and rinse thoroughly. Limit treatment to 4 consecutive weeks. polyethylene glycol 3350 17 gram/dose powder 17 g PO QDAY PRN (Reason: constipation) Qty: 238 1RF Rx Instructions: Use 1 capful (fill to 17GM line), dissolve in 8 OZ of liquid and take by mouth every day montelukast 10 MG tablet 10 mg PO QPM mometasone-formoterol [Dulera] 13 GM HFA aerosol inhaler 1 puff inhalation BID carboxymethylcellulose sodium [Artificial Tears (cmc)] 15 ML drops 1 drp ophthalmic (eye) PRN PRN (Reason: As Needed Per Provider Orders) albuterol sulfate 2.5 MG/3 ML solution for nebulization 2.5 mg inhalation RTQ4H PRN (Reason: Wheezing) 0RF Rx Instructions: RX for machine, tubing and meds sent to [facility] as well as Rx for Trilogy mask lisinopril 5 MG tablet 5 mg PO DAILY potassium chloride [Klor-Con M20] 20 MEQ tablet,ER particles/crystals 20 meq PO DAILY lorazepam 0.5 mg tablet 0.5 mg PO BID PRN (Reason: Anxiety) Qty: 0 0RF Rx Instructions: rx by psych [facility] baclofen 20 mg tablet 20 mg PO TID (DME) mady [facility] See Rx Instructions .MEDSUPPLY Qty: 1 0RF Rx Instructions: Lorenzo earl- As directed Print Language: Wolof
--- OUTSIDE RECORDS SUMMARY | 2024-11-20 23:05 | EXTERNAL MEDICAL SUMMARY RPT | Continuity of Care Document ---
Author Organization [facility] Address [address] [address] Phone Problems date description facility 2024-09-12 09:49 Heart failure, unspecified [employer] [facility] 2024-09-12 09:49 Chronic obstructive pulmonary disease with (acute) exacerbation [facility] 2024-09-12 09:49 [facility] 2024-09-12 09:49 [facility]a [facility] Social History date description facility
[2024-11-20 23:38] LABS: BASOPHILS % (AUTO) 0.3 %; EOSINOPHILS % (AUTO) 0.2 %; HCT - HEMATOCRIT 33.9 % (37.0-47.0); HGB - HEMOGLOBIN 11.5 g/dL (12.0-16.0); LYMPHOCYTES # (AUTO) 1.4 10^3/uL (1.5-3.5); LYMPHOCYTES % (AUTO) 14.5 %; MEAN CORPUSCULAR HEMOGLOBIN 30.4 pg (27.0-31.0); MEAN CORPUSCULAR HGB CONC 33.9 g/dL (32.0-36.0); MEAN CORPUSCULAR VOLUME 89.7 fL (81.0-99.0); MEAN PLATELET VOLUME 8.2 fL (7.9-10.8); MONOCYTES % (AUTO) 10.3 %; NEUTROPHILS # (AUTO) 7.1 10^3/uL (1.5-6.6); NEUTROPHILS % (AUTO) 74.3 %; PLT - PLATELET COUNT 294 10^3/uL (130-450); RED BLOOD COUNT 3.78 10^6/uL (4.20-5.40); RED CELL DISTRIBUTION WIDTH 13.1 % (12.0-15.0); WHITE BLOOD COUNT 9.6 x10^3/uL (4.8-10.8)
--- NOTE | 2024-11-20 23:45 | CT Report ---
PROCEDURE: CT Head WO INDICATIONS: ams TECHNIQUE: Noncontrast 4.5 mm thick angled axial sections acquired from the foramen magnum to the vertex. For radiation dose reduction, the following was used: automated exposure control, adjustment of mA and/or kV according to patient size. COMPARISON: CT head without contrast 09/01/2021 FINDINGS: Image quality: Excellent. CSF spaces: Basal cisterns are patent. No extra-axial fluid collections. Ventricles are normal in size and shape. Brain: No midline shift. No intracranial mass effect or hemorrhage. Hwang- white matter interface is normal. Skull and face: Calvarium and visualized facial bones are intact, without suspicious lesions. Sinuses: Visualized sinuses and mastoids are clear. IMPRESSION: No acute intracranial pathology. Reviewed by: Nilo Li MD on 11/20/2024 11:44 PM PDT Approved by: Nilo Li MD on 11/20/2024 11:44 PM PDT Station ID: [id number]
[2024-11-20 23:49] LABS: MAGNESIUM 1.7 mg/dL (1.7-2.3)
[2024-11-20 23:53] LABS: BILIRUBIN,URINE NEGATIVE (NEGATIVE); GLUCOSE, URINE (UA) NEGATIVE (NEGATIVE); KETONES,URINE (UA) 40 mg/dL (NEGATIVE); LEUKOCYTE ESTERASE, URINE TRACE (NEGATIVE); NITRITE,URINE NEGATIVE (NEGATIVE); OCCULT BLOOD,URINE NEGATIVE (NEGATIVE); PROTEIN,URINE NEGATIVE (NEGATIVE); UROBILINOGEN,URINE 0.2 (NORMAL) E.U./dL (NORMAL)
[2024-11-20 23:55] LABS: ACETAMINOPHEN 7.4 ug/mL; ETOH - ETHANOL < 10.0 mg/dL; LIPASE 20 U/L (11-82)
[2024-11-21 00:01] LABS: ALBUMIN 4.2 g/dL (3.2-5.5); ALBUMIN/GLOBULIN RATIO 1.6 (1.0-2.2); ALKALINE PHOSPHATASE 59 IU/L (42-121); ALT ALANINE AMINOTRANSFERASE 33 IU/L (10-60); AST ASPARTATE AMINOTRANSFERASE 62 IU/L (10-42); BILIRUBIN,TOTAL 0.4 mg/dL (0.2-1.0); BUN - BLOOD UREA NITROGEN 11 mg/dL (6-20); CALCIUM 9.2 mg/dL (8.5-10.3); CARBON DIOXIDE - CO2 26 mmol/L (21-32); CHLORIDE 82 mmol/L (101-111); CK- CREATINE KINASE 1050 IU/L (30-223); CREATININE 0.6 mg/dL (0.6-1.3); GFR - MDRD 99 (>89); GLUCOSE 130 mg/dL (74-104); POTASSIUM 3.8 mmol/L (3.5-4.5); SODIUM 117 mmol/L (135-145); TOTAL PROTEIN 6.9 g/dL (6.4-8.9)
[2024-11-21 00:02] LABS: SALICYLATE < 1.5 mg/dL
[2024-11-21 00:05] LABS: THYROID STIMULATING HORMONE 1.41 uIU/mL (0.34-5.60)
[2024-11-21] MEDS: SODIUM CHLORIDE 0.9% 500 ML IV ONE (00:10)
[2024-11-21 00:20] LABS: CLARITY,URINE SL. CLOUDY (CLEAR)
[2024-11-21 00:21] LABS: AMPHETAMINE SCREEN,URINE NEGATIVE (NEGATIVE); BACTERIA,URINE Rare /HPF (None Seen); BARBITURATE SCREEN,UR NEGATIVE (NEGATIVE); BENZODIAZEPINES SCREEN, URINE NEGATIVE (NEGATIVE); BUPRENORPHINE SCREEN, URINE NEGATIVE (NEGATIVE); COCAINE SCREEN URINE NEGATIVE (NEGATIVE); METHADONE SCREEN, URINE NEGATIVE (NEGATIVE); METHAMPHETAMINES SCREEN, URINE NEGATIVE (NEGATIVE); MUCUS,URINE Few Strands; OPIATE SCREEN, URINE NEGATIVE (NEGATIVE); OXYCODONE SCREEN, URINE NEGATIVE (NEGATIVE); RBC,URINE 0-5 /HPF (0-5); SQUAMOUS EPITHELIAL CELL,UR MOD Squamous (<= Few); THC CANNABINOID SCREEN, URINE POSITIVE (NEGATIVE); TRICYCLIC ANTIDEPRESSANT,URINE POSITIVE (NEGATIVE)
[2024-11-21] MEDS ORDERED: ALBUTEROL NEB 2.5 MG/3 ML INH PRN ×2 (01:21→11:10)
[2024-11-21] MEDS ORDERED: ONDANSETRON ODT 4 MG TABLET PO PRN (01:21)
[2024-11-21] MEDS ORDERED: VITAMIN B COMPLEX PO SCH (01:30)
[2024-11-21] MEDS ORDERED: PHENOL THROAT SPRAY 177 ML MM PRN (01:37)
[2024-11-21] MEDS ORDERED: MELATONIN 3 MG TABLET PO PRN (01:37)
[2024-11-21] MEDS ORDERED: MORPHINE 10 MG/ML VIAL IVP PRN (01:37)
[2024-11-21] MEDS ORDERED: ONDANSETRON 4 MG/2 ML VIAL IVP PRN (01:37)
[2024-11-21] MEDS ORDERED: BENZONATATE 100 MG CAPSULE PO PRN (01:37)
[2024-11-21] MEDS ORDERED: BENZOCAINE/MENTHOL LOZENGE MM PRN (01:37)
--- OUTSIDE RECORDS SUMMARY | 2024-11-21 01:52 | EXTERNAL MEDICAL SUMMARY RPT | Continuity of Care Document ---
Author Organization [place] Address [address] [address] Phone Problems date description facility 2024-09-12 09:49 Heart failure, unspecified [email or web address] [facility] [employer] 2024-09-12 09:49 Chronic obstructive pulmonary disease with (acute) exacerbation [employer] 2024-09-12 09:49 [facility] of [facility] 2024-09-12 09:49 Nausea [facility] Social History date description facility
[2024-11-21 02:06] LABS: CHOL/HDL RATIO 1.8 (<4.4); CHOLESTEROL 142 mg/dL; HDL CHOLESTEROL 80 mg/dL; LDL CHOLESTEROL,CALCULATED 53 mg/dL; LDL/HDL RATIO 0.7 (<4.4); TRIGLYCERIDES 45 mg/dL; VLDL CHOLESTEROL 9 mg/dL
[2024-11-21 02:23] LABS: CREATININE 0.6 mg/dL (0.6-1.3); POTASSIUM 3.5 mmol/L (3.5-4.5)
[2024-11-21] MEDS ORDERED: IPRATROPIUM/ALBUTEROL 3 ML NEB INH PRN (02:33)
[2024-11-21 04:44] LABS: CALCIUM, IONIZED 1.15 mmol/L (1.09-1.30); VBG PH 7.407 (7.31-7.41)
[2024-11-21 04:45] LABS: BASOPHILS % (AUTO) 0.1 %; EOSINOPHILS # (AUTO) 0.3 10^3/uL (0.0-0.7); EOSINOPHILS % (AUTO) 3.6 %; HCT - HEMATOCRIT 33.8 % (37.0-47.0); HGB - HEMOGLOBIN 11.7 g/dL (12.0-16.0); LYMPHOCYTES # (AUTO) 1.3 10^3/uL (1.5-3.5); LYMPHOCYTES % (AUTO) 13.3 %; MEAN CORPUSCULAR HEMOGLOBIN 30.8 pg (27.0-31.0); MEAN CORPUSCULAR HGB CONC 34.6 g/dL (32.0-36.0); MEAN CORPUSCULAR VOLUME 88.9 fL (81.0-99.0); MEAN PLATELET VOLUME 8.1 fL (7.9-10.8); MONOCYTES # (AUTO) 0.9 10^3/uL (0.0-1.0); MONOCYTES % (AUTO) 9.3 %; NEUTROPHILS % (AUTO) 73.3 %; PLT - PLATELET COUNT 290 10^3/uL (130-450); RED CELL DISTRIBUTION WIDTH 13.2 % (12.0-15.0); WHITE BLOOD COUNT 9.5 x10^3/uL (4.8-10.8)
[2024-11-21 04:46] LABS: SLIDE REVIEW? Indicated
[2024-11-21 04:55] LABS: MAGNESIUM 1.6 mg/dL (1.7-2.3)
[2024-11-21 05:05] LABS: ALBUMIN 4.1 g/dL (3.2-5.5); ALBUMIN/GLOBULIN RATIO 1.6 (1.0-2.2); BILIRUBIN,TOTAL 0.5 mg/dL (0.2-1.0); CALCIUM 9.1 mg/dL (8.5-10.3); CREATININE 0.6 mg/dL (0.6-1.3); POTASSIUM 3.5 mmol/L (3.5-4.5); TOTAL PROTEIN 6.7 g/dL (6.4-8.9)
[2024-11-21 05:14] LABS: DIFFERENTIAL COMMENT MANUAL=AUTO DIFF; PLATELET ESTIMATE, MANUAL NORMAL (130-450,000) (NORMAL); PLATELET MORPHOLOGY NORMAL APPEARANCE (NORMAL); RBC MORPHOLOGY (MULTIPLE) NORMAL APPEARANCE (NORMAL); WBC MORPHOLOGY (MULTIPLE) NORMAL APPEARANCE (NORMAL)
[2024-11-21] MEDS: PANTOPRAZOLE 40 MG TABLET PO SCH (06:03)
--- NOTE | 2024-11-21 06:07 | HISTORY & PHYSICAL EXAMINATION ---
Chief Complaint Chief Complaint Chief Complaint: ams, per facility History of Present Illness History of Present Illness HPI Comment/Other: history obtained from discussion with ed staff: pt brought in to hospital from [facility] d/t reports from staff that mentation has been abnormal for past 3-4 days, without obvious inciting factors. no fevers, chills, chest pain, sob, or recent travels reported. no falls or head injuries reported. pt with h/o schizophrenia and bipolar. pt tries to answer questions and talk, but only a whisper, and very brief. Review of Systems Status of ROS: unobtainable due to mental status PFSH Active Problems All Active Problems (Updated 11/21/24 @ 00:06 by Bere Patrick MD) Rhabdomyolysis (Acute) Acute hyponatremia (Acute) Altered mental status (Acute) Medication management (Acute) Arm pain, right (Acute) Constipation (Chronic) Memory impairment (Chronic) Heavy cigarette smoker (Chronic) Schizophrenia simplex (Chronic) Anxiety and depression (Chronic) Scalp psoriasis (Chronic) Hypertension associated with diabetes (Chronic) Diabetes mellitus type 2 with complications (Chronic) Hypertrophic toenail (Chronic) Impaired mobility (Chronic) Obstructive sleep apnea (Chronic) Osteoarthritis (Chronic) Chronic gastroesophageal reflux disease without esophagitis (Chronic) COPD (chronic obstructive pulmonary disease) (Chronic) Obesity hypoventilation syndrome (Chronic) Bipolar disorder (Chronic) Medical History Medical History (Updated 11/21/24 @ 00:06 by Bere Patrick MD) Acute on chronic respiratory failure with hypoxia and hypercapnia Insomnia Congestive heart failure Seasonal allergies Peptic ulcer disease Metabolic encephalopathy CO2 narcosis Acute exacerbation of CHF (congestive heart failure) Cor pulmonale COPD exacerbation Surgical History Surgical History S/P tonsillectomy and adenoidectomy 1965 History of appendectomy 1970 History of cholecystectomy 2019 Family History Family History Mother Diabetes Arthritis Sister Diabetes Brother Alcoholism Social History Social History Smoking Status: Former smoker If you are a former smoker, when did you quit? (Date/Year): quit 5 months ago Number of Years Smoked: 40 How many cigarettes a day do you smoke? (20 cigarettes=1 Pk): 0 Second hand tobacco smoke exposure: No Do you dip or chew tobacco?: No Do you vape?: No Patient requests smoking cessation consult: No Initiate information on smoking cessation: No Living arrangement: [facility] Living Condition: With caregiver(s) More Information: Lives at [facility] Support Person: Yes Relationship: Caregiver Physical Activity: None and Walking Level: Assisted Home Mobility Equipment: Walker Do you feel safe in your home environment?: Yes Suffered physical, verbal, emotional, or financial abuse?: No History of Abuse: No ETOH Use: None ETOH Use Details: History of alcohol abuse, sober since 1978 Substance Use: cannabis (any form) POLST Patient has POLST: No POLST Status: Full Code Meds/Allgy Home Medications Ambulatory Orders Medication Instructions Recorded Confirmed carboxymethylcellulose sodium 1 % 1 drp ophthalmic (ey e) PRN PRN As 01/13/20 10/29/24 eye drops (Artificial Tears Needed Per Provider Orders (carboxymethylcellulose)) mometasone-formoterol HFA 200 1 puff inhalation BID 10/29/24 mcg-5 mcg/actuation aerosol inhaler (Dulera) montelukast 10 mg tablet 10 mg PO QPM 01/13/20 albuterol sulfate 2.5 mg/3 mL 2.5 mg (3 mL) inhalation RTQ4H PRN 09/18/20 10/29/24 (0.083 %) solution for nebulization Wheezing lisinopril 5 mg tablet 5 mg PO DAILY 09/01/2110/29 potassium chloride 20 mEq 20 meq PO DAILY 09/01/21 tablet,extended release(part/cryst) (Klor-Con M) mady #1 ea 06/03/24 10/29/24 baclofen 20 mg tablet 20 mg PO TID 07/30/24 mady #1 ea 07/30/24 10/29/24 acetaminophen 325 mg tablet 650 mg PO Q6H PRN 08/12/24 10/29/24 acetaminophen 500 mg tablet 500 mg PO QID Pain 5 10/29/24 (Acetaminophen Extra Strength) albuterol sulfate 90 mcg/actuation 2 puff inhalation Q 6H Shortness Of 08/12/24 10/29/24 aerosol inhaler (ProAir HFA) Air/Wheezing aspirin 325 mg-sodium 1 ea PO QDAY PRN 08/12/24 bicarbonate-citric acid effervescent tablet (Eboni-Minco Original) gabapentin 300 mg capsule 300 mg PO HS 08/12/24 hydroxyzine HCl 25 mg tablet 25 mg PO TID 08/12/24 hydroxyzine HCl 50 mg tablet 50 mg PO Q8H PRN 08/12/24 10/29/24 ipratropium 0.5 mg-albuterol 3 mg 3 ml inhalation QID PRN 08/12/24 10/29/24 (2.5 mg base)/3 mL nebulization soln lamotrigine 200 mg tablet 200 mg PO QDAY 08/12/2410/14 lidocaine 4 % topical patch 1 patch topical Q12H PRN 0 08/12/24 10/29/24 (Salonpas (lidocaine)) loperamide 2 mg tablet 2 mg PO QID PRN 08/12/24 magnesium oxide 400 mg PO QDAY 08/12/2410/14 melatonin 5 mg tablet 5 mg PO HS 08/12/24 10/29/24 meloxicam 7.5 mg tablet 7.5 mg PO BID 08/12/2410/29 metformin 500 mg tablet 500 mg PO BID 08/12/2410/29 metolazone 5 mg tablet 5 mg PO BID 08/12/24 5 olanzapine 5 mg tablet (Zyprexa) 5 mg PO HS mood stabi lization 08/12/24 10/29/24 ondansetron 4 mg disintegrating 4 mg PO Q6H PRN nausea and vomiting 08/12/24 10/29/24 tablet psyllium 1 tbsp PO QAM 08/12/2410/29 quetiapine 25 mg tablet 25 mg PO QID PRN agitation/s leep 08/12/24 10/29/24 quetiapine 300 mg tablet (Seroquel) 600 mg PO HS mood stabilization 08/12/24 10/29/24 sennosides 8.6 mg tablet (senna) 8.6 mg PO QDAY 10/29/24 sumatriptan succinate 50 mg tablet See Rx Instructions PO .COMPLEX 08/12/24 10/29/24 tiotropium bromide 18 mcg capsule 18 mcg inhalation QP M 08/12/24 10/29/24 with inhalation device (Spiriva with HandiHaler) vitamin B complex 1 tab PO QDAY 08/12/2410/29 clobetasol 0.05 % shampoo 1 applic topical QDAY 1 week #118 08/14/24 10/29/24 mL lorazepam 0.5 mg tablet 0.5 mg PO BID PRN Anxiety #0 tabs 10/29/24 10/29/24 polyethylene glycol 3350 17 17 g PO QDAY PRN constipat ion #238 11/12/24 gram/dose oral powder grams Allergies Allergies Allergy/AdvReac Type Severity Reaction Status Date / Time Androgenic Anabolic Steroid Allergy Unknown Verified 10/29/24 14:31 Neuromuscular Blockers, Allergy Unknown Verified 10/29/24 14:31 Steroidal Penicillins Allergy Unknown Verified 10/29/24 14:31 Exam Exam Vital Signs: Vital Signs x48h Temp Pulse Pulse Resp BP BP Pulse Ox 11/21/24 05:00 103 H 21 137/88 H 93 11/21/24 04:00 102 H 18 150/81 H 94 11/21/24 03:07 36.3 C L 102 H 22 129/79 94 11/21/24 02:54 100 16 138/78 H 98 11/21/24 02:00 94 16 150/86 H 96 11/21/24 00:58 80 16 92/59 L 98 11/21/24 00:17 94 11/21/24 00:17 88 L 11/20/24 23:55 88 16 115/53 L 96 11/20/24 22:33 102 H 16 123/71 94 11/20/24 22:29 36.6 C 104 H 16 162/84 H 94 O2 Flow Rate 11/21/24 05:00 11/21/24 04:00 11/21/24 03:07 11/21/24 02:54 11/21/24 02:00 2 11/21/24 00:58 2 11/21/24 00:17 2 11/21/24 00:17 11/20/24 23:55 11/20/24 22:33 11/20/24 22:29 Constitutional normal general appearance and no apparent distress HENMT normocephalic and head/scalp atraumatic Eyes EOMs intact bilaterally aniscoria Respiratory no retractions and no use of accessory muscles details per ed charting Cardiovascular details per ed charting Psychiatry confused, lethargic. tries to answer yes/no questions but goes back to sleep. Conclusion/Plan Problem List (1) Acute hyponatremia: (2) Rhabdomyolysis: Lab Results 11/21/24 04:21 11/21/24 04:21 Other Other Results/Comments: pt with - - hyponatremia h/o haley Na 117, now 119 s/p fluid bolus from ED will start gentle NS @ 75/hr trend Na levels with aim for correction 4-6 mEq/L in 24 h - toxic, metabolic encephalopathy with h/o psychiatric illness likely exacerbated d/t above psych meds held at this time given concern for exacerbating hyponatremia --> monitor head CT NEG continue neuro checks - rhabdomyolysis unclear for how long renal function wnl volume depletion --> gentle IVF started in setting of and contributory to above f/u labs, electrolytes, neuro status further orders per clinical our
[2024-11-21] MEDS: SODIUM CHLORIDE 0.9% 1,000 ML IV SCH (06:19)
[2024-11-21] MEDS ORDERED: CARBOXYMETHYLCELLULOSE OPHTH DROPS EACHEYE PRN (07:04)
[2024-11-21] MEDS ORDERED: PSYLLIUM PACKET PO PRN (07:05)
[2024-11-21 08:05] LABS: CREATININE 0.6 mg/dL (0.6-1.3); POTASSIUM 3.5 mmol/L (3.5-4.5)
[2024-11-21] MEDS: INSULIN LISPRO 300 UNIT/3 ML PEN SUBQ SCH (08:45)
[2024-11-21] MEDS: POTASSIUM CHLORIDE 20 MEQ TABLET PO SCH ×2 (08:46→08:47)
[2024-11-21] MEDS: SENNA 8.6 MG TABLET PO SCH (08:46)
[2024-11-21] MEDS: MAGNESIUM OXIDE 400 MG TABLET PO SCH ×2 (08:46)
[2024-11-21] MEDS: MULTIVITAMIN W/MINERALS TABLET PO SCH (08:46)
[2024-11-21] MEDS: ENOXAPARIN 40 MG/0.4 ML SYRINGE SUBQ SCH (08:47)
[2024-11-21] MEDS ORDERED: polyethylene glycoL 3350 17 GM PACKET PO PRN (09:00)
[2024-11-21 09:16] LABS: ESTIMATED AVERAGE GLUCOSE 100 mg/dL (70-100); HEMOGLOBIN A1c% 5.1 % (4.27-6.07)
--- NOTE | 2024-11-21 09:39 | PHARMACY PROGRESS NOTE ---
Best Possible Medication History Admit Date and Time: 11/21/24 0144 Home Medications Medication Instructions Recorded Confirmed Type carboxymethylcellulose sodium 1 % 1 drp ophthalmic (ey e) PRN PRN As 01/13/20 11/21/24 History eye drops (Artificial Tears Needed Per Provider Orders (carboxymethylcellulose)) mometasone-formoterol HFA 200 1 puff inhalation BID 11/21/24 History mcg-5 mcg/actuation aerosol inhaler (Dulera) montelukast 10 mg tablet 10 mg PO QPM 01/13/20 History albuterol sulfate 2.5 mg/3 mL 2.5 mg (3 mL) inhalation RTQ4H PRN 09/18/20 11/21/24 Rx (0.083 %) solution for nebulization Wheezing lisinopril 5 mg tablet 5 mg PO DAILY 09/01/2111/21 History potassium chloride 20 mEq 20 meq PO DAILY 09/01/2104/09 History tablet,extended release(part/cryst) (Klor-Con M) mady #1 ea 06/03/24 10/29/24 Rx baclofen 20 mg tablet 20 mg PO TID 07/30/24 History walker #1 ea 07/30/24 10/29/24 Rx acetaminophen 325 mg tablet 650 mg PO Q6H PRN pain 11/21/24 History acetaminophen 500 mg tablet 500 mg PO QID Pain 5 11/21/24 History (Acetaminophen Extra Strength) albuterol sulfate 90 mcg/actuation 2 puff inhalation Q 6H PRN 08/12/24 11/21/24 History aerosol inhaler (ProAir HFA) Shortness Of Air/Wheezing aspirin 325 mg-sodium 1 ea PO QDAY PRN dyspepsia 0 08/12/24 11/21/24 History bicarbonate-citric acid effervescent tablet (Eboni-Gui Original) gabapentin 300 mg capsule 300 mg PO HS 08/12/24 History hydroxyzine HCl 25 mg tablet 25 mg PO TID 08/12/2404/09 History hydroxyzine HCl 50 mg tablet 50 mg PO Q8H PRN anxiety 08/12/24 11/21/24 History ipratropium 0.5 mg-albuterol 3 mg 3 ml inhalation QID PRN shortness 08/12/24 11/21/24 History (2.5 mg base)/3 mL nebulization of breath or wheezing soln lamotrigine 200 mg tablet 200 mg PO DAILY 08/12/2404/09 History lidocaine 4 % topical patch 1 patch topical Q12H PRN p ain 08/12/24 11/21/24 History (Salonpas (lidocaine)) loperamide 2 mg tablet 2 mg PO QID PRN loose stool 08/12/24 11/21/24 History magnesium oxide 400 mg PO DAILY 08/12/2404/09 History melatonin 5 mg tablet 5 mg PO HS 08/12/24 11/21/24 History meloxicam 7.5 mg tablet 7.5 mg PO BID 08/12/2411/21 History metformin 500 mg tablet 500 mg PO BID 08/12/2411/21 History metolazone 5 mg tablet 5 mg PO BID 08/12/24 5 History olanzapine 5 mg tablet (Zyprexa) 5 mg PO HS mood stabi lization 08/12/24 11/21/24 History ondansetron 4 mg disintegrating 4 mg PO Q6H PRN nausea and vomiting 08/12/24 11/21/24 History tablet psyllium 1 tbsp PO QAM 08/12/2411/21 History quetiapine 25 mg tablet 25 mg PO QID PRN agitation/s leep 08/12/24 11/21/24 History quetiapine 300 mg tablet (Seroquel) 600 mg PO HS mood stabilization 08/12/24 11/21/24 History sennosides 8.6 mg tablet (senna) 8.6 mg PO DAILY 08/1211/21/24 History sumatriptan succinate 50 mg tablet See Rx Instructions PO .COMPLEX 08/12/24 0 11/21/24 History tiotropium bromide 18 mcg capsule 18 mcg inhalation QP M 08/12/24 11/21/24 History with inhalation device (Spiriva with HandiHaler) vitamin B complex 1 tab PO DAILY 08/12/24 05/04/09 History lorazepam 0.5 mg tablet 0.5 mg PO BID PRN Anxiety #0 tabs 10/29/24 11/21/24 Rx polyethylene glycol 3350 17 17 g PO QDAY PRN constipat ion #238 11/12/24 11/21/24 Rx gram/dose oral powder grams nicotine 7 mg/24 hr daily 1 patch transdermal DAILY 11/21/24 History transdermal patch Processed by: Pharmacy Medications reviewed in ED?: No Medication History completed: Yes Patient Interview: Pt unable to participate Secondary Source(s): Facility [facility] as ONLY source [facility] Statement: As the person ultimately responsible for medication therapy, providers are able to order a medication from an existing home medication list in [facility] via the "Reconcile Routine" prior to Confirmation of that medication by administrative support specialist. Such practice is discouraged except when the physician, in their clinical judgment, deems that a medical need exists for a medication without regard to previous use.
[2024-11-21] MEDS ORDERED: [UNRECOGNIZED DRUG - OTHER] PO PRN (11:07)
[2024-11-21] MEDS: IPRATROPIUM 0.2 MG/ML NEB INH SCH (13:20)
[2024-11-21] MEDS: hydrOXYzine PAMOATE 25 MG CAPSULE PO SCH (14:11)
[2024-11-21 14:12] LABS: CALCIUM 9.1 mg/dL (8.5-10.3); CREATININE 0.5 mg/dL (0.6-1.3); POTASSIUM 4.1 mmol/L (3.5-4.5)
[2024-11-21] MEDS: lisinopriL 5 MG TABLET PO SCH (14:29)
[2024-11-21] MEDS: IPRATROPIUM/ALBUTEROL 3 ML NEB INH SCH (16:00)
--- NOTE | 2024-11-21 17:03 | XRAY Report ---
PROCEDURE: XR Chest 1V INDICATIONS: BRIAN TECHNIQUE: One view of the chest was acquired. COMPARISON: None. FINDINGS: Surgical changes and devices: None. Lungs and pleura: The patient's lowered chin partially obscures the medial biapical regions. No pleural effusions or pneumothorax. No consolidation. Mediastinum: Mediastinal contours appear normal. Heart size is normal. Bones and chest wall: No suspicious bony lesions. Overlying soft tissues appear unremarkable. IMPRESSION: No acute cardiopulmonary process. Reviewed by: Nilo Gonzalez MD on 11/21/2024 5:01 PM PDT Approved by: Nilo Gonzalez MD on 11/21/2024 5:01 PM PDT Station ID: [id number]
[2024-11-21 17:31] LABS: CALCIUM 9.1 mg/dL (8.5-10.3); CREATININE 0.6 mg/dL (0.6-1.3); POTASSIUM 4.2 mmol/L (3.5-4.5)
[2024-11-21] MEDS: BUDESONIDE 0.5 MG/2 ML NEB INH SCH (19:18)
[2024-11-21] MEDS: FORMOTEROL FUMARATE NEB 20 MCG/2 ML INH SCH (19:18)
[2024-11-21] MEDS: metOLazone 2.5 MG TABLET PO SCH (21:08)
[2024-11-21] MEDS: MAGNESIUM OXIDE 400 MG TABLET PO ONE (21:08)
[2024-11-21] MEDS: MELATONIN 3 MG TABLET PO SCH (21:08)
[2024-11-21] MEDS: QUEtiapine 100 MG TABLET PO SCH (21:08)
[2024-11-21] MEDS: OLANZapine ODT 5 MG TABLET TL SCH (21:09)
[2024-11-21] MEDS: GABAPENTIN 300 MG CAPSULE PO SCH (21:09)
[2024-11-21] MEDS: ACETAMINOPHEN 325 MG TABLET PO PRN (21:09)
[2024-11-21 21:37] LABS: CALCIUM 9.3 mg/dL (8.5-10.3); CREATININE 0.6 mg/dL (0.6-1.3); POTASSIUM 4.7 mmol/L (3.5-4.5)
[2024-11-22] MEDS: MORPHINE 2 MG/ML CARPUJECT IVP PRN (01:30)
[2024-11-22 01:47] LABS: CALCIUM 8.9 mg/dL (8.5-10.3); CREATININE 0.7 mg/dL (0.6-1.3); POTASSIUM 3.8 mmol/L (3.5-4.5)
[2024-11-22] MEDS: LORazepam 0.5 MG TABLET PO PRN (03:51)
[2024-11-22 04:51] LABS: HCT - HEMATOCRIT 33.3 % (37.0-47.0); HGB - HEMOGLOBIN 11.1 g/dL (12.0-16.0); MEAN CORPUSCULAR HEMOGLOBIN 30.3 pg (27.0-31.0); MEAN CORPUSCULAR HGB CONC 33.3 g/dL (32.0-36.0); MEAN PLATELET VOLUME 8.1 fL (7.9-10.8); RED BLOOD COUNT 3.66 10^6/uL (4.20-5.40); RED CELL DISTRIBUTION WIDTH 13.6 % (12.0-15.0); WHITE BLOOD COUNT 11.2 x10^3/uL (4.8-10.8)
[2024-11-22 04:52] LABS: CALCIUM, IONIZED 1.14 mmol/L (1.09-1.30); VBG PH 7.503 (7.31-7.41)
[2024-11-22 05:07] LABS: CALCIUM 9.1 mg/dL (8.5-10.3); CREATININE 0.7 mg/dL (0.6-1.3); POTASSIUM 3.9 mmol/L (3.5-4.5)
[2024-11-22] MEDS: PANTOPRAZOLE 40 MG VIAL IVP SCH (06:07)
[2024-11-22] MEDS: lamoTRIgine 100 MG TABLET PO SCH (08:43)
[2024-11-22] MEDS ORDERED: lisinopriL 5 MG TABLET PO SCH (09:00)
--- NOTE | 2024-11-22 10:07 | PROVIDER PROGRESS NOTE ---
Subjective Subjective Subjective: This morning, patient was a little bit more coherent. She was alert and oriented x 2. She was able to tell me that she was not feeling well. However, as afternoon progressed, she became more manic. She is having frequent emotional outbursts, and difficulty controlling her emotions. Current Medications Current Medications Current Medications: Current Medications Generic Name Dose Route Start Last Admin Trade Name Freq PRN Reason Stop Dose Admin Acetaminophen 650 mg 11/21/24 01:37 11/21/24 21:09 Acetaminophen 325 Mg Tablet PO 650 mg Q6H PRN Administration pain OF 1-4, fever Albuterol/Ipratropium 3 ml 11/21/24 02:33 Ipratropium/Albuterol 3 Ml Neb INH QID PRN Shortness of Air/Wheezing Albuterol/Ipratropium 3 ml 11/21/24 15:00 11/22/24 08:05 Ipratropium/Albuterol 3 Ml Neb INH 3 ml RTQID EMORY Administration Benzonatate 100 mg 11/21/24 01:37 Benzonatate 100 Mg Capsule PO TID PRN Cough Budesonide 0.5 mg 11/21/24 19:00 11/22/24 08:05 Budesonide 0.5 Mg/2 Ml Neb INH 0.5 mg RTBID EMORY Administration Carboxymethylcellulose 1 drops 11/21/24 07:04 Carboxymethylcellulose Ophth Drops EACHEYE Q4HR PRN Dry Eye Enoxaparin Sodium 40 mg 11/21/24 09:00 11/22/24 08:45 Enoxaparin 40 Mg/0.4 Ml Syringe SUBQ 40 mg DAILY EMORY Administration Formoterol Fumarate 20 mcg 11/21/24 19:00 11/22/24 08:06 Formoterol Fumarate Neb 20 Mcg/2 Ml INH 20 mcg RTBID EMORY Administration Gabapentin 300 mg 11/21/24 21:00 11/21/24 21:09 Gabapentin 300 Mg Capsule PO 300 mg HS EMORY Administration Hydroxyzine Pamoate 25 mg 11/21/24 14:00 11/22/24 05:15 Hydroxyzine Pamoate 25 Mg Capsule PO Not Given TID EMORY Sodium Chloride 1,000 mls @ 75 mls/hr 11/21/24 07:00 11/21/24 21:09 Normal Saline 0.9% IV 75 mls/hr .[id number] EMORY Administration Insulin Human Lispro 1 - 5 unit 11/21/24 08:00 11/22/24 07:53 Insulin Lispro 300 Unit/3 Ml Pen SUBQ Not Given 0800,1200,1700,2100 [facility] Protocol Ipratropium [place] 0.5 mg 11/21/24 13:00 11/22/24 05:27 Ipratropium 0.2 Mg/Ml Neb INH Not Given RTQ6H [facility] Lamotrigine 200 mg 11/22/24 09:00 11/22/24 08:43 Lamotrigine 100 Mg Tablet PO 200 mg DAILY EMORY Administration Lisinopril 5 mg 11/21/24 14:20 11/21/24 14:29 Lisinopril 5 Mg Tablet PO 5 mg DAILY EMORY Administration Lorazepam 0.5 mg 11/21/24 11:01 11/22/24 03:51 Lorazepam 0.5 Mg Tablet PO 0.5 mg BID PRN Administration Anxiety Magnesium Oxide 400 mg 11/21/24 09:00 11/22/24 08:44 Magnesium Oxide 400 Mg Tablet PO 400 mg DAILY EMORY Administration Melatonin 3 mg 11/21/24 21:00 11/21/24 21:08 Melatonin 3 Mg Tablet PO 3 mg QPM EMORY Administration Melatonin 3 mg 11/21/24 01:37 Melatonin 3 Mg Tablet PO QPM PRN sleep Metolazone 5 mg 11/21/24 21:00 11/21/24 21:08 Metolazone 2.5 Mg Tablet PO 5 mg BID EMORY Administration Morphine Sulfate 2 mg 11/21/24 08:53 11/22/24 01:30 Morphine 2 Mg/Ml Carpuject IVP 2 mg Q4H PRN Administration Pain OF 5-10 Multivitamins/Minerals 1 tab 11/21/24 08:00 11/22/24 08:44 Multivitamin W/Minerals Tablet PO 1 tab DAILYWM EMORY Administration Olanzapine 5 mg 11/21/24 21:00 11/21/24 21:09 Olanzapine Odt 5 Mg Tablet TL 5 mg HS EMORY Administration Ondansetron HCl 4 mg 11/21/24 01:21 Ondansetron Odt 4 Mg Tablet PO Q6H PRN nausea and vomiting Ondansetron HCl 4 mg 11/21/24 01:37 Ondansetron 4 Mg/2 Ml Vial IVP Q8H PRN Nausea / Vomiting Pantoprazole Sodium 40 mg 11/22/24 05:25 11/22/24 09:04 Pantoprazole 40 Mg Vial IVP Not Given DAILY EMORY Aspirin-Sod Bicarb- 1 each 11/21/24 11:07 Citric Acid [Eboni- PO [place] Original] DAILY PRN 325 Mg Tablet DYSPEPSIA Phenol/Menthol 1 sprays 11/21/24 01:37 Phenol Throat [place] 177 Ml MM Q4HR PRN Mouth Sore Pain Polyethylene Glycol 17 gm 11/21/24 09:00 Polyethylene Glycol 3350 17 Gm Packet PO DAILY PRN constipation Potassium Chloride 20 meq 11/21/24 09:00 11/22/24 08:44 Potassium Chloride 20 Meq Tablet PO 20 meq DAILY EMORY Administration Psyllium Hydrophilic Mucilloid 1 packet 11/21/24 07:05 Psyllium Packet PO DAILY PRN Constipation Quetiapine Fumarate 300 mg 11/21/24 21:00 11/21/24 21:08 Quetiapine 100 Mg Tablet PO 300 mg HS EMORY Administration Senna 8.6 mg 11/21/24 09:00 11/22/24 08:44 Senna 8.6 Mg Tablet PO 8.6 mg DAILY EMORY Administration Throat Lozenges 1 lozenge 11/21/24 01:37 Benzocaine/Menthol Lozenge MM Q2HR PRN Mouth Sore Pain Objective Vital Signs/Intake & Output Reviewed Vital Signs: Yes Vital Signs: Vital Signs x48h Temp Pulse Pulse Resp BP Pulse Ox 11/22/24 10:00 98 23 104/70 92 11/22/24 09:00 100 27 H 117/62 91 L 11/22/24 08:07 105 H 18 11/22/24 08:00 97.7 F 97 26 H 91/67 91 L 11/22/24 07:00 89 16 106/57 L 93 11/22/24 06:00 98.2 F 89 16 107/56 L 93 11/22/24 05:00 90 17 91/56 L 93 11/22/24 04:00 93 16 108/61 92 11/22/24 03:00 90 15 96/59 L 94 Intake & Output: Intake & Output 11/19/24 11/20/24 11/21/24 11/22/24 23:59 23:59 23:59 23:59 Intake Total 1740 / 1740 Output Total 350 / 350 850 / 850 Balance 1390 / 1390 -850 / -850 Weight (kg) 122.2 kg 118 kg Objective General Appearance: positive Mild distress and Anxious Eyes Bilateral: positive Normal inspection, PERRL and EOMI ENT: positive ENT inspection nml, Pharynx nml and No signs of dehydration Neck: positive Nml inspection, Thyroid nml, No JVD and Trachea midline Respiratory: positive Chest non-tender and Rales (mild bibasilar); negative Wheezes or Rhonchi Cardiovascular: positive No murmur, No gallop and Tachycardia; negative Diastolic murmur Abdomen: positive Non-tender, Nml bowel sounds and No distention Back: positive Nml inspection; negative CVA tenderness (R) or CVA tenderness (L) Skin: positive Color nml, No rash, Warm and Dry Extremities: positive Non-tender, Full ROM and No pedal edema Neurologic/Psychiatric: positive Other (flight of ideas, pressured speech, emotional outbursts); negative Disoriented to place or Disoriented to time Lab Results 11/22/24 04:33 11/22/24 04:33 Other Labs: Lab Results x24hrs 11/22/24 11/22/24 11/22/24 Range/Units 07:38 04:33 01:25 WBC 11.2 H (4.8-10.8) x10^3/uL RBC 3.66 L (4.20-5.40) 10^6/uL Hgb 11.1 L (12.0-16.0) g/dL Hct 33.3 L (37.0-47.0) % MCV 91.0 (81.0-99.0) fL MCH 30.3 (27.0-31.0) pg MCHC 33.3 (32.0-36.0) g/dL RDW 13.6 (12.0-15.0) % Plt Count 268 (130-450) 10^3/uL MPV 8.1 (7.9-10.8) fL VBG pH 7.503 H (7.31-7.41) Ionized Calcium 1.14 (1.09-1.30) mmol/L Sodium 125 L 124 L (135-145) mmol/L Potassium 3.9 3.8 (3.5-4.5) mmol/L Chloride 93 L 91 L (101-111) mmol/L Carbon Dioxide 25 25 (21-32) mmol/L Anion Gap 7.0 8.0 (6-13) BUN 8 8 (6-20) mg/dL Creatinine 0.7 0.7 (0.6-1.3) mg/dL Estimated GFR (MDRD) 83 L 83 L (>89) Glucose 105 H 117 H (74-104) mg/dL POC Whole Bld Glucose 117 (70-100) mg/dL Calcium 9.1 8.9 (8.5-10.3) mg/dL Phosphorus 3.8 (2.5-5.0) mg/dL Magnesium 2.0 (1.7-2.3) mg/dL 11/21/24 11/21/24 11/21/24 Range/Units 21:19 20:24 17:09 WBC (4.8-10.8) x10^3/uL RBC (4.20-5.40) 10^6/uL Hgb (12.0-16.0) g/dL Hct (37.0-47.0) % MCV (81.0-99.0) fL MCH (27.0-31.0) pg MCHC (32.0-36.0) g/dL RDW (12.0-15.0) % Plt Count (130-450) 10^3/uL MPV (7.9-10.8) fL VBG pH (7.31-7.41) Ionized Calcium (1.09-1.30) mmol/L Sodium 122 L 122 L (135-145) mmol/L Potassium 4.7 H 4.2 (3.5-4.5) mmol/L Chloride 90 L 89 L (101-111) mmol/L Carbon Dioxide 24 25 (21-32) mmol/L Anion Gap 8.0 8.0 (6-13) BUN 8 7 (6-20) mg/dL Creatinine 0.6 0.6 (0.6-1.3) mg/dL Estimated GFR (MDRD) 99 99 (>89) Glucose 184 H 159 H (74-104) mg/dL POC Whole Bld Glucose 123 (70-100) mg/dL Calcium 9.3 9.1 (8.5-10.3) mg/dL Phosphorus (2.5-5.0) mg/dL Magnesium 1.7 (1.7-2.3) mg/dL 11/21/24 11/21/24 11/21/24 Range/Units 16:42 13:51 11:48 WBC (4.8-10.8) x10^3/uL RBC (4.20-5.40) 10^6/uL Hgb (12.0-16.0) g/dL Hct (37.0-47.0) % MCV (81.0-99.0) fL MCH (27.0-31.0) pg MCHC (32.0-36.0) g/dL RDW (12.0-15.0) % Plt Count (130-450) 10^3/uL MPV (7.9-10.8) fL VBG pH (7.31-7.41) Ionized Calcium (1.09-1.30) mmol/L Sodium 120 L* (135-145) mmol/L Potassium 4.1 (3.5-4.5) mmol/L Chloride 86 L (101-111) mmol/L Carbon Dioxide 26 (21-32) mmol/L Anion Gap 8.0 (6-13) BUN 7 (6-20) mg/dL Creatinine 0.5 L (0.6-1.3) mg/dL Estimated GFR (MDRD) 122 (>89) Glucose 143 H (74-104) mg/dL POC Whole Bld Glucose 161 130 (70-100) mg/dL Calcium 9.1 (8.5-10.3) mg/dL Phosphorus (2.5-5.0) mg/dL Magnesium (1.7-2.3) mg/dL Diagnostic Imaging Diagnostic Imaging Results: positive Final report reviewed Assessment/Plan Problem List (1) Acute hyponatremia: Impression: Patient presented with hyponatremia, with sodium of 117. She appeared euvolemic on admission. Concerns for polydipsia versus medication side effects resulting in this hyponatremia. She received normal saline, with goal correction rate of 68 mL equivalents over 24 hours. Her sodium is correcting appropriately, 125 today. Continue normal saline at this time at 75 cc/h. Telepsych spoken with on 11/21 for medication recommendations: For hyponatremia, the only change that they recommended was cutting the Seroquel in the evening to half her normal dose i.e. from 600 to 300 mg at night. Patient is also acutely psychotic, with tangential speech, flight of ideas, pressurized speech. They we will do a reevaluation when her hyponatremia has resolved to see if she would be a candidate for inpatient psych for titration of her meds etc. (2) Rhabdomyolysis: Impression: CPK was elevated on admission. Creatinine is within normal limits. Will recheck tomorrow. Continue IV fluids at this time. Encourage p.o. intake. Qualifiers: Rhabdomyolysis type: non-traumatic Qualified Code(s): M62.82 - Rhabdomyolysis (3) Acute psychosis: Impression: Patient with pressured speech, flight of ideas, frequent emotional outbursts. Has a longstanding history of bipolar disorder and schizophrenia, and is on many medications for including Seroquel, Lamictal, Ativan, Zyprexa. Telepsych consulted yesterday for further medication recommendations and placement recommendations on discharge. They believe hyponatremia may be contributing to her change in mental state. Once this is resolved, will consult them again for reevaluation and recommendations on placement. (4) Hypertension associated with diabetes: Impression: Continue home metolazone, lisinopril. (5) Diabetes mellitus type 2 with complications: Impression: Continue low-dose sliding scale. (6) COPD (chronic obstructive pulmonary disease): Impression: Continue DuoNebs RT 4 times daily. Qualifiers: COPD type: unspecified COPD Qualified Code(s): J44.9 - Chronic obstructive pulmonary disease, unspecified (7) Congestive heart failure: Impression: Patient appears euvolemic at this time. Chest x-ray with no fluid overload noted. Patient is not dyspneic. Continue home metolazone. Patient is not on any other diuretic. Qualifiers: Heart failure type: unspecified Heart failure chronicity: unspecified Qualified Code(s): I50.9 - Heart failure, unspecified (8) Bipolar disorder: Impression: History of bipolar disorder and schizophrenia. Continue home medications as per psych recommendations including Zyprexa, Lamictal, hydroxyzine, Seroquel at a lower dose, Ativan as needed. As stated above, psychiatry will do a repeat eval when patient is medically cleared. Qualifiers: Active/Remission status: remission status unspecified Qualified Code(s): F31.9 - Bipolar disorder, unspecified
[2024-11-22] MEDS: BACLOFEN 10 MG TABLET PO SCH (10:35)
[2024-11-22] MEDS ORDERED: MORPHINE 2 MG/ML CARPUJECT IVP PRN (13:30)
[2024-11-22] MEDS ORDERED: BACLOFEN 10 MG TABLET PO SCH (14:00)
[2024-11-22 15:31] LABS: CALCIUM 9.1 mg/dL (8.5-10.3); CREATININE 0.7 mg/dL (0.6-1.3)
--- NOTE | 2024-11-22 18:34 | TELEPSYCH PHYS NOTE ---
Telepsych Note CHIEF COMPLAINT/HX OF PRESENT ILLNESS Chief Complaint and History of Present Illness: Admitted with hyponatremia and depressed mental status that is clearly no longer depressed. Patient is overtly manic. She is pressured, talking. Fidgeting constantly. Flipping her dnetures around, flipping people off though not with intention, flipping her dress up and down, tells me I'm her mama, rambling incoherently. "Hi Kunal, it's plastic, come and give me a bed, what kind of plastic do you want, a monkey in a tree, two what, surfers". She doesn't think she slept last night, and I believe she's probably accurate. "Horse, cow, and and ner, NER!" she yells. She cannot stop talking for questions or to hear any answers to hers. Is flipping her teeth in an out and sticking out tongue randomly. Little coherent information can be obtained. SI/HI/SELF HARM SI/HI/Self Harm Text (Current or History of):: No report of blatant self harm behavior or suicidal speech, she is not coherent however VIOLENCE/LEGAL/COLLATERAL Violence - Legal - Collateral: She's psychomotor agitated, not obviously aggressive PSYCHIATRIC HX/TREATMENT HX Psychiatric: Depression, Anxiety and Bipolar disorder Psychiatric/Treatment Hx Other: She has known history of schizophrenia/schizoaffective disorder Her medication management history is unknown, but there are a few notes suggesting no recent changes in the last few months compared to arrival Her PCP was wanting to have her seroquel reduced last month DRUG/ALCOHOL HX ETOH Use: None MEDICAL HX Does the pt have a hx of MRSA?: No Neurological History: None Eyes, Ears, Nose, Throat: None Cardiovascular: None Respiratory: Asthma, COPD and Pneumonia Skin: None Endocrine/Autoimmune: None Gastrointestinal: GERD and Chronic constipation Urinary: Incontinence and Frequency Musculoskeletal: Osteoarthritis and Other Blood Disorders: None SURGICAL HX General: Cholecystectomy and Appendectomy Gynecologic: Other HOME MEDICATIONS Home Meds (as last confirmed): Patient History Medication Instructions Recorded Confirmed carboxymethylcellulose sodium 1 % 1 drp ophthalmic (ey e) PRN PRN As 01/13/20 11/21/24 eye drops (Artificial Tears Needed Per Provider Orders (carboxymethylcellulose)) mometasone-formoterol HFA 200 1 puff inhalation BID 11/21/24 mcg-5 mcg/actuation aerosol inhaler (Dulera) montelukast 10 mg tablet 10 mg PO QPM 01/13/20 albuterol sulfate 2.5 mg/3 mL 2.5 mg (3 mL) inhalation RTQ4H PRN 09/18/20 11/21/24 (0.083 %) solution for nebulization Wheezing lisinopril 5 mg tablet 5 mg PO DAILY 09/01/2111/21 potassium chloride 20 mEq 20 meq PO DAILY 09/01/2104/09 tablet,extended release(part/cryst) (Klor-Con M) walker #1 ea 06/03/24 10/29/24 baclofen 20 mg tablet 20 mg PO TID 07/30/24 walker #1 ea 07/30/24 10/29/24 acetaminophen 325 mg tablet 650 mg PO Q6H PRN pain 11/21/24 acetaminophen 500 mg tablet 500 mg PO QID Pain 5 11/21/24 (Acetaminophen Extra Strength) albuterol sulfate 90 mcg/actuation 2 puff inhalation Q 6H PRN 08/12/24 11/21/24 aerosol inhaler (ProAir HFA) Shortness Of Air/Wheezing aspirin 325 mg-sodium 1 ea PO QDAY PRN dyspepsia 0 08/12/24 11/21/24 bicarbonate-citric acid effervescent tablet (Eboni-[place] Original) gabapentin 300 mg capsule 300 mg PO HS 08/12/24 hydroxyzine HCl 25 mg tablet 25 mg PO TID 08/12/2404/09 hydroxyzine HCl 50 mg tablet 50 mg PO Q8H PRN anxiety 08/12/24 11/21/24 ipratropium 0.5 mg-albuterol 3 mg 3 ml inhalation QID PRN shortness 08/12/24 11/21/24 (2.5 mg base)/3 mL nebulization of breath or wheezing soln lamotrigine 200 mg tablet 200 mg PO DAILY 08/12/2404/09 lidocaine 4 % topical patch 1 patch topical Q12H PRN p ain 08/12/24 11/21/24 (Salonpas (lidocaine)) loperamide 2 mg tablet 2 mg PO QID PRN loose stool 08/12/24 11/21/24 magnesium oxide 400 mg PO DAILY 08/12/2404/09 melatonin 5 mg tablet 5 mg PO HS 08/12/24 11/21/24 meloxicam 7.5 mg tablet 7.5 mg PO BID 08/12/2411/21 metformin 500 mg tablet 500 mg PO BID 08/12/2411/21 metolazone 5 mg tablet 5 mg PO BID 08/12/24 5 olanzapine 5 mg tablet (Zyprexa) 5 mg PO HS mood stabi lization 08/12/24 11/21/24 ondansetron 4 mg disintegrating 4 mg PO Q6H PRN nausea and vomiting 08/12/24 11/21/24 tablet psyllium 1 tbsp PO QAM 08/12/2411/21 quetiapine 25 mg tablet 25 mg PO QID PRN agitation/s leep 08/12/24 11/21/24 quetiapine 300 mg tablet (Seroquel) 600 mg PO HS mood stabilization 08/12/24 11/21/24 sennosides 8.6 mg tablet (senna) 8.6 mg PO DAILY 08/1211/21/24 sumatriptan succinate 50 mg tablet See Rx Instructions PO .COMPLEX 08/12/24 11/21/24 tiotropium bromide 18 mcg capsule 18 mcg inhalation QP M 08/12/24 11/21/24 with inhalation device (Spiriva with HandiHaler) vitamin B complex 1 tab PO DAILY 08/12/24 0504/09 lorazepam 0.5 mg tablet 0.5 mg PO BID PRN Anxiety #0 tabs 10/29/24 11/21/24 polyethylene glycol 3350 17 17 g PO QDAY PRN constipat ion #238 11/12/24 11/21/24 gram/dose oral powder grams nicotine 7 mg/24 hr daily 1 patch transdermal DAILY 11/21/24 transdermal patch ALLERGIES Allergies (as last confirmed): Allergies Allergy/AdvReac Type Severity Reaction Status Date / Time Androgenic Anabolic Steroid Allergy Unknown Verified 10/29/24 14:31 Neuromuscular Blockers, Allergy Unknown Verified 10/29/24 14:31 Steroidal Penicillins Allergy Unknown Verified 10/29/24 14:31 FAMILY PSYCH/SUICIDE/SOCIAL HX-MENTAL Family - Suicide - Social Hx and Mental Status Exam: Unknown PATIENT PROBLEM LIST (1) Acute hyponatremia: (2) Rhabdomyolysis: Qualifiers: Rhabdomyolysis type: non-traumatic Qualified Code(s): M62.82 - Rhabdomyolysis (3) Acute psychosis: (4) Hypertension associated with diabetes: (5) Diabetes mellitus type 2 with complications: (6) COPD (chronic obstructive pulmonary disease): Qualifiers: COPD type: unspecified COPD Qualified Code(s): J44.9 - Chronic obst ructive pulmonary disease, unspecified (7) Congestive heart failure: Qualifiers: Heart failure type: unspecified Heart failure chronicity: unspecified Qualified Code(s): I50.9 - Heart failure, unspecified (8) Bipolar disorder: Qualifiers: Active/Remission status: remission status unspecified Qualified Code(s): F31.9 - Bipolar disorder, unspecified TREATMENT/PHARMACOLOGICAL RECOMMENDATION Treatment - Pharmacological - Therapy Recommendations: It would be helpful to have treatment history regarding past treatment failures/response to seroquel. But in the absence of that information, based on what history I have, I would recommend titrating Olanzapine first. Increase Olanzapine to 10mg nightly with 5mg daily scheduled, and 5mg once a day prn agitation Keep Seroquel for now. Patient meets clear criteria for psychiatric hospitalization, when medically cleared for such. TIME SPENT & PROVIDER LOCATION Telepsych consultation conducted via videoconferencing: Yes List names and roles of persons who participated in consult: Mayela Desir MD Telepsych Provider Location: [place] Time Telepsych consult began: 18:00 Time Telepsych consult completed: 18:38 Mental Status Exam - Psych Appearance casually dressed Attitude belligerent Activity/Motor Behavior psychomotor agitation Speech pressured Mood irritable Affect labile, expansive and other (bizarre) Thought Process incoherent, derailment, flight of ideas, word salad, disorganized, racing thoughts and perseverating Thought Content delusions Suicidal Ideation none Homicidal Ideation none Attention impaired Concentration impaired Sensorium/Orientation awake and alert Memory/Cognition other (Cannot well assess) Insight impaired Judgement impaired
[2024-11-22] MEDS: OLANZapine ODT 5 MG TABLET TL STA (19:04)
[2024-11-22] MEDS: OLANZapine ODT 5 MG TABLET TL SCH (21:13)
[2024-11-22] MEDS: SODIUM CHLORIDE 1 GM TABLET PO SCH (21:13)
[2024-11-23] MEDS: OLANZapine ODT 5 MG TABLET TL PRN (03:32)
[2024-11-23 04:29] LABS: HCT - HEMATOCRIT 33.6 % (37.0-47.0); HGB - HEMOGLOBIN 11.1 g/dL (12.0-16.0); MEAN CORPUSCULAR VOLUME 90.8 fL (81.0-99.0); RED BLOOD COUNT 3.7 10^6/uL (4.20-5.40); RED CELL DISTRIBUTION WIDTH 13.9 % (12.0-15.0); WHITE BLOOD COUNT 8.9 x10^3/uL (4.8-10.8)
[2024-11-23 04:30] LABS: VBG PH 7.425 (7.31-7.41)
[2024-11-23 04:45] LABS: CALCIUM 9.3 mg/dL (8.5-10.3); CREATININE 0.6 mg/dL (0.6-1.3); MAGNESIUM 1.7 mg/dL (1.7-2.3); POTASSIUM 3.5 mmol/L (3.5-4.5)
[2024-11-23] MEDS: PANTOPRAZOLE 40 MG TABLET PO SCH (08:22)
[2024-11-23] MEDS: MAGNESIUM OXIDE 400 MG TABLET PO ONE (08:23)
--- NOTE | 2024-11-23 08:27 | PROVIDER PROGRESS NOTE ---
Subjective Subjective Subjective: Patient's hyponatremia has resolved. She is acutely manic. She has pressured speech, and has been talking nonstop. Some of it makes sense, largely it is nonsensical. She is medically cleared for further psychiatric treatment. Current Medications Current Medications Current Medications: Current Medications Generic Name Dose Route Start Last Admin Trade Name Freq PRN Reason Stop Dose Admin Acetaminophen 650 mg 11/21/24 01:37 11/21/24 21:09 Acetaminophen 325 Mg Tablet PO 650 mg Q6H PRN Administration pain OF 1-4, fever Albuterol/Ipratropium 3 ml 11/21/24 02:33 Ipratropium/Albuterol 3 Ml Neb INH QID PRN Shortness of Air/Wheezing Albuterol/Ipratropium 3 ml 11/21/24 15:00 11/23/24 07:41 Ipratropium/Albuterol 3 Ml Neb INH 3 ml RTQID EMORY Administration Baclofen 20 mg 11/22/24 10:15 11/23/24 06:28 Baclofen 10 Mg Tablet PO 20 mg TID EMORY Administration Benzonatate 100 mg 11/21/24 01:37 Benzonatate 100 Mg Capsule PO TID PRN Cough Budesonide 0.5 mg 11/21/24 19:00 11/23/24 07:40 Budesonide 0.5 Mg/2 Ml Neb INH 0.5 mg RTBID EMORY Administration Carboxymethylcellulose 1 drops 11/21/24 07:04 Carboxymethylcellulose Ophth Drops EACHEYE Q4HR PRN Dry Eye Enoxaparin Sodium 40 mg 11/21/24 09:00 11/23/24 08:24 Enoxaparin 40 Mg/0.4 Ml Syringe SUBQ 40 mg DAILY EMORY Administration Formoterol Fumarate 20 mcg 11/21/24 19:00 11/23/24 07:40 Formoterol Fumarate Neb 20 Mcg/2 Ml INH 20 mcg RTBID EMORY Administration Gabapentin 300 mg 11/21/24 21:00 11/22/24 21:17 Gabapentin 300 Mg Capsule PO 300 mg HS EMORY Administration Hydroxyzine Pamoate 25 mg 11/21/24 14:00 11/23/24 06:28 Hydroxyzine Pamoate 25 Mg Capsule PO 25 mg TID EMORY Administration Insulin Human Lispro 1 - 5 unit 11/21/24 08:00 11/23/24 08:23 Insulin Lispro 300 Unit/3 Ml Pen SUBQ Not Given 0800,1200,1700,2100 [facility] Protocol Lamotrigine 200 mg 11/22/24 09:00 11/23/24 08:21 Lamotrigine 100 Mg Tablet PO 200 mg DAILY EMORY Administration Lisinopril 5 mg 11/21/24 14:20 11/23/24 08:22 Lisinopril 5 Mg Tablet PO 5 mg DAILY EMORY Administration Lorazepam 1 mg 11/23/24 07:34 Lorazepam 1 Mg Tablet PO BID PRN Anxiety Magnesium Oxide 400 mg 11/21/24 09:00 11/23/24 08:24 Magnesium Oxide 400 Mg Tablet PO Not Given DAILY EMORY Melatonin 3 mg 11/21/24 21:00 11/22/24 21:16 Melatonin 3 Mg Tablet PO 3 mg QPM EMORY Administration Metolazone 5 mg 11/21/24 21:00 11/22/24 21:18 Metolazone 2.5 Mg Tablet PO 5 mg BID EMORY Administration Morphine Sulfate 2 mg 11/22/24 13:30 Morphine 2 Mg/Ml Carpuject IVP Q8HR PRN Pain OF 5-10 Multivitamins/Minerals 1 tab 11/21/24 08:00 11/23/24 08:24 Multivitamin W/Minerals Tablet PO 1 tab DAILYWM EMORY Administration Olanzapine 10 mg 11/22/24 21:00 11/22/24 21:13 Olanzapine Odt 5 Mg Tablet TL 10 mg HS EMORY Administration Olanzapine 5 mg 11/22/24 18:48 11/23/24 03:32 Olanzapine Odt 5 Mg Tablet TL 5 mg DAILY PRN Administration Agitation Ondansetron HCl 4 mg 11/21/24 01:21 Ondansetron Odt 4 Mg Tablet PO Q6H PRN nausea and vomiting Ondansetron HCl 4 mg 11/21/24 01:37 Ondansetron 4 Mg/2 Ml Vial IVP Q8H PRN Nausea / Vomiting Pantoprazole Sodium 40 mg 11/23/24 07:30 11/23/24 08:22 Pantoprazole 40 Mg Tablet PO 40 mg QDAC EMORY Administration Aspirin-Sod Bicarb- 1 each 11/21/24 11:07 Citric Acid [Eboni- PO [place] Original] DAILY PRN 325 Mg Tablet DYSPEPSIA Phenol/Menthol 1 sprays 11/21/24 01:37 Phenol Throat Rumely 177 Ml MM Q4HR PRN Mouth Sore Pain Polyethylene Glycol 17 gm 11/21/24 09:00 Polyethylene Glycol 3350 17 Gm Packet PO DAILY PRN constipation Potassium Chloride 20 meq 11/21/24 09:00 11/23/24 08:23 Potassium Chloride 20 Meq Tablet PO 20 meq DAILY EMORY Administration Psyllium Hydrophilic Mucilloid 1 packet 11/21/24 07:05 Psyllium Packet PO DAILY PRN Constipation Quetiapine Fumarate 300 mg 11/21/24 21:00 11/22/24 21:20 Quetiapine 100 Mg Tablet PO 300 mg HS EMORY Administration Senna 8.6 mg 11/21/24 09:00 11/23/24 08:24 Senna 8.6 Mg Tablet PO 8.6 mg DAILY EMORY Administration Sodium Chloride 1 gm 11/22/24 21:00 11/23/24 08:23 Sodium Chloride 1 Gm Tablet PO 1 gm BID EMORY Administration Throat Lozenges 1 lozenge 11/21/24 01:37 Benzocaine/Menthol Lozenge MM Q2HR PRN Mouth Sore Pain Objective Vital Signs/Intake & Output Reviewed Vital Signs: Yes Vital Signs: Vital Signs x48h Temp Pulse Resp BP Pulse Ox 11/23/24 08:00 208.2 F H 25 H 141/95 H 11/23/24 07:41 18 11/23/24 07:00 63 24 131/102 H 93 11/23/24 06:00 16 136/92 H 94 11/23/24 05:00 98 28 H 121/90 93 11/23/24 04:00 105 H 21 135/83 H 94 11/23/24 03:00 98.5 F 110 H 18 120/69 93 11/23/24 02:00 102 H 22 112/67 96 11/23/24 01:00 90 18 99/56 L 98 11/23/24 00:30 95/60 Intake & Output: Intake & Output 11/20/24 11/21/24 11/22/24 11/23/24 23:59 23:59 23:59 23:59 Intake Total 1740 / 1740 1652 / 1652 340 / 340 Output Total 350 / 350 2175 / 2175 0 / 0 Balance 1390 / 1390 -523 / -523 340 / 340 Weight (kg) 122.2 kg 118 kg Objective General Appearance: positive Mild distress and Anxious Eyes Bilateral: positive Normal inspection, PERRL and EOMI ENT: positive ENT inspection nml, Pharynx nml and No signs of dehydration Neck: positive Nml inspection, Thyroid nml, No JVD and Trachea midline Respiratory: positive Chest non-tender and Rales (mild bibasilar); negative Wheezes or Rhonchi Cardiovascular: positive No murmur, No gallop and Tachycardia; negative Diastolic murmur Abdomen: positive Non-tender, Nml bowel sounds and No distention Back: positive Nml inspection; negative CVA tenderness (R) or CVA tenderness (L) Skin: positive Color nml, No rash, Warm and Dry Extremities: positive Non-tender, Full ROM and No pedal edema Neurologic/Psychiatric: positive Disoriented to person and Other (flight of ideas, pressured speech, emotional outbursts); negative Disoriented to place or Disoriented to time Lab Results 11/23/24 04:21 11/23/24 04:21 Other Labs: Lab Results x24hrs 11/23/24 11/23/24 11/22/24 Range/Units 08:11 04:21 20:16 WBC 8.9 (4.8-10.8) x10^3/uL RBC 3.70 L (4.20-5.40) 10^6/uL Hgb 11.1 L (12.0-16.0) g/dL Hct 33.6 L (37.0-47.0) % MCV 90.8 (81.0-99.0) fL MCH 30.0 (27.0-31.0) pg MCHC 33.0 (32.0-36.0) g/dL RDW 13.9 (12.0-15.0) % Plt Count 301 (130-450) 10^3/uL MPV 8.0 (7.9-10.8) fL VBG pH 7.425 H (7.31-7.41) Ionized Calcium 1.20 (1.09-1.30) mmol/L Sodium 131 L (135-145) mmol/L Potassium 3.5 (3.5-4.5) mmol/L Chloride 95 L (101-111) mmol/L Carbon Dioxide 29 (21-32) mmol/L Anion Gap 7.0 (6-13) BUN 7 (6-20) mg/dL Creatinine 0.6 (0.6-1.3) mg/dL Estimated GFR (MDRD) 99 (>89) Glucose 106 H (74-104) mg/dL POC Whole Bld Glucose 119 116 (70-100) mg/dL Calcium 9.3 (8.5-10.3) mg/dL Phosphorus 3.8 (2.5-5.0) mg/dL Magnesium 1.7 (1.7-2.3) mg/dL 11/22/24 11/22/24 11/22/24 Range/Units 16:48 14:58 11:42 WBC (4.8-10.8) x10^3/uL RBC (4.20-5.40) 10^6/uL Hgb (12.0-16.0) g/dL Hct (37.0-47.0) % MCV (81.0-99.0) fL MCH (27.0-31.0) pg MCHC (32.0-36.0) g/dL RDW (12.0-15.0) % Plt Count (130-450) 10^3/uL MPV (7.9-10.8) fL VBG pH (7.31-7.41) Ionized Calcium (1.09-1.30) mmol/L Sodium 128 L (135-145) mmol/L Potassium 4.0 (3.5-4.5) mmol/L Chloride 95 L (101-111) mmol/L Carbon Dioxide 26 (21-32) mmol/L Anion Gap 7.0 (6-13) BUN 10 (6-20) mg/dL Creatinine 0.7 (0.6-1.3) mg/dL Estimated GFR (MDRD) 83 L (>89) Glucose 117 H (74-104) mg/dL POC Whole Bld Glucose 125 130 (70-100) mg/dL Calcium 9.1 (8.5-10.3) mg/dL Phosphorus (2.5-5.0) mg/dL Magnesium (1.7-2.3) mg/dL Diagnostic Imaging Diagnostic Imaging Results: positive Final report reviewed Assessment/Plan Problem List (1) Acute hyponatremia: Impression: Patient presented with hyponatremia, with sodium of 117. She appeared euvolemic on admission. Concerns for polydipsia versus medication side effects resulting in this hyponatremia. She received normal saline, with goal correction rate of 6-8 mL equivalents over 24 hours. Her sodium is correcting appropriately, 131 today. IVF stopped, continue salt tabs. Telepsych spoken with on 11/21 for medication recommendations: For hyponatremia, the only change that they recommended was cutting the Seroquel in the evening to half her normal dose i.e. from 600 to 300 mg at night. Patient is also acutely psychotic, with tangential speech, flight of ideas, pressurized speech. Patient is medically cleared. (2) Rhabdomyolysis: Impression: CPK was elevated on admission. Creatinine is within normal limits. Completed IV fluids at this time. Encourage p.o. intake. Qualifiers: Rhabdomyolysis type: non-traumatic Qualified Code(s): M62.82 - Rhabdomyolysis (3) Acute psychosis: Impression: Patient with pressured speech, flight of ideas, frequent emotional outbursts. Has a longstanding history of bipolar disorder and schizophrenia, and is on many medications for including Seroquel, Lamictal, Ativan, Zyprexa. Telepsych consulted - appropriate for inpatient psychiatry. DCR involved, SW following. (4) Hypertension associated with diabetes: Impression: Continue home metolazone, lisinopril. (5) Diabetes mellitus type 2 with complications: Impression: Continue low-dose sliding scale. (6) COPD (chronic obstructive pulmonary disease): Impression: Continue DuoNebs RT 4 times daily as needed, continue inhalers on discharge. Qualifiers: COPD type: unspecified COPD Qualified Code(s): J44.9 - Chronic obstructive pulmonary disease, unspecified (7) Congestive heart failure: Impression: Patient appears euvolemic at this time. Chest x-ray with no fluid overload noted. Patient is not dyspneic. Continue home metolazone. Patient is not on any other diuretic. Qualifiers: Heart failure chronicity: unspecified Heart failure type: unspecified Qualified Code(s): I50.9 - Heart failure, unspecified (8) Bipolar disorder: Impression: History of bipolar disorder and schizophrenia. Continue home medications as per psych recommendations including Zyprexa, Lamictal, hydroxyzine, Seroquel at a lower dose, Ativan as needed. As stated above, psychiatry will do a repeat eval when patient is medically cleared. Qualifiers: Active/Remission status: remission status unspecified Qualified Code(s): F31.9 - Bipolar disorder, unspecified
[2024-11-23] MEDS ORDERED: IPRATROPIUM/ALBUTEROL 3 ML NEB INH PRN (11:53)
--- NOTE | 2024-11-23 13:15 | Discharge Summary ---
Discharge Summary ALLERGIES Allergies Allergy/AdvReac Type Severity Reaction Status Date / Time Androgenic Anabolic Steroid Allergy Unknown Verified 10/29/24 14:31 Neuromuscular Blockers, Allergy Unknown Verified 10/29/24 14:31 Steroidal Penicillins Allergy Unknown Verified 10/29/24 14:31 MEDICATIONS Ambulatory Orders Medication Instructions Recorded Confirmed carboxymethylcellulose sodium 1 % 1 drp ophthalmic (ey e) PRN PRN As 01/13/20 11/21/24 eye drops (Artificial Tears Needed Per Provider Orders (carboxymethylcellulose)) mometasone-formoterol HFA 200 1 puff inhalation BID 11/21/24 mcg-5 mcg/actuation aerosol inhaler (Dulera) montelukast 10 mg tablet 10 mg PO QPM 01/13/20 albuterol sulfate 2.5 mg/3 mL 2.5 mg (3 mL) inhalation RTQ4H PRN 09/18/20 11/21/24 (0.083 %) solution for nebulization Wheezing lisinopril 5 mg tablet 5 mg PO DAILY 09/01/2111/21 potassium chloride 20 mEq 20 meq PO DAILY 09/01/2104/09 tablet,extended release(part/cryst) (Klor-Con M) walker #1 ea 06/03/24 10/29/24 baclofen 20 mg tablet 20 mg PO TID 07/30/24 walker #1 ea 07/30/24 10/29/24 acetaminophen 325 mg tablet 650 mg PO Q6H PRN pain 11/21/24 acetaminophen 500 mg tablet 500 mg PO QID Pain 5 11/21/24 (Acetaminophen Extra Strength) albuterol sulfate 90 mcg/actuation 2 puff inhalation Q 6H PRN 08/12/24 11/21/24 aerosol inhaler (ProAir HFA) Shortness Of Air/Wheezing aspirin 325 mg-sodium 1 ea PO QDAY PRN dyspepsia 0 08/12/24 11/21/24 bicarbonate-citric acid effervescent tablet (Eboni-[place] Original) gabapentin 300 mg capsule 300 mg PO HS 08/12/24 hydroxyzine HCl 25 mg tablet 25 mg PO TID 08/12/2404/09 hydroxyzine HCl 50 mg tablet 50 mg PO Q8H PRN anxiety 08/12/24 11/21/24 ipratropium 0.5 mg-albuterol 3 mg 3 ml inhalation QID PRN shortness 08/12/24 11/21/24 (2.5 mg base)/3 mL nebulization of breath or wheezing soln lamotrigine 200 mg tablet 200 mg PO DAILY 08/12/2404/09 lidocaine 4 % topical patch 1 patch topical Q12H PRN p ain 08/12/24 11/21/24 (Salonpas (lidocaine)) loperamide 2 mg tablet 2 mg PO QID PRN loose stool 08/12/24 11/21/24 magnesium oxide 400 mg PO DAILY 08/12/2404/09 melatonin 5 mg tablet 5 mg PO HS 08/12/24 11/21/24 meloxicam 7.5 mg tablet 7.5 mg PO BID 08/12/2411/21 metformin 500 mg tablet 500 mg PO BID 08/12/2411/21 metolazone 5 mg tablet 5 mg PO BID 08/12/24 5 olanzapine 5 mg tablet (Zyprexa) 5 mg PO HS mood stabi lization 08/12/24 11/21/24 ondansetron 4 mg disintegrating 4 mg PO Q6H PRN nausea and vomiting 08/12/24 11/21/24 tablet psyllium 1 tbsp PO QAM 08/12/2411/21 quetiapine 25 mg tablet 25 mg PO QID PRN agitation/s leep 08/12/24 11/21/24 quetiapine 300 mg tablet (Seroquel) 600 mg PO HS mood stabilization 08/12/24 11/21/24 sennosides 8.6 mg tablet (senna) 8.6 mg PO DAILY 08/1211/21/24 sumatriptan succinate 50 mg tablet See Rx Instructions PO .COMPLEX 08/12/24 11/21/24 tiotropium bromide 18 mcg capsule 18 mcg inhalation QP M 08/12/24 11/21/24 with inhalation device (Spiriva with HandiHaler) vitamin B complex 1 tab PO DAILY 08/12/2404/09 lorazepam 0.5 mg tablet 0.5 mg PO BID PRN Anxiety #0 tabs 10/29/24 11/21/24 polyethylene glycol 3350 17 17 g PO QDAY PRN constipat ion #238 11/12/24 11/21/24 gram/dose oral powder grams nicotine 7 mg/24 hr daily 1 patch transdermal DAILY 11/21/24 transdermal patch PHYSICAL EXAM AT DISCHARGE Vital Signs: Vital Signs x48h Temp Pulse Resp BP Pulse Ox 11/23/24 13:00 94 11/23/24 12:30 94 11/23/24 12:00 94 11/23/24 11:38 16 11/23/24 08:00 208.2 F H 25 H 141/95 H 11/23/24 07:41 18 11/23/24 07:00 63 24 131/102 H 93 11/23/24 06:00 16 136/92 H 94 LABS 11/23/24 04:21 11/23/24 04:21 Discharge Plan Discharge Patient Disposition: [facility]/Unit DC/Xfer Condition: Stable Prescriptions: No Action (DME) walker Misc See Rx Instructions .Route Qty: 1 0RF Rx Instructions: Use 1 walker to assist with mobility as needed. acetaminophen [Acetaminophen Extra Strength] 500 mg tablet 500 mg PO QID psyllium Powder 1 tbsp PO QAM Rx Instructions: mix into at least 8 oz of water or juice before administering gabapentin 300 mg capsule 300 mg PO HS lamotrigine 200 mg tablet 200 mg PO DAILY magnesium oxide 400 mg magnesium tablet 400 mg PO DAILY melatonin 5 mg tablet 5 mg PO HS meloxicam 7.5 mg tablet 7.5 mg PO BID metformin 500 mg tablet 500 mg PO BID metolazone 5 mg tablet 5 mg PO BID olanzapine [Zyprexa] 5 mg tablet 5 mg PO HS quetiapine [Seroquel] 300 mg tablet 600 mg PO HS Patient Comments: Rx by Psych sennosides [senna] 8.6 mg tablet 8.6 mg PO DAILY vitamin B complex Tablet 1 tab PO DAILY tiotropium bromide [Spiriva with HandiHaler] 18 mcg capsule, w/inhalation device 18 mcg inhalation QPM Rx Instructions: Inhale contents of 1 capsule via handihaler by mouth, in 2 separate inhalations every evening. acetaminophen 325 mg tablet 650 mg PO Q6H PRN (Reason: pain) Eboni-[place] Original 325 mg tablet, effervescent 1 ea PO QDAY PRN (Reason: dyspepsia) Rx Instructions: Use as directed on package hydroxyzine HCl 25 mg tablet 25 mg PO TID Rx Instructions: *Hold for drowsiness hydroxyzine HCl 50 mg tablet 50 mg PO Q8H PRN (Reason: anxiety) loperamide 2 mg tablet 2 mg PO QID PRN (Reason: loose stool) Rx Instructions: Take 1 tablet by mouth as needed after each unformed stool, up to four times daily ondansetron 4 mg tablet,disintegrating 4 mg PO Q6H PRN (Reason: nausea and vomiting) quetiapine 25 mg tablet 25 mg PO QID PRN (Reason: agitation/sleep) Patient Comments: rx by Psych- Rx Instructions: Take 1 tablet by mouth up to four times daily as needed for agitation/sleep sumatriptan succinate 50 mg tablet See Rx Instructions PO .COMPLEX Rx Instructions: take 1 tab at onset of headache; if no relief may repeat 1 tab after at least 2 hrs; max = 4 tabs/24 hr PO albuterol sulfate [ProAir HFA] 90 mcg/actuation HFA aerosol inhaler 2 puff inhalation Q6H PRN (Reason: Shortness Of Air/Wheezing) ipratropium-albuterol 0.5 mg-3 mg(2.5 mg base)/3 mL solution for nebulization 3 ml inhalation QID PRN (Reason: shortness of breath or wheezing) lidocaine [Salonpas (lidocaine)] 4 % adhesive patch,medicated 1 patch topical Q12H PRN (Reason: pain) Rx Instructions: Apply 1 patch to affected area and leave in place for up to 8-12 hours; do not exceed 1 patch/application. If pain still present a second patch may be applied for up to 8-12 hours. Max 2 patch/24 hours; 3 days of consecutive use. polyethylene glycol 3350 17 gram/dose powder 17 g PO QDAY PRN (Reason: constipation) Qty: 238 1RF Rx Instructions: Use 1 capful (fill to 17GM line), dissolve in 8 OZ of liquid and take by mouth every day montelukast 10 MG tablet 10 mg PO QPM Dulera 13 GM HFA aerosol inhaler 1 puff inhalation BID Artificial Tears (cmc) 15 ML drops 1 drp ophthalmic (eye) PRN PRN (Reason: As Needed Per Provider Orders) albuterol sulfate 2.5 MG/3 ML solution for nebulization 2.5 mg inhalation RTQ4H PRN (Reason: Wheezing) 0RF Rx Instructions: RX for machine, tubing and meds sent to [facility] as well as Rx for Trilogy mask lisinopril 5 MG tablet 5 mg PO DAILY potassium chloride [Klor-Con M20] 20 MEQ tablet,ER particles/crystals 20 meq PO DAILY nicotine 7 mg/24 hr patch 24 hour 1 patch transdermal DAILY lorazepam 0.5 mg tablet 0.5 mg PO BID PRN (Reason: Anxiety) Qty: 0 0RF Rx Instructions: rx by psych Germone [facility]hall baclofen 20 mg tablet 20 mg PO TID [facility]DME[facility] Instructions .MEDSUPPLY Qty: 1 0RF Rx Instructions: oLrenzo earl- As directed Print Language: Mongolian Stand Alone Forms: PCP List Follow-up Care: Kiarra Solis, YOUTH MANAGER [Primary Care Provider] -
[2024-11-23 14:45] LABS: CALCIUM 9.7 mg/dL (8.5-10.3); CREATININE 0.6 mg/dL (0.6-1.3); POTASSIUM 3.6 mmol/L (3.5-4.5)
[2024-11-23] MEDS: SODIUM CHLORIDE 1 GM TABLET PO SCH (17:30)
[2024-11-23] MEDS: OLANZapine 10 MG VIAL IM SCH (20:55)
[2024-11-24 04:50] LABS: HCT - HEMATOCRIT 33.4 % (37.0-47.0); HGB - HEMOGLOBIN 11.2 g/dL (12.0-16.0); MEAN CORPUSCULAR HEMOGLOBIN 30.4 pg (27.0-31.0); MEAN CORPUSCULAR HGB CONC 33.5 g/dL (32.0-36.0); MEAN CORPUSCULAR VOLUME 90.8 fL (81.0-99.0); MEAN PLATELET VOLUME 8.5 fL (7.9-10.8); RED BLOOD COUNT 3.68 10^6/uL (4.20-5.40); RED CELL DISTRIBUTION WIDTH 13.9 % (12.0-15.0); WHITE BLOOD COUNT 7.9 x10^3/uL (4.8-10.8)
[2024-11-24 05:01] LABS: MAGNESIUM 1.6 mg/dL (1.7-2.3)
[2024-11-24 05:07] LABS: CALCIUM 9.7 mg/dL (8.5-10.3); CREATININE 0.6 mg/dL (0.6-1.3); POTASSIUM 3.6 mmol/L (3.5-4.5)
[2024-11-24] MEDS: LORazepam 1 MG TABLET PO PRN (08:52)
[2024-11-24] MEDS: SODIUM CHLORIDE 0.9% 500 ML IV ONE (09:36)
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
--- NOTE | 2024-11-24 11:44 | TELEPSYCH PHYS NOTE ---
[facility] Telepsych Progress Note Reassessment Consult Date: 11/24/24 Initial Assessment Notes: Pt is a 69 yoF w/ unknown psychiatric hx (was on Seroquel 600mg qhs) and chronic medical conditions who was medically admitted to ICU for hyponatremia. Pt has been medically cleared with hyponatremia resolving. Interval History: Initially, per chart review, pt presented with manic and depressive symptoms. Today, she is internally preoccupied, paranoid, and delusional. She continues to feel people are going to get her. She endorses having AH that tell her she is going home. Denies SI, denies HI. Collateral with nurse: Pt is medically cleared, they do not have any family members information or someone I could call to obtain more information. Suicide Ideation - Homicide Ideation - Self Harm: Denies SI, denies HI Mental Status Exam Appearance and Attire: hospital clothes, casually groomed Attitude and Behavior: cooperative, no PMA, no PMR Speech: speech paucity at times Affect and Mood: "ok" flat affect Association and Thought Process: loose, thought blocking, concrete Thought Content: denies SI, denies HI Perception: endorses AH, internally preoccupied Sensorium, memory and orientation: alert and oriented to person, place, memory grossly intact Intellectual - Cognitive functioning: fair Insight and Judgement: poor, poor Impression / Risk Assessment: Pt is a 69 yoF w/ unknown psychiatric hx (was on Seroquel 600mg qhs) and chronic medical conditions who was medically admitted to ICU for hyponatremia. Pt has been medically cleared with hyponatremia resolving. Pt continues to be delusional, thought blocking, endorses AH, and is internally preoccupied. Given this, pt requires inpatient psychiatric hospitalization for safety, medication management, and discharge planning. Treatment Therapy Recommendations: - Inpatient psychiatric hospitalization Pharmacological Recommendations: - Decrease Seroquel to 200mg qhs - Increase Zyprexa to 15mg qhs Time Spent & Provider Location Telepsych consultation conducted via videoconferencing: Yes List names and roles of persons who participated in consult: Rachel Solorzano MD Telepsych Provider Location: [place] Time Spent (Minutes):
--- NOTE | 2024-11-24 11:53 | PROVIDER PROGRESS NOTE ---
Subjective Subjective Subjective: Patient's hyponatremia has resolved. She is acutely manic. She has pressured speech, and has been talking nonstop. Some of it makes sense, largely it is nonsensical. This morning she is more calm, her speech is less pressured. She is medically cleared for further psychiatric treatment. Current Medications Current Medications Current Medications: Current Medications Generic Name Dose Route Start Last Admin Trade Name Freq PRN Reason Stop Dose Admin Acetaminophen 650 mg 11/21/24 01:37 11/24/24 09:44 Acetaminophen 325 Mg Tablet PO 650 mg Q6H PRN Administration pain OF 1-4, fever Albuterol/Ipratropium 3 ml 11/21/24 02:33 Ipratropium/Albuterol 3 Ml Neb INH QID PRN Shortness of Air/Wheezing Albuterol/Ipratropium 3 ml 11/23/24 11:53 Ipratropium/Albuterol 3 Ml Neb INH RTQID PRN Dyspnea Baclofen 20 mg 11/22/24 10:15 11/24/24 06:28 Baclofen 10 Mg Tablet PO 20 mg TID EMORY Administration Benzonatate 100 mg 11/21/24 01:37 Benzonatate 100 Mg Capsule PO TID PRN Cough Budesonide 0.5 mg 11/21/24 19:00 11/24/24 10:00 Budesonide 0.5 Mg/2 Ml Neb INH Not Given RTBID EMORY Carboxymethylcellulose 1 drops 11/21/24 07:04 Carboxymethylcellulose Ophth Drops EACHEYE Q4HR PRN Dry Eye Enoxaparin Sodium 40 mg 11/21/24 09:00 11/24/24 08:47 Enoxaparin 40 Mg/0.4 Ml Syringe SUBQ 40 mg DAILY EMORY Administration Formoterol Fumarate 20 mcg 11/21/24 19:00 11/24/24 10:00 Formoterol Fumarate Neb 20 Mcg/2 Ml INH Not Given RTBID EMORY Gabapentin 300 mg 11/21/24 21:00 11/23/24 21:33 Gabapentin 300 Mg Capsule PO 300 mg HS EMORY Administration Hydroxyzine Pamoate 25 mg 11/21/24 14:00 11/24/24 06:28 Hydroxyzine Pamoate 25 Mg Capsule PO 25 mg TID EMORY Administration Insulin Human Lispro 1 - 5 unit 11/21/24 08:00 11/24/24 08:45 Insulin Lispro 300 Unit/3 Ml Pen SUBQ Not Given 0800,1200,1700,2100 [facility] Protocol Lamotrigine 200 mg 11/22/24 09:00 11/24/24 08:47 Lamotrigine 100 Mg Tablet PO 200 mg DAILY EMORY Administration Lisinopril 5 mg 11/21/24 14:20 11/24/24 08:46 Lisinopril 5 Mg Tablet PO 5 mg DAILY EMORY Administration Lorazepam 1 mg 11/23/24 07:34 11/24/24 08:52 Lorazepam 1 Mg Tablet PO 1 mg BID PRN Administration Anxiety Magnesium Oxide 400 mg 11/21/24 09:00 11/24/24 08:46 Magnesium Oxide 400 Mg Tablet PO 400 mg DAILY [facility] Administration Melatonin 3 mg 11/21/24 21:00 11/23/24 21:33 Melatonin 3 Mg Tablet PO 3 mg QPM EMORY Administration Metolazone 5 mg 11/21/24 21:00 11/24/24 09:36 Metolazone 2.5 Mg Tablet PO 5 mg BID [facility] Administration Morphine Sulfate 2 mg 11/22/24 13:30 Morphine 2 Mg/Ml Carpuject IVP Q8HR PRN Pain OF 5-10 Multivitamins/Minerals 1 tab 11/21/24 08:00 11/24/24 08:47 Multivitamin W/Minerals Tablet PO 1 tab DAILYWM EMORY Administration Olanzapine 5 mg 11/22/24 18:48 11/23/24 03:32 Olanzapine Odt 5 Mg Tablet TL 5 mg DAILY PRN Administration Agitation Olanzapine 15 mg 11/24/24 21:00 Olanzapine 10 Mg Vial IM NIGHTLY [facility] Ondansetron HCl 4 mg 11/21/24 01:21 Ondansetron Odt 4 Mg Tablet PO Q6H PRN nausea and vomiting Ondansetron HCl 4 mg 11/21/24 01:37 Ondansetron 4 Mg/2 Ml Vial IVP Q8H PRN Nausea / Vomiting Pantoprazole Sodium 40 mg 11/23/24 07:30 11/24/24 06:28 Pantoprazole 40 Mg Tablet PO 40 mg QDAC [facility] Administration Aspirin-Sod Bicarb- 1 each 11/21/24 11:07 Citric Acid [[place]- PO [place] Original] DAILY PRN 325 Mg Tablet DYSPEPSIA Phenol/Menthol 1 sprays 11/21/24 01:37 Phenol Throat [place] 177 Ml MM Q4HR PRN Mouth Sore Pain Polyethylene Glycol 17 gm 11/21/24 09:00 Polyethylene Glycol 3350 17 Gm Packet PO DAILY PRN constipation Potassium Chloride 20 meq 11/21/24 09:00 11/24/24 08:48 Potassium Chloride 20 Meq Tablet PO 20 meq DAILY EMORY Administration Psyllium Hydrophilic Mucilloid 1 packet 11/21/24 07:05 Psyllium Packet PO DAILY PRN Constipation Quetiapine Fumarate 200 mg 11/24/24 21:00 Quetiapine 100 Mg Tablet PO HS EMORY Senna 8.6 mg 11/21/24 09:00 11/24/24 08:46 Senna 8.6 Mg Tablet PO 8.6 mg DAILY EMORY Administration Sodium Chloride 1 gm 11/23/24 17:00 11/24/24 06:28 Sodium Chloride 1 Gm Tablet PO 1 gm TID EMORY Administration Throat Lozenges 1 lozenge 11/21/24 01:37 Benzocaine/Menthol Lozenge MM Q2HR PRN Mouth Sore Pain Objective Vital Signs/Intake & Output Reviewed Vital Signs: Yes Vital Signs: Vital Signs x48h Temp Pulse Resp BP Pulse Ox 11/24/24 11:04 96 11/24/24 10:01 96 11/24/24 07:58 97.4 F L 101 H 20 159/102 H 98 11/24/24 06:49 96 11/24/24 06:00 97 11/24/24 05:00 96 11/24/24 04:19 98.6 F 104 H 20 153/85 H 95 Intake & Output: Intake & Output 11/21/24 11/22/24 11/23/24 11/24/24 23:59 23:59 23:59 23:59 Intake Total 1740 / 1740 1652 / 1652 465 / 465 760 / 760 Output Total 350 / 350 2175 / 2175 1400 / 1400 Balance 1390 / 1390 -523 / -523 -935 / -935 760 / 760 Weight (kg) 118 kg Objective General Appearance: positive Mild distress and Anxious Eyes Bilateral: positive Normal inspection, PERRL and EOMI ENT: positive ENT inspection nml, Pharynx nml and No signs of dehydration Neck: positive Nml inspection, Thyroid nml, No JVD and Trachea midline Respiratory: positive Chest non-tender and Rales (mild bibasilar); negative Wheezes or Rhonchi Cardiovascular: positive No murmur, No gallop and Tachycardia; negative Diastolic murmur Abdomen: positive Non-tender, Nml bowel sounds and No distention Back: positive Nml inspection; negative CVA tenderness (R) or CVA tenderness (L) Skin: positive Color nml, No rash, Warm and Dry Extremities: positive Non-tender, Full ROM and No pedal edema Neurologic/Psychiatric: positive Disoriented to person and Other (flight of ideas, pressured speech, emotional outbursts); negative Disoriented to place or Disoriented to time Lab Results 11/24/24 04:17 11/24/24 12:04 Other Labs: Lab Results x24hrs 11/24/24 11/24/24 11/24/24 Range/Units 11:48 07:50 04:17 WBC 7.9 (4.8-10.8) x10^3/uL RBC 3.68 L (4.20-5.40) 10^6/uL Hgb 11.2 L (12.0-16.0) g/dL Hct 33.4 L (37.0-47.0) % MCV 90.8 (81.0-99.0) fL MCH 30.4 (27.0-31.0) pg MCHC 33.5 (32.0-36.0) g/dL RDW 13.9 (12.0-15.0) % Plt Count 319 (130-450) 10^3/uL MPV 8.5 (7.9-10.8) fL Sodium 131 L (135-145) mmol/L Potassium 3.6 (3.5-4.5) mmol/L Chloride 92 L (101-111) mmol/L Carbon Dioxide 30 (21-32) mmol/L Anion Gap 9.0 (6-13) BUN 9 (6-20) mg/dL Creatinine 0.6 (0.6-1.3) mg/dL Estimated GFR (MDRD) 99 (>89) Glucose 107 H (74-104) mg/dL POC Whole Bld Glucose 122 112 (70-100) mg/dL Calcium 9.7 (8.5-10.3) mg/dL Magnesium 1.6 L (1.7-2.3) mg/dL 11/23/24 11/23/24 11/23/24 Range/Units 21:27 16:50 14:02 WBC (4.8-10.8) x10^3/uL RBC (4.20-5.40) 10^6/uL Hgb (12.0-16.0) g/dL Hct (37.0-47.0) % MCV (81.0-99.0) fL MCH (27.0-31.0) pg MCHC (32.0-36.0) g/dL RDW (12.0-15.0) % Plt Count (130-450) 10^3/uL MPV (7.9-10.8) fL Sodium 130 L (135-145) mmol/L Potassium 3.6 (3.5-4.5) mmol/L Chloride 92 L (101-111) mmol/L Carbon Dioxide 30 (21-32) mmol/L Anion Gap 8.0 (6-13) BUN 6 (6-20) mg/dL Creatinine 0.6 (0.6-1.3) mg/dL Estimated GFR (MDRD) 99 (>89) Glucose 123 H (74-104) mg/dL POC Whole Bld Glucose 110 128 (70-100) mg/dL Calcium 9.7 (8.5-10.3) mg/dL Magnesium (1.7-2.3) mg/dL Diagnostic Imaging Diagnostic Imaging Results: positive Final report reviewed Assessment/Plan Problem List (1) Acute hyponatremia: Impression: Patient presented with hyponatremia, with sodium of 117. She appeared euvolemic on admission. Concerns for polydipsia versus medication side effects resulting in this hyponatremia. She received normal saline, with goal correction rate of 6-8 mL equivalents over 24 hours. Her sodium corrected appropriately. Telepsych spoken with on 11/21 for medication recommendations: For hyponatremia, the only change that they recommended was cutting the Seroquel in the evening to half her normal dose i.e. from 600 to 300 mg at night. Today, they recommended further decrease to 200mg at night, and increasing Zyprexa to 15mg at night. Patient is also acutely psychotic, with tangential speech, flight of ideas, pressurized speech. Patient is medically cleared. (2) Rhabdomyolysis: Impression: CPK was elevated on admission. Creatinine is within normal limits. Completed IV fluids at this time. Encourage p.o. intake. Qualifiers: Rhabdomyolysis type: non-traumatic Qualified Code(s): M62.82 - Rhabdomyolysis (3) Acute psychosis: Impression: Patient with pressured speech, flight of ideas, frequent emotional outbursts. Has a longstanding history of bipolar disorder and schizophrenia, and is on many medications for including Seroquel, Lamictal, Ativan, Zyprexa. Telepsych consulted - appropriate for inpatient psychiatry. Today, they recommended further decrease to 200mg at night, and increasing Zyprexa to 15mg at night. DCR involved, SW following. (4) Hypertension associated with diabetes: Impression: Continue home metolazone, lisinopril. (5) Diabetes mellitus type 2 with complications: Impression: Continue low-dose sliding scale. (6) COPD (chronic obstructive pulmonary disease): Impression: Continue DuoNebs RT 4 times daily as needed, continue inhalers on discharge. Qualifiers: COPD type: unspecified COPD Qualified Code(s): J44.9 - Chronic obstructive pulmonary disease, unspecified (7) Bipolar disorder: Impression: History of bipolar disorder and schizophrenia. Continue home medications as per psych recommendations including Zyprexa, Lamictal, hydroxyzine, Seroquel at a lower dose, Ativan as needed. Qualifiers: Active/Remission status: remission status unspecified Qualified Code(s): F31.9 - Bipolar disorder, unspecified (8) Congestive heart failure: Impression: Patient appears euvolemic at this time. Chest x-ray with no fluid overload noted. Patient is not dyspneic. Continue home metolazone. Patient is not on any other diuretic. Qualifiers: Heart failure chronicity: unspecified Heart failure type: unspecified Qualified Code(s): I50.9 - Heart failure, unspecified
[2024-11-24 12:34] LABS: CALCIUM 9.8 mg/dL (8.5-10.3); CREATININE 0.6 mg/dL (0.6-1.3); POTASSIUM 3.5 mmol/L (3.5-4.5)
[2024-11-24] MEDS: SODIUM CHLORIDE 0.9% 1,000 ML IV SCH (13:40)
[2024-11-24 17:24] LABS: CALCIUM 9.6 mg/dL (8.5-10.3); CREATININE 0.6 mg/dL (0.6-1.3); POTASSIUM 3.1 mmol/L (3.5-4.5)
[2024-11-24] MEDS: POTASSIUM CHLORIDE 20 MEQ TABLET PO ONE (18:56)
[2024-11-24] MEDS: QUEtiapine 100 MG TABLET PO SCH (22:10)
[2024-11-24] MEDS: OLANZapine ODT 5 MG TABLET TL SCH (22:11)
[2024-11-24] MEDS: OLANZapine 10 MG VIAL IM SCH (23:19)
[2024-11-25 04:53] LABS: HCT - HEMATOCRIT 33.1 % (37.0-47.0); HGB - HEMOGLOBIN 10.8 g/dL (12.0-16.0); MEAN CORPUSCULAR HEMOGLOBIN 29.8 pg (27.0-31.0); MEAN CORPUSCULAR HGB CONC 32.6 g/dL (32.0-36.0); MEAN CORPUSCULAR VOLUME 91.4 fL (81.0-99.0); MEAN PLATELET VOLUME 8.2 fL (7.9-10.8); RED BLOOD COUNT 3.62 10^6/uL (4.20-5.40); RED CELL DISTRIBUTION WIDTH 13.8 % (12.0-15.0); WHITE BLOOD COUNT 6.9 x10^3/uL (4.8-10.8)
[2024-11-25 05:10] LABS: ALBUMIN 3.6 g/dL (3.2-5.5); ALBUMIN/GLOBULIN RATIO 1.2 (1.0-2.2); BILIRUBIN,TOTAL 0.4 mg/dL (0.2-1.0); CALCIUM 9.2 mg/dL (8.5-10.3); CREATININE 0.6 mg/dL (0.6-1.3); MAGNESIUM 1.4 mg/dL (1.7-2.3); POTASSIUM 3.5 mmol/L (3.5-4.5); TOTAL PROTEIN 6.5 g/dL (6.4-8.9)
[2024-11-25 06:27] VITALS: TEMP 98.2
[2024-11-25 08:15] VITALS: BP 150/90; O2SAT 97
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
--- NOTE | 2024-11-25 12:47 | Discharge Summary ---
"Discharge Summary Admit Date: 11/21/24 Discharge Date: 11/25/24 Discharging Provider: Dr Jean Mitchell MD Primary Care Provider: ELLA Crawley Code Status: Attempt Resuscitation DIAGNOSES Admission Diagnoses: Hyponatremia Toxic metabolic encephalopathy Rhabdomyolysis Discharge Diagnoses with Status of Each Condition: Acute hyponatremiaimproved Rhabdomyolysisresolved Acute psychosisresolved HTN associated with diabetesstable Diabetes type 2 with complicationsstable COPDstable Bipolar disorderimproved CHFstable HPI History of Present Illness: pt brought in to hospital from [facility] d/t reports from staff that mentation has been abnormal for past 3-4 days, without obvious inciting factors. no fevers, chills, chest pain, sob, or recent travels reported. no falls or head injuries reported. pt with h/o schizophrenia and bipolar. pt tries to answer questions and talk, but only a whisper, and very brief. CONSULTS | PROCEDURES Consultations: Telepsychiatry HOSPITAL COURSE Hospital Course: (1) Acute hyponatremia: * Patient presented with hyponatremia, with sodium of 117. She appeared euvolemic on admission. Concerns for polydipsia versus medication side effects (metalozone) resulting in this hyponatremia. * She received normal saline, with goal correction rate of 6-8 mL equivalents over 24 hours. Her sodium corrected appropriately. * On day of discharge her sodium level was 132 * She will be discharged on sodium tablets * I am also recommending decreasing the Metolazone to once daily from twice daily dosing as this is known to be associated with hyponatremia * Patient is medically cleared. (2) Rhabdomyolysis: CPK was elevated on admission. Creatinine is within normal limits. (3) Acute psychosis: * Patient with pressured speech, flight of ideas, frequent emotional outbursts on admission. * Telepsych spoken with on 11/21 for medication recommendations: Recommended further decrease Seroquel to 200mg at night, and increasing Zyprexa to 15mg at night. Psychosis has resolved (4) Hypertension associated with diabetes: * Stable * Decrease metolazone from BID to QD * Cont, lisinopril (5) Diabetes mellitus type 2 with complications: * Stable * Continue low-dose sliding scale. (6) COPD (chronic obstructive pulmonary disease): * Stable, not in exacerbation * Continue DuoNebs RT 4 times daily as needed, continue inhalers on discharge. (7) Bipolar disorder: * Improved as above * Ok to d/c by telepsych (8) Congestive heart failure: * Patient appears euvolemic at this time. Chest x-ray with no fluid overload noted. Patient is not dyspneic. * Continue home metolazone. Patient is not on any other diuretic. ALLERGIES Allergies Allergy/AdvReac Type Severity Reaction Status Date / Time Androgenic Anabolic Steroid Allergy Unknown Verified 10/29/24 14:31 Neuromuscular Blockers, Allergy Unknown Verified 10/29/24 14:31 Steroidal Penicillins Allergy Unknown Verified 10/29/24 14:31 MEDICATIONS Ambulatory Orders Medication Instructions Recorded Confirmed carboxymethylcellulose sodium 1 % 1 drp ophthalmic (ey e) PRN PRN As 01/13/20 11/21/24 eye drops (Artificial Tears Needed Per Provider Orders (carboxymethylcellulose)) mometasone-formoterol HFA 200 1 puff inhalation BID 11/21/24 mcg-5 mcg/actuation aerosol inhaler (Dulera) montelukast 10 mg tablet 10 mg PO QPM 01/13/20 albuterol sulfate 2.5 mg/3 mL 2.5 mg (3 mL) inhalation RTQ4H PRN 09/18/20 11/21/24 (0.083 %) solution for nebulization Wheezing lisinopril 5 mg tablet 5 mg PO DAILY 09/01/2111/21 potassium chloride 20 mEq 20 meq PO DAILY 09/01/2104/09 tablet,extended release(part/cryst) (Klor-Con M) mady #1 ea 06/03/24 10/29/24 baclofen 20 mg tablet 20 mg PO TID 07/30/24 mady #1 ea 07/30/24 10/29/24 acetaminophen 325 mg tablet 650 mg PO Q6H PRN pain 11/21/24 acetaminophen 500 mg tablet 500 mg PO QID Pain 5 11/21/24 (Acetaminophen Extra Strength) albuterol sulfate 90 mcg/actuation 2 puff inhalation Q 6H PRN 08/12/24 11/21/24 aerosol inhaler (ProAir HFA) Shortness Of Air/Wheezing aspirin 325 mg-sodium 1 ea PO QDAY PRN dyspepsia 0 08/12/24 11/21/24 bicarbonate-citric acid effervescent tablet (Eboni-Gui Original) gabapentin 300 mg capsule 300 mg PO HS 08/12/24 hydroxyzine HCl 25 mg tablet 25 mg PO TID 08/12/2404/09 hydroxyzine HCl 50 mg tablet 50 mg PO Q8H PRN anxiety 08/12/24 11/21/24 ipratropium 0.5 mg-albuterol 3 mg 3 ml inhalation QID PRN shortness 08/12/24 11/21/24 (2.5 mg base)/3 mL nebulization of breath or wheezing soln lamotrigine 200 mg tablet 200 mg PO DAILY 08/12/2404/09 lidocaine 4 % topical patch 1 patch topical Q12H PRN p ain 08/12/24 11/21/24 (Salonpas (lidocaine)) loperamide 2 mg tablet 2 mg PO QID PRN loose stool 08/12/24 11/21/24 magnesium oxide 400 mg PO DAILY 08/12/2404/09 melatonin 5 mg tablet 5 mg PO HS 08/12/24 11/21/24 meloxicam 7.5 mg tablet 7.5 mg PO BID 08/12/2411/21 metformin 500 mg tablet 500 mg PO BID 08/12/2411/21 metolazone 5 mg tablet 5 mg PO BID 08/12/24 5 olanzapine 5 mg tablet (Zyprexa) 5 mg PO HS mood stabi lization 08/12/24 11/21/24 ondansetron 4 mg disintegrating 4 mg PO Q6H PRN nausea and vomiting 08/12/24 11/21/24 tablet psyllium 1 tbsp PO QAM 08/12/2411/21 quetiapine 25 mg tablet 25 mg PO QID PRN agitation/s leep 08/12/24 11/21/24 quetiapine 300 mg tablet (Seroquel) 600 mg PO HS mood stabilization 08/12/24 11/21/24 sennosides 8.6 mg tablet (senna) 8.6 mg PO DAILY 08/1211/21/24 sumatriptan succinate 50 mg tablet See Rx Instructions PO .COMPLEX 08/12/24 11/21/24 tiotropium bromide 18 mcg capsule 18 mcg inhalation QP M 08/12/24 11/21/24 with inhalation device (Spiriva with HandiHaler) vitamin B complex 1 tab PO DAILY 08/12/2404/09 lorazepam 0.5 mg tablet 0.5 mg PO BID PRN Anxiety #0 tabs 10/29/24 11/21/24 polyethylene glycol 3350 17 17 g PO QDAY PRN constipat ion #238 11/12/24 11/21/24 gram/dose oral powder grams nicotine 7 mg/24 hr daily 1 patch transdermal DAILY 11/21/24 transdermal patch PHYSICAL EXAM AT DISCHARGE Vital Signs: Vital Signs x48h Temp Pulse Pulse Resp BP Pulse Ox 11/25/24 09:32 96 16 11/25/24 08:14 36.8 C 93 18 150/90 H 97 11/25/24 06: 36.8 C 78 18 117/79 95 General Appearance: positive No acute distress Respiratory: positive No respiratory distress Cardiovascular: positive Regular rate & rhythm Abdomen: positive Non-tender and No distention Skin: positive Color nml Extremities: positive No pedal edema Neurologic/Psychiatric: positive Oriented x3 and CN's nml (2-12); negative Slurred/abnml speech LABS 11/25/24 04:25 11/25/24 04:25 DIAGNOSTIC IMAGING Diagnostic Imaging Results: Final report reviewed SEPSIS Current Stage of Sepsis: Ruled out TIME SPENT Time Spent in Discharge (Minutes): 36 Discharge Plan Discharge Patient Disposition: 65 Psych Hosp/Unit DC/Xfer Condition: Stable Medically Cleared Date:: 11/25/24 Prescriptions: New sodium chloride 1,000 mg Tablet,Soluble 1,000 mg PO TID Qty: 30 0RF Continued (DME) walker Misc See Rx Instructions .Route Qty: 1 0RF Rx Instructions: Use 1 walker to assist with mobility as needed. acetaminophen [Acetaminophen Extra Strength] 500 mg tablet 500 mg PO QID psyllium Powder 1 tbsp PO QAM Rx Instructions: mix into at least 8 oz of water or juice before administering gabapentin 300 mg capsule 300 mg PO HS lamotrigine 200 mg tablet 200 mg PO DAILY magnesium oxide 400 mg magnesium tablet 400 mg PO DAILY melatonin 5 mg tablet 5 mg PO HS metformin 500 mg tablet 500 mg PO BID olanzapine [Zyprexa] 5 mg tablet 5 mg PO HS quetiapine [Seroquel] 300 mg tablet 600 mg PO HS Patient Comments: Rx by Psych sennosides [senna] 8.6 mg tablet 8.6 mg PO DAILY vitamin B complex Tablet 1 tab PO DAILY tiotropium bromide [Spiriva with HandiHaler] 18 mcg capsule, w/inhalation device 18 mcg inhalation QPM Rx Instructions: Inhale contents of 1 capsule via handihaler by mouth, in 2 separate inhalations every evening. Eboni-[place] Original 325 mg tablet, effervescent 1 ea PO QDAY PRN (Reason: dyspepsia) Rx Instructions: Use as directed on package hydroxyzine HCl 25 mg tablet 25 mg PO TID Rx Instructions: *Hold for drowsiness loperamide 2 mg tablet 2 mg PO QID PRN (Reason: loose stool) Rx Instructions: Take 1 tablet by mouth as needed after each unformed stool, up to four times daily ondansetron 4 mg tablet,disintegrating 4 mg PO Q6H PRN (Reason: nausea and vomiting) quetiapine 25 mg tablet 25 mg PO QID PRN (Reason: agitation/sleep) Patient Comments: rx by Psych- Rx Instructions: Take 1 tablet by mouth up to four times daily as needed for agitation/sleep albuterol sulfate [ProAir HFA] 90 mcg/actuation HFA aerosol inhaler 2 puff inhalation Q6H PRN (Reason: Shortness Of Air/Wheezing) ipratropium-albuterol 0.5 mg-3 mg(2.5 mg base)/3 mL solution for nebulization 3 ml inhalation QID PRN (Reason: shortness of breath or wheezing) lidocaine [Salonpas (lidocaine)] 4 % adhesive patch,medicated 1 patch topical Q12H PRN (Reason: pain) Rx Instructions: Apply 1 patch to affected area and leave in place for up to 8-12 hours; do not exceed 1 patch/application. If pain still present a second patch may be applied for up to 8-12 hours. Max 2 patch/24 hours; 3 days of consecutive use. polyethylene glycol 3350 17 gram/dose powder 17 g PO QDAY PRN (Reason: constipation) Qty: 238 1RF Rx Instructions: Use 1 capful (fill to 17GM line), dissolve in 8 OZ of liquid and take by mouth every day montelukast 10 MG tablet 10 mg PO QPM Dulera 13 GM HFA aerosol inhaler 1 puff inhalation BID Artificial Tears (cmc) 15 ML drops 1 drp ophthalmic (eye) PRN PRN (Reason: As Needed Per Provider Orders) albuterol sulfate 2.5 MG/3 ML solution for nebulization 2.5 mg inhalation RTQ4H PRN (Reason: Wheezing) 0RF Rx Instructions: RX for machine, tubing and meds sent to [facility] as well as Rx for Trilogy mask lisinopril 5 MG tablet 5 mg PO DAILY potassium chloride [Klor-Con M20] 20 MEQ tablet,ER particles/crystals 20 meq PO DAILY lorazepam 0.5 mg tablet 0.5 mg PO BID PRN (Reason: Anxiety) Qty: 0 0RF Rx Instructions: rx by psych Germone Morena baclofen 20 mg tablet 20 mg PO TID (DME) mady [facility] See Rx Instructions .MEDSUPPLY Qty: 1 0RF Rx Instructions: Nadege/shirley earl- As directed Changed metolazone 5 mg tablet 5 mg PO DAILY Qty: 30 0RF Discontinued meloxicam 7.5 mg tablet 7.5 mg PO BID acetaminophen 325 mg tablet 650 mg PO Q6H PRN (Reason: pain) hydroxyzine HCl 50 mg tablet 50 mg PO Q8H PRN (Reason: anxiety) nicotine 7 mg/24 hr patch 24 hour 1 patch transdermal DAILY No Action sumatriptan succinate 50 mg tablet See Rx Instructions PO .COMPLEX Rx Instructions: take 1 tab at onset of headache; if no relief may repeat 1 tab after at least 2 hrs; max = 4 tabs/24 hr PO Activity Restrictions: Activity as Tolerated Diet: Diabetic Health Concerns: You were admitted to the hospital because of a change in your mental status that appeared to be associated with a low sodium level, called hyponatremia. The good news is your mental status has improved and I think you are back to normal now. You will want to continue your medications for bipolar disease, and follow the recommendations of psychiatry, but otherwise the concerns that led you to being taken to the hospital have significantly improved if not resolved entirely. In addition, your sodium level which was too low when you came in, has improved significantly and is almost normal. You may benefit from continuing sodium tablets which I will send a prescription for as that should help maintain your sodium levels where they need to be. Print Language: Korean Patient Instructions: Rhabdomyolysis, Hyponatremia Dc Stand Alone Forms: PCP List Follow-up Care: Kiarra Solis ARNP [Primary Care Provider] -"
[2024-11-25] MEDS ORDERED: MAGNESIUM OXIDE 400 MG TABLET PO SCH (17:00)
== END 2024-11-25 14:18 | DRG 641 ==
LOC: ED 22:22 → MS2 11-21 01:44 → ICU 11-21 02:38
PROVIDERS: ADMIT Student in an Organized Health Care Education/Training Program; ATTEND Student in an Organized Health Care Education/Training Program
DX: Z79.84 Long term (current) use of oral hypoglycemic drugs; F17.210 Nicotine dependence, cigarettes, uncomplicated; R41.82 Altered mental status, unspecified; M19.90 Unspecified osteoarthritis, unspecified site; D64.9 Anemia, unspecified; R32 Unspecified urinary incontinence; F23 Brief psychotic disorder; R35.0 Frequency of micturition; I11.0 Hypertensive heart disease with heart failure; E11.9 Type 2 diabetes mellitus without complications; E87.1 Hypo-osmolality and hyponatremia; F20.9 Schizophrenia, unspecified; J44.9 Chronic obstructive pulmonary disease, unspecified; M62.82 Rhabdomyolysis; F41.9 Anxiety disorder, unspecified; I50.9 Heart failure, unspecified; F31.9 Bipolar disorder, unspecified